=== PATIENT | female | born 2000 | race Caucasian/White ===

== ENCOUNTER 2022-04-26 12:52 | Outpatient (CLI) | payer OTHER, SELFPAY ==
[2022-04-26 13:44] LABS: Beta HCG Quantitative < 2.39 mIU/ML
[2022-04-30 14:16] LABS: Progesterone 0.6 ng/mL (***)
== END 2022-04-26 12:53 | disposition home or self-care (01) ==
PROVIDERS: Visit Provider Obstetrics & Gynecology
DX: O20.0 Threatened abortion (principal)
CPT/HCPCS: 36415; 84144; 84702; 85461

== ENCOUNTER 2022-12-22 11:37 | Outpatient (CLI) | payer OTHER, SELFPAY ==
[2022-12-22 13:08] LABS: Beta HCG Quantitative < 2.39 mIU/ML
== END 2022-12-22 11:38 | disposition home or self-care (01) ==
PROVIDERS: Visit Provider Obstetrics & Gynecology
DX: N91.2 Amenorrhea, unspecified (principal)
CPT/HCPCS: 36415; 84702

== ENCOUNTER 2022-12-22 13:58 | Outpatient (CLI) | payer OTHER, SELFPAY ==
--- NOTE | ~2022-12-22 | CT_ITS ---
EXAMINATION: CT abdomen pelvis w con DATE: 12/22/2022 14:22 INDICATION: Upper abdominal pain. TECHNIQUE: Computed tomography (CT) of the abdomen and pelvis was performed with 100 mL Omnipaque 350 intravenous contrast. Automated exposure control and iterative reconstruction technique were employe d. The dose-length product was 846.25 mGy-cm. COMPARISON: None. FINDINGS: The visualized portions of the lung bases are clear without pneumonia or pleural effusion. The heart size is normal. No pericardial effusion. The liver, gallbladder, spleen, pancreas, and left adrenal gland are normal. The right adrenal gland is small and calcified. The kidneys are normal. Th ere are no dilated loops of bowel. The appendix is normal. There is physiologic fluid in the pelvis. There are no pathologically enlarged lymph nodes. The bones are unremarkable. IMPRESSION: 1. No etiology for the patient's symptoms. Reviewed, dictated and finalized at location A. UTER OPERATIONS SPECIALIST
== END 2022-12-22 13:59 | disposition home or self-care (01) ==
DX: R10.12 Left upper quadrant pain (principal)
CPT/HCPCS: 36415; 74177; 84702; Q9967

== ENCOUNTER 2023-01-17 08:37 | Outpatient (CLI) | payer OTHER, SELFPAY ==
[2023-01-17 10:02] LABS: Alanine Aminotransferase 77 U/L (6-35); Albumin Level 5.3 g/dL (3.5-5.1); Alkaline Phosphatase 115 U/L (38-126); Anion Gap 10 mmol/L (8-16); Aspartate Amino Transferase 39 U/L (14-36); Bilirubin,Total 0.7 mg/dL (0.2-1.3); Blood Urea Nitrogen 10 mg/dL (7-17); Calcium 9.6 mg/dL (8.4-10.2); Carbon Dioxide 27 mmol/L (22-30); Chloride 105 mmol/L (98-107); Estimated Glomerular Filt Rate > 60; Glucose 99 mg/dL (65-110); Sodium 142 mmol/L (137-145)
[2023-01-17 10:05] LABS: INR 0.9; Prothrombin Time 12.1 Seconds (11.1-14.7)
[2023-01-17 10:33] LABS: Rapid Plasma Reagin Non-Reactive (NonReactive)
[2023-01-17 10:39] LABS: Cortisol Random 5.73 ug/dL
[2023-01-17 10:56] LABS: HIV 1/2 Ab P24 Ag Result Negative (Negative)
[2023-01-17 11:17] LABS: Hepatitis B Surface Antigen Negative (Negative)
[2023-01-17 11:23] LABS: HAV RESULT Negative (Negative); Hepatitis B Core IgM Result Negative (Negative)
[2023-01-17 11:35] LABS: Hepatitis C Virus Antibody Negative (Negative)
[2023-01-19 16:53] LABS: NIL 0.02 IU/mL; Quantiferon TB Plus, 1T NEGATIVE (NEGATIVE)
[2023-01-19 19:27] LABS: GGT 30 U/L (3-40)
[2023-01-21 09:54] LABS: H Band Histoplasma Negative (Negative); M Band Histoplasma Negative (Negative)
[2023-01-23 02:25] LABS: Anti Cardio Antibody IgM <2.0 MPL-U/mL (<20.0); Anti Cardiolipin Antibody IgA <2.0 APL-U/mL (<20.0); Anti Cardiolipin Antibody IgG <2.0 GPL-U/mL (<20.0)
[2023-01-25 15:07] LABS: PS/PT AB IgM <9 U (<=30)
[2023-01-30 15:17] LABS: PS/PT AB IgG <9
== END 2023-01-17 08:38 | disposition home or self-care (01) ==
LOC: ANHLAB 08:42
DX: R74.01 Elevation of levels of liver transaminase levels (principal); E27.9 Disorder of adrenal gland, unspecified
CPT/HCPCS: 36415; 80053; 80074; 82533; 82977; 83520; 85610; 86146; 86480; 86592; 86698; 86703; G0432

== ENCOUNTER 2023-02-07 12:11 | Outpatient (CLI) | payer OTHER, SELFPAY ==
[2023-02-07 12:51] LABS: Basophils Percent Auto 0.4 % (0.2-1.2); Eosinophils Absolute Auto 0.1 K/mm3 (0-0.3); Eosinophils Percent Auto 1.6 % (0-4.4); Hematocrit 42.9 % (37.0-47.0); Hemoglobin 14.3 g/dL (12.0-15.0); Immature Granulocyte Absolute 0.03 K/mm3 (0.00-0.031); Immature Granulocyte Percent A 0.3 % (0-0.5); Lymphocytes Absolute Auto 3.47 K/mm3 (0.9-3.2); Lymphocytes Percent Auto 38.6 % (18.3-44.2); Mean Corpuscular HGB Conc 33.3 g/dl (32-36); Mean Corpuscular Hemoglobin 31.4 pg (26-34); Mean Corpuscular Volume 94.1 fl (80-100); Mean Platelet Volume 9.2 fl (7.4-10.4); Monocytes Absolute Auto 0.4 K/mm3 (0.1-0.6); Monocytes Percent Auto 4.3 % (2.6-8.5); Neutrophils Absolute Auto 4.9 K/mm3 (1.3-6.7); Neutrophils Percent Auto 54.8 % (45.5-73.1); Platelet Count Result 277 k/mm3 (150-375); Red Blood Count 4.56 M/mm3 (4.2-5.4); Red Cell Distribution Width 12.7 % (11.5-14.5)
[2023-02-07 13:25] LABS: Beta HCG Quantitative 11.16 mIU/ML
== END 2023-02-07 12:12 | disposition home or self-care (01) ==
LOC: ANHLAB 12:16
PROVIDERS: Visit Provider Obstetrics & Gynecology
DX: N91.2 Amenorrhea, unspecified (principal)
CPT/HCPCS: 36415; 84702; 85025

== ENCOUNTER 2023-02-09 13:30 | Outpatient (CLI) | payer OTHER, SELFPAY ==
[2023-02-09 14:23] LABS: Beta HCG Quantitative 13.84 mIU/ML
== END 2023-02-09 13:31 | disposition home or self-care (01) ==
LOC: ANHLAB 13:33
PROVIDERS: Visit Provider Obstetrics & Gynecology
DX: Z32.01 Encounter for pregnancy test, result positive (principal)
CPT/HCPCS: 36415; 84702

== ENCOUNTER 2023-03-15 07:37 | Outpatient (CLI) | payer OTHER, SELFPAY ==
[2023-03-15 09:30] LABS: Beta HCG Quantitative < 2.39 mIU/ML
[2023-03-15 09:43] LABS: Cortisol Random 0.91 ug/dL
== END 2023-03-15 07:38 | disposition home or self-care (01) ==
PROVIDERS: Referring Provider Obstetrics & Gynecology
DX: O20.0 Threatened abortion (principal)
CPT/HCPCS: 36415; 82530; 82533; 84702

== ENCOUNTER 2023-03-16 09:26 | Outpatient (NON) | payer OTHER, SELFPAY | END 2023-03-16 09:27 | disposition home or self-care (01) | DX: R89.1 Abnormal level of hormones in specimens from other organs, systems and tissues (principal) | CPT/HCPCS: 36415; 82530 ==

== ENCOUNTER 2023-11-12 09:55 | Outpatient (CLI) | payer OTHER, SELFPAY ==
[2023-11-12 10:44] LABS: Basophils Percent Auto 0.5 % (0.2-1.2); Eosinophils Absolute Auto 0.1 K/mm3 (0-0.3); Hematocrit 42.7 % (37.0-47.0); Hemoglobin 13.8 g/dL (12.0-15.0); Immature Granulocyte Absolute 0.01 K/mm3 (0.00-0.031); Immature Granulocyte Percent A 0.2 % (0-0.5); Lymphocytes Absolute Auto 3.14 K/mm3 (0.9-3.2); Lymphocytes Percent Auto 47.8 % (18.3-44.2); Mean Corpuscular HGB Conc 32.3 g/dl (32-36); Mean Corpuscular Hemoglobin 30.3 pg (26-34); Mean Corpuscular Volume 93.8 fl (80-100); Mean Platelet Volume 9.4 fl (7.4-10.4); Monocytes Absolute Auto 0.4 K/mm3 (0.1-0.6); Monocytes Percent Auto 6.5 % (2.6-8.5); Neutrophils Absolute Auto 2.8 K/mm3 (1.3-6.7); Platelet Count Result 280 k/mm3 (150-375); Red Blood Count 4.55 M/mm3 (4.2-5.4); Red Cell Distribution Width 12.3 % (11.5-14.5); White Blood Count 6.6 K/mm3 (4.5-10.0)
[2023-11-12 10:55] LABS: Alanine Aminotransferase 145 U/L (6-35); Albumin Level 4.5 g/dL (3.5-5.1); Alkaline Phosphatase 99 U/L (38-126); Anion Gap 6 mmol/L (8-16); Aspartate Amino Transferase 65 U/L (14-36); Bilirubin,Total 0.6 mg/dL (0.2-1.3); Blood Urea Nitrogen 10 mg/dL (7-17); CRP 0.9 mg/dL (<1.0); Calcium 9.3 mg/dL (8.4-10.2); Carbon Dioxide 29 mmol/L (22-30); Chloride 105 mmol/L (98-107); Estimated Glomerular Filt Rate > 60; Glucose 93 mg/dL (65-110); Potassium 4.4 mmol/L (3.4-5.0); Sodium 140 mmol/L (137-145)
[2023-11-12 11:04] LABS: Immunoglobulin A 312 mg/dL (70-400)
[2023-11-12 11:10] LABS: Beta HCG Quantitative < 2.39 mIU/ML
[2023-11-12 11:24] LABS: Thyroid Stimulating Hormone 0.516 uIU/mL (0.465-4.680)
[2023-11-12 12:17] LABS: Folic Acid > 20.0 ng/mL (2.76->20)
[2023-11-16 18:32] LABS: Tissue Transglutaminase IgA Ab <1.0 U/mL (<15.0)
== END 2023-11-12 09:56 | disposition home or self-care (01) ==
PROVIDERS: Referring Provider Advanced Practice Midwife
DX: K52.9 Noninfective gastroenteritis and colitis, unspecified (principal); N91.2 Amenorrhea, unspecified
CPT/HCPCS: 36415; 80053; 82607; 82746; 82784; 84443; 84702; 85025; 86140; 86364

== ENCOUNTER 2024-05-21 07:33 | Outpatient (CLI) | payer OTHER, SELFPAY ==
--- NOTE | ~2024-05-21 | MR_ITS ---
MR brain/brain stem wo/w con Ordering provider: Vikram Priest MD History: 23 years Female with . ABN PROLACTIN . Comparison: None Technique: MRI brain was performed with and without contrast. 20 mL of MultiHance was given IV. FINDINGS: BONES: Normal. CRANIOCERVICAL JUNCTION: normal. PITUITARY: No enlargement seen. No abnormal enhancing lesion in the pituitary gland. MAJOR INTRACRANIAL VESSELS: Normal flow void. OPTIC NERVES AND CRANIAL NERVES VII AND VIII COMPLEXES: Grossly normal. BRAIN PARENCHYMA AND CSF SPACES: No visible white matter disease. The brainstem and cerebellum are n ormal. No acute or chronic intracranial hemorrhage. No extra axial fluid collections. Diffusion weigh mamadou and ADC mapping images reveal no recent ischemia. No midline shift or mass effect. No abnormal co ntrast enhancement. PARANASAL SINUSES: Normal. MASTOIDS: Normal SUPERFICIAL/SURROUNDING SOFT TISSUES: Normal. IMPRESSION: 1. No definite abnormality seen in the brain and the pituitary gland. 2. . No abnormal enhancement in the brain and pituitary gland.. Reviewed, dictated and finalized at location A.
== END 2024-05-21 07:34 | disposition home or self-care (01) ==
PROVIDERS: Visit Provider Obstetrics & Gynecology
DX: R94.7 Abnormal results of other endocrine function studies (principal)
CPT/HCPCS: 70553; A9577

== ENCOUNTER 2024-06-11 09:11 | Outpatient (RCR) | payer OTHER, SELFPAY ==
[2024-06-09 09:47] LABS: Beta HCG Quantitative 184.72 mIU/ML
[2024-06-11 10:07] LABS: Beta HCG Quantitative 403.98 mIU/ML
== END 2024-09-07 23:59 | disposition home or self-care (01) ==
LOC: ANHLAB 09:11
PROVIDERS: Visit Provider Obstetrics & Gynecology
DX: N96 Recurrent pregnancy loss (principal)
CPT/HCPCS: 36415; 84702

== ENCOUNTER 2024-06-16 10:50 | Outpatient (CLI) | payer OTHER, SELFPAY | END 2024-06-16 10:51 | disposition home or self-care (01) | LOC: ANHLAB 10:53 | PROVIDERS: Visit Provider Obstetrics & Gynecology | DX: Z32.01 Encounter for pregnancy test, result positive (principal) | CPT/HCPCS: 36415; 84702 ==

== ENCOUNTER 2024-09-15 12:46 | Emergency (ER) | payer OTHER, SELFPAY ==
--- NOTE | ~2024-09-15 | US_ITS ---
LIMITED OBSTETRIC ULTRASOUND Ordering provider: Yolis Romero PA-C History: . 18 weeks, pain in lower abd . Comparison: None. FINDINGS: MATERNAL CERVIX: Not visualized. PRESENTATION: Vertex Longitudinal lie. PLACENTAL LOCATION: Posterior fundal. No previa. Distance from cervix is 5.3 cm. HEART RATE: 147 bpm (normal is between 110 to 160 bpm). AMNIOTIC FLUID INDEX: Normal. The GREG is 11 cm. 5th percentile is 8.7 cm. 95th percentile is 20.2 cm. Largest vertical pocket is 3.7 cm. OTHER: Maternal ovaries not visualized. IMPRESSION: Single live fetus of cephalic presentation. Reviewed, dictated and finalized at location A. UCTION SANITIZER
[2024-09-15 13:25] VITALS: BP 109/70; PULSE 85; RESP 18; TEMP 36.5; O2SAT 98
--- NOTE | 2024-09-15 14:58 | ED.ABDPAIN ---
HPI - Abdominal Pain General Chief Complaint: Abdominal Pain <Yolis Romero PA-C - Last Filed: 09/15/24 15:05> Stated Complaint: 18 weeks , abd discomfort <Yolis Romero PA-C - Last Filed: 09/15/24 15:05> Time Seen by Provider: 09/15/24 14:58 <Yolis Romero PA-C - Last Filed: 09/15/24 15:05> Focused HPI: Patient is a 24 y/o female who presents to the ED with c/o lower abdominal cramping. Patient is currently 18 weeks gestation, (hx of 2 miscarriages). [address] Priest with OBGYN. Reported having some lower abdominal cramping this morning. Lasted for approx 5 minutes. States she feels pressure with urination and having BMs. Referred to the ED for further eval. Denies dysuria, hematuria, vaginal bleeding, N/V. Has had diarrhea but notes she resumed her metformin 1 week ago. GENERAL: Well-appearing, obese with BMI of 35.7, and in no acute distress. HEAD: Normocephalic, atraumatic. CHEST: Clear to auscultation. ?No respiratory distress. HEART: Regular rate and rhythm.? ABD: No significant focal tenderness throughout lower abdomen. NEURO: ?Alert and oriented x3. Patient screened in triage and initial orders placed.? ?Additional care and disposition to be based upon?diagnostic testing and treatment. <Yolis Romero PA-C - Last Filed: 09/15/24 15:05> Source: patient <Yolis Romero PA-C - Last Filed: 09/15/24 15:05> Mode of arrival: ambulatory <Yolis Romero PA-C - Last Filed: 09/15/24 15:05> Limitations: no limitations <Yolis Romero PA-C - Last Filed: 09/15/24 15:05> History of Present Illness HPI narrative: I agree with the above HPI <Matt Miller MD - Last Filed: 09/15/24 18:30> Related Data Allergies/Adverse Reactions: Allergies Allergy/AdvReac Type Severity Reaction Status Date / Time amoxicillin Allergy Anaphylaxis Verified 11/18/24 13:32 cefdinir Allergy Anaphylaxis Verified 09/15/24 13:32 <Yolis Romero PA-C - Last Filed: 09/15/24 15:05> Review of Systems Review of Systems: All systems reviewed & are unremarkable except as noted in HPI and below <Matt Miller MD - Last Filed: 09/15/24 18:30> Exam Narrative: APPEARANCE: Well appearing, no pain, no distress, well-nourished. HEAD: normocephalic, atraumatic. EYES: PERRLA/EOMI, conjunctivae clear. NOSE: Normal no drainage EARS:TMS clear with good light reflex. THROAT: Pharynx clear, no exudate. NECK: Supple. No adenopathy, no masses. RESPIRATORY: Airway patent, respirations nonlabored. Clear to auscultation bilaterally, no rales, rhonchi, wheezing. CARDIOVASCULAR: Regular rate and rhythm without murmurs rubs or gallops. ABDOMINAL: Soft, nontender, nondistended, normal bowel sounds MUSCULOSKELETAL: Moves all extremities. Strength/ROM intact, No edema, No calf tenderness. NEURO: Alert. Cranial nerves II through XII intact. Good gait. Good coordination SKIN: Warm, dry. Normal Color <Matt Miller MD - Last Filed: 09/15/24 18:30> Course Vital Signs Vital signs: Vital Signs Temperature 97.7 F 09/15/24 13:25 Pulse Rate 85 09/15/24 13:25 Respiratory Rate 18 09/15/24 13:25 Blood Pressure 109/70 09/15/24 13:25 Pulse Oximetry 98 09/15/24 13:25 Oxygen Delivery Room Air 09/15/24 13:25 Temperature 98.4 F 09/15/24 16:21 Pulse Rate 74 09/15/24 16:21 Respiratory Rate 16 09/15/24 16:21 Blood Pressure 95/51 L 09/15/24 16:21 Pulse Oximetry 100 09/15/24 16:21 Oxygen Delivery Room Air 09/15/24 13:25 <Yolis Romero PA-C - Last Filed: 09/15/24 15:05> Vital Signs Temperature 97.7 F 09/15/24 13:25 Pulse Rate 85 09/15/24 13:25 Respiratory Rate 18 09/15/24 13:25 Blood Pressure 109/70 09/15/24 13:25 Pulse Oximetry 98 09/15/24 13:25 Oxygen Delivery Room Air 09/15/24 13:25 Temperature 98.4 F 09/15/24 16:21 Pulse Rate 74 09/15/24 16:21 Respiratory Rate 16 09/15/24 16:21 Blood Pressure 95/51 L 09/15/24 16:21 Pulse Oximetry 100 09/15/24 16:21 Oxygen Delivery Room Air 09/15/24 13:25 <Matt Miller MD - Last Filed: 09/15/24 18:30> MDM - Abdominal Pain MDM Narrative Medical decision making narrative: MSE by KWAN in triage. <Yolis Romero PA-C - Last Filed: 09/15/24 15:05> MSE by KWAN in triage. Bedside M-mode ultrasound showed a heart rate of 140-145 with active movement. Patient is afebrile with no leukocytosis and hemoglobin of 12.9. Patient has no significant abnormalities on her CMP and patient's UA was negative for infection. Bedside M-mode ultrasound did show a heart rate of 141 45. On re-examination after rehydration patient reports that her cramping has resolved. All questions concerns were addressed patient was comfortable the plan for discharge and close follow-up with her OB Gyne. <Matt Miller MD - Last Filed: 09/15/24 18:30> Differential Diagnosis Differential diagnosis: Likely abdominal pain, constipation, diverticulitis, pancreatitis and small bowel obstruction <Matt Miller MD - Last Filed: 09/15/24 18:30> Lab Data Attestation: I reviewed the patient's lab results. <Matt Miller MD - Last Filed: 09/15/24 18:30> Result diagrams: 09/15/24 16:39 09/15/24 16:39 <Yolis Romero PA-C - Last Filed: 09/15/24 15:05> Labs: Lab Results 09/15/24 09/15/24 Range/Units 15:57 16:39 WBC 9.2 (4.5-10.0) K/mm3 RBC 4.11 L (4.2-5.4) M/mm3 Hgb 12.9 (12.0-15.0) g/dL Hct 37.6 (37.0-47.0) % MCV 91.5 (80-100) fl MCH 31.4 (26-34) pg MCHC 34.3 (32-36) g/dl RDW 13.4 (11.5-14.5) % Plt Count 270 (150-375) k/mm3 MPV 9.7 (7.4-10.4) fl Immature Gran % (Auto) 0.3 (0-0.5) % Neut % (Auto) 63.6 (45.5-73.1) % Lymph % (Auto) 30.9 (18.3-44.2) % [place] % (Auto) 4.2 (2.6-8.5) % Eos % (Auto) 0.8 (0-4.4) % Baso % (Auto) 0.2 (0.2-1.2) % Lymph # (Auto) 2.85 (0.9-3.2) K/mm3 [place] # (Auto) 0.4 (0.1-0.6) K/mm3 Eos # (Auto) 0.1 (0-0.3) K/mm3 Baso # (Auto) 0.0 (0.0-0.1) K/mm3 Abs Immat Gran (auto) 0.03 (0.00-0.031) K/mm3 Absolute Neuts (auto) 5.9 (1.3-6.7) K/mm3 Absolute Nucleated RBC 0.000 (0.0-0.012) K/mm3 Nucleated RBC % 0.0 (0.0-0.2) % Sodium 138 (137-145) mmol/L Potassium 3.8 (3.4-5.0) mmol/L Chloride 106 (98-107) mmol/L Carbon Dioxide 23 (22-30) mmol/L Anion Gap 9 (4-12) mmol/L BUN 4 L D (7-17) mg/dL Creatinine 0.40 L (0.7-1.0) mg/dL Estim Creat Clear Calc 207 ml/min Estimated GFR > 60 (59 - ) Glucose 79 (65-110) mg/dL Calcium 9.4 (8.4-10.2) mg/dL Total Bilirubin 0.8 (0.2-1.3) mg/dL AST 38 H (14-36) U/L ALT 48 H (6-35) U/L Alkaline Phosphatase 94 (38-126) U/L Total Protein 8.0 (6.3-8.2) g/dL Albumin 4.2 (3.5-5.1) g/dL Urine Color Dark yellow (Yellow) Urine Appearance Clear (Clear) Urine pH 6.0 (5.0-9.0) Ur Specific [place] 1.022 (1.001-1.035) Urine Protein Negative (Negative) mg/dL Urine Glucose (UA) Negative (Negative) mg/dL Urine Ketones 1+ H (Negative) mg/dL Ur Blood (Man) Negative (Negative) Urine Nitrate Negative (Negative) Urine Bilirubin 1+ H (Negative) Urine Urobilinogen 1.0 (<2.0) mg/dL Leukocyte Esterase Rfl Negative (Negative) JOO/UL <Yolis Romero PA-C - Last Filed: 09/15/24 15:05> Lab Results 09/15/24 09/15/24 Range/Units 15:57 16:39 WBC 9.2 (4.5-10.0) K/mm3 RBC 4.11 L (4.2-5.4) M/mm3 Hgb 12.9 (12.0-15.0) g/dL Hct 37.6 (37.0-47.0) % MCV 91.5 (80-100) fl MCH 31.4 (26-34) pg MCHC 34.3 (32-36) g/dl RDW 13.4 (11.5-14.5) % Plt Count 270 (150-375) k/mm3 MPV 9.7 (7.4-10.4) fl Immature Gran % (Auto) 0.3 (0-0.5) % Neut % (Auto) 63.6 (45.5-73.1) % Lymph % (Auto) 30.9 (18.3-44.2) % [place] % (Auto) 4.2 (2.6-8.5) % Eos % (Auto) 0.8 (0-4.4) % Baso % (Auto) 0.2 (0.2-1.2) % Lymph # (Auto) 2.85 (0.9-3.2) K/mm3 [place] # (Auto) 0.4 (0.1-0.6) K/mm3 Eos # (Auto) 0.1 (0-0.3) K/mm3 Baso # (Auto) 0.0 (0.0-0.1) K/mm3 Abs Immat Gran (auto) 0.03 (0.00-0.031) K/mm3 Absolute Neuts (auto) 5.9 (1.3-6.7) K/mm3 Absolute Nucleated RBC 0.000 (0.0-0.012) K/mm3 Nucleated RBC % 0.0 (0.0-0.2) % Sodium 138 (137-145) mmol/L Potassium 3.8 (3.4-5.0) mmol/L Chloride 106 (98-107) mmol/L Carbon Dioxide 23 (22-30) mmol/L Anion Gap 9 (4-12) mmol/L BUN 4 L D (7-17) mg/dL Creatinine 0.40 L (0.7-1.0) mg/dL Estim Creat Clear Calc 207 ml/min Estimated GFR > 60 (59 - ) Glucose 79 (65-110) mg/dL Calcium 9.4 (8.4-10.2) mg/dL Total Bilirubin 0.8 (0.2-1.3) mg/dL AST 38 H (14-36) U/L ALT 48 H (6-35) U/L Alkaline Phosphatase 94 (38-126) U/L Total Protein 8.0 (6.3-8.2) g/dL Albumin 4.2 (3.5-5.1) g/dL Urine Color Dark yellow (Yellow) Urine Appearance Clear (Clear) Urine pH 6.0 (5.0-9.0) Ur Specific [place] 1.022 (1.001-1.035) Urine Protein Negative (Negative) mg/dL Urine Glucose (UA) Negative (Negative) mg/dL Urine Ketones 1+ H (Negative) mg/dL Ur Blood (Man) Negative (Negative) Urine Nitrate Negative (Negative) Urine Bilirubin 1+ H (Negative) Urine Urobilinogen 1.0 (<2.0) mg/dL Leukocyte Esterase Rfl Negative (Negative) JOO/UL <Matt Miller MD - Last Filed: 09/15/24 18:30> Imaging Data Radiologist's impression: ITS Impressions Obstetrics Ultrasound 09/15/24 15:29 IMPRESSION: Single live fetus of cephalic presentation. <Yolis Romero PA-C - Last Filed: 09/15/24 15:05> ITS Impressions Obstetrics Ultrasound 09/15/24 15:29 IMPRESSION: Single live fetus of cephalic presentation. <Matt Miller MD - Last Filed: 09/15/24 18:30> Discharge Plan Discharge Clinical Impression: Abdominal cramping affecting <Yolis Romero PA-C - Last Filed: 09/15/24 15:05> Patient Disposition: Home, Self-Care <Yolis Romero PA-C - Last Filed: 09/15/24 15:05> Condition: Stable <Yolis Romero PA-C - Last Filed: 09/15/24 15:05> Instructions: Antibiotic Form, (ED), Abdominal Pain (ED) <Yolis Romero PA-C - Last Filed: 09/15/24 15:05> Additional Instructions: Drink plenty of water. Have close follow-up with your OB Gyne. If you have any worsening symptoms then please call or return to the emergency department. <Yolis Romero PA-C - Last Filed: 09/15/24 15:05> Follow-up/Referrals: PHYSICIAN,ASSISTANT BRAND MANAGER [Primary Care Provider] - <Yolis Romero PA-C - Last Filed: 09/15/24 15:05>
[2024-09-15 16:08] LABS: Add Urine Microscopic? YES; Appearance Urine Clear (Clear); Bilirubin Urine 1+ (Negative); Blood Urine Negative (Negative); Color Urine Dark Yellow (Yellow); Glucose Urine UA Negative (Negative); Ketones Urine 1+ mg/dL (Negative); Leukocyte Esterase Ur Negative LEU/UL (Negative); Nitrate Urine Negative (Negative); Protein Urine Negative (Negative); Specific Grav Ur 1.022 (1.001-1.035)
[2024-09-15 16:21] VITALS: BP 95/51; PULSE 74; RESP 16; TEMP 36.9; O2SAT 100
[2024-09-15 16:45] LABS: Basophils Percent Auto 0.2 % (0.2-1.2); Eosinophils Absolute Auto 0.1 K/mm3 (0-0.3); Eosinophils Percent Auto 0.8 % (0-4.4); Hematocrit 37.6 % (37.0-47.0); Hemoglobin 12.9 g/dL (12.0-15.0); Immature Granulocyte Absolute 0.03 K/mm3 (0.00-0.031); Immature Granulocyte Percent A 0.3 % (0-0.5); Lymphocytes Absolute Auto 2.85 K/mm3 (0.9-3.2); Lymphocytes Percent Auto 30.9 % (18.3-44.2); Mean Corpuscular HGB Conc 34.3 g/dl (32-36); Mean Corpuscular Hemoglobin 31.4 pg (26-34); Mean Corpuscular Volume 91.5 fl (80-100); Mean Platelet Volume 9.7 fl (7.4-10.4); Monocytes Absolute Auto 0.4 K/mm3 (0.1-0.6); Monocytes Percent Auto 4.2 % (2.6-8.5); Neutrophils Absolute Auto 5.9 K/mm3 (1.3-6.7); Neutrophils Percent Auto 63.6 % (45.5-73.1); Platelet Count Result 270 k/mm3 (150-375); Red Blood Count 4.11 M/mm3 (4.2-5.4); Red Cell Distribution Width 13.4 % (11.5-14.5); White Blood Count 9.2 K/mm3 (4.5-10.0)
[2024-09-15] MEDS: SODIUM CHLORIDE 0.9% IV 1,000 ML 999 ML IV CONT (16:45)
[2024-09-15 17:03] LABS: Alanine Aminotransferase 48 U/L (6-35); Albumin Level 4.2 g/dL (3.5-5.1); Alkaline Phosphatase 94 U/L (38-126); Anion Gap 9 mmol/L (4-12); Aspartate Amino Transferase 38 U/L (14-36); Bilirubin,Total 0.8 mg/dL (0.2-1.3); Blood Urea Nitrogen 4 mg/dL (7-17); Calcium 9.4 mg/dL (8.4-10.2); Carbon Dioxide 23 mmol/L (22-30); Chloride 106 mmol/L (98-107); Estimated CRCL calculation 207 ml/min; Estimated Glomerular Filt Rate > 60; Glucose 79 mg/dL (65-110); Potassium 3.8 mmol/L (3.4-5.0); Sodium 138 mmol/L (137-145)
[2024-09-15 18:32] VITALS: BP 102/64; PULSE 76; RESP 16; TEMP 36.7; O2SAT 98
== END 2024-09-15 18:33 | disposition home or self-care (01) ==
PROVIDERS: Physician Assistant; Emergency Provider Emergency Medicine
DX: O26.892 Other specified pregnancy related conditions, second trimester (principal); R10.30 Lower abdominal pain, unspecified; Z3A.18 18 weeks gestation of pregnancy; Z79.84 Long term (current) use of oral hypoglycemic drugs
CPT/HCPCS: 36415; 76815; 80053; 81001; 85025; 96360; 99284; J7030

== ENCOUNTER 2024-12-22 09:22 | Outpatient (CLI) | payer OTHER, SELFPAY ==
--- OUTSIDE RECORDS SUMMARY | 2024-12-22 10:04 | XMS_ITS | Clinical Summary ---
Author Organization [facility] Address [address] [place] [id number] Care Team Providers Care Operation Supervisor Name Role Phone Carlos Manuel RADFORD NP, Major Aquino Primary Care Provider Allergies Active Allergy Reactions Criticality Noted Date Comments Amoxicillin Itching High 03/01/2017 Throat itchy Cefdinir Angioedema,Hives,Rash High 11/18/2018 Medications buPROPion SR (WELLBUTRIN SR) 150 mg 12 hr tablet Take 150 mg by mouth 2 (two) times a day Active EPINEPHrine 0.3 mg/0.3 mL auto-injection syringe Inject 0.3 mg into the muscle as instructed as needed 9 Active hydrOXYzine (ATARAX) 25 mg tablet Take 25 mg by mouth 4 (four) times a day as needed 1 Active ibuprofen (ADVIL,MOTRIN) 800 mg tablet Take 800 mg by mouth every 6 (six) hours as needed Active methylPREDNISol one (MEDROL DOSEPACK) 4 mg Dosepack Take by mouth as directed 1 Active omeprazole (PriLOSEC) 20 mg capsule Take 20 mg by mouth daily before breakfast 0 Active Active Problems Problem Noted Date Diagnosed Date Bilateral wrist pain 08/03/2019 Irritable bladder 03/28/2019 Migraine with aura and witho ut status migrainosus, not intractable 03/28/2019 Sleep disorder 03/05/2019 Overview (06/24/2021): Last Assessment & Plan: I have reviewed history with one of our other sleep specialists as well. I think she would be best served by a visit to our sleep center for comprehensive review. At this time unlikely to represent MARIA E, narcolepsy or PLMS We went over sleep hygiene issues Last Assessment & Plan: I have reviewed history with one of our other sleep specialists as well. I think she would be best served by a visit to our sleep center for comprehensive review. At this time unlikely to represent MARIA E, narcolepsy or PLMS We went over sleep hygiene issues Injury of index finger 03/01/2017 Asthma 07/27/2015 Overview (06/24/2021): Asthma, unspecified Asthma, unspecified type, unspecified Encounters Date Type Department Care Team Description 11/05/2024 11:35 AM SUPERVISOR LATHING [address] [phone] Pre-employment health screening examination 11/05/2024 Orders Only [facility] [address] [place] [address] Room 3420 (Third Floor) [place] [address] Tony Levy MD Pre-employment health screening examination (Primary Dx) from Last 3 Months Social History Tobacco Use Types Packs/Day Years Used Date Smoking Tobacco: Never Assessed Comments Unknown Sex and Gender Information Value Date Recorded Sex Assigned at Not on file Legal Sex Female 8:44 PM SUPERVISOR LATHING Gender Identity Not on file Sexual Orientation Not on file Obstetrics History Last Filed Vital Signs Vital Sign Reading Time Taken Comments Blood Pressure 116/77 10/27/2015 2:49 PM SUPERVISOR LATHING Pulse 102 10/27/2015 2:49 PM SUPERVISOR LATHING Temperature 36.6 C (97.9 F) 10/27/2015 2:49 PM SUPERVISOR LATHING Respiratory Rate - - Oxygen Saturation 100% 10/27/2015 2:49 PM SUPERVISOR LATHING Inhaled Oxygen Concentration - - Weight 63.5 kg (140 lb) 10/27/2015 2:49 PM SUPERVISOR LATHING Height 165.1 cm (5' 5 ) 10/27/2015 2:49 PM SUPERVISOR LATHING Body Mass Index 23.3 10/27/2015 2:49 PM SUPERVISOR LATHING Plan of Treatment Not on file Procedures Procedure Name Priority Date/Time Associated Diagnosis Comments T-SPOT.TB Routine 11/05/2024 11:44 AM SUPERVISOR LATHING Pre-employment health screening examination from Last 3 Months Results * T-SPOT.TB Blood (11/05/2024 11:44 AM SUPERVISOR LATHING) T-SPOT.TB Negative SeeBelow Comment: Normal Value: Negative A negative test result does not exclude the possibility of exposure to or infection with Mycobacterium tuberculosis (M. tuberculosis). Patients with recent exposure to TB infected individuals exhibiting a negative T-SPOT.TB result should be considered for retesting within 6 weeks or if other relevant clinical symptoms indicate. Results from T-SPOT.TB testing must be used in conjunction with each individual's epidemiological history, current medical status, and results of other diagnostic evaluations. The T-SPOT.TB test is qualitative and results are reported as positive, borderline or negative, given that the test controls perform as expected. In line with the Centers for Disease Control and Prevention's 2010 recommendation to report quantitative measurements alongside the qualitative result, the laboratory provides spot counts for informational purposes only. The T-SPOT.TB test should not be interpreted as a quantitative test. T-SPOT.TB Panel A Spot Count 0 [facility] ([place]) T-SPOT.TB Panel B Spot Count 0 [facility] ([place]) T-SPOT.TB Negative Control [facility]ed [facility] T-SPOT.TB Positive Control Passed [facility] ([place]) Comment: Test Performed at: [facility] [employer] [address] [place] [id number] BORA ARTEAGA,PHD Blood 11/05/2024 11:4 4 AM SUPERVISOR LATHING 11/05/2024 12:01 PM SUPERVISOR LATHING Narrative [facility] ([place] - 11/08/2024 1:48 PM SUPERVISOR LATHING Bill to [facility] - 1520 Patient is employed by/enrolled at:->[facility] [employer] [facility] Tony Levy MD LAB MICROBIOLOGY - GENERAL OR DERABLES Final Result [facility] Department [place] [address] from Last 3 Months Insurance Care Teams Operation Supervisor Relationship Specialty Start Date End Date Major Horowitz III EMERGENCY MANAGEMENT COORDINATOR PCP - General Family Practice 04/28/21
--- OUTSIDE RECORDS SUMMARY | 2024-12-22 10:04 | XMS_ITS | Referral Summary ---
Author Organization [facility] Address [address] [place] [address] Care Team Providers Care Wire Stitcher Name Role Phone Ilya Vaughn MD Primary Care Provide r Source Comments [facility],non-[facility] Affiliates and Associated Physician Practices is amultiple site organization consisting of ambulatory clinics and hospital sitesin [place], [place], [place] and [place]. This disclosure is being madepursuant to the Care Everywhere program and may not contain all information available regarding this patient. Last updated 18.[facility] Encounters Date Type Department Care Team Description 10/20/2024 7:27 AM PASTRY COOK HELPER - 10/20/2024 11:59 PM PASTRY COOK HELPER Hospital Encounter [facility] [address] [place] [id number] Jesi Busch MD Discharge Disposition: Home or Self Care 09/22/2024 7:17 AM PASTRY COOK HELPER - 09/22/2024 11:59 PM PASTRY COOK HELPER Hospital Encounter [facility] [address] [place] [id number] Benitez Villanueva MD Discharge Disposition: Home or Self Care from Last 3 Months Allergies Active Allergy Reactions Criticality Noted Date Comments Amoxicillin Itching 03/01/2017 Throat itchy Cefdinir Rash Medium 03/05/2019 Medications * Be aware that medications may not be up to date on this document. Alwaysverify current medications with the patient. Medication Sig Dispensed Refills Start Date End Date Status Vit-DSS-Fe Fum-FA ( vitamin with iron) tablet Take 1 (one) tablet by mouth once daily Active aspirin (Aspirin) 81 MG chew tabletIndications :Antiphospholipid syndrome Take 1 (one) tablet by mouth once daily Reasons: Antiphospholipid syndrome Active metFORMIN (Glucophage) 1000 MG tablet Take 1 (one) tablet by mouth 2 times daily with morning and evening meal Active Active Problems Problem Noted Date Diagnosed Date Sleep disorder 03/05/2019 Assessment & Plan (03/05/2019 4:35 PM CDT): I have reviewed history with one of our other sleep specialists as well. I think she would be best served by a visit to our sleep center for comprehensive review. At this time unlikely to represent MARIA E, narcolepsy or PLMS We went over sleep hygiene issues Injury of index finger 03/01/2017 Estimated Date of Delivery Comme nts Yes 02/15/2025 Based on last me nstrual period of 05/11/2024 Resolved Problems Problem Noted Date Diagnosed Date Resolved Date Diarrhea 07/05/2018 08/02/2018 Constipation 07/05/2018 08/02/2018 Immunizations Name Administration Dates Next Due DTAP, HISTORIC VACCINE 03/26/2008,2003,03/05/2003,01/05,2002 DTAP/IPV 03/26/2008, 4,01/05/2003,11/17 HEP B VACCINE, PED/ADOL 09/30/2003,01/05/2003, HIB-HAEMOPHILUS INFLUENZAE B CONJUGATE VACCINE 09/30/2003,01/05/2003,2002 Human Papilloma Virus Jaycee valent Vaccine 12/18/2014,08/25/2014,06/17/2014 INFLUENZA VACCINE, QUADR. (F LUZONE; FLULAVAL; FLUARIX; AFLURIA QUADRIVALENT; 6MO+), 0.5 ML (IIV4) 09/09/2020 MENINGOCOCCAL CONJUGATE (MCV4P) 06/05/2020,06/17 MMR 03/26/2008,09/30/2003 TDAP (7yrs+) 06/17/2014 VARICELLA 03/26/2008,09/30/2003 Social History Tobacco Use Types Packs/Day Years Used Date Smoking Tobacco: Former Cigarettes Q uit: 08/29/2017 Smokeless Tobacco: Never Tobacco Cessation:Counseling Given: Not Answered Comments:smoked for 4 months, 1/4 a day Alcohol Use Standard Drinks/Week Comments Not Currently 0 (1 standard drink = 0.6 oz pur e alcohol) occasional Estimated Date of Delivery Comme nts Yes 02/15/2025 Based on last me nstrual period of 05/11/2024 Sex and Gender Information Value Date Recorded Sex Assigned at Not on file Gender Identity Not on file Sexual Orientation Not on file Last Filed Vital Signs Vital Sign Reading Time Taken Comments Blood Pressure 109/77 08/27/2024 9:23 AM CDT Pulse 79 08/27/2024 9:23 AM CDT Temperature 36.6 C (97.9 F) 12/30/2020 10:37 AM PASTRY COOK HELPER Respiratory Rate 18 12/30/2020 10:37 AM PASTRY COOK HELPER Oxygen Saturation 99% 12/30/2020 10:37 AM PASTRY COOK HELPER Inhaled Oxygen Concentration - - Weight 96.6 kg (213 lb) 08/27/2024 9:23 AM CDT Height 165.1 cm (5' 5 ) 08/27/2024 9:23 AM CDT Body Mass Index 35.45 08/27/2024 9:23 AM CDT Plan of Treatment Not on file Procedures Procedure Name Priority Date/Time Associated Diagnosis Comments SONOGRAM - COMPLETE Routine 10/20/2024 7 :34 AM PASTRY COOK HELPER Antiphospholipid antibody syndrome (HCC) Prediabetes PCOS (polycystic ovarian syndrome) History of spontaneous Obesity affecting in second trimester, unspecified obesity type (HCC) 19 weeks gestation of (HCC) SONOGRAM - COMPLETE Routine 09/22/2024 7 :35 AM PASTRY COOK HELPER Antiphospholipid antibody syndrome (HCC) Prediabetes PCOS (polycystic ovarian syndrome) History of spontaneous Obesity affecting in second trimester, unspecified obesity type (HCC) 19 weeks gestation of (HCC) from Last 3 Months Results * SONOGRAM - COMPLETE (10/20/2024 7:34 AM PASTRY COOK HELPER) Only the most recent of2 resultswithin the time period is included. Linked Results Indication ======== Antiphospholipid Syndrome Hx of prediabetes- A1C 5.4 on 07/22 Obesity, Class II Metformin use History ====== OB History 3. Para 0 [id number] Lab Tests Test Date Result NIPT Low risk Maternal Assessment Physical Exam Height 165 cm, 5 ft 5 in. Weight 99 kg, 219 lb. Initial weight 102 kg, 224 lb. BMI 36.44 kg/m . Initial BMI 37.28 kg/m . Weight gain -2 kg, -5 lb Method ====== Transabdominal ultrasound. View: Good view ========= Matta . Number of fetuses: 1 Dating ====== Date Details Gest. age SONYA LMP 05/11/2024 23 w + 1 d 02/15/2025 Stated SONYA 23 w + 1 d 02/15/2025 U/S 10/20/2024 based upon AC, BPD, Femur, HC 23 w + 5 d 02/11/2025 Assigned dating based on the LMP, selected on 09/22/2024 23 w + 1 d 02/15/2025 General Evaluation Cardiac activity present. FHR 144 bpm. Presentation: variable Placenta: Placental site: posterior. The placenta measures 5.0 cm from the internal os of the cervix and is no longer low-lying Umbilical cord: Cord vessels: 3 vessel cord. Insertion site: normal insertion Amniotic fluid: Amount of AF: normal. MVP 4.3 cm Biometry BPD 57.6 mm 23w 4d 64% Hadlock HC 213.0 mm 23w 3d 43% Hadlock AC 195.0 mm 24w 1d 75% Hadlock Femur 42.1 mm 23w 5d 58% Hadlock Humerus 38.9 mm 23w 6d 60% [place] HC / AC 1.09 Weight Calculation: EFW 641 g 77% Hadlock EFW (lb,oz) 1 lb 7 oz EFW by Hadlock ([id number]) appropriate Growth Overview Exam date GA BPD (mm) HC (mm) AC (mm) FL (mm) HL (mm) EFW (g) 08/27/2024 15w 3d 31.7 69% 118 56% 97.7 67% 18.8 52% 17 30% 133 59% 09/22/2024 19w 1d 44.7 67% 163.1 39% 141.8 59% 31.1 62% 29.5 69% 298 68% 10/20/2024 23w 1d 57.6 64% 213 43% 195 75% 42.1 58% 38.9 60% 641 77% Anatomy The following structures appear normal: Face Lips. Profile. Nose. Nasal bone. Orbits. Heart / Thorax RVOT view. LVOT view. 4-mzhzew-bmagbts view. Aortic arch view. Bicaval view. Ductal arch view. Great vessels. Abdomen Stomach. Kidneys. Bladder. Extremities / Skeleton Right arm. Right hand. Left foot. The following structures were documented previously: Head / Neck Cranium. Lateral ventricles. Choroid plexus. Midline falx. Cavum septi pellucidi. Cerebellum. Cisterna magna. Thalami. Nuchal fold. Heart / Thorax 4-chamber view. 3-vessel view. Situs. Right lung. Left lung. Diaphragm. Abdomen Cord insertion. Bowel. Genitals. Spine Cervical spine. Thoracic spine. Lumbar spine. Sacral spine. Extremities / Skeleton Left arm. Left hand. Legs. Right foot. sex: female. Maternal Structures Cervix reassuring Approach - Transvaginal: Cervical length 4.30 cm Funneling absent Right Ovary Appears normal Left Ovary Appears normal Impression ========= Single, live, intrauterine at 23w 1d Interval growth is appropriate Amniotic fluid volume: normal No major malformations were seen within the limitations of ultrasound Reassuring transvaginal cervical length The placenta is no longer low-lying Follow-up ======== Follow up ultrasound in 4 weeks for serial growth assessment is recommended Coding ====== Procedures 49433: [place] 1999[address]: [place] Preg Uterus [facility]inal [facility] Anatomical Region Laterality Modality Other 10/20/2024 7:34 AM PASTRY COOK HELPER R Nile Ha MD [facility] ORDERABLES from Last 3 Months Care Teams Wire Stitcher Relationship Specialty Start Date End Date Ilya Vaughn MD [address] [place] [id number] PCP - General Pediatrics 03/05/19
--- OUTSIDE RECORDS SUMMARY | 2024-12-22 10:04 | XMS_ITS | Clinical Summary ---
Author Organization [facility] Address [address] [address] Care Team Providers Care Him Tech Name Role Phone Ilya Vaughn MD Primary Care Provide r Source Comments [facility],non-owned Affiliates and Associated Physician Practices is amultiple site organization consisting of ambulatory clinics and hospital sitesin [place], [place], [place] and [place]. This disclosure is being madepursuant to the Care Everywhere program and may not contain all information available regarding this patient. Last updated 18.[facility] Allergies Active Allergy Reactions Criticality Noted Date [...] Date Diarrhea 07/05/2018 08/02/2018 Constipation 07/05/2018 08/02/2018 Encounters Date Type Department Care Team Description 10/20/2024 7:27 AM WASHROOM OPERATOR - 10/20/2024 11:59 PM WASHROOM OPERATOR Hospital Encounter [facility] [address] [place] [id number] Jesi Busch MD Discharge Disposition: Home or Self Care 09/22/2024 7:17 AM WASHROOM OPERATOR - 09/22/2024 11:59 PM WASHROOM OPERATOR Hospital Encounter [facility] [address] [place] [id number] Benitez Villanueva MD Discharge Disposition: Home or Self Care from Last 3 Months Immunizations Name Administration Dates Next Due DTAP, HISTORIC VACCINE 03/26/2008,2003,03/05/2003,01/05,2002 DTAP/IPV 03/26/2008, 4,01/05/2003,11/17 HEP B VACCINE, PED/ADOL 09/30/2003,01/05/2003, HIB-HAEMOPHILUS INFLUENZAE B CONJUGATE VACCINE 09/30/2003,01/05/2003,2002 Human Papilloma Virus Jaycee valent Vaccine 12/18/2014,08/25/2014,06/17/2014 INFLUENZA VACCINE, QUADR. (F LUZONE; FLULAVAL; FLUARIX; AFLURIA QUADRIVALENT; 6MO+), 0.5 ML (IIV4) 09/09/2020 MENINGOCOCCAL CONJUGATE (MCV4P) 06/05/2020,06/17 MMR 03/26/2008,09/30/2003 TDAP (7yrs+) 06/17/2014 VARICELLA 03/26/2008,09/30/2003 Family History Medical History Relation Name Comments Hypertension Father Crohn's Disease Mother Hypertension Mother Relation Name Status Comments Brother Alive Father Alive Half-Sibling 1 Alive Half-Sibling 2 Alive Half-Sibling 3 Alive Half-Sibling 4 Alive Half-Sibling 5 Alive Mother Alive Social History Tobacco Use Types Packs/Day Years [...] 36.6 C (97.9 F) 12/30/2020 10:37 AM WASHROOM OPERATOR Respiratory Rate 18 12/30/2020 10:37 AM WASHROOM OPERATOR Oxygen Saturation 99% 12/30/2020 10:37 AM WASHROOM OPERATOR Inhaled Oxygen Concentration - - Weight 96.6 kg (213 lb) 08/27/2024 9:23 AM CDT Height 165.1 cm (5' 5 ) 08/27/2024 9:23 AM CDT Body Mass Index 35.45 08/27/2024 9:23 AM CDT Plan of Treatment Health Maintenance Due Date Last Done Comments HIV SCREENING 2017 CHLAMYDIA/GONORRHEA SCREENING 2018 MENINGOCOCCAL (Group B) VACCINE (1 of 2 - Standard) 2018 HEPATITIS C SCREENING 08/25/2020 DTAP/TDAP/TD VACCINES (7 - Td or Tdap) 06/17/2024 06/17/2014, 03/26/2008, 03/26/2008, Additional history exists COVID-19 VACCINE (2 - season) 2024 06/29/2022 INFLUENZA VACCINE (#1) 2024 3, 09/09/2020, 09/08/2020 DEPRESSION SCREENING 10/29/2024 OB-ONE HOUR GLUCOSE 11/09/2024 OB-TDAP CURRENT 11/16/2024 06/17/2014 OB-RHOGAM INJECTION 11/23/2024 PAP SMEAR 07/11/2027 07/11/2024 ZOSTER VACCINE (1 of 2) 2052 HEPATITIS B VACCINE Completed 09/30/2003, 01/05/2003, 2002 HIB VACCINE Completed 09/30/2003, 12/27, 2002 HPV VACCINE Completed 12/18/2014, 07/30, 06/17/2014 MENINGOCOCCAL VACCINE Completed 06/05/2020, 014 PNEUMOCOCCAL VACCINE Aged Out No long er eligible based on patient's age to complete this topic Respiratory Syncytial Virus (RSV) Vaccine Pt: or over 60 yrs (No Doses Required) Completed Procedures Procedure Name Priority Date/Time Associated Diagnosis Comments SONOGRAM - COMPLETE Routine 10/20/2024 7 :34 AM WASHROOM OPERATOR Antiphospholipid antibody syndrome (HCC) Prediabetes PCOS (polycystic ovarian syndrome) History of spontaneous Obesity affecting in second trimester, unspecified obesity type (HCC) 19 weeks gestation of (HCC) SONOGRAM - COMPLETE Routine 09/22/2024 7 :35 AM WASHROOM OPERATOR Antiphospholipid antibody syndrome (HCC) Prediabetes PCOS (polycystic ovarian syndrome) History of spontaneous Obesity affecting in second trimester, unspecified obesity type (HCC) 19 weeks gestation of (HCC) from Last 3 Months Results * SONOGRAM - COMPLETE (10/20/2024 7:34 AM WASHROOM OPERATOR) Only the most recent of2 resultswithin the time period is included. Linked Results Indication ======== Antiphospholipid Syndrome Hx of prediabetes- A1C 5.4 on 07/22 Obesity, Class II Metformin use History ====== OB History 3. Para 0 [id number] Lab Tests Test Date Result NIPT Low [...] Hadlock Humerus 38.9 mm 23w 6d 60% Natalie HC / AC 1.09 Weight Calculation: EFW 641 g 77% Hadlock EFW (lb,oz) 1 lb 7 oz EFW by Hadlock ([id number]) appropriate Growth Overview Exam date GA BPD [...] Heart / Thorax RVOT view. LVOT view. 6-uvcttz-yhanmkw view. Aortic arch view. Bicaval view. Ductal [...] growth assessment is recommended Coding ====== Procedures 81117: [place] [address]: US Preg Uterus Transvaginal Lovli PACS Anatomical Region Laterality Modality Other 10/20/2024 7:34 AM WASHROOM OPERATOR R Nile Ha MD [facility] ORDERABLES from Last 3 Months Care Teams Him Tech Relationship Specialty Start Date End Date Ilya Vaughn MD [address] [place] [address] PCP - General Pediatrics 03/05/19
--- OUTSIDE RECORDS SUMMARY | 2024-12-22 10:04 | XMS_ITS | Encounter Summary ---
Author Organization [facility] Address [facility] [place] [address] Care Team Providers Care Oral Surgery Physician Name Role Phone Ilya Vaughn MD Primary Care Provide r Bob Vaughn MOTEL FOOD SERVICE SUPERVISOR Primary Care Provider [phone] Major Horowitz CELL ATTENDANT HELPER Primary Care Provider [phone] Encounter Details Date Type Department Care Team (Late st Contact Info) Description 01/17/2012 Abstract [facility] Conversion , Generic Conversion, Social History Tobacco Use Types Packs/Day Years Used Date Smoking Tobacco: Never Assessed Comments Unknown Sex and Gender Information Value Date Recorded Sex Assigned at Female 12/17/2024 5:02 PM OTHER SPATIAL SCIENTIST Legal Sex Female 11:15 PM CDT Gender Identity Not on file Sexual Orientation Not on file documented as of this encounter Plan of Treatment Not on file documented as of this encounter Visit Diagnoses Not on filedocumented in this encounter Additional Health Concerns Infection Onset Date Last Indicated Resolved Time COVID-19 Rule Out 07/19/2021 07/19/2021 07/20/2021 11:58 AM CDT COVID-19 Rule Out 07/26/2021 07/26/2021 07/26/2021 7:57 PM CDT COVID-19 Rule Out 08/04/2021 08/04/2021 08/05/2021 11:19 AM CDT COVID-19 Rule Out 08/10/2021 08/10/2021 08/11/2021 11:27 AM CDT COVID-19 Rule Out 08/14/2021 08/14/2021 08/15/2021 11:23 AM CDT COVID-19 Rule Out 08/24/2021 08/24/2021 08/24/2021 12:03 PM CDT COVID-19 Rule Out 09/02/2021 09/02/2021 09/02/2021 10:50 AM CDT COVID-19 Rule Out 09/06/2021 09/06/2021 09/06/2021 8:42 PM OTHER SPATIAL SCIENTIST COVID-19 Rule Out 09/13/2021 09/13/2021 09/14/2021 12:28 PM OTHER SPATIAL SCIENTIST COVID-19 Rule Out 09/20/2021 09/20/2021 09/21/2021 11:11 AM OTHER SPATIAL SCIENTIST COVID-19 Rule Out 09/26/2021 09/26/2021 09/26/2021 8:05 PM OTHER SPATIAL SCIENTIST COVID-19 Rule Out 10/20/2021 10/20/2021 10/21/2021 4:15 PM OTHER SPATIAL SCIENTIST COVID-19 Rule Out 10/24/2021 10/24/2021 10/25/2021 4:48 PM OTHER SPATIAL SCIENTIST COVID-19 Rule Out 10/31/2021 10/31/2021 11/01/2021 9:34 AM OTHER SPATIAL SCIENTIST COVID-19 Rule Out 11/07/2021 11/07/2021 11/07/2021 8:46 PM OTHER SPATIAL SCIENTIST COVID-19 Confirmed 11/16/2021 11/16/2021 12:32 AM OTHER SPATIAL SCIENTIST COVID-19 Rule Out 11/17/2021 11/17/2021 11/17/2021 3:45 PM OTHER SPATIAL SCIENTIST COVID-19 Rule Out 09/30/2023 09/30/2023 09/30/2023 4:03 PM OTHER SPATIAL SCIENTIST RSV 09/30/2023 09/30/2023 10/10/2023 12:3 2 AM OTHER SPATIAL SCIENTIST COVID-19 Rule Out 12/17/2024 12/17/2024 12/17/2024 5:53 PM OTHER SPATIAL SCIENTIST documented as of this encounter Care Teams Oral Surgery Physician Relationship Specialty [place] [id number] [address] PCP - General INTERNAL MEDICINE 10/31/18 07/14/19 Bob Vaughn FNP [phone] [facility] [address] [place] [address] PCP - General NURSE PRACTITIONER 07/15/19 08/22/21 Major Horowitz, ELIANA [address] [place] [address] PCP - General NURSE PRACTITIONER 08/23/21 documented as of this encounter
--- OUTSIDE RECORDS SUMMARY | 2024-12-22 10:04 | XMS_ITS | Patient Health Summary ---
Author Organization [facility] Address [address] [place] [address] Care Team Providers Care Intermediate Frame Tender Name Role Phone Ilya Vaughn MD Primary Care Provide r Note from [facility],non-owned Affiliates and Associated Physician Practices is amultiple site organization consisting of ambulatory clinics and hospital sitesin [place], [place], [place] and [place]. This disclosure is being madepursuant to the Care Everywhere program and may not contain all information available regarding this patient. Last updated 18.[facility] Allergies * Amoxicillin(Itching) * Cefdinir(Rash) -Medium Criticality Medications * Be aware that medications may not be up to date on this document. Alwaysverify current medications with the patient. * Vit-DSS-Fe Fum-FA ( vitamin with iron) tablet Take 1 (one) tablet by mouth once daily * aspirin (Aspirin) 81 MG chew tablet Take 1 (one) tablet by mouth once daily Reasons: Antiphospholipid syndrome * metFORMIN (Glucophage) 1000 MG tablet Take 1 (one) tablet by mouth 2 times daily with morning and evening meal Active Problems Problem Noted Date Diagnosed Date Sleep disorder 03/05/2019 Injury of index finger 03/01/2017 Resolved Problems Problem Noted Date Diagnosed Date Resolved Date Diarrhea 07/05/2018 08/02/2018 Constipation 07/05/2018 08/02/2018 Immunizations * DTAP, HISTORIC VACCINE(Given 03/26/2008, 03/11/2004, 03/05/2003, 01/05/2003, 2002) * DTAP/IPV(Given 03/26/2008, 03/11/2004, 01/05/2003, 2002) * HEP B VACCINE, PED/ADOL(Given 09/30/2003, 01/05/2003, 2002) * HIB-HAEMOPHILUS INFLUENZAE B CONJUGATE VACCINE(Given 09/30/2003, 01/05/2003, 2002) * Human Papilloma Virus Quadrivalent Vaccine(Given 12/18/2014, 08/25/2014, 06/17/2014) * INFLUENZA VACCINE, QUADR. (FLUZONE; FLULAVAL; FLUARIX; AFLURIA QUADRIVALENT; 6MO+), 0.5 ML (IIV4)(Given 09/09/2020) * MENINGOCOCCAL CONJUGATE (MCV4P)(Given 06/05/2020, 06/17/2014) * MMR(Given 03/26/2008, 09/30/2003) * TDAP (7yrs+)(Given 06/17/2014) * VARICELLA(Given 03/26/2008, 09/30/2003) Social History Tobacco Use Types Packs/Day Years [...] 36.6 C (97.9 F) 12/30/2020 10:37 AM PICKLE MAKER Respiratory Rate 18 12/30/2020 10:37 AM PICKLE MAKER Oxygen Saturation 99% 12/30/2020 10:37 AM PICKLE MAKER Inhaled Oxygen Concentration - - Weight 96.6 kg (213 lb) 08/27/2024 9:23 AM CDT Height 165.1 cm (5' 5 ) 08/27/2024 9:23 AM CDT Body Mass Index 35.45 08/27/2024 9:23 AM CDT Procedures * SONOGRAM - COMPLETE(Performed 10/20/2024) Performed for Antiphospholipid antibody syndrome (HCC), Prediabetes, PCOS (polycystic ovarian syndrome), History of spontaneous , Obesity affecting in second trimester, unspecified obesity type (HCC), 19 weeks gestation of (HCC) * SONOGRAM - COMPLETE(Performed 09/22/2024) Performed for Antiphospholipid antibody syndrome (HCC), Prediabetes, PCOS (polycystic ovarian syndrome), History of spontaneous , Obesity affecting in second trimester, unspecified obesity type (HCC), 19 weeks gestation of (HCC) * SONOGRAM - COMPLETE(Performed 08/27/2024) Performed for Antiphospholipid antibody syndrome (HCC), Prediabetes, PCOS (polycystic ovarian syndrome), History of spontaneous , 15 weeks gestation of (HCC) * SPLIT NIGHT STUDY(Performed 03/24/2021) Performed for MARIA E (obstructive sleep apnea), Sleep disorder, Daytime sleepiness * HOME SLEEP STUDY(Performed 01/24/2021) Performed for MARIA E (obstructive sleep apnea) Results * SONOGRAM - COMPLETE (10/20/2024 7:34 AM PICKLE MAKER) Only the most recent of3 resultswithin the time period is included. Linked Results Indication ======== Antiphospholipid Syndrome Hx of prediabetes- A1C 5.4 on 07/22 Obesity, Class II Metformin use History ====== OB History 3. Para 0 [id number] Lab Tests Test Date Result NIPT Low [...] 1 lb 7 oz EFW by Hadlock ([id number]-[id number]-FL) appropriate Growth Overview Exam date [place] BPD [...] Heart / Thorax RVOT view. LVOT view. 7-[id number]-[id number] view. Aortic arch view. Bicaval view. Ductal [...] growth assessment is recommended Coding ====== Procedures 55330: [place] [address]: [place] Preg Uterus Transvaginal T [facility] AddMyBest PACS Anatomical Region Laterality Modality Other 10/20/2024 7:34 AM PICKLE MAKER R Nile Ha MD [facility] ORDERABLES * SPLIT NIGHT STUDY (03/24/2021 12:00 PM CDT) 03/24/2021 12:0 0 PM CDT Narrative Procedure Note Elan Jara MD - 03/26/2021 11:59 PM CDT [facility] All Night Sleep Study/Polysomnography Patient: NITO MILLER Patient Type: CSN: [id number] Bday/Age: 11 2000 20 Stn/Rm/Bed: [facility] Sex/Race: F Unit #: [id number] Patient Adrs: [address] Prim Phys: Attend Phys: ELAN JARA [facility]//Zip: [place] [address] Admit Date: March 24, 2021 Disch To: Disch Date: DATE OF SERVICE: 03/24/2021 INDICATIONS: An 20-year-old female, who weighs 205 pounds, height is 5feet 5 inches, BMI is 34.18. Troy sleepiness score, 12. Sleep diary at bedtime of 11 p.m. and a wake-up time of 5:30 a.m. The patient complains about snoring. She says, she has been told that shequits breathing while sleeping, and she feels sleepy during the day eventhough she slept well the night before. She says, she has gained weightrecently. She has noticed that others have commented parts of her bodyjerk when she is sleeping. Sometimes, she falls asleep, no matter howhard she tries to stay awake. Polysomnographic study was performed utilizing multichannel recorder,recording EEG, EMG, airflow at the nose and mouth, thoracic and abdominalwall movements, EKG monitoring, and monitoring of oxygen saturation. Theresults are as follows. Total time in sleep 6.5 hours. Total time in non-REM stage 5.9 hours.Total time in REM stage 38 minutes. Sleep efficiency 94%. Sleep latency 13.5 minutes, REM latency 121minutes. Total arousals 48, arousal index 7. Sleep stages: Stage I, 11%; stage II, 58%; stage III, 22%; REM stage 10%. The patient spent 17.8 minutes in supine position. The rest in non- supineposition. Apnea Analysis: Total number of apnea-hypopnea 4, apnea-hypopnea index of1, the maximum duration of the events were 31.6 seconds and averageduration 24.6 seconds. Baseline oxygen saturation 96%. Lowest saturation 90%. IMPRESSION AND RECOMMENDATION: The patient has normal sleep stages.There was no significant apnea-hypopnea. The total events were 4 andapnea-hypopnea index of 1. The lowest saturation is 90%. The study does not support the diagnosis of sleep apnea syndrome. Therewas no significant hypoxemia; however, it should be noted that the patientis getting only average 6 hours of sleep which is not enough and that sheneeds to extend the sleep time which could be the cause for her sleepproblems. Therefore, I will recommend that she sleeps at least 7 hours orbetween 7 and 8 hours on a nightly basis, but there is no evidence forsleep apnea under current study. Elan Jara M.D., Tanika. [facility] Board Certified Sleep Medicine AR/MODL /[id number] cc: Elan Jara M.D., Manisha JARA M.D., Tanika. POLYSOMNOGRAPHY REPORT Elan Jara MD [facility] ORDERAB LES Performing Organization Address City/[facility] Co de Phone Number [facility] MMODAL * HOME SLEEP STUDY (01/24/2021 12:00 PM CDT) 01/24/2021 12:0 0 PM CDT Narrative Procedure Note Elan Jara MD - 01/26/2021 11:59 PM CDT [facility] All Night Sleep Study/Polysomnography Patient:NITO MILLER Patient Type: CSN:[id number]/Age:13 2000 20 Stn/Rm/Bed: Sex/Race:F Unit #:[id number] Adrs: Prim Phys: Attend Phys: City/St/Zip: , Admit Date:January 24isch To: Disch Date: DATE OF SERVICE: 01/24/2021 Home sleep study was performed. The patient is an 20-year-old female, who complains about snoring. Shesaid she has been told that she quits breathing while sleeping. She feelssleepy during the day even though she slept well the night before. Shesweats excessively during the night and frequently wakes up with aheadache. She has gained weight recently. She has trouble concentratingor remembering things and she wakes up earlier than she would like.Sometimes she falls asleep no matter how hard she tries to stay awake.She has noticed others have commented that parts of her body jerks whenshe is sleeping. Sleep diary show a bedtime between 10 and 12 a.m. and wake-up time between8 a.m. and 11 a.m. Troy Sleepiness Score, she scored 9. Home sleep study was performed. The results are as follows. Total recording time 6 hours and 6 minutes. Apnea-hypopnea index 2.9. Lowest oxygen saturation was 90% and oxygendesaturation index was 2.4. IMPRESSION AND RECOMMENDATION: The study shows apnea-hypopnea index of2.9, however, this is a home sleep study and the patient has daytimesleepiness and witnessed sleep apnea. Therefore in hospital polysomnography should be performed because sleep apnea cannot be excludedbased on the current study. Therefore, please schedule her for apolysomnography in the hospital. Elan Jara M.D., F.C.C.P. SARAH Board Certified Sleep Medicine AR/MODL /[id number] cc: Elan Jara M.D., F.C.C.P. ELAN JARA M.D., F.C.C.P.POLYSOMNOGRAPHY REPORT Elan Jara MD SLEEP CENTER ORDERAB LES Care Teams Intermediate Frame Tender Relationship Specialty Start Date End Date Ilya Vaughn MD [address] [place], [place] [phone] PCP - General Pediatrics 03/05/19
--- OUTSIDE RECORDS SUMMARY | 2024-12-22 10:04 | XMS_ITS | Clinical Summary ---
Author Organization [facility] Address Count includes the [facility] [place] [address] Care Team Providers Care Chemistry Intern Name Role Phone Major Horowitz NP Primary Care Provider Allergies Active Allergy Reactions Criticality Noted Date Comments Amoxicillin Eyes Water & Itch High 09/19/2017 Cefdinir Hives,Angioedema 11/18/2018 Medications EPINEPHrine (EPIPEN 2-VANESSA) 0.3 MG/0.3ML injectionIndication s:Anaphylaxis, initial encounter Inject 0.3 mLs (0.3 mg total) into the muscle as needed for Anaphylaxis . 1 each 1 9 Active ondansetron 4 MG disintegrating tablet Take 1 tablet (4 mg total) by mouth every 8 (eight) hours as needed for Nausea. 20 tablet 1 Active metFORMIN (GLUCOPHAGE) 1000 MG tablet Take 1 tablet (1,000 mg total) by mouth 2 (two) times daily with meals. Active acetaminophen-codei ne (TYLENOL #3) 300-30 MG tablet Take 1 tablet by mouth every 4 (four) hours as needed for Pain. Active Active Problems Problem Noted Date Diagnosed Date Bilateral wrist pain 08/03/2019 Migraine with aura and witho ut status migrainosus, not intractable 03/28/2019 Irritable bladder 03/28/2019 Sleep disorder 03/05/2019 Overview (03/27/2019): Last Assessment & Plan: I have reviewed history with one of our other sleep specialists as well. I think she would be best served by a visit to our sleep center for comprehensive review. At this time unlikely to represent MARIA E, narcolepsy or PLMS We went over sleep hygiene issues Asthma ([facility]) 07/27/2015 Overview (10/31/2018): Asthma, unspecified Asthma, unspecified type, unspecified Estimated Date of Delivery Comme nts Yes 02/15/2025 Encounters Date Type Department Care Team Description 12/17/2024 4:44 PM ASSESSMENT CLINICIAN - 12/17/2024 7:08 PM ASSESSMENT CLINICIAN Emergency [facility] Emergency Room [address] [place] [address] Priyank Cowart MD Headache; Anxiety; Chest Pain Discharge Disposition: Home or Self Care (Routine Discharge) 12/17/2024 Travel from Last 3 Months Immunizations Name Administration Dates Next Due Dtap (Generic) 03/26/2008, 4,03/05/2003,01/05,2002 Fluzone 6 Months+ Quad (0.5 mL Prefilled Syringe) 09/09/2020 HPV4 (Gardasil) 12/18/2014,08/25/2014,06/17/2014 Hepatitis B Pediatric 09/30/2003,01/05/2003,10/30 Hib 09/30/2003,01/05/2003,2002 MMR 03/26/2008,09/30/2003 Menactra 06/17/2014 Meningococcal (Menactra) 06/05/2020 Polio Ipv (Generic) 03/26/2008, 8,03/11/2004,03/11,01/05/2003,01/05/2003,2002 ,2002 Tdap (Boostrix) 06/17/2014 Varicella Vaccine 03/26/2008,09/30/2003 Family History Medical History Relation Comments Hypertension Father Hypertension Mother Relation Status Comments Father Alive Mother Alive Social History Tobacco Use Types Packs/Day Years Used Date Smoking Tobacco: Former Electronic Cigarettes Smokeless Tobacco: Never Tobacco Cessation:Counseling Given: Not Answered Alcohol Use Standard Drinks/Week Comments Yes 0 (1 standard drink = 0.6 oz pur e alcohol) SOCIALLY AUDIT-C Answer Date Recorded Frequency of Alcohol Consumption Never 10/31/2018 Average Number of Drinks Not on file 019 Frequency of Binge Drinking Not on file 12/2018 PHQ-2 Answer Date Recorded PHQ-2 Score - If the patient scores above 3, please move on to questions 3-9 1 09/09/2020 Estimated Date of Delivery Comme nts Yes 02/15/2025 Sex and Gender Information Value Date Recorded Sex Assigned at Female 12/17/2024 5:02 PM ASSESSMENT CLINICIAN Legal Sex Female 11:15 PM CDT Gender Identity Not on file Sexual Orientation Not on file Last Filed Vital Signs Vital Sign Reading Time Taken Comments Blood Pressure 122/71 12/17/2024 6:30 PM ASSESSMENT CLINICIAN Pulse 81 12/17/2024 6:30 PM ASSESSMENT CLINICIAN Temperature 36.6 C (97.8 F) 12/17/2024 4:56 PM ASSESSMENT CLINICIAN Respiratory Rate 17 12/17/2024 6:30 PM ASSESSMENT CLINICIAN Oxygen Saturation 100% 12/17/2024 6:30 PM ASSESSMENT CLINICIAN Inhaled Oxygen Concentration - - Weight 106.4 kg (234 lb 9.1 oz) 12/17/2024 4:56 PM ASSESSMENT CLINICIAN Height 165.1 cm (5' 5 ) 12/17/2024 4:56 PM ASSESSMENT CLINICIAN Body Mass Index 39.03 12/17/2024 4:56 PM ASSESSMENT CLINICIAN Plan of Treatment Health Maintenance Due Date Last Done Comments Cervical Cancer Screening Pap Smear (Age 21 to 29) Every 3 Years 2002 Cervical Cancer Screening 2002 Pneumococcal Vaccine: Pediatrics (0 to 5 Years) and At-Risk Patients (6 to 64 Years) (1 of 2 - PCV) 2008 09/30/2003, 03/05/2003, 01/05/2003, Additional history exists Chlamydia Screening Females ages 16-24 2018 Meningococcal B Vaccine (1 of 2 - Standard) 2018 Hepatitis C 2020 Annual Physical 06/02/2021 06/02/2020, 04/30/2019 DTaP, Tdap and Td Vaccines (7 - Td or Tdap) 06/17/2024 06/17/2014, 03/26/2008, 03/11/2004, Additional history exists COVID-19 Vaccine ( season) 2024 Influenza Adult (#1) 2024 09/09/2020 Hepatitis B Vaccines Completed 09/30/2003, 09/30/2003, 01/05/2003, Additional history exists HPV Vaccines Completed 12/18/2014, 07/30, 06/17/2014 Meningococcal Vaccine Completed 06/05/2020, 014 RSV Immunization or 60+ Years (No Doses Required) Completed RSV Immunizations Under 20 Months Aged Out No longer eligible based on patient's age to complete this topic Procedures Procedure Name Priority Date/Time Associated Diagnosis Comments CT HEAD WO CON STAT 12/17/2024 6:52 PM ASSESSMENT CLINICIAN CTA CHEST PE PROTOCOL STAT 12/17/2024 6:52 PM ASSESSMENT CLINICIAN INFLUENZA A & B STAT 12/17/2024 5:05 PM ASSESSMENT CLINICIAN RESP SYNCYTIAL VIRUS STAT 12/17/2024 5:05 PM ASSESSMENT CLINICIAN CORONAVIRUS (COVID 19) STAT 5:05 PM ASSESSMENT CLINICIAN TROPONIN, QUANT STAT 12/17/2024 5:05 PM ASSESSMENT CLINICIAN COMPREHENSIVE METABOLIC PANEL STAT 12/17/2024 5:05 PM ASSESSMENT CLINICIAN CBC W/DIFF AUTOMATED STAT 12/17/2024 5:05 PM ASSESSMENT CLINICIAN ECG 12-LEAD Routine 12/17/2024 4:58 PM ASSESSMENT CLINICIAN from Last 3 Months Results * CTA CHEST PE PROTOCOL (12/17/2024 6:52 PM ASSESSMENT CLINICIAN) Anatomical Region Laterality Modality Chest Computed Tomogra phy 12/17/2024 6:25 PM ASSESSMENT CLINICIAN Impressions 12/17/2024 6:31 PM ASSESSMENT CLINICIAN IMPRESSION: 1. Suboptimal contrast bolus timing for evaluation of pulmonary emboli. No evidence of massive or submassive pulmonary embolism. 2. No acute findings of the chest. 3. Suspect abdominal mass, recommend contrasted CT abdomen/pelvis for further evaluation. Referred By: Interpreted By: Flora Talbert DO, 12/17/2024 6:25 PM Narrative 12/17/2024 6:31 PM ASSESSMENT CLINICIAN [facility] [address] [place] [address] EXAMINATION: CTA CHEST PE PROTOCOL INDICATION: chest pain TECHNIQUE: Contiguous CT images of the chest with contrast were obtained utilizing an institutional pulmonary angiogram technique. Coronal and sagittal reformatted images along with an multiplanar MIPS were obtained from the source data. A dose lowering technique was utilized for this procedure which may include but is not limited to dose reduction techniques, automated exposure control, and/or the use of iterative reconstruction in accordance with ALARA principle. IV Contrast: 66 mL Isovue 370 Oral contrast: None. COMPARISON: Portable chest radiograph 05/18/2022, CT abdomen/pelvis 10/02/2019. FINDINGS: Pulmonary arteries: Diagnostic quality: Contrast bolus is suboptimal for assessment of pulmonary emboli. Filling defects: No filling defects are identified. Main Pulmonary Artery: The main pulmonary artery measures 29 mm, prominent in size. Right Heart Strain: There is no evidence of right heart strain. Lower Neck: Visualized thyroid is normal. No pathologically enlarged supraclavicular lymph nodes are identified. Mediastinum: No pathologically enlarged mediastinal lymph nodes are identified. The thoracic aorta is normal in caliber and appearance. The esophagus is normal in caliber and appearance. Heart: The heart size is normal. No pericardial thickening or effusion is identified. No coronary artery calcifications are present. Lungs: No pulmonary consolidation is identified. The airways are normal in caliber and appearance. Pleural Space: No pleural effusion or pneumothorax is identified. Upper abdomen: No acute intra-abdominal findings. Calcified right adrenal gland. Partially imaged, possible mass within the mesentery. MUSCULOSKELETAL: Soft tissues: No hernia or soft tissue mass. Bones: No acute osseous abnormality. Procedure Note Flora Talbert DO - 12/17/2024 [facility] [address] [place] [id number] EXAMINATION: CTA CHEST PE PROTOCOL INDICATION: chest pain TECHNIQUE: Contiguous CT images of the chest with contrast were obtainedutilizing an institutional pulmonary angiogram technique. Coronal andsagittal reformatted images along with an multiplanar MIPS were obtainedfrom the source data. A dose lowering technique was utilized for thisprocedure which may include but is not limited to dose reductiontechniques, automated exposure control, and/or the use of iterativereconstruction in accordance with ALARA principle. IV Contrast: 66 mL Isovue 370 Oral contrast: None. COMPARISON: Portable chest radiograph 05/18/2022, CT abdomen/ssafpw3910/02/2019. FINDINGS: Pulmonary arteries: Diagnostic quality: Contrast bolus is suboptimal for assessment ofpulmonary emboli. Filling defects: No filling defects are identified. Main Pulmonary Artery: The main pulmonary artery measures 29 mm, prominentin size. Right Heart Strain: There is no evidence of right heart strain. Lower Neck: Visualized thyroid is normal. No pathologically enlargedsupraclavicular lymph nodes are identified. Mediastinum: No pathologically enlarged mediastinal lymph nodes areidentified. The thoracic aorta is normal in caliber and appearance. Theesophagus is normal in caliber and appearance. Heart: The heart size is normal. No pericardial thickening or effusion isidentified. No coronary artery calcifications are present. Lungs: No pulmonary consolidation is identified. The airways are normal incaliber and appearance. Pleural Space: No pleural effusion or pneumothorax is identified. Upper abdomen: No acute intra-abdominal findings. Calcified right adrenalgland. Partially imaged, possible mass within the mesentery. MUSCULOSKELETAL: Soft tissues: No hernia or soft tissue mass. Bones: No acute osseous abnormality. IMPRESSION: 1. Suboptimal contrast bolus timing for evaluation of pulmonary emboli.No evidence of massive or submassive pulmonary embolism. 2. No acute findings of the chest. 3. Suspect abdominal mass, recommend contrasted CT abdomen/pelvis forfurther evaluation. Referred By: Interpreted By: Flora Talbert DO, 12/17/2024 6:25 PM Priyank Cowart MD CT Final Result * CT HEAD WO CON (12/17/2024 6:52 PM ASSESSMENT CLINICIAN) Anatomical Region Laterality Modality Head Computed Tomogra phy 12/17/2024 6:27 PM ASSESSMENT CLINICIAN Impressions 12/17/2024 6:30 PM ASSESSMENT CLINICIAN IMPRESSION: No acute intracranial findings. Referred By: Interpreted By: Walker Torrez MD, 12/17/2024 6:27 PM Narrative 12/17/2024 6:30 PM ASSESSMENT CLINICIAN [facility] [address] [place] [address] EXAMINATION: CT of the head EXAM DATE/TIME: 12/17/2024 5:49 PM REASON FOR EXAM: 24 years of age, Female, with headache COMPARISON: Head CT 05/29/2006 TECHNIQUE: Axial CT images of the brain are obtained from skull base through vertex without the use of IV contrast agent. A dose lowering technique was used for this procedure, which may include, but is not limited to, dose reduction technique, automated exposure control, iterative reconstruction, ALARA (As Low As Reasonably Achievable), or Image Gently techniques. FINDINGS: No acute intracranial hemorrhage or CT evidence of acute-subacute, large territory infarct. There is no evidence of hydrocephalus, extraaxial fluid collection, mass effect or midline shift. There is no acute displaced calvarial fracture. Visualized paranasal sinuses and mastoid air cells are clear. Procedure Note Walker Torrez MD - 12/17/2024 [facility] [address] [place] [address] EXAMINATION: CT of the head EXAM DATE/TIME: 12/17/2024 5:49 PM REASON FOR EXAM: 24 years of age, Female, with headache COMPARISON: Head CT 05/29/2006 TECHNIQUE: Axial CT images of the brain are obtained from skull basethrough vertex without the use of IV contrast agent. A dose loweringtechnique was used for this procedure, which may include, but is notlimited to, dose reduction technique, automated exposure control,iterative reconstruction, ALARA (As Low As Reasonably Achievable), orImage Gently techniques. FINDINGS: No acute intracranial hemorrhage or CT evidence of acute-subacute, largeterritory infarct. There is no evidence of hydrocephalus, extraaxial fluid collection, masseffect or midline shift. There is no acute displaced calvarial fracture. Visualized paranasal sinuses and mastoid air cells are clear. IMPRESSION: No acute intracranial findings. Referred By: Interpreted By: Walker Torrez MD, 12/17/2024 6:27 PM us Priyank Cowart MD CT Final Result * CORONAVIRUS (COVID-19) MOLECULAR (12/17/2024 5:05 PM ASSESSMENT CLINICIAN) CORONAVIRUS SARS COV 2 RNA NEGATIVE NEGATIVE 12/17/2024 5:53 PM ASSESSMENT CLINICIAN [facility] Comment: NEGATIVE RESULTS DO NOT RULE OUT COVID 19 AND SHOULD NOT BE USED THE SOLE BASIS FOR TREATMENT OR PATIENT MANAGEMENT DECISIONS, INCLUDING INFECTION CONTROL DECISIONS. NEGATIVE RESULTS SHOULD BE CONSIDERED IN THE CONTEXT OF A PATIENT'S RECENT EXPOSURES, HISTORY AND THE PRESENCE OF CLINICAL SIGNS AND SYMPTOMS CONSISTENT WITH COVID 19. THE ID NOW COVID-19 2.0 TEST HAS BEEN AUTHORIZED BY THE FDA UNDER EAU FOR USE BY AUTHORIZED LABORATORIES. PERFORMED BY NUCLEIC ACID AMPLIFICATION FOR MOLECULAR QUALITATIVE DETECTION OF SARS-COV-2. SPECIMEN TYPE NASAL 12/17/2024 5:14 PM ASSESSMENT CLINICIAN [facility] NASOPHARYNGEAL SWAB / Unknown 12/17/2024 5:05 PM ASSESSMENT CLINICIAN us Priyank Cowart MD MICROBIOLOGY - GENERAL ORDERABL ES Final Result [facility] [address] [place] [address], * INFLUENZA A & B (12/17/2024 5:05 PM ASSESSMENT CLINICIAN) SPECIMEN TYPE NASOPHARYNGEAL SWAB 12/17/2024 5:20 PM ASSESSMENT CLINICIAN [facility] INFLUENZA A NEGATIVE NEGATIVE 12/17/2024 5:41 PM ASSESSMENT CLINICIAN [facility] INFLUENZA B NEGATIVE NEGATIVE 12/17/2024 5:41 PM ASSESSMENT CLINICIAN [facility] NASOPHARYNGEAL SWAB / Unknown 12/17/2024 5:05 PM ASSESSMENT CLINICIAN us Priyank Cowart MD MICROBIOLOGY - GENERAL ORDERABL ES Final Result Performing Organization Address [facility]/ZIP Co de Phone Number [facility] [address] [place] [address], [place] [phone] * RESP SYNCYTIAL VIRUS (12/17/2024 5:05 PM ASSESSMENT CLINICIAN) SPECIMEN TYPE NASOPHARYNGEAL SWAB 12/17/2024 5:14 PM ASSESSMENT CLINICIAN [facility] RAPID RSV NEGATIVE NEGATIVE 12/17/2024 5:41 PM ASSESSMENT CLINICIAN [facility] NASOPHARYNGEAL SWAB / Unknown 12/17/2024 5:05 PM ASSESSMENT CLINICIAN us Priyank Cowart MD MICROBIOLOGY - GENERAL ORDERABL ES Final Result Performing Organization Address [facility] Co de Phone Number [facility] [address] [place] [address], [place] [phone] * (ABNORMAL) COMPREHENSIVE METABOLIC PANEL (12/17/2024 5:05 PM ASSESSMENT CLINICIAN) GLUCOSE 91 70 - 99 MG/DL 12/17/2024 5:41 PM [facility] BUN 4(L) 7 - 18 MG/DL 12/17/2024 5:41 PM [facility] CREATININE S/P/B 0.47(L) 0.55 - 1.02 MG/DL 12/17/2024 5:41 PM [facility] SODIUM S/P/B 137 136 - 145 MMOL/L 12/17/2024 5:41 PM [facility] POTASSIUM S/P/B 3.7 3.5 - 5.1 MMOL/L 12/17/2024 5:41 PM [facility] CHLORIDE S/P/B 103 100 - 108 MMOL/L 12/17/2024 5:41 PM [facility] CO2 22.7 21 - 32 MMOL/L 12/17/2024 5:41 PM [facility] CALCIUM S/P/B 9.2 8.5 - 10.1 MG/DL 12/17/2024 5:41 PM [facility] BILIRUBIN TOTAL S/P/B 0.4 0.2 - 1.2 MG/DL 12/17/2024 5:41 PM [facility] TOTAL PROTEIN S/P/B 6.9 6.4 - 8.2 G/DL 12/17/2024 5:41 PM [facility] ALBUMIN S/P/B 2.7(L) 3.4 - 5.0 G/DL 12/17/2024 5:41 PM [facility] AST 24 15 - 37 U/L 12/17/2024 5:41 PM [facility] ALT 35 14 - 55 U/L 12/17/2024 5:41 PM [facility] ALKALINE PHOSPHATASE S/P/B 144(H) 50 - 136 U/L 12/17/2024 5:41 PM [facility] ANION GAP 11.3 5 - 15 MMOL/L 12/17/2024 5:41 PM [facility] BUN CREATININE RATIO 8.5 6 - 26 12/17/2024 5:41 PM [facility] A/G RATIO 0.6(L) 1.0 - 2.0 RATIO 12/17/2024 5:41 PM [facility] GFR ESTIMATE >90 >90 ML/MIN/1.7 3 M2 12/17/2024 5:41 PM [facility] Comment: NOTE: eGFR is not calculated for patients <18 years of age. This is an estimated GFR calculation using the new CKD EPI creatinine equation without race and so does not require a correction factor for race. This estimated GFR should not be used for calculating drug doses. 12/17/2024 5:05 PM ASSESSMENT CLINICIAN Priyank Cowart MD LABORATORY Final Result [facility] [address] [place] [address], * (ABNORMAL) CBC W/DIFF AUTOMATED (12/17/2024 5:05 PM ASSESSMENT CLINICIAN) WBC 11.16(H) 4.4 - 11.0 x10'3/uL 12/17/2024 5:23 PM [facility] RBC 3.41(L) 4.50 - 5.10 x10'6/uL 12/17/2024 5:23 PM [facility] HGB 10.3(L) 12.3 - 15.3 G/DL 12/17/2024 5:23 PM [facility] HCT 30.5(L) 35.9 - 44.6 % 12/17/2024 5:23 PM [facility] MCV 89.4 80.0 - 96.0 FL 12/17/2024 5:23 PM [facility] MCH 30.2 25.3 - 30.9 PG 12/17/2024 5:23 PM [facility] MCHC 33.8 31.0 - 34.1 G/DL 12/17/2024 5:23 PM [facility] RDW 12.4 12.4 - 15.1 % 12/17/2024 5:23 PM [facility] PLT 302 151 - 353 x10'3/uL 12/17/2024 5:23 PM [facility] MPV 9.3(L) 9.6 - 12.0 FL 12/17/2024 5:23 PM [facility] RBC MORPHOLOGY NORMAL 12/17/2024 5:23 PM [facility] PLT MORPH. NORMAL 12/17/2024 5:23 PM [facility] WBC MORPHOLOGY NORMAL 12/17/2024 5:23 PM [facility] LYMPHOCYTES % 21.2 15.8 - 45.0 % 12/17/2024 5:23 PM [facility] NEUTROPHILS % 72.1(H) 42.1 - 71.9 % 12/17/2024 5:23 PM [facility] MONOCYTES % 5.7 5.7 - 12.5 % 12/17/2024 5:23 PM [facility] EOSINOPHILS 0.4 0.0 - 5.6 % 12/17/2024 5:23 PM [facility] BASOPHILS 0.2 0.0 - 1.3 % 12/17/2024 5:23 PM [facility] ABS. NEUTROPHILS 8.03(H) 1.40 - 6.00 x10'3/uL 12/17/2024 5:23 PM [facility] IMMATURE GRANS % 0.4 0.0 - 0.5 % 12/17/2024 5:23 PM [facility] ABS. LYMPHOCYTES 2.37 0.80 - 4.70 x10'3/uL 12/17/2024 5:23 PM [facility] 12/17/2024 5:05 PM ASSESSMENT CLINICIAN Priyank Cowart MD LABORATORY Final Result [facility] [address] [place] [address], [place] [phone] * TROPONIN, QUANT (12/17/2024 5:05 PM ASSESSMENT CLINICIAN) TROPONIN I HIGH SENSITIVITY <4 0 - 50 ng/L 12/17/2024 5:48 PM ASSESSMENT CLINICIAN [facility] Comment: HIGH DOSES OF BIOTIN, TROPONIN-SPECIFIC AUTOANTIBODIES, AND ANTIBODY THERAPY CONTAINING HAMA MAY INTERFERE WITH THIS TEST RESULT. CORRELATION TO CLINICAL HISTORY AND PRESENTATION RECOMMENDED. 12/17/2024 5:0 5 PM ASSESSMENT CLINICIAN Priyank Cowart MD LABORATORY Final Result [facility] [address] [place] [address], [place] [phone] * ECG 12 lead (12/17/2024 4:58 PM ASSESSMENT CLINICIAN) 12/17/2024 4:58 PM ASSESSMENT CLINICIAN Narrative [facility] RAD - 12/17/2024 5:18 PM ASSESSMENT CLINICIAN [facility] Test Date: 2024-12-17 Pat Name: JANEL MILLER Department: 85 Room: EXAM 101 Gender: Female Cafeteria Counter Attendant: : 2000 Requested By: PRIYANK COWART Order Number: [id number] Basil MD: Wilver Deshpande Measurements Intervals [place] Rate: 89 P: 54 CT: 139 QRS: 53 QRSD: 86 T: 43 QT: 340 QTc: 415 Interpretive Statements SINUS RHYTHM WITH SINUS ARRHYTHMIA Compared to ECG 05/18/2022 18:18:14 No significant changes SSMENT CLINICIAN Procedure Note Wilver Deshpande MD - 12/17/2024 [facility] Test Date: 2024-12-17 Pat Name: JANEL MILLER Department: 85 Room: EXAM 101 Gender: Female Cafeteria Counter Attendant: : 2000 Requested By: PRIYANK COWART Order Number: [id number] Reading MD: Wilver Deshpande Measurements Intervals [place] Rate: 89 P: 54 CT: 139 QRS: 53 QRSD: 86 T: 43 QT: 340 QTc: 415 Interpretive Statements SINUS RHYTHM WITH SINUS ARRHYTHMIA Compared to ECG 05/18/2022 18:18:14 No significant changes SSMENT CLINICIAN Priyank Cowart MD ECG ORDERABLES Final Result Performing Organization Address City/[facility] de Phone Number [facility] RAD from Last 3 Months Insurance Care Teams Chemistry Intern Relationship Specialty Start Date End Date Major Horowitz NP [address] [place] [address] PCP - General NURSE PRACTITIONER 08/23/21
--- OUTSIDE RECORDS SUMMARY | 2024-12-22 10:04 | XMS_ITS | Referral Summary ---
Author Organization [facility] Address [address] [place] [id number] Care Team Providers Care Freelance Writer Name Role Phone Carlos Manuel RADFORD NP, Major Aquino Primary Care Provider Encounters Date Type Department Care Team Description 11/05/2024 11:35 AM TEST DEVELOPER Lab [address] [address] Pre-employment health screening examination 11/05/2024 Orders Only [facility] Occupatiuonal Health [address] [place] [address] [address] (Third Floor) [place] [address] Tony Levy MD Pre-employment health screening examination (Primary Dx) from Last 3 Months Allergies Active Allergy [...] (06/24/2021): Asthma, unspecified Asthma, unspecified type, unspecified Social History Tobacco Use Types Packs/Day Years Used Date Smoking Tobacco: Never Assessed Comments Unknown Sex and Gender Information Value Date Recorded Sex Assigned at Not on file Legal Sex Female 8:44 PM TEST DEVELOPER Gender Identity Not on file Sexual Orientation Not on file Last Filed Vital Signs Vital Sign Reading Time Taken Comments Blood Pressure 116/77 10/27/2015 2:49 PM TEST DEVELOPER Pulse 102 10/27/2015 2:49 PM TEST DEVELOPER Temperature 36.6 C (97.9 F) 10/27/2015 2:49 PM TEST DEVELOPER Respiratory Rate - - Oxygen Saturation 100% 10/27/2015 2:49 PM TEST DEVELOPER Inhaled Oxygen Concentration - - Weight 63.5 kg (140 lb) 10/27/2015 2:49 PM TEST DEVELOPER Height 165.1 cm (5' 5 ) 10/27/2015 2:49 PM TEST DEVELOPER Body Mass Index 23.3 10/27/2015 2:49 PM TEST DEVELOPER Plan of Treatment Not on file Procedures Procedure Name Priority Date/Time Associated Diagnosis Comments T-SPOT.TB Routine 11/05/2024 11:44 AM TEST DEVELOPER Pre-employment health screening examination from Last 3 Months Results * T-SPOT.TB Blood (11/05/2024 11:44 AM TEST DEVELOPER) T-SPOT.TB Negative SeeBelow Comment: Normal Value: Negative [...] test. T-SPOT.TB Panel A Spot Count 0 [facility] ([facility]) T-SPOT.TB Panel B Spot Count 0 [facility] ([facility]) T-SPOT.TB Negative Control Passed [facility] ([facility] T-SPOT.TB Positive Control Passed [facility] ([facility]) Comment: Test Performed at: [facility], [place] [address] [place] [id number] BORA ARTEAGA,PHD Blood 11/05/2024 11:4 4 AM TEST DEVELOPER 11/05/2024 12:01 PM TEST DEVELOPER Narrative [facility] ([facility]) - 11/08/2024 1:48 PM TEST DEVELOPER Bill to [facility] - 1520 Patient is employed by/enrolled at:->[employer] Tony Levy MD LAB MICROBIOLOGY - GENERAL OR DERABLES Final Result [facility] ([facility]) [facility] Department [place] [address] from Last 3 Months Insurance Care Teams Freelance Writer Relationship Specialty Start Date End Date Major Horowitz III GUM DIPPER PCP - General Family Practice 04/28/21
--- OUTSIDE RECORDS SUMMARY | 2024-12-22 10:04 | XMS_ITS | Clinical Summary ---
Author Organization [facility] Address [address] [place] [address] Phone Care Team Providers Care Adjunct Professor Of English Name Role Phone Provider, Unknown Primary Care Provider Unavaila ble Allergies No known active allergies Immunizations Immunization Administration Dates Next Due DTAP VACCINE 03/11/2004, 3,01/05/2003,2002 HEP B/HIB Combined Vaccine 09/30/2003,01/05/2003 ,2002 Inactivated Polio Vaccine 03/11/2004,01/05/2003, 2002 MMR Vaccine 09/30/2003 Pneumococcal Vaccine Peds - 7 Valent 12/2002,03/05/2003,01/05/2003,2002 Varicella Vaccine Live 09/30/2003 Social History Tobacco Use Types Packs/Day Years Used Date Smoking Tobacco: Never Assessed Comments Unknown Sex and Gender Information Value Date Recorded Sex Assigned at Not on file Legal Sex 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 Gender Identity Not on file Sexual Orientation Not on file Plan of Treatment Health Maintenance Due Date Last Done Comments Hepatitis C Virus (HCV) Screening 2002 Meningococcal B Immunization (1 of 2 - Standard) 2018 Pap Smear 2023 DTaP/Tdap/Td Immunization (7 - Td or Tdap) 06/17/2024 06/17/2014, 04/26/2008, 03/26/2008, Additional history exists Influenza Immunization (#1) 2024 09/08/2020 SARS-COV-2 Immunization (2 - season) 2024 06/29/2022 Respiratory Syncytial Virus (RSV) Immunization (Adult) (1 - 1-dose 75+ series) 2077 Hepatitis B Immunization Completed 003, 01/05/2003, 2002 Pneumococcal Immunization Combined Aged Out 09/30/2003, 03/05/2003, 01/05/2003, Additional history exists No longer eligible based on patient's age to complete this topic Human Papillomavirus (HPV) Immunization Completed 12/18/2014, 08/25/2014, 06/17/2014 Meningococcal Immunization (ACWY) Completed 06/05/2020, 06/17/2014 Rotavirus Immunization Aged Out No lo nger eligible based on patient's age to complete this topic Care Teams Adjunct Professor Of English Relationship Specialty Start Date End Date Provider, Unknown UNKNOWN PCP - General 12/12/12
--- OUTSIDE RECORDS SUMMARY | 2024-12-22 10:04 | XMS_ITS | Data Portability ---
Author Organization [place] [facility] Address [address] [place] [address] Care Team Providers Care Carpenter And Joiner Name Role Phone FESTUS MACKAY Primary Care Provider Unavailabl e Assessment Encounter Date Assessment Date Assessment LastModified by Organization Details LastModified Time 10/05/2023 10/05/2023 Patient was informed of the possible complications of bleeding, perforation, infection, reaction to the meds used in sedation, heat injury, thrombosis as a result of going off blood thinners /anticoagulant, and even . They also informed of the possible alternatives and the advantages of endoscopy. [email or web address] Not available 10/05/2023 12:54:40 Plan of Treatment Reminders Order Date Submit Date Provider Last Modified By Organization Details Last Modified Time Details Appointments None recorded. Lab CBC w/ auto diff [address] Outpatient Registration Lab/Ekg, [address], [place], [address], 3 09:09:17 CMP, serum or plasma [address] Outpatient Registration Lab/Ekg, [address], [place], [address], 3 09:09:17 TSH, serum or plasma [address] Outpatient Registration Lab/Ekg, [address], [place], [address], 3 09:09:17 iga, quantitativ e, serum [address] Outpatient Registration Lab/Ekg, [address], [place], [address], 3 09:09:17 tissue transglutam inase iga Ab, serum [address] Outpatient Registration Lab/Ekg, [address], [place], [address], 3 09:09:18 calprotecti n, stool [address] Outpatient Registration Lab/Ekg, [address], [place], [address], 3 09:09:18 C reactive protein, QN, serum or plasma [address] Outpatient Registration Lab/Ekg, [address], [place], [address], 3 09:09:18 fecal fat, qualitative , stool [address] Outpatient Registration Lab/Ekg, [address], [place], [address], 3 09:09:18 vitamin B12 + folate, serum or blood [address] Outpatient Registration Lab/Ekg, [address], [place], [address], 3 09:09:18 pancreatic elastase, stool [address] Outpatient Registration Lab/Ekg, [address], [place], [address], 3 09:09:18 ph, stool [address] Outpatient Registration Lab/Ekg, [address], [place], [address], 3 09:09:19 giardia lamblia Ag, EIA, stool [address] Outpatient Registration Lab/Ekg, [address] [facility] [address] [place] [address], [address], 4 15:15:23 Referral None recorded. Procedures esophagogas troduodenos copy with biopsy (PROC) 2022 023 [facility] (Admitting), [address], [place], [address], 4 11:15:28 colonoscopy procedure (PROC) [address] (Admitting), [address], [place], [address], 4 14:25:34 Surgeries None recorded. Imaging None recorded. Medication Orders Golytely 236 gram-22.74 gram-6.74 gram-5.86 gram oral solution 2022 023 [facility], [address], [address], 3 12:55:17 ondansetron HCl 4 mg tablet 2022 023 [facility], [address], [address], 3 12:55:16 Patient TargetsNo targets recorded. Patient Instructions Encounter Date Encounter Id Patient Instructions Last Modified By Organization Details Last Modified Time 10/05/2023 [id number] observe if diarrhea is brought on by marlene russell. STOP- NOACs or warfarin ; GLP-1 agonists as directed Bowel prep An optimal bowel prep is one where the final effluent is light yellow and clear. --- Standard non constipated patient 5 days before your procedure, start eating a low residue diet. A low residue diet include white bread, white rice, white pasta, pretzels, yogurt, cottage cheese, chicken without skin, deli turkey, white fish such as the lap ear, eggs, bananas, applesauce, canned fruits such as peaches in pairs, cooked vegetables such as carrots and broccoli. BUT NO whole grains, nuts, seeds, peas, beans, vegetables stalks. If you do not have daily bowel movements take Dulcolax/bisacodyl 5 mg 2 tablets daily in the 3 days prior to your procedure. The day before your procedure you are to be on a liquid diet only. Clear liquids are anything that is clear enough that you can read through the glass container for example apple juice, tea, clear sports drinks, soda, water, minimal water, black coffee. There is to be NO orange juice or milk/cream in coffee or pineapple juice. Unless you are having an afternoon procedure, it is best that you do a split prep. This means taking half the prep 6:00 p.m. the night before and the other half 4 hours before the scheduled time. If 2 hours before the scheduled time, the effluent appears still cloudy, brown, or there is stool residue you are not adequately prepped. In this situation, you are to take 2-4 Dulcolax tablets, or a bottle of magnesium citrate no less than 2 hours before your scheduled time. If 2 hours before the scheduled procedure, the effluent is still brown or murky, take the Fleet enema - Constipated patient- Variation to the above standard prep Start taking the bisacodyl 5 days before your scheduled procedure Use either 1 bottle of magnesium citrate or half a bottle of MiraLax 238 g mixed in 1 L of Gatorade /Powerade two days before your scheduled procedure If 3 hours before your procedure your prep is still sub optimal ( ie brown/ murky)- take the other half of the MiraLax mixed in 1 L of Gatorade /Powerade. if 2 hours before your procedure things are still looking bad can use the Fleet enema when your effluent is light yellow and clear you have a good prep Afternoon colonoscopy: Variation to the above standard prep Take all of your prep approximately 6:00 a.m. [email or web address] Not available 10/05/2023 12:55:00 Reason for Referral None Reported. Results Created Date Observation Date Name Description Value Unit Range Abnormal Flag Note LastModifiedBy Organization Detail LastModifiedTime 11/14/19 24 11/16/2023 GIARD IA LAMBL IA AG, EIA giardia lamblia Ag, EIA Negati ve negati ve [facility] [address] [facility], [place] [id number] Lab Direc tor: Lebron vasquez PhD, Phone : [phone] Not Available [facility] (Lab) [address], [place], [address], 11/16/2023 16:12:33 11/14/19 24 11/19/2023 CALPR OTECT IN, FECAL calprotectin , fecal 10 ug/g 0-120 Natalie ntrat ion Inter preta tion Follo w-Up < 5 - 50 ug/g Itzel l None >50 -120 ug/g Borde rline Re-ev aluat e in 4-6 weeks >120 ug/g Abnor mal Repea t as clini steven indic ated Perfo rmed at: [facility] [place] [address] [place] [address] [place] [address] Lab Direc tor: Carly ly MD, Phone : [phone] Not Available [facility] (Lab) [address], [place], [address], 11/19/2023 23:07:23 11/14/19 24 11/20/2023 PANCR EATIC ELAST ASE, FECAL pancreatic elastase, fecal 448 ug_el ast./ g >200 Sever e Pancr eatic Insuf ficie ncy: <100 Moder ate Pancr eatic Insuf ficie ncy: 100 - 200 Itzel l: >200 Perfo rmed at: [facility] [place] [address] [facility] , [place] [address] Lab Direc tor: Carly ly MD, Phone : [phone] Not Available [facility] (Lab) [address] , [place], [address], 11/20/2023 13:10:21 11/14/19 24 11/20/2023 PH, STOOL pH, stool 6.0 7.0-7. 5 low Test( s) 11655 1-pH, Stool was devel oped and its perfo rmanc e sal cteri stics deter mined by [facility] . It has not been clear ed or appro khushbu by the Food and Drug Admin istra tion. Perfo rmed at: [facility] [address] [place] [address] Lab Direc tor: Lebron vasquez PhD, Phone : [phone] Not Available [facility] (Lab) [address] , [place], [address], 11/20/2023 20:13:30 11/14/19 24 11/20/2023 FECAL FAT, QUALI TATIV E fats, neutral Normal Itzel l (<60 Dropl ets/H PF) Not Available [facility] (Lab) [address] , [place], [address], 11/20/2023 20:13:31 11/14/19 24 11/20/2023 FECAL FAT, QUALI TATIV E fats, total Normal Itzel l (<100 Dropl ets/H PF) Perfo rmed at: [facility] [address] [place] [address] Lab Direc tor: Lebron vasquez PhD, Phone : [phone] Not Available [facility] (Lab) [address] , [place], [address], 11/20/2023 20:13:31 Result Notes None recorded. Problems Name Problem SNOMED Code Status Onset Date Resolution Date Notes Provider Name and Address Organization Details Recorded Time Polycystic ovary syndrome 732136839 [facility] 16[facility] Hyperlipidemia 05383662 Active 2022 Octavia redmond, [facility] 3 16:41:52 Chronic diarrhea of unknown origin 44983304 Active 2022 Nilsa Ly MD [address] [place], [address], [facility] 3 12:46:59 Problem Notes None recorded. Medical Equipment None Reported. Allergies Allergen ID Allergen Name Allergen Category Reaction Reaction Severity Criticality Documentation Date Start Date Code Code System Note Provider Name and Address Organization Details Recorded Time 364993 amoxicill in medicatio n Not available Not available Not available 10/05/2023 723 RxNorm Octavia redmond, [facility] 3 12:09:49 950552 cefdinir medicatio n Not available Not available Not available 10/05/2023 76406 [facility] 12:10[facility]09 Medications Name Sig Start Date Stop Date Status Note LastModified by Organization Details LastModified Time metformin 500 mg tablet Take 1 tablet twice a day by oral route. active Not Available Not Available No t Available ondansetron HCl 4 mg tablet Take 2 tablets twice a day by oral route for 30 days. 2022 active Not Available Not Available Not Avai lable progesterone take before cycle active Not Available Not Available No t Available Golytely 236 gram-22.74 gram-6.74 gram-5.86 gram oral solution to be taken as directed 2022 active Not Available Not Available Not Avai lable Vitals Date Recorded Body height Body mass index (BMI) Body weight Oxygen saturation Oxygen saturation in Arterial blood by Pulse oximetry Heart rate Systolic blood pressure Diastolic blood pressure Provider Name and Address Organization Details Last Updated DateTime 3 165.1 cm 36.4 kg/m2 21913.7 3 g 98 % 98 % 73 /min 124 mm[Hg] 78 mm[Hg] Otcavia guerrero [facility] 12:11:54 Social History Question Answer Notes LastModified by Organizat ion Details LastModified Time Tobacco Smoking Status Never Smoker Octavia redmond, [facility] 10/05/2023 12:13:34 What Is Your Level Of Alcohol Consumption? Occasional Information not available 10/05/2023 What Is Your Level Of Caffeine Consumption? Moderate Information not available 10/05/2023 Sex: Unknown Functional Status None recorded. Mental Status None recorded. Family History Relationship Description Onset Age of this Age Resolved Age Notes LastModified by Organization Details LastModified Time Mother Crohn's disease [email or web address] Not available 05/2023 12:12:46 Medical History No medical history recorded. Gynecological HistoryNo gynecological history recorded. Obstetrics History GPAL:G 0 P 0 0 0 0 Past Encounters Encounter ID Performer Location Encounter Start Date Encounter Closed Date Diagnosis/Indication Diagnosis SNOMED-CT Code Diagnosis ICD10 Code Diagnosis Note [id number] Nilsa Ly MD [facility] [address] [place] [address] 10/05/2023 11:47:23 10/05/2023 13:11:54 Chronic diarrhea of unknown origin 71838865 K52.9 Health Concerns Section Related Observation LastModified by Organization Detai ls LastModified Time None Recorded Concern Status LastModified by Organization Details LastModified Time None Recorded Advance Directives Directive None Recorded Payers Encounter Date Sequence Insurance Name Policy Number Policy Eubanks Covered Member ID Eubanks Member ID Guarantor Name 10/05/2023 1 [facility] ON OR AFTER 04/28/21 (MEDICAID REPLACEMENT - HMO) Nito Miller [id number] Nito Miller Notes Date Note Type Note Provider Name and Address Organization Details Recorded Time 10/05/2023 text/html 23-year-old brodie ent who presents with diarrhea since the age of [age] years old. Patient states that he used to be almost daily now it is less frequent about every other day. In the past she reacted to sweet stuffs and dairy. Does not recall ever having a tick bite. Last year when she started metformin it did worsen but now that she is off it it is better. diarrhea is associated with abdominal cramps but no blood. greasy foods seems to cause more diarrhea. Past medical history: Polycystic ovary disease, hyperlipidemia , she was prediabetic a year or 2 agoMeds: at metformin and progesteroneSocial history started vaping at age [age] years old and also drinking alcohol on weekends.Family history: Mother with Crohn's diseaseReview of systems: No anorexia or weight loss. Patienthas nocturnal awakenings by the diarrhea Nilsa Ly MD [address] [place], [address], [facility] 10/05/2023 12:56:35 OBGyn Episode No OBEpisode recorded.
[2024-12-22 10:06] LABS: Basophils Percent Auto 0.4 % (0.2-1.2); Eosinophils Absolute Auto 0.1 K/mm3 (0-0.3); Hematocrit 32.5 % (37.0-47.0); Hemoglobin 10.9 g/dL (12.0-15.0); Immature Granulocyte Absolute 0.09 K/mm3 (0.00-0.031); Immature Granulocyte Percent A 0.9 % (0-0.5); Lymphocytes Absolute Auto 2.32 K/mm3 (0.9-3.2); Lymphocytes Percent Auto 22.5 % (18.3-44.2); Mean Corpuscular HGB Conc 33.5 g/dl (32-36); Mean Corpuscular Hemoglobin 30.3 pg (26-34); Mean Corpuscular Volume 90.3 fl (80-100); Mean Platelet Volume 9.3 fl (7.4-10.4); Monocytes Absolute Auto 0.5 K/mm3 (0.1-0.6); Monocytes Percent Auto 5.1 % (2.6-8.5); Neutrophils Absolute Auto 7.2 K/mm3 (1.3-6.7); Neutrophils Percent Auto 70.1 % (45.5-73.1); Platelet Count Result 307 k/mm3 (150-375); Red Cell Distribution Width 12.4 % (11.5-14.5); White Blood Count 10.3 K/mm3 (4.5-10.0)
[2024-12-22 10:41] LABS: Iron 49 ug/dL (37-170)
[2024-12-22 10:45] LABS: Thyroid Stimulating Hormone 0.856 uIU/mL (0.465-4.680)
[2024-12-22 10:58] LABS: Percent Iron Saturation 8 % (20-50)
== END 2024-12-22 09:23 | disposition home or self-care (01) ==
PROVIDERS: PCP Family Medicine; Visit Provider Family Medicine
DX: R00.2 Palpitations (principal); D64.9 Anemia, unspecified
CPT/HCPCS: 36415; 83540; 83550; 84439; 84443; 85025

== ENCOUNTER 2024-12-22 10:21 | Outpatient (CLI) | payer OTHER, SELFPAY ==
--- OUTSIDE RECORDS SUMMARY | 2024-12-22 11:41 | XMS_ITS | Clinical Summary ---
Author Organization [facility] Address [facility] [place] [address] Care Team Providers Care Supervisor Gear Repair Name Role Phone Major Horowitz NP Primary Care Provider [phone] Allergies Active Allergy Reactions Criticality Noted Date [...] We went over sleep hygiene issues Asthma ([facility]) 07/27/2015 Overview (10/31/2018): Asthma, unspecified Asthma, unspecified type, unspecified Estimated Date of Delivery Comme nts Yes 02/15/2025 Encounters Date Type Department Care Team Description 12/17/2024 4:44 PM TRANSCRIPT CLERK - 12/17/2024 7:08 PM TRANSCRIPT CLERK Emergency [facility] Emergency Room [address] [place] [address] Priyank Cowart MD Headache; Anxiety; Chest Pain [...] Sex Assigned at Female 12/17/2024 5:02 PM TRANSCRIPT CLERK Legal Sex Female 11:15 PM CDT Gender Identity Not on file Sexual Orientation Not on file Last Filed Vital Signs Vital Sign Reading Time Taken Comments Blood Pressure 122/71 12/17/2024 6:30 PM TRANSCRIPT CLERK Pulse 81 12/17/2024 6:30 PM TRANSCRIPT CLERK Temperature 36.6 C (97.8 F) 12/17/2024 4:56 PM TRANSCRIPT CLERK Respiratory Rate 17 12/17/2024 6:30 PM TRANSCRIPT CLERK Oxygen Saturation 100% 12/17/2024 6:30 PM TRANSCRIPT CLERK Inhaled Oxygen Concentration - - Weight 106.4 kg (234 lb 9.1 oz) 12/17/2024 4:56 PM TRANSCRIPT CLERK Height 165.1 cm (5' 5 ) 12/17/2024 4:56 PM TRANSCRIPT CLERK Body Mass Index 39.03 12/17/2024 4:56 PM TRANSCRIPT CLERK Plan of Treatment Health Maintenance Due Date [...] HEAD WO CON STAT 12/17/2024 6:52 PM TRANSCRIPT CLERK CTA CHEST PE PROTOCOL STAT 12/17/2024 6:52 PM TRANSCRIPT CLERK INFLUENZA A & B STAT 12/17/2024 5:05 PM TRANSCRIPT CLERK RESP SYNCYTIAL VIRUS STAT 12/17/2024 5:05 PM TRANSCRIPT CLERK CORONAVIRUS (COVID 19) STAT 5:05 PM TRANSCRIPT CLERK TROPONIN, QUANT STAT 12/17/2024 5:05 PM TRANSCRIPT CLERK COMPREHENSIVE METABOLIC PANEL STAT 12/17/2024 5:05 PM TRANSCRIPT CLERK CBC W/DIFF AUTOMATED STAT 12/17/2024 5:05 PM TRANSCRIPT CLERK ECG 12-LEAD Routine 12/17/2024 4:58 PM TRANSCRIPT CLERK from Last 3 Months Results * CTA CHEST PE PROTOCOL (12/17/2024 6:52 PM TRANSCRIPT CLERK) Anatomical Region Laterality Modality Chest Computed Tomogra phy 12/17/2024 6:25 PM TRANSCRIPT CLERK Impressions 12/17/2024 6:31 PM TRANSCRIPT CLERK IMPRESSION: 1. Suboptimal contrast bolus timing for evaluation of pulmonary emboli. No evidence of massive or submassive pulmonary embolism. 2. No acute findings of the chest. 3. Suspect abdominal mass, recommend contrasted CT abdomen/pelvis for further evaluation. Referred By: Interpreted By: Flora Talbert DO, 12/17/2024 6:25 PM Narrative 12/17/2024 6:31 PM TRANSCRIPT CLERK [facility] [address] [place] [address] EXAMINATION: CTA CHEST PE PROTOCOL INDICATION: chest [...] Procedure Note Flora Talbert DO - 12/17/2024 [facility] [address] [place] [id number] EXAMINATION: CTA CHEST PE PROTOCOL INDICATION: chest [...] None. COMPARISON: Portable chest radiograph 05/18/2022, CT abdomen/[id number]/02/2019. FINDINGS: Pulmonary arteries: Diagnostic quality: Contrast bolus [...] CT HEAD WO CON (12/17/2024 6:52 PM TRANSCRIPT CLERK) Anatomical Region Laterality Modality Head Computed Tomogra phy 12/17/2024 6:27 PM TRANSCRIPT CLERK Impressions 12/17/2024 6:30 PM TRANSCRIPT CLERK IMPRESSION: No acute intracranial findings. Referred By: Interpreted By: Walker Torrez MD, 12/17/2024 6:27 PM Narrative 12/17/2024 6:30 PM TRANSCRIPT CLERK [facility] [address] [place] [address] EXAMINATION: CT of the head EXAM DATE/TIME: [...] Procedure Note Walker Torrez MD - 12/17/2024 [facility] [address] [place] [address] EXAMINATION: CT of the head EXAM DATE/TIME: [...] * CORONAVIRUS (COVID-19) MOLECULAR (12/17/2024 5:05 PM TRANSCRIPT CLERK) CORONAVIRUS SARS COV 2 RNA NEGATIVE NEGATIVE 12/17/2024 5:53 PM TRANSCRIPT CLERK [facility] Comment: NEGATIVE RESULTS DO NOT RULE [...] SARS-COV-2. SPECIMEN TYPE NASAL 12/17/2024 5:14 PM TRANSCRIPT CLERK [facility] NASOPHARYNGEAL SWAB / Unknown 12/17/2024 5:05 PM TRANSCRIPT CLERK us Priyank Cowart MD MICROBIOLOGY - GENERAL ORDERABL ES Final Result [facility] [address] [place] [address], * INFLUENZA A & B (12/17/2024 5:05 PM TRANSCRIPT CLERK) SPECIMEN TYPE NASOPHARYNGEAL SWAB 12/17/2024 5:20 PM TRANSCRIPT CLERK [facility] INFLUENZA A NEGATIVE NEGATIVE 12/17/2024 5:41 PM TRANSCRIPT CLERK [facility] INFLUENZA B NEGATIVE NEGATIVE 12/17/2024 5:41 PM TRANSCRIPT CLERK [facility] NASOPHARYNGEAL SWAB / Unknown 12/17/2024 5:05 PM TRANSCRIPT CLERK us Priyank Cowart MD MICROBIOLOGY - GENERAL ORDERABL ES Final Result Performing Organization Address [facility]/ZIP Co de Phone Number [facility] [address] [place] [address], [place] [phone] * RESP SYNCYTIAL VIRUS (12/17/2024 5:05 PM TRANSCRIPT CLERK) SPECIMEN TYPE NASOPHARYNGEAL SWAB 12/17/2024 5:14 PM TRANSCRIPT CLERK [facility] RAPID RSV NEGATIVE NEGATIVE 12/17/2024 5:41 PM TRANSCRIPT CLERK [facility] NASOPHARYNGEAL SWAB / Unknown 12/17/2024 5:05 PM TRANSCRIPT CLERK us Priyank Cowart MD MICROBIOLOGY - GENERAL ORDERABL ES Final Result Performing Organization Address [facility] Co de Phone Number [facility] [address] [place] [address], [place] [phone] * (ABNORMAL) COMPREHENSIVE METABOLIC PANEL (12/17/2024 5:05 PM TRANSCRIPT CLERK) GLUCOSE 91 70 - 99 MG/DL 12/17/2024 5:41 PM [facility] BUN 4(L) 7 - 18 MG/DL 12/17/2024 5:41 PM [facility] CREATININE S/P/B 0.47(L) 0.55 - 1.02 MG/DL 12/17/2024 5:41 PM [facility] SODIUM S/P/B 137 136 - 145 MMOL/L 12/17/2024 5:41 PM [facility] POTASSIUM S/P/B 3.7 3.5 - 5.1 MMOL/L 12/17/2024 5:41 PM [facility] CHLORIDE S/P/B 103 100 - 108 MMOL/L 12/17/2024 5:41 PM [facility] CO2 22.7 21 - 32 MMOL/L 12/17/2024 5:41 PM [facility] CALCIUM S/P/B 9.2 8.5 - 10.1 MG/DL 12/17/2024 5:41 PM [facility] BILIRUBIN TOTAL S/P/B 0.4 0.2 - 1.2 MG/DL 12/17/2024 5:41 PM [facility] TOTAL PROTEIN S/P/B 6.9 6.4 - 8.2 G/DL 12/17/2024 5:41 PM [facility] ALBUMIN S/P/B 2.7(L) 3.4 - 5.0 G/DL 12/17/2024 5:41 PM [facility] AST 24 15 - 37 U/L 12/17/2024 5:41 PM [facility] ALT 35 14 - 55 U/L 12/17/2024 5:41 PM [facility] ALKALINE PHOSPHATASE S/P/B 144(H) 50 - 136 U/L 12/17/2024 5:41 PM [facility] ANION GAP 11.3 5 - 15 MMOL/L 12/17/2024 5:41 PM [facility] BUN CREATININE RATIO 8.5 6 - 26 12/17/2024 5:41 PM [facility] A/G RATIO 0.6(L) 1.0 - 2.0 RATIO 12/17/2024 5:41 PM [facility] GFR ESTIMATE >90 >90 ML/MIN/1.7 3 M2 12/17/2024 5:41 PM [facility] Comment: NOTE: eGFR is not calculated for patients <18 years of age. This is an estimated GFR calculation using the new CKD EPI creatinine equation without race and so does not require a correction factor for race. This estimated GFR should not be used for calculating drug doses. 12/17/2024 5:05 PM TRANSCRIPT CLERK Priyank Cowart MD LABORATORY Final Result [facility] [address] [place] [address], * (ABNORMAL) CBC W/DIFF AUTOMATED (12/17/2024 5:05 PM TRANSCRIPT CLERK) WBC 11.16(H) 4.4 - 11.0 x10'3/uL 12/17/2024 5:23 PM [facility] RBC 3.41(L) 4.50 - 5.10 x10'6/uL 12/17/2024 5:23 PM [facility] HGB 10.3(L) 12.3 - 15.3 G/DL 12/17/2024 5:23 PM [facility] HCT 30.5(L) 35.9 - 44.6 % 12/17/2024 5:23 PM [facility] MCV 89.4 80.0 - 96.0 FL 12/17/2024 5:23 PM [facility] MCH 30.2 25.3 - 30.9 PG 12/17/2024 5:23 PM [facility] MCHC 33.8 31.0 - 34.1 G/DL 12/17/2024 5:23 PM [facility] RDW 12.4 12.4 - 15.1 % 12/17/2024 5:23 PM [facility] PLT 302 151 - 353 x10'3/uL 12/17/2024 5:23 PM [facility] MPV 9.3(L) 9.6 - 12.0 FL 12/17/2024 5:23 PM [facility] RBC MORPHOLOGY NORMAL 12/17/2024 5:23 PM [facility] PLT MORPH. NORMAL 12/17/2024 5:23 PM [facility] WBC MORPHOLOGY NORMAL 12/17/2024 5:23 PM [facility] LYMPHOCYTES % 21.2 15.8 - 45.0 % 12/17/2024 5:23 PM [facility] NEUTROPHILS % 72.1(H) 42.1 - 71.9 % 12/17/2024 5:23 PM [facility] MONOCYTES % 5.7 5.7 - 12.5 % 12/17/2024 5:23 PM [facility] EOSINOPHILS 0.4 0.0 - 5.6 % 12/17/2024 5:23 PM [facility] BASOPHILS 0.2 0.0 - 1.3 % 12/17/2024 5:23 PM [facility] ABS. NEUTROPHILS 8.03(H) 1.40 - 6.00 x10'3/uL 12/17/2024 5:23 PM [facility] IMMATURE GRANS % 0.4 0.0 - 0.5 % 12/17/2024 5:23 PM [facility] ABS. LYMPHOCYTES 2.37 0.80 - 4.70 x10'3/uL 12/17/2024 5:23 PM [facility] 12/17/2024 5:05 PM TRANSCRIPT CLERK Priyank Cowart MD LABORATORY Final Result [facility] [address] [place] [address], [place] [phone] * TROPONIN, QUANT (12/17/2024 5:05 PM TRANSCRIPT CLERK) TROPONIN I HIGH SENSITIVITY <4 0 - 50 ng/L 12/17/2024 5:48 PM TRANSCRIPT CLERK [facility] Comment: HIGH DOSES OF BIOTIN, TROPONIN-SPECIFIC AUTOANTIBODIES, AND ANTIBODY THERAPY CONTAINING HAMA MAY INTERFERE WITH THIS TEST RESULT. CORRELATION TO CLINICAL HISTORY AND PRESENTATION RECOMMENDED. 12/17/2024 5:0 5 PM TRANSCRIPT CLERK Priyank Cowart MD LABORATORY Final Result [facility] [address] [place] [address], [place] [phone] * ECG 12 lead (12/17/2024 4:58 PM TRANSCRIPT CLERK) 12/17/2024 4:58 PM [address] [facility] - 12/17/2024 5:18 PM TRANSCRIPT CLERK [facility] Test Date: 2024-12-17 Pat Name: JANEL MILLER Department: 85 Room: EXAM 101 Gender: Female Assistant Sales Director: : 2000 Requested By: PRIYANK COWART Order Number: [id number] Basil MD: Wilver Deshpande Measurements Intervals [place] Rate: 89 P: 54 IL: 139 QRS: 53 QRSD: 86 T: 43 QT: 340 QTc: 415 Interpretive Statements SINUS RHYTHM WITH SINUS ARRHYTHMIA Compared to ECG 05/18/2022 18:18:14 No significant changes SCRIPT CLERK Procedure Note Wilver Deshpande MD - 12/17/2024 [facility] Test Date: 2024-12-17 Pat Name: JANEL MILLER Department: 85 Room: EXAM 101 Gender: Female Assistant Sales Director: : 2000 Requested By: PRIYANK COWART Order Number: [id number] Reading MD: Wilver Deshpande Measurements Intervals [place] Rate: 89 P: 54 IL: 139 QRS: 53 QRSD: 86 T: 43 QT: 340 QTc: 415 Interpretive Statements SINUS RHYTHM WITH SINUS ARRHYTHMIA Compared to ECG 05/18/2022 18:18:14 No significant changes SCRIPT CLERK Priyank Cowart MD ECG ORDERABLES Final Result Performing Organization Address City/[facility] de Phone Number [facility] from Last 3 Months Insurance Care Teams Supervisor Gear Repair Relationship Specialty Start Date End Date Major Horowitz NP [address] [place] [address] PCP - General NURSE PRACTITIONER 08/23/21
--- OUTSIDE RECORDS SUMMARY | 2024-12-22 11:42 | XMS_ITS | Referral Summary ---
Author Organization [facility] Address [address] [place] [address] Care Team Providers Care Storage Receipt Poster Name Role Phone Ilya Vaughn MD Primary Care Provide r Source Comments [facility] and Associated Physician Practices is amultiple site organization consisting of ambulatory clinics and hospital sitesin [place], [place], [place] and [place]. This disclosure is being madepursuant to the Care Everywhere program and may not contain all information available regarding this patient. Last updated 18.[facility] Encounters Date Type Department Care Team Description 10/20/2024 7:27 AM BRIDGE/STRUCTURE INSPECTION TEAM LEADER - 10/20/2024 11:59 PM BRIDGE/STRUCTURE INSPECTION TEAM LEADER Hospital Encounter [facility] [address] [place] [id number] Jesi Busch MD Discharge Disposition: Home or Self Care 09/22/2024 7:17 AM BRIDGE/STRUCTURE INSPECTION TEAM LEADER - 09/22/2024 11:59 PM BRIDGE/STRUCTURE INSPECTION TEAM LEADER Hospital Encounter [facility] [address] [place] [address] Benitez Villanueva MD Discharge Disposition: Home or [...] 36.6 C (97.9 F) 12/30/2020 10:37 AM BRIDGE/STRUCTURE INSPECTION TEAM LEADER Respiratory Rate 18 12/30/2020 10:37 AM BRIDGE/STRUCTURE INSPECTION TEAM LEADER Oxygen Saturation 99% 12/30/2020 10:37 AM BRIDGE/STRUCTURE INSPECTION TEAM LEADER Inhaled Oxygen Concentration - - Weight 96.6 kg (213 lb) 08/27/2024 9:23 AM CDT Height 165.1 cm (5' 5 ) 08/27/2024 9:23 AM CDT Body Mass Index 35.45 08/27/2024 9:23 AM CDT Plan of Treatment Not on file Procedures Procedure Name Priority Date/Time Associated Diagnosis Comments SONOGRAM - COMPLETE Routine 10/20/2024 7 :34 AM BRIDGE/STRUCTURE INSPECTION TEAM LEADER Antiphospholipid antibody syndrome (HCC) Prediabetes PCOS (polycystic ovarian syndrome) History of spontaneous Obesity affecting in second trimester, unspecified obesity type (HCC) 19 weeks gestation of (HCC) SONOGRAM - COMPLETE Routine 09/22/2024 7 :35 AM BRIDGE/STRUCTURE INSPECTION TEAM LEADER Antiphospholipid antibody syndrome (HCC) Prediabetes PCOS (polycystic ovarian syndrome) History of spontaneous Obesity affecting in second trimester, unspecified obesity type (HCC) 19 weeks gestation of (HCC) from Last 3 Months Results * SONOGRAM - COMPLETE (10/20/2024 7:34 AM BRIDGE/STRUCTURE INSPECTION TEAM LEADER) Only the most recent of2 resultswithin the time period is included. Linked Results Indication ======== Antiphospholipid Syndrome Hx of prediabetes- A1C 5.4 on 07/22 Obesity, Class II Metformin use History ====== OB History 3. Para 0 [id number] Lab Tests Test Date Result NIPT Low [...] 1 lb 7 oz EFW by Hadlock ([id number]) appropriate Growth Overview Exam date [place] BPD [...] Heart / Thorax RVOT view. LVOT view. 0-upkvbv-dnmbsib view. Aortic arch view. Bicaval view. Ductal [...] growth assessment is recommended Coding ====== Procedures [address]: [place] [address]: [place] P[facility] Anatomical Region Laterality Modality Other 10/20/2024 7:34 AM BRIDGE/STRUCTURE INSPECTION TEAM LEADER R Nile Ha MD [facility] ORDERABLES from Last 3 Months Care Teams Storage Receipt Poster Relationship Specialty Start Date End Date Ilya Vaughn MD [address] [place] [id number] PCP - General Pediatrics 03/05/19
--- OUTSIDE RECORDS SUMMARY | 2024-12-22 11:42 | XMS_ITS | Patient Health Summary ---
Author Organization [facility] Address [address] [facility] [place] [address] Care Team Providers Care Anodiser Name Role Phone Ilya Vaughn MD Primary Care Provide r Note from [facility],non-owned Affiliates and Associated Physician Practices is amultiple site organization consisting of ambulatory clinics and hospital sitesin [place], [place], [place] and [place]. This disclosure is being madepursuant to the Care Everywhere program and may not contain all information available regarding this patient. Last updated 18.[facility] Allergies * Amoxicillin(Itching) * Cefdinir(Rash) -Medium [...] 36.6 C (97.9 F) 12/30/2020 10:37 AM STULL HEWER Respiratory Rate 18 12/30/2020 10:37 AM STULL HEWER Oxygen Saturation 99% 12/30/2020 10:37 AM STULL HEWER Inhaled Oxygen Concentration - - Weight 96.6 [...] * SONOGRAM - COMPLETE (10/20/2024 7:34 AM STULL HEWER) Only the most recent of3 resultswithin the time period is included. Linked Results Indication ======== Antiphospholipid Syndrome Hx of prediabetes- A1C 5.4 on 07/22 Obesity, Class II Metformin use History ====== OB History 3. Para 0 [id number] Lab Tests Test Date Result NIPT Low [...] 1 lb 7 oz EFW by Hadlock ([id number]) appropriate Growth Overview Exam date [place] BPD [...] Heart / Thorax RVOT view. LVOT view. 7-xuwvyp-ygwruxe view. Aortic arch view. Bicaval view. Ductal [...] growth assessment is recommended Coding ====== Procedures [address]1327: [place] [address]: [place] Preg Uterus Transvaginal [facility] PACS Anatomical Region Laterality Modality Other 10/20/2024 7:34 AM STULL HEWER R Nile Ha MD [facility] ORDERABLES * SPLIT NIGHT STUDY (03/24/2021 12:00 PM CDT) 03/24/2021 12:0 0 PM CDT Narrative Procedure Note Elan Jara MD - 03/26/2021 11:59 PM CDT [facility] Sleep Disorders Center All Night Sleep Study/Polysomnography Patient: NITO MILLER Patient Type: CSN: [id number] Bday/Age: 11 2000 20 Stn/Rm/Bed: [facility] Sex/Race: F Unit #: [id number] Patient Adrs: [address] Prim Phys: Attend Phys: ELAN JARA [facility]//Zip: [place] [address] Admit Date: March 24, 2021 Disch To: Disch Date: DATE OF SERVICE: 03/24/2021 INDICATIONS: An 20-year-old female, who weighs 205 pounds, height is 5feet 5 inches, BMI is 34.18. [place] sleepiness score, 12. Sleep diary at bedtime [...] under current study. Elan Jara M.D., Tanika. [facility] Board Certified Sleep Medicine AR/MODL /[id number] cc: Elan Jara M.D., Manisha JARA M.D., Tanika. POLYSOMNOGRAPHY REPORT Elan Jara MD [facility] ORDERAB LES Performing Organization Address City/[facility] Co de Phone Number [facility] * HOME SLEEP STUDY (01/24/2021 12:00 PM CDT) 01/24/2021 12:0 0 PM CDT Narrative Procedure Note Elan Jara MD - 01/26/2021 11:59 PM CDT [facility] Sleep Disorders Center All Night Sleep Study/Polysomnography Patient:NITO MILLER Patient Type: CSN:[id number]/Age:13 2000 20 Stn/Rm/Bed: Sex/Race:F Unit #:[id number] Adrs: Prim Phys: Attend Phys: City/St/Zip: , [...] wake-up time between8 a.m. and 11 a.m. [place] Sleepiness Score, she scored 9. Home sleep [...] F.C.C.P. SARAH Board Certified Sleep Medicine AR/MODL /[id number] cc: Elan Jara M.D., F.C.C.P. ELAN JARA M.D., F.C.C.P.POLYSOMNOGRAPHY REPORT Elan Jara MD SLEEP CENTER ORDERAB LES Care Teams Anodiser Relationship Specialty Start Date End Date Ilya Vaughn MD [address] [place], [place] [phone] PCP - General Pediatrics 03/05/19
--- OUTSIDE RECORDS SUMMARY | 2024-12-22 11:42 | XMS_ITS | Data Portability ---
Author Organization [facility] Address [address] [place] [address] Care Team Providers Care Watershed Program Manager Name Role Phone OSWALDO DANG Primary Care Provider FESTUS MACKAY Primary Care Provider [phone] Assessment Encounter Date Assessment Date Assessment LastModified by Organization Details LastModified Time 11/25/2024 11/25/2024 Patient is ___weeks . Discussed plan. [email or web address] Not available 11/25/2024 10:40:00 Plan of Treatment Reminders Order Date Submit Date Provider Last Modified By Organization Details Last Modified Time Details Appointments NST 2024 08:30A M NST SCHEDULE Not available Not available Not available U/S OB BPP 2024 08:30A M ULTRASOUND Not available Not available Not available NST 2024 09:00A M NST SCHEDULE Not available Not available Not available OB ROUTINE 2024 09:30A M AZEEM GROSS MD Not available Not available Not available NST 2024 08:30A M NST SCHEDULE Not available Not available Not available U/S OB BPP 2024 09:00A M ULTRASOUND Not available Not available Not available OB ROUTINE 2024 09:30A M AZEEM GORSS MD Not available Not available Not available NST 2024 10:30A M NST SCHEDULE Not available Not available Not available U/S OB BPP 2024 09:00A M ULTRASOUND Not available Not available Not available NST 2024 09:30A M NST SCHEDULE Not available Not available Not available OB ROUTINE 2024 10:00A M AZEEM GROSS MD Not available Not available Not available NST 2024 10:00A M NST SCHEDULE Not available Not available Not available U/S OB BPP 2024 08:30A M ULTRASOUND Not available Not available Not available NST 2024 09:00A M NST SCHEDULE Not available Not available Not available OB ROUTINE 2024 09:30A M AZEEM GROSS MD Not available Not available Not available NST 2024 09:30A M NST SCHEDULE Not available Not available Not available U/S OB BPP 2024 09:30A M ULTRASOUND Not available Not available Not available NST 2024 10:00A M NST SCHEDULE Not available Not available Not available OB ROUTINE 2024 10:30A M AZEEM GROSS MD Not available Not available Not available NST 2024 09:30A M NST SCHEDULE Not available Not available Not available U/S OB BPP 2024 09:00A M ULTRASOUND Not available Not available Not available NST 2024 09:30A M NST SCHEDULE Not available Not available Not available OB ROUTINE 2024 10:00A M AZEEM GROSS MD Not available Not available Not available NST 2024 09:30A M NST SCHEDULE Not available Not available Not available U/S OB BPP 2024 08:30A M ULTRASOUND Not available Not available Not available NST 2024 09:00A M NST SCHEDULE Not available Not available Not available OB ROUTINE 2024 09:30A M AZEEM GROSS MD Not available Not available Not available NST 2024 09:30A M NST SCHEDULE Not available Not available Not available U/S OB BPP 2024 09:00A M ULTRASOUND Not available Not available Not available NST 2024 09:30A M NST SCHEDULE Not available Not available Not available OB ROUTINE 2024 10:00A Gwen GROSS MD Not available Not available Not available NST 2024 09:00A M NST SCHEDULE Not available Not available Not available U/S OB BPP 2024 09:00A M ULTRASOUND Not available Not available Not available NST 2024 09:30A M NST SCHEDULE Not available Not available Not available OB ROUTINE 2024 10:00A M AZEEM GROSS MD Not available Not available Not available NST 2024 09:00A M NST SCHEDULE Not available Not available Not available Lab None recorde d. Referral None recorde d. Procedures None recorde d. Surgeries None recorde d. Imaging non-str ess test 2024 025 [place], [address], [place], [address], 12/22/2024 10:19:21 , [facility] ic, follow- up 2024 025 [email or web address], [address], [place], [address], 11/26/2024 08:27:19 Medication Orders None recorde d. Patient TargetsNo targets recorded. Patient InstructionsNo instructions recorded. Reason for Referral None Reported. Results Created Date Observation Date Name Description Value Unit Range Abnormal Flag Note LastModifiedBy Organization Detail LastModifiedTime 09/09/20 24 09/09/2024 GTT - RAMONAA ELLIOT Valentine, ACOG OB glucose, 1 hour screen 115 mg/dL 70-135 Not Available [facility] (Lab) [address], [place], [address], 09/10/2024 10:48:32 11/25/19 25 11/25/2024 HEMAT OCRIT (HCT) HCT 35.0 % (based on docume nted legal sex) 34.0-4 5.0 Not Available [facility] (Lab) [address], [place], [address], 11/26/2024 10:37:31 11/25/19 25 11/25/2024 HEMOG LOBIN (HGB) HGB 11.5 g/dL (based on docume nted legal sex) 11.6-1 5.4 low Not Available [facility] (Lab) [address] [facility], [place], [address], 11/26/2024 10:37:32 11/25/19 25 11/25/2024 GTT - GESTA ELLIOT L SCREE N, ACOG OB glucose, 1 hour screen 122 mg/dL 70-135 Not Available [facility] (Lab) [address] [facility], [place], [address], 11/26/2024 10:37:32 11/25/19 25 11/25/2024 HIV 1/2 ANTIG EN/AN TIBOD Y, REFLE X CONFI RMATI ON HIV antigen/anti body Nonrea ctive nonrea ctive HIV-1 antig en and HIV-1 /HIV- 2 antib odies were not detec mamadou. No labor atory evide nce of HIV infec tion. Not Available [facility] (Lab) [address] [facility], [place], [address], 11/26/2024 10:37:33 11/25/19 25 11/25/2024 RPR SCREE N, REFLE X TITER /CONF IRMAT ION RPR screen Nonrea ctive nonrea ctive Not Available [facility] (Lab) [address] [facility], [place], [address], 11/26/2024 10:37:34 09/22/20 24 09/22/2024 US, yady bella infus ed uteru s No observ ation record ed. [email or web address] [facility] [address], [place], [address], 09/24/2024 09:28:38 09/22/20 24 09/22/2024 US, yady bella infus ed uteru s No observ ation record ed. [email or web address] [facility] [address], [place], [address], 09/24/2024 09:29:15 10/20/20 24 10/20/2024 US, salin e infus ed uteru s No observ ation record ed. [facility] [address] [place], [address], 10/20/2024 14:25:55 10/20/20 24 10/20/2024 US, salin e infus ed uteru s No observ ation record ed. [facility] [place] [address] [place], [address], 10/20/2024 14:25:55 11/25/19 25 11/25/2024 US, obste tric, follo w-up No observ ation record ed. [email or web address] [place] [address], [place], [address], 11/25/2024 14:31:02 11/25/19 25 11/25/2024 US, obste tric, follo w-up No observ ation record ed. [email or web address] [address], [facility], [place], [address], 11/26/2024 23:26:54 12/22/19 25 12/22/2024 non-s tress test No observ ation record ed. [email or web address] [place] [address], [place], [address], 12/22/2024 10:16:43 Result Notes None recorded. Problems Name Problem SNOMED Code Status Onset Date Resolution Date Notes Provider Name and Address Organization Details Recorded Time Family history of malignant neoplasm of breast in first degree relative 732226110 Active 2021 mom age 32. MAMMOS TO START AT 22yo. Kym López MD [address], [place], [address], [place] [facility] 19:05:45 Body mass index 30+ - obesity 530811286 Active 2021 Kym López MD [address], [place], [address], [facility] 2 10:30:27 Prediabet es 953291328 Active Zbigniew Ha MD [address], [place], [address], [facility] 4 11:13:08 Polycysti c ovary syndrome 780632692 Active 2021 Kym López MD [address], [place], [address], [facility] 2 10:30:33 56729823 Active 2023 [facility], [facility] 4 10:10:22 COVID-19 895180856 Active Zbigniew Ha MD [address], [place], [address], [facility] 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 Next u/s only 09/22/24 [facility], [facility] 4 15:25:15 Prediabet es 505327053 Active Zbigniew Ha MD [address], [place], [address], [facility] 4 11:13:08 Obesity 380275962 Active Zbigniew Ha MD [address], [place], [address], [facility] 4 11:13:33 Problem Notes None recorded. Procedures Surgical History Date Name Laterality Status Provider Name and Address Organization Details Recorded Time 02/06/20 24 SIS completed AZEEM GROSS MD [address], [place], [address], [place] [facility] 02/08/2024 13:14:27 10/29/19 24 Date of Last [facility] 08/05/2024 10:47:00 10/29/19 24 Colonoscopy completed [facility] 08/05/2024 10:51:33 10/29/19 20 extraction of wisdom tooth completed [facility] 08/05/2024 10:52:02 03/31/20 19 Date of Last Mammogram completed [facility] 08/05/2024 16:54:43 10/29/19 19 repair of labial tear completed [facility] 08/05/2024 16:56:32 Imaging Results Imaging Date Name Status LastModified by Organiz ation Details LastModified Time 09/22/2024 US, saline infused uterus completed [address], [place], [address], 09/24/2024 09:28:38 09/22/2024 US, saline infused uterus completed [address], [place], [address], 09/24/2024 09:29:15 10/20/2024 US, saline infused uterus completed [facility] [address] [place] [address], [address], 10/20/2024 14:25:55 10/20/2024 US, saline infused uterus completed [facility] [address], [address], 10/20/2024 14:25:55 11/25/2024 US, obstetric, follow-up completed [email or web address] [place] [address], [place], [address], 11/25/2024 14:31:02 11/25/2024 US, obstetric, follow-up completed [email or web address], [place], [address], 11/26/2024 23:26:54 12/22/2024 non-stress test completed [place] [address], [place], [address], 12/22/2024 10:16:43 Procedure Notes None recorded. Medical Equipment None Reported. Allergies Allergen ID Allergen Name Allergen Category Reaction Reaction Severity Criticality Documentation Date Start Date Code Code System Note Provider Name and Address Organization Details Recorded Time 64472 amoxicill in medicatio n Not available Not available Not available 03/24/2022 723 RxNorm [facility], [facility] 4 15:12:26 42282 cefdinir medicatio n Not available Not available Not available 03/24/2022 35403 RxNorm Other react ions and sever ities : 'Anap hylax is - Moder ate'. [facility] 4 15:34:29 38251 amoxicill in trihydrat e medicatio n rash moderate Not available 01/02/2024 67530 8 RxNorm Lara redmond [facility] 4 15:34:29 72943 ethinyl estradiol / levonorge strel medicatio n Not available Not available Not available 01/02/2024 85949 8 RxNorm AZEEM GROSS MD [address], [place], [address], [facility] 4 11:01:47 Medications Name Sig Start Date Stop Date Status Note LastModified by Organization Details LastModified Time medroxyprog esterone 10 mg tablet TAKE 1 TABLET BY MOUTH ONCE DAILY FOR 10 DAYS 07/10 completed Not Available Not Available Not Available cetirizine 10 mg tablet TAKE 1 TABLET BY MOUTH ONCE DAILY 01/01 completed Not Available Not Available Not Available ondansetron HCl 4 mg tablet TAKE 2 TABLETS BY MOUTH TWICE DAILY 01/01 completed Not Available Not Available Not Available acetaminoph en 300 mg-codeine 30 mg tablet TAKE 1 TABLET BY MOUTH EVERY 12 HOURS NEEDED 07/11 completed Not Available Not Available Not Available peg-electro lyte solution 420 gram oral solution TAKE DIRECTED 01/01 completed Not Available Not Available Not Available dexamethaso ne 1 mg tablet TAKE 1 TABLET BY MOUTH AT 11PM 01/01 completed Not Available Not Available Not Available erythromyci n 5 mg/gram (0.5 %) eye ointment INSTILL OINTMENT INTO EACH EYE NIGHTLY AT BEDTIME FOR 10 DAYS 01/01 completed Not Available Not Available Not Available metformin 1,000 mg tablet TAKE 1 TABLET BY MOUTH TWICE DAILY active Not Available Not Available No t Available progesteron e micronized 200 mg capsule Take 1 capsule every day by oral route. 01/01 completed Not Available Not Available Not Available bromocripti ne 2.5 mg tablet TAKE 1/2 (ONE-HALF ) TABLET BY MOUTH TWICE DAILY 07/11 completed Not Available Not Available Not Available ondansetron 4 mg disintegrat ing tablet DISSOLVE 1 TABLET IN MOUTH EVERY 8 HOURS NEEDED FOR NAUSEA 03/24 completed Not Available Not Available Not Available metformin ER 500 mg tablet,exte nded release 24 hr TAKE 1 TABLET BY MOUTH ONCE DAILY FOR 10 DAYS THEN 1 TWICE DAILY 08/18 completed Not Available Not Available Not Available dicyclomine 10 mg capsule TAKE 1 CAPSULE BY MOUTH 4 TIMES DAILY NEEDED 03/24 completed Not Available Not Available Not Available metoclopram alejandro 10 mg tablet TAKE 1 TABLET BY MOUTH EVERY 6 HOURS NEEDED FOR NAUSEA AND VOMITING active Not Available Not Available No t Available bromocripti ne active Not Available Not Available Not Available active Not Available Not Avai lable Not Available metformin ER 500 mg 24 hr tablet,exte nded release (gastric retention) Take one tablet daily for 10 days, then increase to one tablet BID. 08/18 completed Not Available Not Available Not Available Daily 01/01 completed Not Available Not Available Not Available Vitals Date Recorded Body height Body mass index (BMI) Body weight Systolic blood pressure Diastolic blood pressure Provider Name and Address Organization Details Last Updated DateTime 09/30/2024 165.1 cm 36.8 kg/m2 797297.9 1 g 111 mm[Hg] 66 mm[Hg] [facility] 4 09:53:06 Date Recorded Body height Body mass index (BMI) Body weight Systolic blood pressure Diastolic blood pressure Provider Name and Address Organization Details Last Updated DateTime 10/30/2024 165.1 cm 36.9 kg/m2 724798.5 0614 g 105 mm[Hg] 70 mm[Hg] [facility] 5 09:32:07 Date Recorded Body height Body mass index (BMI) Body weight Systolic blood pressure Diastolic blood pressure Provider Name and Address Organization Details Last Updated DateTime 11/25/2024 165.1 cm 37.8 kg/m2 037074.4 7 g 117 mm[Hg] 74 mm[Hg] [facility] 5 10:45:00 Date Recorded Body height Body mass index (BMI) Body weight Systolic blood pressure Diastolic blood pressure Provider Name and Address Organization Details Last Updated DateTime 12/22/2024 165.1 cm 38.6 kg/m2 594018.4 3 g 106 mm[Hg] 69 mm[Hg] [facility] 5 10:15:37 Social History Question Answer Notes LastModified by Organizat ion Details LastModified Time Tobacco Smoking Status Never Smoker Justine Moreland [facility] 12/22/2022 11:27:20 Do You Have An Advance Directive? No Information n ot available 01/02/2024 What Is Your Level Of Alcohol Consumption? None [email or web address] Information not available 08/05/2024 If You Are , What Was Your Level Of Alcohol Consumption Prior To ? Occasional [email or web address] Information not available 08/05/2024 How Many Years Have You Consumed Alcohol? 5 Information not available 01/02/2024 Are You Blind Or Do You Have Difficulty Seeing? No Information n ot available 01/02/2024 What Is Your Level Of Caffeine Consumption? Heavy [email or web address] Information not available 07/11/2024 In The 14 Days Before Symptom Onset, Have You Had Close Contact With A Laboratory-confirm ed COVID-19 While That Case Was Ill? No Information n ot available 01/02/2024 In The 14 Days Before Symptom Onset, Have You Had Close Contact With A Person Who Is Under Investigation For COVID-19 While That Person Was Ill? No Information not available 01/02/2024 Have You Been To An Area Known To Be High Risk For COVID-19? Yes [email or web address] Information not available 07/11/2024 Are You Deaf Or Do You Have Serious Difficulty Hearing? No Information not available 01/02/2024 What Type Of Diet Are You Following? REGULAR Information n ot available 01/02/2024 What Is The Highest Grade Or Level Of School You Have Completed Or The Highest Degree You Have Received? [id number] [email or web address] Information not available 07/11/2024 What Is Your Occupation? [employer] [email or web address] Information not available 07/11/2024 Are There Any Guns Present In Your Home? No [email or web address] Information not available 07/11/2024 Have You Ever Been Counseled For Unhealthy Alcohol Use? No [email or web address] Information not available 12/22/2022 Do You Use Protection During Sex? No Information not available 01/02/2024 Do You Use Your Seat Belt Or Car Seat Routinely? Yes Information not available 01/02/2024 Do You Have Smoke And Carbon Monoxide Detectors In Your Home? Yes Information not available 01/02/2024 How Much Tobacco Do You Smoke? No [email or web address] Information not available 07/11/2024 Do You Feel Stressed (tense, Restless, Nervous, Or Anxious, Or Unable To Sleep At Night)? [id number] Information not available 01/02/2024 Do You Use Any Illicit Or Recreational Drugs? No [email or web address] Information not available 03/24/2022 Do You Use Sunscreen Routinely? Yes [email or web address] Information not available 07/11/2024 Has Tobacco Cessation Counseling Been Provided? No [email or web address] Information not available 12/22/2022 Have You Used IV Drugs? No Information not available 01/02/2024 Do You Or Have You Ever Used Any Other Forms Of Tobacco Or Nicotine? No [email or web address] Information not available 12/22/2022 Sex: Unknown Functional Status Question Answer Note LastModified by Organizat ion Details LastModified Time Do you have difficulty walking or climbing stairs? No [email or web address] Information not available 08/05/2024 Are you able to walk? [email or web address] Information not available 01/02/2024 Are you able to care for yourself? Yes Information not available 08/05/2024 Do you have difficulty dressing or bathing? No [email or web address] Information not available 08/05/2024 What is your exercise level? Occasional [email or web address] Information not available 07/11/2024 Mental Status None recorded. Family History Relationship Description Onset Age of this Age Resolved Age Notes LastModified by Organization Details LastModified Time Mother Anemia [email or web address] Not available 07/11/2024 14:23:29 Mother Carcinoma in situ of breast [email or web address] Not available 2024 09:48:43 Mother Substance abuse meth,a lcohol Not available 07/11/2024 14:23:29 Mother Mental disorder [email or web address] Not available 2023 14:23:29 Mother Hypertensive disorder [email or web address] Not available 2023 14:23:29 Mother Depressive disorder [email or web address] Not available 2023 14:23:29 Mother Anxiety disorder [email or web address] Not available 2023 14:23:29 Mother Malignant tumor of cervix [email or web address] Not available 08/05 16:55:25 Mother Bipolar disorder [email or web address] Not available 2024 09:48:43 Mother Seizure disorder Not available 2024 09:48:43 Father Mental disorder [email or web address] Not available 2023 14:23:29 Father Hypertensive disorder [email or web address] Not available 2023 14:23:29 Father Anxiety disorder [email or web address] Not available 2023 14:23:29 Medical History Condition Response Allergies (Food, seasonal, environmental ) Y Other Y Breast Cancer N Drug/Latex Allergies/Reactions Y Blood Transfusion N Dermatologic Disorders N Lung Disease N Defects or Inherited Disease N Breast Problem N Gestational Diabetes N Hematologic disorders N Anesthesia Complications N History of STI Y Deep Vein Thrombosis N Polycystic ovary syndrome Y Anxiety Disorder Y Autoimmune disease Y Arthritis N Infertility N Polyps N Acid Reflux (GERD) N History of abnormal pap N Cancer N Stroke N Varicosities N Neurologic/Epilepsy N Endometriosis N High Cholesterol N Headaches Y Fibromyalgia N Kidney Disease N Heart Problems N Kidney or Bladder Problems N Thyroid Problems N GI Problems N Eating Disorder N Anemia N Art (IVF or FET) N Psychiatric Illness N Ovarian Cancer N Diabetes N Pulmonary (TB, Asthma) N Hepatitis/Liver Disease N No Past Medical History N Eczema N Urinary Tract Infection N Abuse/Domestic Violence N Asthma N Trauma/Violence N Depression/ depression Y Heart Disease N Pre-Eclampsia N Hypertension N Osteoporosis N Thrombophilias N Gynecological History Statement/Question Response Abnormal Pap N Date of Last Mammogram 03/31/2019 Date of LMP 05/15/2024 N On BCP's at Conception? N STIs/STDs Y Was last menstrual period normal N HPV Vaccine Y Duration of Flow (days) 5 Current Control Method Are cycles usually normal N Date of Last Colonoscopy 10/29/2023 Sexually Active? Y None Menses Monthly N Date of DEXA bone scan Age of first menstrual cycle 14 Date of Last Pap Smear Sexual Problems? N LMP Definite Desired Control Method None N Obstetrics History GPAL:G 3 P 0 0 2 0 Type Value Spontaneous 2 Living 0 Total 3 Past Encounters Encounter ID Performer Location Encounter Start Date Encounter Closed Date Diagnosis/Indication Diagnosis SNOMED-CT Code Diagnosis ICD10 Code Diagnosis Note [id number] Kym López MD [place] [address] [address] 03/24/2022 09:46:53 03/24/2022 11:19:51 Polycystic ovary syndrome 257726679 E28.2 Irregular periods 843660 07 N92.6 Trying to conceive 34684 9001 Z31.9 Prediabetes 311534335 R7 3.03 Body mass index 30+ - obesity 057510638 Z68.36 Family his tory of malignant neoplasm of breast in first degree relative 713756541 Z80.3 mom in early 30s [id number] Kym López MD [place] [address],[place] [address] 05/09/2022 16:41:02 05/10/2022 14:59:10 Complete miscarriage 446913505 O03.9 Polycystic ovary syndrome 914945383 E28.2 Prediabetes 591077214 R7 3.03 [id number] Kym López MD [place] [address],[place] [address] 12/22/2022 11:27:13 12/25/2022 16:22:36 Polycystic ovary syndrome 812428684 E28.2 Family his tory of malignant neoplasm of breast in first degree relative 532873727 Z80.3 mom in early 30s Body mass index 30+ - obesity 277482264 Z68.36 Trying to conceive 67442 9001 Z31.9 [id number] MURPHY Ortega [place] [address],[place] [address] 01/02/2024 15:27:31 01/02/2024 16:16:49 Reproductive care management 952105924 Z31.9 Discussed TTC/timed IC, OPKs, etcencoura ged daily PNVrecomme nded updated labs and pelvic u/sdiscuss ed semen anaylsis for partnerRTC for pelvic u/s and fertility consult with Dr. Villela uraged to schedule WWE/due for primary pap Time spent in visit is a total of 25 mins with at least 50% of visit consisting of counseling and review of plan of care. [id number] Kathleen Arora [place] [address],[place] [address] 01/07/2024 12:17:44 01/07/2024 13:06:12 Abnormal uterine bleeding 4256022251 9100 N93.9 N97.9 [id number] AZEEM GROSS MD [place] [address],[place] [address] 01/23/2024 16:05:33 01/23/2024 17:21:25 Recurrent miscarriage 577230712 N96 - Differenti al diagnosis of cause of infertilit y includes: PCOS, skip miner blasting y disorder, male factor, structural - We discussed the potential causes of infertilit y and rationale behind testing. We also discussed her reproducti ve potential in the context of her age as well as the risk of aneuploidy .- The patient is asked to complete the following diagnostic work up to include:-- APLS labs and repeat prolactin- - Transvagin al ultrasound with SIS for endometria l cavity assessment - The patient was asked to have her partner collect a semen analysis.- Discussed the fertile time of the cycle and options for tracking ovulation, including ovulation predictor kits and basal body temperatur e.-- Discussed timed intercours e every other day starting on Day 6 of period through to the next period.-- Discussed using LH surge kits, usually accurate and would recommend intercours e that day and the next day, then can wait until next cycle.-- Discussed ovulation induction would be considered only after behavioral interventi ons were implemente d and after partner completes semen analysis.- Following the return of these test results she is asked to return to the office for further discussion of reproducti ve planning and treatment options Polycystic ovary syndrome [id number] E28.[id number] [facility] [address],[place] [address] 02/06/2024 16:19:33 02/07/2024 11:09:35 Female infertility 7955629 N97.9 [id number] AZEEM GROSS MD [place] [address],[place] [address] 02/06/2024 16:19:54 02/08/2024 09:11:01 Recurrent miscarriage 930627306 N96 - Differenti al diagnosis of cause of infertilit y includes: PCOS, skip miner blasting y disorder, male factor, structural - We discussed the potential causes of infertilit y and rationale behind testing. We also discussed her reproducti ve potential in the context of her age as well as the risk of aneuploidy .- The patient is asked to complete the following diagnostic work up to include:-- APLS labs and repeat prolactin in 12 weeks- SIS wnl today, no evidence of intrauteri ne pathology- Semen analysis wnl [id number] 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 Exam today within normal limits.2. Ultrasound today confirms GA and viability. EDC . GC/Clamydi a testing done: will f/u as indicated. 4. ACOG guidelines and plan of care for reviewed with patient. All questions answered.5 . Return to office at 12 weeks for new OB visit6. Will need new OB labs at next visit.7. 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 - continue bromocrypt ine [id number] [facility] [address],[place] [address] 08/05/2024 09:44:03 08/05/2024 10:49:10 screening 858194764 Z36.82 Z3A.12 [id number] Zbigniew Ha MD [place] [address],[place] [address] 08/05/2024 09:44:29 08/05/2024 11:51:12 Gestation period, 11 weeks 14632664 Z3A.11 Routine an tenatal care 704912247 Z34.90 [id number] AZEEM GROSS MD [place] [address],[place] [address] 09/02/2024 10:34:54 09/05/2024 12:13:07 Prediabetes 570639719 R73.03 - early GTT per MFM Maternal o besity complicating , childbirth and the puerperium, antepartum 8103112834 07 O99.210 Antiphosph olipid syndrome 82126973 D68.61 - 162mg ASA daily- per MFM, no lovenox needed Gestation period, 16 weeks 91932530 Z3A.16 - continue PNV [id number] AZEEM GROSS MD [place] [address],[place] [address] 09/30/2024 09:43:12 09/30/2024 10:43:21 Body mass index 30+ - obesity 055981585 Z68.36 - testing at 37 weeks Antiphosph olipid syndrome 61803025 D68.61 - 162mg ASA daily- per MFM, no lovenox needed Prediabetes 318826317 R7 3.03 - passed early GTT at 16 weeks- repeat at 28 weeks Gestation period, 19 weeks 00412857 Z3A.19 - continue PNV [id number] AZEEM GROSS MD [place] [address],[place] [address] 10/30/2024 09:15:17 10/30/2024 16:23:42 Prediabetes 252570185 R73.03 - passed early GTT at 16 weeks- repeat at 28 weeks Maternal o besity complicating , childbirth and the puerperium, antepartum 6974767301 07 O99.210 Antiphosph olipid syndrome 89605361 D68.61 - 162mg ASA daily- per MFM, no lovenox needed Gestation period, 24 weeks 962376691 Z3A.24 [id number] Kathleen Arora [place] [address],[place] [address] 11/25/2024 09:48:28 11/25/2024 10:41:01 condition affecting obstetrical care of mother 083653064 O35.3XX0 O99.212 Z3A.27 [id number] AZEEM GROSS MD [place] [address],[place] [address] 11/25/2024 09:48:40 11/25/2024 11:26:25 Antiphospholipid syndrome in 3304608750 9100 O99.119 - ASA 162mg- plan for twice weekly testing starting at 32 weeks- continue serial growth US Gestation period, 27 weeks 23574609 Z3A.27 - continue PNV- GCT and labs today Breech presentation 6096 002 O32.1XX9 [id number] Kelly Thompson [place] [address],[place] [address] 12/22/2024 09:24:48 12/22/2024 10:19:21 Antiphospholipid syndrome in 6813939591 9100 O99.119 - ASA 162mg- plan for twice weekly testing starting at 32 weeks- continue serial growth US Health Concerns Section Related Observation LastModified by Organization Detai ls LastModified Time None Recorded Concern Status LastModified by Organization Details LastModified Time None Recorded Advance Directives Directive N: Payers Encounter Date Sequence Insurance Name Policy Number Policy [employer] Covered Member ID Eubanks Member ID Guarantor Name 09/30/2024 1 [facility] ON OR AFTER 04/28/21 (MEDICAID REPLACEMENT - HMO) Nito Miller [id number] Nito Miller 10/30/2024 1 [facility] ON OR AFTER 04/28/21 (MEDICAID REPLACEMENT - HMO) Nito Miller [id number] Nito Miller 11/25/2024 1 [facility] ON OR AFTER 04/28/21 (MEDICAID REPLACEMENT - HMO) Nito Miller [id number] Nito Miller 11/25/2024 1 [facility] ON OR AFTER 04/28/21 (MEDICAID REPLACEMENT - HMO) Nito Miller [id number] Nito Miller 12/22/2024 1 [facility] ON OR AFTER 04/28/21 (MEDICAID REPLACEMENT - HMO) Nito Miller [id number] Nito Mliler OBGyn Episode Ob Episode Information Episode Created Date Number of Fetuses Patient Bloodtype Patient rh Status Prepregnancy Weight lbs Domestic Partner Domestic Partner Phone Father Name Glued Wood Tester Status 02/14/20 23 1 CLOSED Fetus Data First Name Last Name Admitted to NICU Weight (g) Sex Living Outcome Pediatric Complications Fetus ID Race Codes Race Delivery Type , Spontane ous [id number] Chad Calculation Initial Chad Date Initial Exam Date Initial Exam Provider Initial Ultrasound Date Last Menstrual Period Date Ultra Sound Weeks Gestation 0 Eighteen To Twenty Week Chad Update Ultra Sound Date Fundal Height At Umbil Quickening Date Ultra Sound Latest Weeks Gestation Final Chad Confirmed By Final Chad Confirmed Date Final Chad Date Ultra Sound Latest Days Gestation 0 0 Menstrual History Last Menstrual Date Menses Monthly On Bcp Conception Prior Menses Frequency Hcg Plus Date Menarche Onset Age Delivery Information Delivery Date Delivery Type Labor Anesthesia Weeks Gestation Incision Type Labor Labor Length Hrs Delivered By Post Complications Tubal Sterilization Discharge Date Comments 3 Discharge Information Feeding Method Contraceptive Method Maternal HG B and HCT Levels Ob Episode Information Episode Created Date Number of Fetuses Patient Bloodtype Patient rh Status Prepregnancy Weight lbs Domestic Partner Domestic Partner Phone Father Name Glued Wood Tester Status 01/02/20 24 1 CLOSED Fetus Data First Name Last Name Admitted to NICU Weight (g) Sex Living Outcome Pediatric Complications Fetus ID Race Codes Race Delivery Type [id number] Chad Calculation Initial Chad Date Initial Exam Date Initial Exam Provider Initial Ultrasound Date Last Menstrual Period Date Ultra Sound Weeks Gestation 0 Eighteen To Twenty Week Chad Update Ultra Sound Date Fundal Height At Umbil Quickening Date Ultra Sound Latest Weeks Gestation Final Chad Confirmed By Final Chad Confirmed Date Final Chad Date Ultra Sound Latest Days Gestation 0 0 Menstrual History Last Menstrual Date Menses Monthly On Bcp Conception Prior Menses Frequency Hcg Plus Date Menarche Onset Age Delivery Information Delivery Date Delivery Type Labor Anesthesia Weeks Gestation Incision Type Labor Labor Length Hrs Delivered By Post Complications Tubal Sterilization Discharge Date Comments 2 Discharge Information Feeding Method Contraceptive Method Maternal HG B and HCT Levels Ob Episode Information Episode Created Date Number of Fetuses Patient Bloodtype Patient rh Status Prepregnancy Weight lbs Domestic Partner Domestic Partner Phone Father Name Glued Wood Tester Status 08/05/20 24 1 O Positive 224 OPEN Fetus Data First Name Last Name Admitted to NICU Weight (g) Sex Living Outcome Pediatric Complications Fetus ID Race Codes Race Delivery Type [id number] Problems Problem Notes 10/20/24 7:30am u/s onlyLD A SA 2 tabs daily, lovenox recommendations, pt to think about it and reach back out with decision, hematology consult , early gtt and repeat 26-28wks if wnl, healthy meal plan, serial u/s exams growth, continue metformin per pt choice, testing 32wks twice weekly, delivery TBD. Problem Name Start Date End Date Resolution Snomed Code Not e Antiphospholipid syndrome [id number] Baby asa, 32wk testing twice weekly; MFM referral sent 08/05/24 SSMScheduled 08/27 9AM U/S & Consult. Next u/s only 09/22/24 Prediabetes 242429548 COVID-19 772816595 Obesity [id number] Chad Calculation Initial Chad Date Initial Exam Date Initial Exam Provider Initial Ultrasound Date Last Menstrual Period Date Ultra Sound Weeks Gestation 02/19/2025 07/11/2024 07/11/2024 05/15/2024 8 Eighteen To Twenty Week Chad Update Ultra Sound Date Fundal Height At Umbil Quickening Date Ultra Sound Latest Weeks Gestation Final Chad Confirmed By Final Chad Confirmed Date Final Chad Date Ultra Sound Latest Days Gestation 0 0 Pre-eyal Flowsheet Flowsheet Date 08/05/2024 Reinoso Score Blood Edema Fundus Height Fundus Units Glucose Ketones Leukocytes Nitrite Labor Signs Protein Cervic Dilation Cervic Effacement Cervic Station Type Weight in lbs Pre/Post Dialysis Refused BP Diastolic BP Location Tested BP Systolic BP Type Fetus Heart Rate Present Fetus Movement Comments Flowsheet Date 08/05/2024 Reinoso Score Blood Edema Fundus Height Fundus Units Glucose Ketones Leukocytes Nitrite Labor Signs Protein Cervic Dilation Cervic Effacement Cervic Station neg none none trace Type Weight in lbs Pre/Post Dialysis Refused 218.072174109985 BP Diastolic BP Location Tested BP Systolic BP Type 74 111 Fetus Heart Rate Present A 145 Fetus Movement A No Comments this patient is a 23year-old multiparous female at 12 weeks' gestation who presents for initial care. She has a history of term vaginal births. Her medical, surgical, obstetric history is unremarkable. She is vaccinated. She was given precautions recommendations for . We talked about vaccines in . Talked about care in detail. She is having genetic testing. She had a normal 12 week ultrasound. To begin routine care. Flowsheet Date 09/02/2024 Reinoso Score Blood Edema Fundus Height Fundus Units Glucose Ketones Leukocytes Nitrite Labor Signs Protein Cervic Dilation Cervic Effacement Cervic Station neg none none trace Type Weight in lbs Pre/Post Dialysis Refused Weight 213.193129906689 BP Diastolic BP Location Tested BP Systolic BP Type 69 L arm 110 sitting Fetus Heart Rate Present Fetus Movement A No Comments Doing well, no cramping or b leeding. No movement yet. NIPT LR female! Saw [facility], recommend 162mg ASA, does not recommend lovenox. Will do early 1h GTT next week, stop metformin today. Anatomy US at [facility]. RTC 4 weeks. Flowsheet Date 09/30/2024 Reinoso Score Blood Edema Fundus Height Fundus Units Glucose Ketones Leukocytes Nitrite Labor Signs Protein Cervic Dilation Cervic Effacement Cervic Station neg none Type Weight in lbs Pre/Post Dialysis Refused Weight 221.540412405955 BP Diastolic BP Location Tested BP Systolic BP Type 66 L arm 111 sitting Fetus Heart Rate Present A 140 Fetus Movement A Yes Comments Patient c/o of some cramping and pressure. Very irregular, improves with hydration. No bleeding. Good movement. Anatomy US 09/23 with MFM, incomplete, will repeat in 4 weeks with MFM. Low lying placenta, 1.6cm from os. Passed early 1h GCT. RTC 4 weeks. Flowsheet Date 10/30/2024 Reinoso Score Blood Edema Fundus Height Fundus Units Glucose Ketones Leukocytes Nitrite Labor Signs Protein Cervic Dilation Cervic Effacement Cervic Station neg none Type Weight in lbs Pre/Post Dialysis Refused 222.89874012533 BP Diastolic BP Location Tested BP Systolic BP Type 70 L arm 105 sitting Fetus Heart Rate Present A 140 Fetus Movement A Yes Comments Patient c/o of [place] . Good movement. No bleeding. Placenta no longer low lying. Patient would like to restart US/monitoring at [facility] due to distance, will transfer orders here. Will start twice weekly testing at 32 weeks. Discussed GCT for next visit, stop metformin 1 week prior. RTC 4 weeks. Flowsheet Date 11/25/2024 Reinoso Score Blood Edema Fundus Height Fundus Units Glucose Ketones Leukocytes Nitrite Labor Signs Protein Cervic Dilation Cervic Effacement Cervic Station Type Weight in lbs Pre/Post Dialysis Refused BP Diastolic BP Location Tested BP Systolic BP Type Fetus Heart Rate Present Fetus Movement Comments Flowsheet Date 11/25/2024 Reinoso Score Blood Edema Fundus Height Fundus Units Glucose Ketones Leukocytes Nitrite Labor Signs Protein Cervic Dilation Cervic Effacement Cervic Station neg none Type Weight in lbs Pre/Post Dialysis Refused Weight 227.0713186180 BP Diastolic BP Location Tested BP Systolic BP Type 74 L arm 117 sitting Fetus Heart Rate Present A Present Fetus Movement A Yes Comments Patient c/o [place]. N o bleeding. Good movement. EFW 59%, footling breech. Will start testing twice weekly at 32 weeks for APLS. GCT and labs today. RTC 2 weeks. Flowsheet Date 12/22/2024 Reinoso Score Blood Edema Fundus Height Fundus Units Glucose Ketones Leukocytes Nitrite Labor Signs Protein Cervic Dilation Cervic Effacement Cervic Station Type Weight in lbs Pre/Post Dialysis Refused Weight 232.8235086081 BP Diastolic BP Location Tested BP Systolic BP Type 69 L arm 106 sitting Fetus Heart Rate Present Fetus Movement Comments Menstrual History Last Menstrual Date Menses Monthly On Bcp Conception Prior Menses Frequency Hcg Plus Date Menarche Onset Age 0705/15/2024 Delivery Information Delivery Date Delivery Type Labor Anesthesia Weeks Gestation Incision Type Labor Labor Length Hrs Delivered By Post Complications Tubal Sterilization Discharge Date Comments Discharge Information Feeding Method Contraceptive Method Maternal HG B and HCT Levels
--- OUTSIDE RECORDS SUMMARY | 2024-12-22 11:42 | XMS_ITS | Clinical Summary ---
Author Organization [facility] Address [address] [place] [address] Phone Care Team Providers Care Mathematics Professor Name Role Phone Provider, Unknown Primary Care [...] on file Legal Sex Female 2:45 AM ASSOCIATE DIRECTOR FINANCIAL AID Gender Identity Not on file Sexual Orientation [...] age to complete this topic Care Teams Mathematics Professor Relationship Specialty Start Date End Date Provider, Unknown UNKNOWN PCP - General 12/12/12
--- OUTSIDE RECORDS SUMMARY | 2024-12-22 11:42 | XMS_ITS | Encounter Summary ---
Author Organization [facility] Address [facility] [place] [address] Care Team Providers Care Plug Assembler Name Role Phone Ilya Vaughn MD Primary Care Provide r Bob Vaughn AUTOMATIC BUFFER Primary Care Provider [phone] Major Horowitz CONTACT OFFICER Primary Care Provider [phone] Encounter Details Date Type Department Care Team (Late st Contact Info) Description 01/17/2012 Abstract [facility] Conversion , Generic Conversion, Social History Tobacco Use Types Packs/Day Years Used Date Smoking Tobacco: Never Assessed Comments Unknown Sex and Gender Information Value Date Recorded Sex Assigned at Female 12/17/2024 5:02 PM MANAGER TALENT MANAGEMENT Legal Sex Female 11:15 PM CDT Gender [...] Rule Out 09/06/2021 09/06/2021 09/06/2021 8:42 PM MANAGER TALENT MANAGEMENT COVID-19 Rule Out 09/13/2021 09/13/2021 09/14/2021 12:28 PM MANAGER TALENT MANAGEMENT COVID-19 Rule Out 09/20/2021 09/20/2021 09/21/2021 11:11 AM MANAGER TALENT MANAGEMENT COVID-19 Rule Out 09/26/2021 09/26/2021 09/26/2021 8:05 PM MANAGER TALENT MANAGEMENT COVID-19 Rule Out 10/20/2021 10/20/2021 10/21/2021 4:15 PM MANAGER TALENT MANAGEMENT COVID-19 Rule Out 10/24/2021 10/24/2021 10/25/2021 4:48 PM MANAGER TALENT MANAGEMENT COVID-19 Rule Out 10/31/2021 10/31/2021 11/01/2021 9:34 AM MANAGER TALENT MANAGEMENT COVID-19 Rule Out 11/07/2021 11/07/2021 11/07/2021 8:46 PM MANAGER TALENT MANAGEMENT COVID-19 Confirmed 11/16/2021 11/16/2021 12:32 AM MANAGER TALENT MANAGEMENT COVID-19 Rule Out 11/17/2021 11/17/2021 11/17/2021 3:45 PM MANAGER TALENT MANAGEMENT COVID-19 Rule Out 09/30/2023 09/30/2023 09/30/2023 4:03 PM MANAGER TALENT MANAGEMENT RSV 09/30/2023 09/30/2023 10/10/2023 12:3 2 AM MANAGER TALENT MANAGEMENT COVID-19 Rule Out 12/17/2024 12/17/2024 12/17/2024 5:53 PM MANAGER TALENT MANAGEMENT documented as of this encounter Care Teams Plug Assembler Relationship Specialty [place] [id number] [address] PCP - General INTERNAL MEDICINE 10/31/18 07/14/19 Bob Vaughn FNP [id number] [facility] [address] [place] [address] PCP - General NURSE PRACTITIONER 07/15/19 08/22/21 Major Horowitz, ELIANA [address] [place] [address] PCP - General NURSE PRACTITIONER 08/23/21 documented as of this encounter
--- OUTSIDE RECORDS SUMMARY | 2024-12-22 11:42 | XMS_ITS | Continuity of Care Document ---
Author Organization [facility] Address [address] [place] [address] Care Team Providers Care School Director Name Role Phone OSWALDO DANG Primary Care Provider FESTUS MACKAY Primary Care Provider Assessment No assessment recorded. Plan of Treatment Reminders Order Date Submit [...] d. Imaging non-str ess test 2024 025 [email or web address] [facility] [address], [place], [address], 12/22/2024 10:19:21 Medication Orders None recorde d. Patient TargetsNo targets recorded. Patient InstructionsNo instructions recorded. Reason for Referral None Reported. Results Created Date Observation Date Name Description Value Unit Range Abnormal Flag Note LastModifiedBy Organization Detail LastModifiedTime 08/05/2008/05/2024 US, obste tric, nucha l trans lucen cy No observ ation record ed. [email or web address] [facility] [address], [place], [address], 08/05/2024 13:25:38 08/05/2008/05/2024 US, obste tric, 1st trime ster No observ ation record ed. [email or web address] [facility] [address], [place], [address], 08/05/2024 13:25:52 08/05/20 24 08/05/2024 US, obste tric, follo w-up No observ ation record ed. [email or web address] [address] [address], [place], [address], 08/06/2024 12:12:19 08/27/2008/27/2024 US, obste tric, follo w-up No observ ation record ed. [email or web address] [facility] [address], [place], [address], 08/28/2024 15:23:52 08/27/20 24 08/27/2024 US, obste tric, follo w-up No observ ation record ed. [facility] [address] [place], [address], 08/28/2024 16:00:59 09/22/20 24 09/22/2024 US, salin e infus ed uteru s No observ ation record ed. [email or web address] [facility], [place], [address], 09/24/2024 09:28:38 09/22/20 24 09/22/2024 US, salin e infus ed uteru s No observ ation record ed. [address], [place], [address], 09/24/2024 09:29:15 10/20/20 24 10/20/2024 US, salin e infus ed uteru s No observ ation record ed. [facility] [address] [place], [address], 10/20/2024 14:25:55 10/20/20 24 10/20/2024 US, salin e infus ed uteru s No observ ation record ed. [facility] [address] [place], [address], 10/20/2024 14:25:55 11/25/19 25 11/25/2024 US, obste tric, follo w-up No observ ation record ed. [email or web address] [facility] [address], [place], [address], 11/25/2024 14:31:02 11/25/19 25 11/25/2024 US, obste tric, follo w-up No observ ation record ed. [email or web address] [place] [address], [place], [address], 11/26/2024 23:26:54 12/22/19 25 12/22/2024 non-s tress test No observ ation record ed. [facility] [address], [place], [address], 12/22/2024 10:16:43 Result Notes None recorded. Problems Name Problem SNOMED Code Status Onset Date Resolution Date Notes Provider Name and Address Organization Details Recorded Time Family history of malignant neoplasm of breast in first degree relative 789457055 Active 2021 mom age 32. MAMMOS TO START AT 22yo. Kym López MD [address], [place], [address], [facility] 3 19:05:45 Body mass index 30+ - obesity 909729548 Active 2021 Kym López MD [address], [place], [address], [facility] 2 10:30:27 Prediabet es 613355311 Active Zbigniew Ha MD [address], [place], [address], [facility] 4 11:13:08 Polycysti c ovary syndrome 513152731 Active 2021 Kym López MD [address], [place], [address], [facility] 2 10:30:33 44883920 Active 2023 Mayra redmond, [facility] 4 10:10:22 COVID-19 001950289 Active Zbigniew Ha MD [address], [place], [address], [facility] 4 11:11:29 Antiphosp holipid syndrome 91565891 Active Baby asa, 32wk testing twice weekly; MFM referral sent 08/05/24 [facility] Scheduled 08/27 9AM U/S & Consult. Next u/s only 09/22/24 Idanisreen Mckeon ruy, [facility] 4 15:25:15 Prediabet es 304012725 Active Zbigniew Ha MD [address], [place], [address], [facility] 4 11:13:08 Obesity 468690878 Active Zbigniew Ha MD [address], [place], [address], [facility] 4 11:13:33 Problem Notes None recorded. Procedures Surgical History Date Name Laterality Status Provider Name and Address Organization Details Recorded Time 02/06/20 24 SIS completed AZEEM GROSS MD [address], [place], [address], [facility] 02/08/2024 13:14:27 10/29/19 24 Date of Last Colonoscopy completed Mayraapril Douglas [facility] 08/05/2024 10:47:00 10/29/19 24 Colonoscopy completed Mayraapril Douglas [facility] 08/05/2024 10:51:33 10/29/19 20 extraction of wisdom tooth completed Mayraapril Douglas [facility] 08/05/2024 10:52:02 03/31/20 19 Date of Last Mammogram completed Mayraapril Douglas [facility] 08/05/2024 16:54:43 10/29/19 19 repair of labial tear completed Mayraapril Douglas [facility] 08/05/2024 16:56:32 Imaging Results Imaging Date Name Status LastModified by Organiz ation Details LastModified Time 12/22/2024 non-stress test completed [email or web address] [facility] [address], [place], [address], 12/22/2024 10:16:43 Procedure Notes None recorded. Medical Equipment None Reported. Allergies Allergen ID Allergen Name Allergen Category Reaction Reaction Severity Criticality Documentation Date Start Date Code Code System Note Provider Name and Address Organization Details Recorded Time 10513 amoxicill in medicatio n Not available Not available Not available 03/24/2022 723 RxNorm Kelly Thompson ruy, [facility] 4 15:12:26 25185 cefdinir medicatio n Not available Not available Not available 03/24/2022 15655 RxNorm Other react ions and sever ities : 'Anap hylax is - Moder ate'. Lara Mk redmond, [facility] 4 15:34:29 01604 amoxicill in trihydrat e medicatio n rash moderate Not available 01/02/2024 54843 8 RxNorm Lara Mk redmond, [facility] 4 15:34:29 16427 ethinyl estradiol / levonorge strel medicatio n Not available Not available Not available 01/02/2024 06260 8 RxNorm AZEEM GROSS MD [address], [place], [address] [place] [address], P.C[facility] 4 11:01:47 Medications Name Sig Start [...] Updated DateTime 12/22/2024 165.1 cm 38.6 kg/m2 565133.4 3 g 106 mm[Hg] 69 mm[Hg] Kelly Thompson [facility] 10:15:37 Social History Question Answer Notes LastModified by Organizat ion Details LastModified Time Tobacco Smoking Status Never Smoker [facility] 12/22/2022 11:27:20 Do You Have An Advance Directive? No Information n ot available 01/02/2024 What Is Your Level Of Alcohol Consumption? None [email or web address] Information not available 08/05/2024 If You Are , What Was Your Level Of Alcohol Consumption Prior To ? Occasional [email or web address] Information not available 08/05/2024 How Many Years Have You Consumed Alcohol? 5 Information not available 01/02/2024 Are You Blind Or Do You Have Difficulty Seeing? No Information n ot available 01/02/2024 What Is Your Level Of Caffeine Consumption? Heavy [email or web address] Information not available 07/11/2024 In The 14 [...] To Be High Risk For COVID-19? Yes [email or web address] Information not available 07/11/2024 Are You Deaf Or Do You Have Serious Difficulty Hearing? No Information not available 01/02/2024 What Type Of Diet Are You Following? REGULAR Information n ot available 01/02/2024 What Is The Highest Grade Or Level Of School You Have Completed Or The Highest Degree You Have Received? 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 No [email or web address] Information not available 07/11/2024 Have You Ever Been Counseled For Unhealthy Alcohol Use? No Information not available 12/22/2022 Do You Use Protection During Sex? No Information not available 01/02/2024 Do You Use Your Seat Belt Or Car Seat Routinely? Yes Information not available 01/02/2024 Do You Have Smoke And Carbon Monoxide Detectors In Your Home? Yes Information not available 01/02/2024 How Much Tobacco Do You Smoke? No Information not available 07/11/2024 Do You Feel Stressed (tense, Restless, Nervous, Or Anxious, Or Unable To Sleep At Night)? [id number] Information not available 01/02/2024 Do You Use Any Illicit Or Recreational Drugs? No [email or web address] Information not available 03/24/2022 Do You Use Sunscreen Routinely? Yes Information not available 07/11/2024 Has Tobacco Cessation Counseling Been Provided? No Information not available 12/22/2022 Have You Used IV Drugs? No Information not available 01/02/2024 Do You Or Have You Ever Used Any Other Forms Of Tobacco Or Nicotine? No [email or web address] Information not available 12/22/2022 Sex: Unknown Functional Status Question Answer Note LastModified by Organizat ion Details LastModified Time Do you have difficulty walking or climbing stairs? No [email or web address] Information not available 08/05/2024 Are you able to walk? YESWOREST Information not available 01/02/2024 Are you able to care for yourself? Yes [email or web address] Information not available 08/05/2024 Do you have difficulty dressing or bathing? No [email or web address] Information not available 08/05/2024 What is your exercise level? Occasional Information not available 07/11/2024 Mental Status None recorded. Family History Relationship Description Onset Age of this Age Resolved Age Notes LastModified by Organization Details LastModified Time Mother Anemia Not available 07/11/2024 14:23:29 Mother Carcinoma in situ of breast [email or web address] Not available 2024 09:48:43 Mother Substance abuse meth,a lcohol [email or web address] Not available 07/11/2024 14:23:29 Mother Mental disorder Not available 2023 14:23:29 Mother Hypertensive disorder [email or web address] Not available 2023 14:23:29 Mother Depressive disorder [email or web address] Not available 2023 14:23:29 Mother Anxiety disorder [email or web address] Not available 2023 14:23:29 Mother Malignant tumor of cervix [email or web address] Not available 08/05 16:55:25 Mother Bipolar disorder [email or web address] Not available 2024 09:48:43 Mother Seizure disorder [email or web address] Not available 2024 09:48:43 Father Mental disorder [email or web address] Not available 2023 14:23:29 Father Hypertensive disorder Not available 2023 14:23:29 Father Anxiety disorder Not available 2023 14:23:29 Medical History Condition [...] SNOMED-CT Code Diagnosis ICD10 Code Diagnosis Note [id number] [facility] [address] [address] 11/25/2024 09:48:28 11/25/2024 10:41:01 condition affecting obstetrical care of mother [id number] O35.3XX0 O99.212 Z3A.27 [id number] AZEEM GROSS MD [facility] [address] [address] 11/25/2024 09:48:40 11/25/2024 11:26:25 Antiphospholipid syndrome in 7593528324 9100 O99.119 - ASA 162mg- plan for twice weekly testing starting at 32 weeks- continue serial growth US Gestation period, 27 weeks 86843150 Z3A.27 - continue PNV- GCT and labs today Breech presentation 6096 002 O32.1XX9 [id number] Kelly Thompson [facility] [address] [address] 12/22/2024 09:24:48 12/22/2024 10:19:21 Antiphospholipid syndrome in 3816838671 9100 O99.119 - ASA 162mg- plan for twice weekly testing starting at 32 weeks- continue serial growth US Health Concerns Section Related Observation LastModified by Organization Detai ls LastModified Time None Recorded Concern Status LastModified by Organization Details LastModified Time None Recorded Payers Encounter Date Sequence Insurance Name Policy Number Policy Eubanks Covered Member ID Eubanks Member ID Guarantor Name 12/22/2024 1 [facility] - DOS ON OR AFTER 21 (MEDICAID REPLACEMENT - HMO) Nito Miller [id number] Nito Miller OBGyn Episode Ob Episode Information Episode Created Date Number of Fetuses Patient Bloodtype Patient rh Status Prepregnancy Weight lbs Domestic Partner Domestic Partner Phone Father Name Forest Fire Control Officer Status 08/05/20 24 1 O Positive 224 OPEN Fetus Data First Name Last Name Admitted to NICU Weight (g) Sex Living Outcome Pediatric Complications Fetus ID Race Codes Race Delivery Type [id number] Problems Problem Notes 10/20/24 7:30am u/s onlyLD [...] Resolution Snomed Code Not e Antiphospholipid syndrome 66451396 Baby asa, 32wk testing twice weekly; MFM referral sent 08/05/24 SSMScheduled 08/27 9AM U/S & Consult. Next u/s only 09/22/24 Prediabetes 210951830 COVID-19 [id number] Obesity 834587542 Chad Calculation Initial Chad Date Initial Exam [...] Ultra Sound Latest Days Gestation 0 0 Pre- Flowsheet Flowsheet Date 08/05/2024 Reinoso Score Blood [...] Type Weight in lbs Pre/Post Dialysis Refused 218.328517731751 BP Diastolic BP Location Tested BP Systolic [...] Weight in lbs Pre/Post Dialysis Refused Weight 213.546123827688 BP Diastolic BP Location Tested BP Systolic BP Type 69 L arm 110 sitting Fetus Heart Rate Present Fetus Movement A No Comments Doing well, no cramping or b leeding. No movement yet. NIPT LR female! Saw [facility], recommend 162mg ASA, does not recommend lovenox. Will do early 1h GTT next week, stop metformin today. Anatomy US at [facility]. RTC 4 weeks. Flowsheet Date 09/30/2024 Reinoso Score Blood Edema Fundus Height Fundus Units Glucose Ketones Leukocytes Nitrite Labor Signs Protein Cervic Dilation Cervic Effacement Cervic Station neg none Type Weight in lbs Pre/Post Dialysis Refused Weight 221.641527365187 BP Diastolic BP Location Tested BP Systolic BP Type 66 L arm 111 sitting Fetus Heart Rate Present A 140 Fetus Movement A Yes Comments Patient c/o of some cramping and pressure. Very irregular, improves with hydration. No bleeding. Good movement. Anatomy US 09/23 with [facility], incomplete, will repeat in 4 weeks with [facility]. Low lying placenta, 1.6cm from os. Passed early 1h GCT. RTC 4 weeks. Flowsheet Date 10/30/2024 Reinoso Score Blood Edema Fundus Height Fundus Units Glucose Ketones Leukocytes Nitrite Labor Signs Protein Cervic Dilation Cervic Effacement Cervic Station neg none Type Weight in lbs Pre/Post Dialysis Refused 222.93976276325 BP Diastolic BP Location Tested BP Systolic BP Type 70 L arm 105 sitting Fetus Heart Rate Present A 140 Fetus Movement A Yes Comments Patient c/o of Wolfgang Gill . Good movement. No bleeding. Placenta no longer low lying. Patient would like to restart US/monitoring at [facility] due to distance, will transfer orders here. [...] Weight in lbs Pre/Post Dialysis Refused Weight 227.3837997009 BP Diastolic BP Location Tested BP Systolic BP Type 74 L arm 117 sitting Fetus Heart Rate Present A Present Fetus Movement A Yes Comments Patient c/o Wolfgang Gill. N o bleeding. Good movement. EFW 59%, footling breech. Will start testing twice weekly at 32 weeks for APLS. GCT and labs today. RTC 2 weeks. Flowsheet Date 12/22/2024 Reinoso Score Blood Edema Fundus Height Fundus Units Glucose Ketones Leukocytes Nitrite Labor Signs Protein Cervic Dilation Cervic Effacement Cervic Station Type Weight in lbs Pre/Post Dialysis Refused Weight 232.2809588918 BP Diastolic BP Location Tested BP Systolic [...]
--- OUTSIDE RECORDS SUMMARY | 2024-12-22 11:42 | XMS_ITS | Clinical Summary ---
Author Organization [facility] Address [address] [place] [address] Care Team Providers Care Line Installer Name Role Phone Carlos Manuel RADFORD NP, [...] Department Care Team Description 11/05/2024 11:35 AM PEANUT CLEANER [address] [address] Pre-employment health screening examination 11/05/2024 Orders Only [facility] Occupatiuonal Health [address] [place] [address] [address] (Third Floor) [place] [address] Tony Levy MD Pre-employment health screening examination (Primary Dx) from Last 3 Months Social History Tobacco Use Types Packs/Day Years Used Date Smoking Tobacco: Never Assessed Comments Unknown Sex and Gender Information Value Date Recorded Sex Assigned at Not on file Legal Sex Female 8:44 PM PEANUT CLEANER Gender Identity Not on file Sexual Orientation Not on file Obstetrics History Last Filed Vital Signs Vital Sign Reading Time Taken Comments Blood Pressure 116/77 10/27/2015 2:49 PM PEANUT CLEANER Pulse 102 10/27/2015 2:49 PM PEANUT CLEANER Temperature 36.6 C (97.9 F) 10/27/2015 2:49 PM PEANUT CLEANER Respiratory Rate - - Oxygen Saturation 100% 10/27/2015 2:49 PM PEANUT CLEANER Inhaled Oxygen Concentration - - Weight 63.5 kg (140 lb) 10/27/2015 2:49 PM PEANUT CLEANER Height 165.1 cm (5' 5 ) 10/27/2015 2:49 PM PEANUT CLEANER Body Mass Index 23.3 10/27/2015 2:49 PM PEANUT CLEANER Plan of Treatment Not on file Procedures Procedure Name Priority Date/Time Associated Diagnosis Comments T-SPOT.TB Routine 11/05/2024 11:44 AM PEANUT CLEANER Pre-employment health screening examination from Last 3 Months Results * T-SPOT.TB Blood (11/05/2024 11:44 AM PEANUT CLEANER) T-SPOT.TB Negative SeeBelow Comment: Normal Value: Negative [...] test. T-SPOT.TB Panel A Spot Count 0 [facility] T-SPOT.TB Panel B Spot Count 0 [facility] T-SPOT.TB Negative Control [facility]ed [facility] T-SPOT.TB Positive Control Passed [facility] Comment: Test Performed at: [facility], [employer] [address] [place] [phone] BORA ARTEAGA,PHD Blood 11/05/2024 11:4 4 AM PEANUT CLEANER 11/05/2024 12:01 PM PEANUT CLEANER Narrative [facility] - 11/08/2024 1:48 PM PEANUT CLEANER Bill to [facility] - 1520 Patient is employed by/enrolled at:->[employer] Tony Levy MD LAB MICROBIOLOGY - GENERAL OR DERABLES Final Result [facility] 1 [facility] Department [place] [address] from Last 3 Months Insurance Care Teams Line Installer Relationship Specialty Start Date End Date Major Horowitz III TOP CUTTER PCP - General Family Practice 04/28/21
--- OUTSIDE RECORDS SUMMARY | 2024-12-22 11:42 | XMS_ITS | Referral Summary ---
Author Organization [facility] Address [address] [place] [address] Care Team Providers Care Manager Math Name Role Phone Carlos Manuel RADFORD NP, Major Aquino Primary Care Provider Encounters Date Type Department Care Team Description 11/05/2024 11:35 AM PROGRAM COORDINATOR Lab [address] [address] Pre-employment health screening examination 11/05/2024 Orders Only [facility] Healthcare Occupatiuonal Health [address] [place] [address] [address] (Third Floor) [place] [address] Tony Levy MD Pre-employment health screening examination [...] on file Legal Sex Female 8:44 PM PROGRAM COORDINATOR Gender Identity Not on file Sexual Orientation Not on file Last Filed Vital Signs Vital Sign Reading Time Taken Comments Blood Pressure 116/77 10/27/2015 2:49 PM PROGRAM COORDINATOR Pulse 102 10/27/2015 2:49 PM PROGRAM COORDINATOR Temperature 36.6 C (97.9 F) 10/27/2015 2:49 PM PROGRAM COORDINATOR Respiratory Rate - - Oxygen Saturation 100% 10/27/2015 2:49 PM PROGRAM COORDINATOR Inhaled Oxygen Concentration - - Weight 63.5 kg (140 lb) 10/27/2015 2:49 PM PROGRAM COORDINATOR Height 165.1 cm (5' 5 ) 10/27/2015 2:49 PM PROGRAM COORDINATOR Body Mass Index 23.3 10/27/2015 2:49 PM PROGRAM COORDINATOR Plan of Treatment Not on file Procedures Procedure Name Priority Date/Time Associated Diagnosis Comments T-SPOT.TB Routine 11/05/2024 11:44 AM PROGRAM COORDINATOR Pre-employment health screening examination from Last 3 Months Results * T-SPOT.TB Blood (11/05/2024 11:44 AM PROGRAM COORDINATOR) T-SPOT.TB Negative SeeBelow Comment: Normal Value: Negative [...] 0 [facility] T-SPOT.TB Panel B Spot Count 0 [facility] T[facility]SPOT.TB Negative [facility] T-SPOT.TB Positive Control Passed [facility] ([place]) Comment: Test Performed at: [facility], [facility] [address] [place] [phone] BORA ARTEAGA,PHD Blood 11/05/2024 11:4 4 AM PROGRAM COORDINATOR 11/05/2024 12:01 PM PROGRAM COORDINATOR Narrative [facility] ([place]) - 11/08/2024 1:48 PM PROGRAM COORDINATOR Bill to [facility] - 1520 Patient is employed by/enrolled at:->[facility] [employer] Tony Levy MD LAB MICROBIOLOGY - GENERAL OR DERABLES Final Result [facility] ([place]) 1 [facility] Department [place] [address] from Last 3 Months Insurance Care Teams Manager Math Relationship Specialty Start Date End Date Major Horowitz III APPLIANCE [employer]S COUNTER CLERK PCP - General Family Practice 04/28/21
--- OUTSIDE RECORDS SUMMARY | 2024-12-22 11:42 | XMS_ITS | Clinical Summary ---
Author Organization [facility] Address [address] [place] [address] Care Team Providers Care Weapons Engineer Name Role Phone Ilya Vaughn MD Primary Care Provide r Source Comments [facility],non-owned Affiliates and Associated Physician Practices is amultiple site organization consisting of ambulatory clinics and hospital sitesin [place], [place], [place] and [place]. This disclosure is being madepursuant to the Care Everywhere program and may not contain all information available regarding this patient. Last updated 18.[facility] [employer] Allergies Active Allergy Reactions Criticality Noted Date [...] Department Care Team Description 10/20/2024 7:27 AM CHRISTMAS TREE FARM MANAGER - 10/20/2024 11:59 PM CHRISTMAS TREE FARM MANAGER Hospital Encounter Formerly [facility], [facility] [address] [place] [phone] Jesi Busch MD Discharge Disposition: Home or Self Care 09/22/2024 7:17 AM CHRISTMAS TREE FARM MANAGER - 09/22/2024 11:59 PM CHRISTMAS TREE FARM MANAGER Hospital Encounter Formerly [facility], [facility] [address] [place] [address] Benitez Villanueva MD Discharge Disposition: Home or [...] 36.6 C (97.9 F) 12/30/2020 10:37 AM CHRISTMAS TREE FARM MANAGER Respiratory Rate 18 12/30/2020 10:37 AM CHRISTMAS TREE FARM MANAGER Oxygen Saturation 99% 12/30/2020 10:37 AM CHRISTMAS TREE FARM MANAGER Inhaled Oxygen Concentration - - Weight 96.6 [...] - COMPLETE Routine 10/20/2024 7 :34 AM CHRISTMAS TREE FARM MANAGER Antiphospholipid antibody syndrome (HCC) Prediabetes PCOS (polycystic ovarian syndrome) History of spontaneous Obesity affecting in second trimester, unspecified obesity type (HCC) 19 weeks gestation of (HCC) SONOGRAM - COMPLETE Routine 09/22/2024 7 :35 AM CHRISTMAS TREE FARM MANAGER Antiphospholipid antibody syndrome (HCC) Prediabetes PCOS (polycystic ovarian syndrome) History of spontaneous Obesity affecting in second trimester, unspecified obesity type (HCC) 19 weeks gestation of (HCC) from Last 3 Months Results * SONOGRAM - COMPLETE (10/20/2024 7:34 AM CHRISTMAS TREE FARM MANAGER) Only the most recent of2 resultswithin the time period is included. Linked Results Indication ======== Antiphospholipid Syndrome Hx of prediabetes- A1C 5.4 on 07/22 Obesity, Class II Metformin use History ====== OB History 3. Para 0 [id number] Lab Tests Test Date Result NIPT Low [...] 1 lb 7 oz EFW by Hadlock (ACM-AG-FT-FL) appropriate Growth Overview Exam date GA BPD [...] Heart / Thorax RVOT view. LVOT view. 7-nlgltu-tlbxaqw view. Aortic arch view. Bicaval view. Ductal [...] growth assessment is recommended Coding ====== Procedures 83344: [place] [address]: US Preg Uterus [employer] PACS Anatomical Region Laterality Modality Other 10/20/2024 7:34 AM CHRISTMAS TREE FARM MANAGER R Nile Ha MD [facility] ORDERABLES from Last 3 Months Care Teams Weapons Engineer Relationship Specialty Start Date End Date Ilya Vaughn MD [address] [place] [address] PCP - General Pediatrics 03/05/19
== END 2024-12-22 10:22 | disposition home or self-care (01) ==
LOC: ANHCARD 10:22
PROVIDERS: PCP Family Medicine; Visit Provider Obstetrics & Gynecology
DX: R00.0 Tachycardia, unspecified (principal)
CPT/HCPCS: 93242

== ENCOUNTER 2025-01-30 17:18 | Observation (INO) | payer OTHER, MEDICAID, SELFPAY ==
--- NOTE | ~2025-01-30 | US_ITS ---
EXAM EXAMINATION: US OB limited DATE: 01/30/2025 19:12 CDT INDICATION: Post fall, check placenta, well-being COMPARISON: 09/15/2024 TECHNIQUE: Real-time transabdominal obstetric ultrasound. FINDINGS: There is a single intrauterine gestation in vertex presentation. The placenta is posterior, within the fundus, and intact. Deepest vertical pocket of amniotic fluid measures 7 cm. cardiac activity and movement is noted with a heart rate of 153 beats per minute. IMPRESSION: Single intrauterine gestation in vertex presentation with cardiac activity and movement identif ied. The posterior placenta is intact. Reviewed, dictated and finalized at location A. IMPRESSION: Single intrauterine gestation in vertex presentation with cardiac activit y and movement identified. The posterior placenta is intact.
--- OUTSIDE RECORDS SUMMARY | 2025-01-30 17:24 | XMS_ITS | Referral Summary ---
Author Organization [facility] Address [address] [place] [phone] Care Team Providers Care Medicare Biller Name Role Phone Carlos Manuel RADFORD NP, Major Aquino Primary Care Provider Encounters Date Type Department Care Team Description 11/05/2024 11:35 AM SLIVER MACHINE OPERATOR Lab [address] [address] Pre-employment health screening examination 11/05/2024 Orders Only [facility] Healthcare Occupatiuonal Health [address] [place] [address] [address] (Third Floor) [place] [address] Tony Levy MD Pre-employment health screening examination [...] on file Legal Sex Female 8:44 PM SLIVER MACHINE OPERATOR Gender Identity Not on file Sexual Orientation Not on file Last Filed Vital Signs Vital Sign Reading Time Taken Comments Blood Pressure 116/77 10/27/2015 2:49 PM SLIVER MACHINE OPERATOR Pulse 102 10/27/2015 2:49 PM SLIVER MACHINE OPERATOR Temperature 36.6 C (97.9 F) 10/27/2015 2:49 PM SLIVER MACHINE OPERATOR Respiratory Rate - - Oxygen Saturation 100% 10/27/2015 2:49 PM SLIVER MACHINE OPERATOR Inhaled Oxygen Concentration - - Weight 63.5 kg (140 lb) 10/27/2015 2:49 PM SLIVER MACHINE OPERATOR Height 165.1 cm (5' 5 ) 10/27/2015 2:49 PM SLIVER MACHINE OPERATOR Body Mass Index 23.3 10/27/2015 2:49 PM SLIVER MACHINE OPERATOR Plan of Treatment Not on file Procedures Procedure Name Priority Date/Time Associated Diagnosis Comments T-SPOT.TB Routine 11/05/2024 11:44 AM SLIVER MACHINE OPERATOR Pre-employment health screening examination from Last 3 Months Results * T-SPOT.TB Blood (11/05/2024 11:44 AM SLIVER MACHINE OPERATOR) T-SPOT.TB Negative SeeBelow Comment: Normal Value: Negative [...] test. T-SPOT.TB Panel A Spot Count 0 [facility] ([place]) T-SPOT.TB Panel B Spot Count 0 [facility] ([place]) T-SPOT.TB Negative Control Passed [facility] ([place] T-SPOT.TB Positive Control Passed [facility] ([place]) Comment: Test Performed at: [facility], [facility] of Health and Human Services [address] [place] [id number] BORA ARTEAGA,PHD Blood 11/05/2024 11:4 4 AM SLIVER MACHINE OPERATOR 11/05/2024 12:01 PM SLIVER MACHINE OPERATOR Narrative [facility] ([place]) - 11/08/2024 1:48 PM SLIVER MACHINE OPERATOR Bill to [facility] - 1520 Patient is employed by/enrolled at:->[facility] Tony Levy MD LAB MICROBIOLOGY - GENERAL OR DERABLES Final Result [facility] ([place]) [address] [facility] [place] [address] from Last 3 Months Insurance Care Teams Medicare Biller Relationship Specialty Start Date End Date Major Horowitz III LAV CREWMAN PCP - General Family Practice 04/28/21
--- OUTSIDE RECORDS SUMMARY | 2025-01-30 17:24 | XMS_ITS | Clinical Summary ---
Author Organization [facility] Address [address] [place] [phone] Care Team Providers Care Organizational Effectiveness Director Name Role Phone Carlos Manuel RADFORD NP, [...] Department Care Team Description 11/05/2024 11:35 AM SURGERY ASSISTANT [address] [address] Pre-employment health screening examination 11/05/2024 Orders Only [facility] Occupatiuonal Health [address] [place] [address] Room [address] (Third Floor) [place] [address] Tony Levy MD Pre-employment health screening examination (Primary Dx) from Last 3 Months Social History Tobacco Use Types Packs/Day Years Used Date Smoking Tobacco: Never Assessed Comments Unknown Sex and Gender Information Value Date Recorded Sex Assigned at Not on file Legal Sex Female 8:44 PM SURGERY ASSISTANT Gender Identity Not on file Sexual Orientation Not on file Obstetrics History Last Filed Vital Signs Vital Sign Reading Time Taken Comments Blood Pressure 116/77 10/27/2015 2:49 PM SURGERY ASSISTANT Pulse 102 10/27/2015 2:49 PM SURGERY ASSISTANT Temperature 36.6 C (97.9 F) 10/27/2015 2:49 PM SURGERY ASSISTANT Respiratory Rate - - Oxygen Saturation 100% 10/27/2015 2:49 PM SURGERY ASSISTANT Inhaled Oxygen Concentration - - Weight 63.5 kg (140 lb) 10/27/2015 2:49 PM SURGERY ASSISTANT Height 165.1 cm (5' 5 ) 10/27/2015 2:49 PM SURGERY ASSISTANT Body Mass Index 23.3 10/27/2015 2:49 PM SURGERY ASSISTANT Plan of Treatment Not on file Procedures Procedure Name Priority Date/Time Associated Diagnosis Comments T-SPOT.TB Routine 11/05/2024 11:44 AM SURGERY ASSISTANT Pre-employment health screening examination from Last 3 Months Results * T-SPOT.TB Blood (11/05/2024 11:44 AM SURGERY ASSISTANT) T-SPOT.TB Negative SeeBelow Comment: Normal Value: Negative [...] test. T-SPOT.TB Panel A Spot Count [address] [facility] ([place]) T-SPOT.TB Panel B Spot Count [address] [facility] ([place]) T-SPOT.TB Negative Control Passed [facility] ([place] T-SPOT.TB Positive Control Passed [facility] ([place]) Comment: Test Performed at: [facility], [facility] [address] [place] [phone] BORA ARTEAGA,PHD Blood 11/05/2024 11:4 4 AM SURGERY ASSISTANT 11/05/2024 12:01 PM SURGERY ASSISTANT Narrative [facility] ([place] - 11/08/2024 1:48 PM SURGERY ASSISTANT Bill to [facility] - 1520 Patient is employed by/enrolled at:->[facility] Tony Levy MD LAB MICROBIOLOGY - GENERAL OR DERABLES Final Result [facility] ([place]) 1 [facility] [place] [address] from Last 3 Months Insurance Care Teams Organizational Effectiveness Director Relationship Specialty Start Date End Date Major Horowitz III IT COMMUNICATIONS SPECIALIST PCP - General Family Practice 04/28/21
--- OUTSIDE RECORDS SUMMARY | 2025-01-30 17:25 | XMS_ITS | Clinical Summary ---
Author Organization [facility] Address [address] [place] [address] Care Team Providers Care Margin Trimmer Name Role Phone Ilya Vaughn MD Primary Care Provide r Source Comments [facility],non-owned Affiliates and Associated Physician Practices is amultiple site organization consisting of ambulatory clinics and hospital sitesin [place], [place], [place] and [place]. This disclosure is being madepursuant to the Care Everywhere program and may not contain all information available regarding this patient. Last updated 18.[facility] [employer] Allergies Active Allergy Reactions Criticality Noted Date [...] QUADRIVALENT; 6MO+), 0.5 ML (IIV4) 09/09/2020 MENINGOCOCCAL ACWY (MCV4P) VAC IM 06/05/2020, MMR 03/26/2008,09/30/2003 TDAP (7yrs+) 06/17/2014 VARICELLA 03/26/2008,09/30/2003 [...] 36.6 C (97.9 F) 12/30/2020 10:37 AM CLIENT SERVICE AND CONSULTING MANAGER Respiratory Rate 18 12/30/2020 10:37 AM CLIENT SERVICE AND CONSULTING MANAGER Oxygen Saturation 99% 12/30/2020 10:37 AM CLIENT SERVICE AND CONSULTING MANAGER Inhaled Oxygen Concentration - - Weight 96.6 kg (213 lb) 08/27/2024 9:23 AM CDT Height 165.1 cm (5' 5 ) 08/27/2024 9:23 AM CDT Body Mass Index 35.45 08/27/2024 9:23 AM CDT Plan of Treatment Health Maintenance Due Date Last Done Comments PAP SMEAR 2002 MENINGOCOCCAL (Group B) VACCINE SHARED DECISION-MAKING (1 of 2 - Standard) 2018 HEPATITIS C SCREENING 08/25/2020 DTAP/TDAP/TD VACCINES (7 - Td or Tdap) 06/17/2024 06/17/2014, 03/26/2008, 03/26/2008, Additional history exists COVID-19 VACCINE (2 - season) 2024 06/29/2022 INFLUENZA VACCINE (#1) 2024 3, 09/09/2020, 09/08/2020 DEPRESSION SCREENING 10/29/2024 OB-ONE HOUR GLUCOSE 11/09/2024 OB-TDAP CURRENT 11/16/2024 06/17/2014 OB-RHOGAM INJECTION 11/23/2024 OB-GROUP B STREP SCREEN 01/11/2025 CHLAMYDIA/GONORRHEA SCREENING 07/11/2025 07/11/2024 ZOSTER VACCINE (1 of 2) 2052 HEPATITIS B VACCINE Completed 09/30/2003, 01/05/2003, 2002 HIB VACCINE Completed 09/30/2003, 12/27, 2002 HPV VACCINE Completed 12/18/2014, 07/30, 06/17/2014 MENINGOCOCCAL GROUPS A/C/Y/W VACCINE Completed 06/05/2020, 06/17/2014 HIV SCREENING Completed 07/21/2024 PNEUMOCOCCAL VACCINE Aged Out No long er eligible based on patient's age to complete this topic Respiratory Syncytial Virus (RSV) Vaccine Pt: or over 60 yrs (No Doses Required) Completed Care Teams Margin Trimmer Relationship Specialty Start Date End Date Ilya Vaughn MD [address] [place] [address] PCP - General Pediatrics 03/05/19
--- OUTSIDE RECORDS SUMMARY | 2025-01-30 17:25 | XMS_ITS | Data Portability ---
Author Organization [place] [facility] Address [address] [place] [address] Care Team Providers Care Automotive Alignment Specialist Name Role Phone FESTUS MACKAY Primary Care [...] Lab CBC w/ auto diff [address] Outpatient Registration Lab/Ekg, [address], [place], [address], 3 09:09:17 CMP, serum or plasma [address] Outpatient Registration Lab/Ekg, [address], [place], [address], 3 09:09:17 TSH, serum or plasma [address] Outpatient Registration Lab/Ekg, [address], [place], [address], 3 09:09:17 iga, quantitativ e, serum [address] Outpatient Registration Lab/Ekg, [address], [place], [address], 3 09:09:17 tissue transglutam inase iga Ab, serum [address] Outpatient Registration Lab/Ekg, [address], [place], [address], 3 09:09:18 calprotecti n, stool [address] Outpatient Registration Lab/Ekg, [address], [place], [address], 3 09:09:18 C reactive protein, QN, serum or plasma [address] Outpatient Registration Lab/Ekg, [address], [place], [address], 3 09:09:18 fecal fat, qualitative , stool [address] Outpatient Registration Lab/Ekg, [address], [place], [address], 3 09:09:18 vitamin B12 + folate, serum or blood [address] Outpatient Registration Lab/Ekg, [address], [place], [address], 3 09:09:18 pancreatic elastase, stool [address] Outpatient Registration Lab/Ekg, [address], [place], [address], 3 09:09:18 ph, stool [address] Outpatient Registration Lab/Ekg, [address], [place], [address], 3 09:09:19 giardia lamblia Ag, EIA, stool [address] Outpatient Registration Lab/Ekg, [address] [facility] [address] [place] [address], [address], 4 15:15:23 Referral None recorded. Procedures esophagogas troduodenos copy with biopsy (PROC) 2022 023 [facility] (Admitting), [address], [place], [address], 4 11:15:28 colonoscopy procedure (PROC) [address] (Admitting), [address], [place], [address], 4 14:25:34 Surgeries None recorded. Imaging None recorded. Medication Orders Golytely 236 gram-22.74 gram-6.74 gram-5.86 gram oral solution 2022 023 [facility] [address], [address], [address], 3 12:55:17 ondansetron HCl 4 mg tablet 2022 023 [facility] [address], [address], [address], 3 12:55:16 Patient TargetsNo targets recorded. Patient Instructions Encounter Date Encounter Id Patient Instructions Last Modified By Organization Details Last Modified Time 10/05/2023 [id number] observe if diarrhea is brought on by [...] ve negati ve [facility] [address] [facility], [place] [address] Lab Direc tor: Lebron vasquez PhD, Phone : [phone] Not Available [facility] (Lab) [address], [place], [address], 11/16/2023 16:12:33 11/14/19 24 11/19/2023 CALPR OTECT IN, FECAL calprotectin , fecal 10 ug/g 0-120 Natalie ntrat ion Inter preta tion Follo w-Up < 5 - 50 ug/g Itzel l None >50 -120 ug/g Borde rline Re-ev aluat e in 4-6 weeks >120 ug/g Abnor mal Repea t as clini steven indic ated Perfo rmed at: [facility] [place] [address] [place] [address] [place] [address] Lab Direc tor: Carly ly MD, Phone : [phone] Not Available [facility] (Lab) [address], [place], [address], 11/19/2023 23:07:23 11/14/19 24 11/20/2023 PANCR EATIC ELAST ASE, FECAL pancreatic elastase, fecal 448 ug_el ast./ g >200 Sever e Pancr eatic Insuf ficie ncy: <100 Moder ate Pancr eatic Insuf ficie ncy: 100 - 200 Itzel l: >200 [facility]fo rmed at: [facility] [place] [address] [facility] , [place] [address] Lab Direc tor: Carly ly MD, Phone : [phone] Not Available [facility] (Lab) [address] , [place], [address], 11/20/2023 13:10:21 11/14/19 24 11/20/2023 PH, STOOL pH, stool 6.0 7.0-7. 5 low Test( s) 76822 1-pH, Stool was devel oped and its perfo rmanc e sal cteri stics deter mined by [facility] . It has not been clear ed or appro khushbu by the Food and Drug Admin istra tion. Perfo rmed at: [facility] n [address] [place] [address] Lab Direc tor: Lebron vasquez PhD, Phone : [phone] Not Available [facility] (Lab) [address] , [place], [address], 11/20/2023 20:13:30 11/14/19 24 11/20/2023 FECAL FAT, QUALI TATIV E fats, neutral Normal Itzel l (<60 Dropl ets/H PF) Not Available [facility] (Lab) [address] , [place], [address], 11/20/2023 20:13:31 11/14/19 24 11/20/2023 FECAL FAT, QUALI TATIV E fats, total Normal Itzel l (<100 Dropl ets/H PF) Perfo rmed at: [facility] [address] [place] [address] Lab Direc tor: Lebron vasquez PhD, Phone : [phone] Not Available [facility] (Lab) [address] , [place], [address], 11/20/2023 20:13:31 Result Notes None recorded. Problems Name Problem SNOMED Code Status Onset Date Resolution Date Notes Provider Name and Address Organization Details Recorded Time Polycystic ovary syndrome 387778768 [facility] 16:[facility] Hyperlipidemia 57966586 Active 2022 Octavia redmond, [facility] 3 16:41:52 Chronic diarrhea of unknown origin 26845727 Active 2022 Nilsa Ly MD [address] [place], [address], [facility] 3 12:46:59 Problem Notes None recorded. Medical Equipment None Reported. Allergies Allergen ID Allergen Name Allergen Category Reaction Reaction Severity Criticality Documentation Date Start Date Code Code System Note Provider Name and Address Organization Details Recorded Time 699297 amoxicill in medicatio n Not available Not available Not available 10/05/2023 723 RxNorm Octavia redmond, [facility] 3 12:09:49 467653 cefdinir medicatio n Not available Not available Not available 10/05/2023 46895 [facility] 12:10:09 Medications Name Sig Start [...] Updated DateTime 3 165.1 cm 36.4 kg/m2 21238.7 3 g 98 % 98 % 73 /min 124 mm[Hg] 78 mm[Hg] Octavia guerrero [facility] 12:11:54 Social History Question Answer Notes LastModified by Organizat ion Details LastModified Time Tobacco Smoking Status Never Smoker Octavia redmond, [facility] 10/05/2023 12:13:34 What Is Your Level [...] SNOMED-CT Code Diagnosis ICD10 Code Diagnosis Note [id number] Nilsa Ly MD [facility] [employer] [address] [place] [address] 10/05/2023 11:47:23 10/05/2023 13:11:54 Chronic diarrhea of unknown origin 56129092 K52.9 Health Concerns Section Related Observation LastModified by Organization Detai ls LastModified Time None Recorded Concern Status LastModified by Organization Details LastModified Time None Recorded Advance Directives Directive None Recorded Payers Encounter Date Sequence Insurance Name Policy Number Policy Eubanks Covered Member ID Eubanks Member ID Guarantor Name 10/05/2023 1 [facility] ON OR AFTER 04/28/21 (MEDICAID REPLACEMENT - HMO) Nito Miller [id number] Nito Miller Notes Date Note Type Note [...] the diarrhea Nilsa Ly MD [address] [place], [address], [facility] 10/05/2023 12:56:35 OBGyn Episode No OBEpisode recorded.
[2025-01-30 17:46] VITALS: BP 121/63; PULSE 92
[2025-01-30 18:01] VITALS: BP 131/77; PULSE 85
[2025-01-30 18:16] VITALS: BP 113/51; PULSE 86
[2025-01-30 19:38] VITALS: BMI 39.6
--- NOTE | 2025-01-30 21:15 | PC.NURSE ---
DISCHARGE INSTRUCTIONS GIVEN TO PT WRITTEN AND VERBALLY. PT DENIES QUESTIONS OR CONCERNS AND VERBALIZES UNDERSTANDING. PT LEAVES L&D AMBULATORY, ACCOMPANIED BY SIGNIFICANT OTHER.
--- NOTE | 2025-02-25 09:18 | PM.OBTRLD ---
OB - Triage/Final Diagnosis Visit Information Comments/Additional reasons for admission: I have assessed the risk for this patient, Nito Oralndo, and determined that she would benefit from observation care. Final Diagnosis (1) Fall: Code(s): W19.XXXA - Unspecified fall, initial encounter Status: Acute
== END 2025-01-30 21:15 | disposition home or self-care (01) ==
PROVIDERS: Admitting Provider Obstetrics & Gynecology; PCP Family Medicine; Visit Provider Obstetrics & Gynecology
DX: O26.893 Other specified pregnancy related conditions, third trimester (principal); Z3A.37 37 weeks gestation of pregnancy; W19.XXXA Unspecified fall, initial encounter
CPT/HCPCS: 76815; 96368; G0378; G0379

== ENCOUNTER 2025-02-04 02:43 | Observation (INO) | payer OTHER, MEDICAID, SELFPAY ==
--- OUTSIDE RECORDS SUMMARY | 2025-02-04 02:42 | XMS_ITS | Clinical Summary ---
Author Organization [facility] Address [address] [place] [address] Care Team Providers Care Insights Manager Name Role Phone Ilya Vaughn MD Primary Care Provide r Source Comments [facility],non-owned Affiliates and Associated Physician Practices is amultiple site organization consisting of ambulatory clinics and hospital sitesin [place], [place], [place] and [place]. This disclosure is being madepursuant to the Care Everywhere program and may not contain all information available regarding this patient. Last updated 18.[facility] [employer] Allergies Active Allergy Reactions Criticality Noted Date [...] 36.6 C (97.9 F) 12/30/2020 10:37 AM METAL MIXER Respiratory Rate 18 12/30/2020 10:37 AM METAL MIXER Oxygen Saturation 99% 12/30/2020 10:37 AM METAL MIXER Inhaled Oxygen Concentration - - Weight 96.6 [...] 03/26/2008, 03/26/2008, Additional history exists COVID-19 VACCINE ( - season) 2024 06/29/2022 DEPRESSION SCREENING 10/29/2024 OB-ONE HOUR GLUCOSE 11/09/2024 OB-TDAP CURRENT 11/16/2024 06/17/2014 OB-RHOGAM INJECTION 11/23/2024 OB-GROUP B STREP SCREEN 01/11/2025 INFLUENZA VACCINE (Season Ended) 2025 08/21/2023, 09/09/2020, 09/08/2020 CHLAMYDIA/GONORRHEA SCREENING 07/11/2025 07/11/2024 ZOSTER VACCINE (1 [...] yrs (No Doses Required) Completed Care Teams Insights Manager Relationship Specialty Start Date End Date Ilya Vaughn MD [address] [place] [address] PCP - General Pediatrics 03/05/19
--- OUTSIDE RECORDS SUMMARY | 2025-02-04 02:42 | XMS_ITS | Continuity of Care Document ---
Author Organization [facility] [place] Address [address] [place] [address] Care Team Providers Care Elevator Adjuster Name Role Phone OSWALDO DANG Primary Care Provider FESTUS MACKAY Primary Care Provider SILVIO BRIZUELA Primary Care Provider Assessment Encounter Date Assessment Date Assessment LastModified by Organization Details LastModified Time 02/03/2025 02/03/2025 Patient is _38__weeks . Discussed plan. Not available 02/03/2025 10:48:22 Plan of Treatment Reminders Order Date Submit Date Provider Last Modified By Organization Details Last Modified Time Details Appointments NST 2024 09:30A M NST SCHEDULE Not available Not available Not available INDUCTI ON 2024 05:00P M Pacheco HA MD Not available Not available Not available U/S [...] Not available OB ROUTINE 2024 10:00A M Soumya Soriano CNM Not available Not available Not available NST 2024 09:00A M NST SCHEDULE Not available Not available Not available Lab None recorde d. Referral None recorde d. Procedures None recorde d. Surgeries None recorde d. Imaging None recorde d. Medication Orders None recorde d. Patient TargetsNo targets recorded. Patient InstructionsNo instructions recorded. Reason for Referral None Reported. Results Created Date Observation Date Name Description Value Unit Range Abnormal Flag Note LastModifiedBy Organization Detail LastModifiedTime 08/05/2008/05/2024 US, obste tric, nucha l trans lucen cy No observ ation record ed. [email or web address] [facility] [address], [place], [address], 08/05/2024 13:25:38 08/05/2008/05/2024 US, obste tric, 1st trime ster No observ ation record ed. [email or web address] [facility] [address], [place], [address], 08/05/2024 13:25:52 08/05/2008/05/2024 US, obste tric, follo w-up No observ ation record ed. [email or web address] [address] [facility], [place], [address], 08/06/2024 12:12:19 08/27/20 24 08/27/2024 US, obste tric, follo w-up No observ ation record ed. [email or web address] [facility] [address], [place], [address], 08/28/2024 15:23:52 08/27/20 24 08/27/2024 US, obste tric, follo w-up No observ ation record ed. [facility] [address], [place], [address], 08/28/2024 16:00:59 09/22/20 24 09/22/2024 US, obste tric, follo w-up No observ ation record ed. [facility] [address], [place], [address], 12/25/2024 09:32:23 09/22/20 24 09/22/2024 US, obste tric, trans abdom inal + trans vagin al No observ ation record ed. [facility] [address], [place], [address], 12/25/2024 09:30:14 10/20/20 24 10/20/2024 US, obste tric, follo w-up No observ ation record ed. [facility] [address] [place], [address], 12/25/2024 09:30:53 10/20/20 24 10/20/2024 US, obste tric, follo w-up No observ ation record ed. [facility] [address] [place], [address], 12/25/2024 09:31:42 11/25/19 25 11/25/2024 US, obste tric, follo w-up No observ ation record ed. [email or web address] [facility] [address], [place], [address], 11/25/2024 14:31:02 11/25/19 25 11/25/2024 US, obste tric, follo w-up No observ ation record ed. [email or web address] [place] [address], [place], [address], 11/26/2024 23:26:54 12/22/19 25 12/22/2024 non-s tress test No observ ation record ed. [facility] [address], [place], [address], 12/22/2024 10:16:43 02/27/12/25/2024 US, obste tric, bioph ysica l profi le + non-s tress test No observ ation record ed. [email or web address] [facility] [address], [place], [address], 12/25/2024 10:56:04 12/25/19 25 12/25/2024 US, obste tric, follo w-up No observ ation record ed. [email or web address] [facility] [address], [place], [address], 12/25/2024 10:56:13 12/25/19 25 12/25/2024 US, obste tric, follo w-up No observ ation record ed. [email or web address] [address], [place], [address], 12/29/2024 18:13:27 12/25/19 25 12/25/2024 non-s tress test No observ ation record ed. [email or web address] [facility] [address], [place], [address], 12/25/2024 10:50:23 12/30/19 25 12/29/2024 non-s tress test No observ ation record ed. [email or web address] [facility] [address], [place], [address], 12/29/2024 09:56:07 12/30/19 25 12/29/2024 US, obste tric, bioph ysica l profi le + non-s tress test No observ ation record ed. [email or web address] [facility] [address], [place], [address], 12/29/2024 17:19:33 12/30/19 25 12/29/2024 US, obste tric, follo w-up No observ ation record ed. [email or web address] [address], [place], [address], 12/29/2024 22:26:22 12/31/19 25 12/22/2024 lalit r monit or No observ ation record ed. [facility] [address] [facility] [address], [place], [address], 01/01/2025 01:03:10 12/31/19 25 12/22/2024 lalit r monit or No observ ation record ed. [facility] (Neurology) [address] [facility] [address], [place], [address], 01/01/2025 01:03:00 01/02/2001/01/2025 non-s tress test No observ ation record ed. [email or web address] [facility] [address], [place], [address], 01/01/2025 12:22:50 01/07/20 25 01/06/2025 US, obste tric, bioph ysica l profi le + non-s tress test No observ ation record ed. [email or web address] [facility] [address], [place], [address], 01/06/2025 12:39:40 01/07/20 25 01/06/2025 US, obste tric, bioph ysica l profi le + non-s tress test No observ ation record ed. [email or web address] [address], [place], [address], 01/06/2025 11:45:38 01/07/20 25 01/06/2025 non-s tress test No observ ation record ed. [email or web address] [facility] [address], [place], [address], 01/06/2025 11:11:56 01/07/20 non-s tress test No observ ation record ed. [email or web address] [facility] [address], [place], [address], 01/06/2025 11:14:50 01/10/20 25 01/09/2025 non-s tress test No observ ation record ed. [email or web address] [facility] [address], [place], [address], 01/09/2025 11:50:28 01/14/20 25 01/13/2025 US, obste tric, follo w-up No observ ation record ed. [email or web address] [facility] [address], [place], [address], 01/13/2025 13:08:44 01/14/20 25 01/13/2025 US, obste tric, bioph ysica l profi le + non-s tress test No observ ation record ed. [email or web address] [facility] [address], [place], [address], 01/13/2025 13:08:55 01/14/20 25 01/13/2025 US, obste tric, follo w-up No observ ation record ed. [email or web address] [address] [facility], [place], [address], 01/13/2025 22:27:05 01/14/20 25 01/13/2025 non-s tress test No observ ation record ed. [email or web address] [facility] [address], [place], [address], 01/13/2025 10:46:06 01/14/20 non-s tress test No observ ation record ed. [email or web address] [facility] [address], [place], [address], 01/13/2025 10:47:59 01/17/20 25 01/16/2025 non-s tress test No observ ation record ed. [email or web address] [facility] [address], [place], [address], 01/16/2025 14:41:50 01/21/20 25 01/20/2025 US, obste tric, follo w-up No observ ation record ed. [facility] [address], [place], [address], 01/21/2025 22:32:18 01/21/20 25 01/20/2025 US, obste tric, bioph ysica l profi le + non-s tress test No observ ation record ed. [email or web address] [address], [place], [address], 01/20/2025 12:00:13 01/21/20 25 01/20/2025 non-s tress test No observ ation record ed. [address], [place], [address], 01/20/2025 11:52:14 01/24/2001/23/2025 non-s tress test No observ ation record ed. [email or web address] [facility] [address], [place], [address], 01/23/2025 17:09:36 01/28/20 25 01/27/2025 US, obste tric, bioph ysica l profi le + non-s tress test No observ ation record ed. [email or web address] [address], [place], [address], 01/27/2025 14:13:45 01/28/2001/27/2025 US, obste tric, follo w-up No observ ation record ed. [address], [place], [address], 01/29/2025 19:50:40 0401/27/2025 non-s tress test No observ ation record ed. [facility] [address], [place], [address], 01/27/2025 11:31:22 01/30/20 25 01/23/2025 non-s tress test No observ ation record ed. [email or web address] [facility] [address], [place], [address], 01/29/2025 10:20:11 01/31/20 25 01/30/2025 non-s tress test No observ ation record ed. [email or web address] [facility] [address], [place], [address], 01/30/2025 11:28:02 02/04/20 25 02/03/2025 imagi ng/di agnos tic resul t No observ ation record ed. [email or web address] [address], [place], [address], 02/03/2025 23:03:44 02/04/20 25 02/03/2025 US, obste tric, bioph ysica l profi le + non-s tress test No observ ation record ed. [email or web address] [facility] [address], [place], [address], 02/03/2025 14:11:25 02/04/20 25 02/03/2025 non-s tress test No observ ation record ed. [email or web address] [facility] [address], [place], [address], 02/03/2025 10:46:36 Result Notes None recorded. Problems Name Problem SNOMED Code Status Onset Date Resolution Date Notes Provider Name and Address Organization Details Recorded Time Family history of malignant neoplasm of breast in first degree relative 478921715 Active 2021 mom age 34. MAMMOS TO START AT 22yo. Kym López MD [address], [place], [address], [facility] 3 19:05:45 Body mass index 30+ - obesity 559628012 Active 2021 Kym López MD [address], [place], [address], [facility] 2 10:30:27 Prediabet es 764111388 Active Zbigniew Ha MD [address], [place], [address], [facility] 4 11:13:08 Polycysti c ovary syndrome 448455669 Active 2021 Kym López MD [address], [place], [address], [facility] 2 10:30:33 83481309 Active 2023 Mayra Douglas null, [facility] 4 10:10:22 COVID-19 738988201 Active Zbigniew Ha MD [address], [place], [address], [facility] 4 11:11:29 Antiphosp holipid syndrome 16785607 Active Baby asa, 32wk testing twice weekly; MFM referral sent 08/05/24 [facility] Scheduled 08/27 9AM U/S & Consult. Next u/s only 09/22/24 Ida Mc[facility], [facility] 4 15:25:15 Prediabet es 451498435 Active Zbigniew Ha MD [address], [place], [address], [facility] 4 11:13:08 Obesity 368441857 Active Zbigniew Ha MD [address], [place], [address], [facility] 4 11:13:33 Tachycard ia 2712379 Active 72 hr Holter monitor order faxed 12/22 Zelda redmond, [facility] 5 13:35:44 Tachycard ia 2979149 Active 72 hr Holter monitor order faxed 12/22 Zelda redmond, [facility] 5 13:35:44 Problem Notes None recorded. Procedures Surgical History Date Name Laterality Status Provider Name and Address Organization Details Recorded Time 02/06/20 24 SIS completed AZEEM GROSS MD [address], [place], [address], [facility] 02/08/2024 13:14:27 10/29/19 24 Date of Last Colonoscopy completed [facility] 08/05/2024 10:47:00 10/29/19 24 Colonoscopy completed [facility] 08/05/2024 10:51:33 10/29/19 20 extraction of wisdom tooth completed [facility] 08/05/2024 10:52:02 03/31/20 19 Date of Last Mammogram completed [facility] 08/05/2024 16:54:43 10/29/19 19 repair of labial tear completed [facility] 08/05/2024 16:56:32 Imaging Results None recorded. Procedure Notes None recorded. Medical Equipment None Reported. Allergies Allergen ID Allergen Name Allergen Category Reaction Reaction Severity Criticality Documentation Date Start Date Code Code System Note Provider Name and Address Organization Details Recorded Time 51372 amoxicill in medicatio n Not available Not available Not available 03/24/2022 723 RxNorm Kelly redmond, [facility] 4 15:12:26 23741 cefdinir medicatio n Not available Not available Not available 03/24/2022 28497 RxNorm Other react ions and sever ities : 'Anap hylax is - Moder ate'. Lara Terrazas ruy, [facility] 4 15:34:29 02917 amoxicill in trihydrat e medicatio n rash moderate Not available 01/02/2024 50552 8 RxNorm Lara Terrazas ruy, [facility] 4 15:34:29 72747 ethinyl estradiol / levonorge strel medicatio n Not available Not available Not available 01/02/2024 16414 8 RxNorm AZEEM GROSS MD [address], [place], [address] [place] [address], [facility] 4 11:01:47 Medications Name Sig Start Date Stop Date Status Note LastModified by Organization Details LastModified Time medroxyprog esterone 10 mg tablet TAKE 1 TABLET BY MOUTH ONCE DAILY FOR 10 DAYS 07/10 completed Not Available Not Available Not Available cetirizine 10 mg tablet TAKE 1 TABLET BY MOUTH ONCE DAILY 01/01 completed Not Available Not Available Not Available sumatriptan 25 mg tablet TAKE 1 TABLET BY MOUTH NEEDED 02/03 completed Not Available Not Available Not Available [...] TAKE 1 TABLET BY MOUTH TWICE DAILY 02/03 completed Not Available Not Available Not Available progesteron e micronized 200 mg capsule [...] Not Available No t Available bromocripti ne 02/03 completed Not Available Not Available Not Available active Not Available Not Avai lable Not Available metformin ER 500 mg 24 hr tablet,exte nded release (gastric retention) Take one tablet daily for 10 days, then increase to one tablet BID. 08/18 completed Not Available Not Available Not Available Daily 01/01 completed Not Available Not Available Not Available Vitals Date Recorded Body weight Body mass index (BMI) Body height Systolic blood pressure Diastolic blood pressure Provider Name and Address Organization Details Last Updated DateTime 02/03/2025 482511.3 5354 g 40.3 kg/m2 165.1 cm 111 mm[Hg] 74 mm[Hg] Mayra Douglas [facility] 5 10:36:14 Date Recorded Body height Body mass index (BMI) Body weight Systolic blood pressure Diastolic blood pressure Provider Name and Address Organization Details Last Updated DateTime 02/03/2025 165.1 cm 40.1 kg/m2 439556.7 6 g 111 mm[Hg] 74 mm[Hg] IVETH Dacosta [facility] 5 10:45:52 Social History Question Answer Notes LastModified by Organizat ion Details LastModified Time Tobacco Smoking Status Never Smoker Justine Moreland [facility] 12/22/2022 11:27:20 Do You Have An Advance Directive? No Information n ot available 01/02/2024 What Is Your Level Of Alcohol Consumption? None [email or web address] Information not available 08/05/2024 If You Are , What Was Your Level Of Alcohol Consumption Prior To ? Occasional [email or web address] Information not available 08/05/2024 How Many Years Have You Consumed Alcohol? 5 Information not available 01/02/2024 Are You Blind Or Do You Have Difficulty Seeing? No Information n ot available 01/02/2024 What Is Your Level Of Caffeine Consumption? Heavy [email or web address] Information not available 07/11/2024 In The 14 [...] To Be High Risk For COVID-19? Yes [email or web address] Information not available 07/11/2024 Are You Currently Employed? Yes [email or web address] Information not available 01/13/2025 Are You Deaf Or Do You Have Serious Difficulty Hearing? No Information not available 01/02/2024 What Type Of Diet Are You Following? REGULAR Information n ot available 01/02/2024 What Is The Highest Grade Or Level Of School You Have Completed Or The Highest Degree You Have Received? 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 No [email or web address] Information not available 07/11/2024 Have You Ever Been Counseled For Unhealthy Alcohol Use? No Information not available 12/22/2022 Do You Use Protection During Sex? No Information not available 01/02/2024 Do You Use Your Seat Belt Or Car Seat Routinely? Yes Information not available 01/02/2024 Are You Sexually Active? Yes [email or web address] Information not available 12/25/2024 Do You Have Smoke And Carbon Monoxide Detectors In Your Home? Yes Information not available 01/02/2024 How Much Tobacco Do You Smoke? No [email or web address] Information not available 07/11/2024 Do You Feel Stressed (tense, Restless, Nervous, Or Anxious, Or Unable To Sleep At Night)? [id number] Information not available 01/02/2024 Do You Use Any Illicit Or Recreational Drugs? No [email or web address] Information not available 03/24/2022 Do You Use Sunscreen Routinely? Yes [email or web address] Information not available 07/11/2024 Has Tobacco Cessation Counseling Been Provided? No [email or web address] Information not available 12/22/2022 Have You Used IV Drugs? No Information not available 01/02/2024 Do You Or Have You Ever Used Any Other Forms Of Tobacco Or Nicotine? No [email or web address] Information not available 12/22/2022 Sex: Unknown Functional Status Question Answer Note LastModified by Organizat ion Details LastModified Time Do you have difficulty walking or climbing stairs? No [email or web address] Information not available 08/05/2024 Are you able to walk? [email or web address] Information not available 01/02/2024 Are you able to care for yourself? Yes [email or web address] Information not available 08/05/2024 Do you have difficulty dressing or bathing? No [email or web address] Information not available 08/05/2024 What is your exercise level? Occasional [email or web address] Information not available 07/11/2024 Mental Status None recorded. Family History Relationship Description Onset Age of this Age Resolved Age Notes LastModified by Organization Details LastModified Time Mother Anemia [email or web address] Not available 07/11/2024 14:23:29 Mother Carcinoma in situ of breast [email or web address] Not available 2024 09:19:38 Mother Substance abuse meth,a lcohol Not available 07/11/2024 14:23:29 Mother Mental disorder [email or web address] Not available 2023 14:23:29 Mother Hypertensive disorder [email or web address] Not available 2023 14:23:29 Mother Depressive disorder [email or web address] Not available 2023 14:23:29 Mother Anxiety disorder Not available 2023 14:23:29 Mother Malignant tumor of cervix [email or web address] Not available 08/05 16:55:25 Mother Bipolar disorder Not available 2024 09:19:38 Mother Seizure disorder [email or web address] Not available 2024 09:19:38 Father Mental disorder [email or web address] Not available 2023 14:23:29 Father Hypertensive disorder Not available 2023 14:23:29 Father Anxiety disorder [email or web address] Not available 2023 14:23:29 Medical History Condition Response Other Y Blood Transfusion N Dermatologic Disorders N Gestational Diabetes N Anxiety Disorder Y Autoimmune disease Y Arthritis N Polyps N Infertility N Acid Reflux (GERD) N Cancer N Varicosities N Stroke N Neurologic/Epilepsy N Fibromyalgia N Headaches Y Kidney Disease N Heart Problems N Kidney or Bladder Problems N Eating Disorder N Art (IVF or FET) N Hepatitis/Liver Disease N No Past Medical History N Urinary Tract Infection N Asthma N Trauma/Violence N Thrombophilias N Allergies (Food, seasonal, environmental ) Y Breast Cancer N Drug/Latex Allergies/Reactions Y Lung Disease N Defects or Inherited Disease N Breast Problem N Hematologic disorders N Anesthesia Complications N History of STI Y Deep Vein Thrombosis N Polycystic ovary syndrome Y History of abnormal pap N Endometriosis N High Cholesterol N Thyroid Problems N GI Problems N Anemia N Psychiatric Illness N Ovarian Cancer N Diabetes N Pulmonary (TB, Asthma) N Eczema N Abuse/Domestic Violence N Depression/ depression Y Heart Disease N Pre-Eclampsia N Hypertension N Osteoporosis N Gynecological History Statement/Question Response Date of Last Mammogram 03/31/2019 Flow Moderate Date of LMP 05/15/2024 N Was last menstrual period normal N STIs/STDs Y Date of Last Colonoscopy 10/29/2023 None Desired Control Method None Abnormal Pap N On BCP's at Conception? N HPV Vaccine Y Duration of Flow (days) 5 Current Control Method Are cycles usually normal N Sexually Active? Y Menses Monthly N Date of DEXA bone scan Age of first menstrual cycle 14 Date of Last Pap Smear Sexual Problems? N LMP Definite N Obstetrics History GPAL:G 3 P 0 0 2 0 Type Value Spontaneous 2 Living 0 Total 3 Past Encounters Encounter ID Performer Location Encounter Start Date Encounter Closed Date Diagnosis/Indication Diagnosis SNOMED-CT Code Diagnosis ICD10 Code Diagnosis Note [id number] Kathleen Arora [facility] [address],[place] [address] 01/06/2025 09:55:01 01/06/2025 10:39:39 Maternal obesity complicating , childbirth and the puerperium, antepartum 0374385182 07 O99.213 O99.891 Z3A.34 [id number] Kathi Helio [facility] [address],[place] [address] 01/06/2025 09:55:10 01/06/2025 11:19:26 Antiphospholipid syndrome in 7666438076 9100 O99.119 [id number] AZEEM GROSS MD [facility] [address],[place] [address] 01/06/2025 09:55:26 01/06/2025 11:39:12 Antiphospholipid syndrome 31896443 D68.61 - 162mg ASA daily- per MFM, no lovenox needed- twice weekly testing Tachycardia 6721418 R00. 0 - HR up to 150s while standing at work- reviewed CBC, TSH, T4 from PCP, all overall normal for - Holter monitor results overall normal- will d/c working due to symptoms Gestation period, 34 weeks 37765386 Z3A.34 - continue PNV [id number] Kelly Thompson [facility] [address],[place] [address] 01/09/2025 10:52:18 01/09/2025 12:00:03 Antiphospholipid syndrome in 1481133721 9100 O99.119 [id number] Susanna Goldman [facility] [address],[place] [address] 01/13/2025 09:18:58 01/13/2025 10:06:16 Maternal obesity complicating , childbirth and the puerperium, antepartum 0822280491 07 O99.213 O99.891 Z86.16 Z3A.35 [id number] Kathi Cadet [facility] [address],[place] [address] 01/13/2025 09:19:28 01/13/2025 10:57:36 Antiphospholipid syndrome in 5003587762 9100 O99.119 [id number] AZEEM GROSS MD [facility] [address],[place] [address] 01/13/2025 09:19:42 01/13/2025 11:10:04 Antiphospholipid syndrome 56733821 D68.61 - 162mg ASA daily- per MFM, no lovenox needed- twice weekly testing Tachycardia 4751635 R00. 0 - HR up to 150s while standing at work- reviewed CBC, TSH, T4 from PCP, all overall normal for - Holter monitor results overall normal- d/c working due to symptoms- tachycardi a stable Gestation period, 35 weeks 40342887 Z3A.35 [id number] [facility] [address],[place] [address] 01/16/2025 10:20:53 01/16/2025 14:44:10 Antiphospholipid syndrome in 8314017260 9100 O99.119 [id number] Kathleen Arora [facility] [address],[place] [address] 01/20/2025 10:17:37 01/20/2025 10:49:49 Pre-existing maternal disease complicating 3995819150 6106 O99.891 O99.210 Z3A.36 [id number] [facility] [address],[place] [address] 01/20/2025 10:18:02 01/20/2025 11:43:03 Antiphospholipid syndrome in 4754989940 9100 O99.119 [id number] Soumya Soriano CNM [facility] [address],[place] [address] 01/20/2025 10:18:15 01/20/2025 11:44:02 Gestation period, 36 weeks 92655365 Z3A.36 [id number] Mayra Douglas [facility] [address],[place] [address] 01/23/2025 10:15:38 01/26/2025 06:51:20 Antiphospholipid syndrome in 1033050057 9100 O99.119 [id number] AZEEM GROSS MD [facility] [address],[place] [address] 01/27/2025 09:50:12 01/27/2025 11:58:53 Tachycardia 3974076 R00.0 - HR up to 150s while standing at work- reviewed CBC, TSH, T4 from PCP, all overall normal for - Holter monitor results overall normal- d/c working due to symptoms- tachycardi a stable Body mass index 30+ - obesity 541756153 Z68.36 - testing at 37 weeks Antiphosph olipid syndrome 09504559 D68.61 - 162mg ASA daily- per MFM, no lovenox needed- twice weekly testing Gestation period, 37 weeks 50694849 Z3A.37 [id number] [facility] [address],[place] [address] 01/27/2025 09:51:29 01/27/2025 10:26:43 Maternal obesity complicating , childbirth and the puerperium, antepartum 9643262996 07 O99.213 O99.891 Z86.16 Z3A.37 [id number] IVETH [facility] [address] [place] [address] 01/27/2025 09:52:02 01/27/2025 11:35:13 Antiphospholipid syndrome in [id number] O99.119 [id number] IVETH [facility] [address] [place] [address] 01/30/2025 10:19:40 01/30/2025 11:58:44 Antiphospholipid syndrome [id number] D68.61 [id number] [facility] [address] [place] [address] 02/03/2025 09:19:18 02/03/2025 10:18:23 Pre-existing maternal disease complicating [id number] O99.891 O99.210 Z3A.38 [id number] IVETH [facility] [place] [address] [address] 02/03/2025 09:37:00 02/03/2025 10:47:50 Antiphospholipid syndrome in [id number] O99.119 [id number] Soumya Soriano [facility] [address] [address] 02/03/2025 09:37:23 02/03/2025 10:49:53 Gestation period, 38 weeks [id number] Z3A.38 Health Concerns Section Related Observation LastModified by Organization Detai ls LastModified Time None Recorded Concern Status LastModified by Organization Details LastModified Time None Recorded Payers Encounter Date Sequence Insurance Name Policy Number Policy [place] Covered Member ID Eub[place] Member ID Guarantor Name 02/03/2025 1 [facility] [id number] Nito Miller [id number] Nito Miller 02/03/2025 2 [place] [facility] Nito Miller [id number] Nito Miller OBGyn Episode Ob Episode Information Episode Created Date Number of Fetuses Patient Bloodtype Patient rh Status Prepregnancy Weight lbs Domestic Partner Domestic Partner Phone Father Name Relationship Manager Status 08/05/20 24 1 O Positive 224 OPEN Fetus Data First Name Last Name Admitted to NICU Weight (g) Sex Living Outcome Pediatric Complications Fetus ID Race Codes Race Delivery Type [id number] Problems Problem Notes 10/20/24 7:30am u/s onlyLD [...] Resolution Snomed Code Not e Antiphospholipid syndrome [id number] Baby asa, 32wk testing twice weekly; MFM referral sent 08/05/24 SSMScheduled 08/27 9AM U/S & Consult. Next u/s only 09/22/24 Prediabetes [id number] COVID-19 [id number] Obesity [id number] Tachycardia [id number] 72 hr Ho lter monitor order faxed 12/22 Chad Calculation Initial Chad Date Initial Exam Date Initial Exam Provider Initial Ultrasound Date Last Menstrual Period Date Ultra Sound Weeks Gestation 02/15/2025 07/11/2024 07/11/2024 05/15/2024 8 Eighteen To Twenty Week Chad Update Ultra Sound Date Fundal Height At Umbil Quickening Date Ultra Sound Latest Weeks Gestation Final Chad Confirmed By Final Chad Confirmed Date Final Chad Date Ultra Sound Latest Days Gestation 0 [email or web address] 12/29/2024 02/16/20 25 0 Pre- Flowsheet Flowsheet Date 08/05/2024 Reinoso [...] Type Weight in lbs Pre/Post Dialysis Refused 218.801113805981 BP Diastolic BP Location Tested BP Systolic [...] Weight in lbs Pre/Post Dialysis Refused Weight 213.737741242014 BP Diastolic BP Location Tested BP Systolic BP Type 69 L arm 110 sitting Fetus Heart Rate Present Fetus Movement A No Comments Doing well, no cramping or b leeding. No movement yet. NIPT LR female! Saw MFM, recommend 162mg ASA, does not recommend lovenox. Will do early 1h GTT next week, stop metformin today. Anatomy US at [facility]. RTC 4 weeks. Flowsheet Date 09/30/2024 Reinoso Score Blood Edema Fundus Height Fundus Units Glucose Ketones Leukocytes Nitrite Labor Signs Protein Cervic Dilation Cervic Effacement Cervic Station neg none Type Weight in lbs Pre/Post Dialysis Refused Weight 221.018619937414 BP Diastolic BP Location Tested BP Systolic BP Type 66 L arm 111 sitting Fetus Heart Rate Present A 140 Fetus Movement A Yes Comments Patient c/o of some cramping and pressure. Very irregular, improves with hydration. No bleeding. Good movement. Anatomy US 09/23 with [facility], incomplete, will repeat in 4 weeks with [facility]. Low lying placenta, 1.6cm from os. Passed early 1h GCT. RTC 4 weeks. Flowsheet Date 10/30/2024 Reinoso Score Blood Edema Fundus Height Fundus Units Glucose Ketones Leukocytes Nitrite Labor Signs Protein Cervic Dilation Cervic Effacement Cervic Station neg none Type Weight in lbs Pre/Post Dialysis Refused 222.77267860160 BP Diastolic BP Location Tested BP Systolic BP Type 70 L arm 105 sitting Fetus Heart Rate Present A 140 Fetus Movement A Yes Comments Patient c/o of Waterproof Gill . Good movement. No bleeding. Placenta no longer low lying. Patient would like to restart US/monitoring at [facility] due to distance, will transfer orders here. [...] Weight in lbs Pre/Post Dialysis Refused Weight 227.7889113712 BP Diastolic BP Location Tested BP Systolic BP Type 74 L arm 117 sitting Fetus Heart Rate Present A Present Fetus Movement A Yes Comments Patient c/o Waterproof Gill. N o bleeding. Good movement. EFW 59%, footling breech. Will start testing twice weekly at 32 weeks for APLS. GCT and labs today. RTC 2 weeks. Flowsheet Date 12/22/2024 Reinoso Score Blood Edema Fundus Height Fundus Units Glucose Ketones Leukocytes Nitrite Labor Signs Protein Cervic Dilation Cervic Effacement Cervic Station Type Weight in lbs Pre/Post Dialysis Refused Weight 232.1885171158 BP Diastolic BP Location Tested BP Systolic BP Type 69 L arm 106 sitting Fetus Heart Rate Present Fetus Movement Comments Flowsheet Date 12/25/2024 Reinoso Score Blood Edema Fundus Height Fundus Units Glucose Ketones Leukocytes Nitrite Labor Signs Protein Cervic Dilation Cervic Effacement Cervic Station Type Weight in lbs Pre/Post Dialysis Refused BP Diastolic BP Location Tested BP Systolic BP Type Fetus Heart Rate Present Fetus Movement Comments Flowsheet Date 12/25/2024 Reinoso Score Blood Edema Fundus Height Fundus Units Glucose Ketones Leukocytes Nitrite Labor Signs Protein Cervic Dilation Cervic Effacement Cervic Station Type Weight in lbs Pre/Post Dialysis Refused BP Diastolic BP Location Tested BP Systolic BP Type Fetus Heart Rate Present Fetus Movement Comments Flowsheet Date 12/25/2024 Reinoso Score Blood Edema Fundus Height Fundus Units Glucose Ketones Leukocytes Nitrite Labor Signs Protein Cervic Dilation Cervic Effacement Cervic Station neg none Type Weight in lbs Pre/Post Dialysis Refused 230.109248093488 BP Diastolic BP Location Tested BP Systolic BP Type 73 L arm 110 sitting Fetus Heart Rate Present A 140 Fetus Movement A Yes Comments Patient states has been havi ng some lower cramps, along with frequent headaches. Will send imitrex. She called last week for chest pressure and palpitations. Completing 72h Holter monitor currently. CT chest ruled out PE, however did see a possible mesenteric mass that was partially imaged. Will pursue CTAP with contrast to image completely, unless patient becomes symptomatic. EFW 50%, vertex! BPP 08/07. Will start twice weekly testing for APLS. Flowsheet Date 12/29/2024 Reinoso Score Blood Edema Fundus Height Fundus Units Glucose Ketones Leukocytes Nitrite Labor Signs Protein Cervic Dilation Cervic Effacement Cervic Station Type Weight in lbs Pre/Post Dialysis Refused BP Diastolic BP Location Tested BP Systolic BP Type Fetus Heart Rate Present Fetus Movement Comments Flowsheet Date 12/29/2024 Reinoso Score Blood Edema Fundus Height Fundus Units Glucose Ketones Leukocytes Nitrite Labor Signs Protein Cervic Dilation Cervic Effacement Cervic Station Type Weight in lbs Pre/Post Dialysis Refused BP Diastolic BP Location Tested BP Systolic BP Type Fetus Heart Rate Present Fetus Movement Comments Flowsheet Date 12/29/2024 Reinoso Score Blood Edema Fundus Height Fundus Units Glucose Ketones Leukocytes Nitrite Labor Signs Protein Cervic Dilation Cervic Effacement Cervic Station neg none Type Weight in lbs Pre/Post Dialysis Refused Weight 233.895989500478 BP Diastolic BP Location Tested BP Systolic BP Type 67 L arm 101 sitting Fetus Heart Rate Present A 130 Fetus Movement A Yes Comments Patient c/o Waterproof Gill an d slight swelling in hands. Good movements. No bleeding. Headaches somewhat improved, no improvement with sumatriptan. Discussed reglan PRN. Awaiting Holter results. Will start maternity leave due to symptomatic tachycardia. BPP 08/07. Preadmission scheduled. RTC for testing as scheduled. Flowsheet Date 01/01/2025 Reinoso Score Blood Edema Fundus Height Fundus Units Glucose Ketones Leukocytes Nitrite Labor Signs Protein Cervic Dilation Cervic Effacement Cervic Station Type Weight in lbs Pre/Post Dialysis Refused Weight 234.310952959379 BP Diastolic BP Location Tested BP Systolic BP Type 66 L arm 106 sitting Fetus Heart Rate Present Fetus Movement Comments Flowsheet Date 01/06/2025 Reinoso Score Blood Edema Fundus Height Fundus Units Glucose Ketones Leukocytes Nitrite Labor Signs Protein Cervic Dilation Cervic Effacement Cervic Station Type Weight in lbs Pre/Post Dialysis Refused BP Diastolic BP Location Tested BP Systolic BP Type Fetus Heart Rate Present Fetus Movement Comments Flowsheet Date 01/06/2025 Reinoso Score Blood Edema Fundus Height Fundus Units Glucose Ketones Leukocytes Nitrite Labor Signs Protein Cervic Dilation Cervic Effacement Cervic Station Type Weight in lbs Pre/Post Dialysis Refused 234.281528096307 BP Diastolic BP Location Tested BP Systolic BP Type 74 L arm 110 sitting Fetus Heart Rate Present Fetus Movement Comments Flowsheet Date 01/06/2025 Reinoso Score Blood Edema Fundus Height Fundus Units Glucose Ketones Leukocytes Nitrite Labor Signs Protein Cervic Dilation Cervic Effacement Cervic Station neg none Type Weight in lbs Pre/Post Dialysis Refused Weight 234.110831004618 BP Diastolic BP Location Tested BP Systolic BP Type 74 L arm 110 sitting Fetus Heart Rate Present A 140 Fetus Movement A Yes Comments Patient c/o Waterproof Gill. G ood movement. Still having palpitations while being more active. Resolves with rest. BPP 10/10. Would like induction on 02/08. Induction methods reviewed. Continue testing. Flowsheet Date 01/09/2025 Reinoso Score Blood Edema Fundus Height Fundus Units Glucose Ketones Leukocytes Nitrite Labor Signs Protein Cervic Dilation Cervic Effacement Cervic Station Type Weight in lbs Pre/Post Dialysis Refused Weight 236.425823013732 BP Diastolic BP Location Tested BP Systolic BP Type 71 L arm 110 sitting Fetus Heart Rate Present Fetus Movement Comments Flowsheet Date 01/13/2025 Reinoso Score Blood Edema Fundus Height Fundus Units Glucose Ketones Leukocytes Nitrite Labor Signs Protein Cervic Dilation Cervic Effacement Cervic Station Type Weight in lbs Pre/Post Dialysis Refused BP Diastolic BP Location Tested BP Systolic BP Type Fetus Heart Rate Present Fetus Movement Comments Flowsheet Date 01/13/2025 Reinoso Score Blood Edema Fundus Height Fundus Units Glucose Ketones Leukocytes Nitrite Labor Signs Protein Cervic Dilation Cervic Effacement Cervic Station Type Weight in lbs Pre/Post Dialysis Refused Weight 235.436589762909 BP Diastolic BP Location Tested BP Systolic BP Type 72 L arm 115 sitting Fetus Heart Rate Present Fetus Movement Comments Flowsheet Date 01/13/2025 Reinoso Score Blood Edema Fundus Height Fundus Units Glucose Ketones Leukocytes Nitrite Labor Signs Protein Cervic Dilation Cervic Effacement Cervic Station neg trace Type Weight in lbs Pre/Post Dialysis Refused BP Diastolic BP Location Tested BP Systolic BP Type Fetus Heart Rate Present A 140 Fetus Movement A Yes Comments Patient c/o slight nausea, B raxton Gill, and swelling in hands. EFW 72%, normal GREG. BPP 10/10. Palpitations stable. Discussed GBS for next week. RTC 1 week. Flowsheet Date 01/16/2025 Reinoso Score Blood Edema Fundus Height Fundus Units Glucose Ketones Leukocytes Nitrite Labor Signs Protein Cervic Dilation Cervic Effacement Cervic Station Type Weight in lbs Pre/Post Dialysis Refused Weight 237.3550109826 BP Diastolic BP Location Tested BP Systolic BP Type 69 L arm 103 sitting Fetus Heart Rate Present Fetus Movement Comments Flowsheet Date 01/20/2025 Reinoso Score Blood Edema Fundus Height Fundus Units Glucose Ketones Leukocytes Nitrite Labor Signs Protein Cervic Dilation Cervic Effacement Cervic Station Type Weight in lbs Pre/Post Dialysis Refused BP Diastolic BP Location Tested BP Systolic BP Type Fetus Heart Rate Present Fetus Movement Comments Flowsheet Date 01/20/2025 Reinoso Score Blood Edema Fundus Height Fundus Units Glucose Ketones Leukocytes Nitrite Labor Signs Protein Cervic Dilation Cervic Effacement Cervic Station Type Weight in lbs Pre/Post Dialysis Refused Weight 238.144078579250 BP Diastolic BP Location Tested BP Systolic BP Type 74 L arm 117 sitting Fetus Heart Rate Present Fetus Movement Comments Flowsheet Date 01/20/2025 Reinoso Score Blood Edema Fundus Height Fundus Units Glucose Ketones Leukocytes Nitrite Labor Signs Protein Cervic Dilation Cervic Effacement Cervic Station Type Weight in lbs Pre/Post Dialysis Refused 238.297203678272 BP Diastolic BP Location Tested BP Systolic BP Type 74 L arm 117 sitting Fetus Heart Rate Present Fetus Movement A Yes Comments +FM, doing well bpp 8/8 gbs collected, preadmit done, cervix FT/softprecautions and education Flowsheet Date 01/23/2025 Reinoso Score Blood Edema Fundus Height Fundus Units Glucose Ketones Leukocytes Nitrite Labor Signs Protein Cervic Dilation Cervic Effacement Cervic Station Type Weight in lbs Pre/Post Dialysis Refused Weight 240.441942825651 BP Diastolic BP Location Tested BP Systolic BP Type 73 106 Fetus Heart Rate Present Fetus Movement Comments Flowsheet Date 01/27/2025 Reinoso Score Blood Edema Fundus Height Fundus Units Glucose Ketones Leukocytes Nitrite Labor Signs Protein Cervic Dilation Cervic Effacement Cervic Station Type Weight in lbs Pre/Post Dialysis Refused BP Diastolic BP Location Tested BP Systolic BP Type Fetus Heart Rate Present Fetus Movement Comments Flowsheet Date 01/27/2025 Reinoso Score Blood Edema Fundus Height Fundus Units Glucose Ketones Leukocytes Nitrite Labor Signs Protein Cervic Dilation Cervic Effacement Cervic Station Type Weight in lbs Pre/Post Dialysis Refused BP Diastolic BP Location Tested BP Systolic BP Type Fetus Heart Rate Present Fetus Movement Comments Flowsheet Date 01/27/2025 Reinoso Score Blood Edema Fundus Height Fundus Units Glucose Ketones Leukocytes Nitrite Labor Signs Protein Cervic Dilation Cervic Effacement Cervic Station neg trace 1cm 50% -3 Type Weight in lbs Pre/Post Dialysis Refused Weight 240.782557025502 BP Diastolic BP Location Tested BP Systolic BP Type 67 L arm 103 sitting Fetus Heart Rate Present A 130 Fetus Movement A Yes Comments Good movement. No cram ping or bleeding. BPP 10/10. Requesting SVE. Palpitations stable. MIL scheduled 02/08. Would like membrane sweep next week. RTC for testing. Flowsheet Date 01/30/2025 Reinoso Score Blood Edema Fundus Height Fundus Units Glucose Ketones Leukocytes Nitrite Labor Signs Protein Cervic Dilation Cervic Effacement Cervic Station Type Weight in lbs Pre/Post Dialysis Refused Weight 244.833815704448 BP Diastolic BP Location Tested BP Systolic BP Type 73 L arm 117 sitting Fetus Heart Rate Present Fetus Movement Comments Flowsheet Date 02/03/2025 Reinoso Score Blood Edema Fundus Height Fundus Units Glucose Ketones Leukocytes Nitrite Labor Signs Protein Cervic Dilation Cervic Effacement Cervic Station Type Weight in lbs Pre/Post Dialysis Refused BP Diastolic BP Location Tested BP Systolic BP Type Fetus Heart Rate Present Fetus Movement Comments Flowsheet Date 02/03/2025 Reinoso Score Blood Edema Fundus Height Fundus Units Glucose Ketones Leukocytes Nitrite Labor Signs Protein Cervic Dilation Cervic Effacement Cervic Station Type Weight in lbs Pre/Post Dialysis Refused Weight 241.978998763768 BP Diastolic BP Location Tested BP Systolic BP Type 74 L arm 111 sitting Fetus Heart Rate Present Fetus Movement Comments Flowsheet Date 02/03/2025 Reinoso Score Blood Edema Fundus Height Fundus Units Glucose Ketones Leukocytes Nitrite Labor Signs Protein Cervic Dilation Cervic Effacement Cervic Station neg trace 2cm 80% -2 Type Weight in lbs Pre/Post Dialysis Refused 242.082999012834 BP Diastolic BP Location Tested BP Systolic BP Type 74 111 Fetus Heart Rate Present Fetus Movement A Yes Comments Patient is having contractio ns, discharge and swelling. cervix very anterior, membrane sweep done, precautions reviewed +FM, bpp 8/8 f/u one week Menstrual History Last Menstrual Date Menses Monthly [...]
--- OUTSIDE RECORDS SUMMARY | 2025-02-04 02:42 | XMS_ITS | Continuity of Care Document ---
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 [...] d. Imaging non-str ess test 2024 025 [email or web address] [email or web address] [place], [address], [address], [place], [address], 02/03/2025 23:34:56 Medication Orders None recorde d. Patient TargetsNo targets recorded. Patient InstructionsNo instructions recorded. Reason for Referral None Reported. Results Created Date Observation Date Name Description Value Unit Range Abnormal Flag Note LastModifiedBy Organization Detail LastModifiedTime 08/05/2008/05/2024 US, obste tric, nucha l trans lucen cy No observ ation record ed. [email or web address] [place] [address], [place], [address], 08/05/2024 13:25:38 08/05/2008/05/2024 US, obste tric, 1st trime ster No observ ation record ed. [email or web address] [place] [address], [place], [address], 08/05/2024 13:25:52 08/05/20 24 08/05/2024 US, obste tric, follo w-up No observ ation record ed. [address], [place], [address], 08/06/2024 12:12:19 08/27/20 24 08/27/2024 US, obste tric, follo w-up No observ ation record ed. [email or web address] [facility] [address], [place], [address], 08/28/2024 15:23:52 08/27/20 24 08/27/2024 US, obste tric, follo w-up No observ ation record ed. [facility] [address], [place], [address], 08/28/2024 16:00:59 09/22/20 24 09/22/2024 US, obste tric, follo w-up No observ ation record ed. [facility] [address], [place], [address], 12/25/2024 09:32:23 09/22/20 24 09/22/2024 US, obste tric, trans abdom inal + trans vagin al No observ ation record ed. [facility] [address], [place], [address], 12/25/2024 09:30:14 10/20/20 24 10/20/2024 US, obste tric, follo w-up No observ ation record ed. [facility] [address] [place], [address], 12/25/2024 09:30:53 10/20/20 24 10/20/2024 US, obste tric, follo w-up No observ ation record ed. [facility] [address] [place], [address], 12/25/2024 09:31:42 11/25/19 25 11/25/2024 US, obste tric, follo w-up No observ ation record ed. [email or web address] [place] [address], [place], [address], 11/25/2024 14:31:02 11/25/19 25 11/25/2024 US, obste tric, follo w-up No observ ation record ed. [email or web address] [place] [address], [place], [address], 11/26/2024 23:26:54 12/22/19 25 12/22/2024 non-s tress test No observ ation record ed. [place] [address], [place], [address], 12/22/2024 10:16:43 12/25/19 25 12/25/2024 US, obste tric, bioph ysica l profi le + non-s tress test No observ ation record ed. [email or web address] [place] [address], [place], [address], 12/25/2024 10:56:04 12/25/19 25 12/25/2024 US, obste tric, follo w-up No observ ation record ed. [email or web address] [place] [address], [place], [address], 12/25/2024 10:56:13 12/25/19 25 12/25/2024 US, obste tric, follo w-up No observ ation record ed. [email or web address] [address], [place], [address], 12/29/2024 18:13:27 12/25/19 25 12/25/2024 non-s tress test No observ ation record ed. [email or web address] [place] [address], [place], [address], 12/25/2024 10:50:23 12/30/19 25 12/29/2024 non-s tress test No observ ation record ed. [place] [address], [place], [address], 12/29/2024 09:56:07 12/30/19 25 12/29/2024 US, obste tric, bioph ysica l profi le + non-s tress test No observ ation record ed. [email or web address] [place] [address], [place], [address], 12/29/2024 17:19:33 12/30/19 25 12/29/2024 US, obste tric, follo w-up No observ ation record ed. [email or web address] [address], [place], [address], 12/29/2024 22:26:22 12/31/19 25 12/22/2024 lalit r monit or No observ ation record ed. [facility] [address], [place], [address], 01/01/2025 01:03:10 12/31/19 25 12/22/2024 lalit r monit or No observ ation record ed. [facility] (Neu[facility] [address], [place], [address], 01/01/2025 01:03:00 01/02/2001/01/2025 non-s tress test No observ ation record ed. [email or web address] [place] [address], [place], [address], 01/01/2025 12:22:50 01/07/20 25 01/06/2025 US, obste tric, bioph ysica l profi le + non-s tress test No observ ation record ed. [email or web address] [place] [address], [place], [address], 01/06/2025 12:39:40 01/07/20 25 01/06/2025 US, obste tric, bioph ysica l profi le + non-s tress test No observ ation record ed. [email or web address] [address] [place], [address], 01/06/2025 11:45:38 01/07/20 25 01/06/2025 non-s tress test No observ ation record ed. [email or web address] [place] [address], [place], [address], 01/06/2025 11:11:56 01/07/20 non-s tress test No observ ation record ed. [email or web address] [place] [address], [place], [address], 01/06/2025 11:14:50 01/10/20 25 01/09/2025 non-s tress test No observ ation record ed. [email or web address] [place] [address], [place], [address], 01/09/2025 11:50:28 01/14/20 25 01/13/2025 US, obste tric, follo w-up No observ ation record ed. [email or web address] [place] [address], [place], [address], 01/13/2025 13:08:44 01/14/20 25 01/13/2025 US, obste tric, bioph ysica l profi le + non-s tress test No observ ation record ed. [email or web address] [place] [address], [place], [address], 01/13/2025 13:08:55 01/14/20 25 01/13/2025 US, obste tric, follo w-up No observ ation record ed. [email or web address] [address] [facility], [place], [address], 01/13/2025 22:27:05 01/14/20 25 01/13/2025 non-s tress test No observ ation record ed. [email or web address] [place] [address], [place], [address], 01/13/2025 10:46:06 01/14/20 non-s tress test No observ ation record ed. [email or web address] [place] [address], [place], [address], 01/13/2025 10:47:59 01/17/20 25 01/16/2025 non-s tress test No observ ation record ed. [email or web address] [place] [address], [place], [address], 01/16/2025 14:41:50 01/21/2001/20/2025 US, obste tric, follo w-up No observ ation record ed. [email or web address] [place] [address], [place], [address], 01/21/2025 22:32:18 01/21/2001/20/2025 US, obste tric, bioph ysica l profi le + non-s tress test No observ ation record ed. [email or web address] [address], [place], [address], 01/20/2025 12:00:13 01/21/2001/20/2025 non-s tress test No observ ation record ed. [email or web address] [place] [address], [place], [address], 01/20/2025 11:52:14 01/24/2001/23/2025 non-s tress test No observ ation record ed. [email or web address] [place] [address], [place], [address], 01/23/2025 17:09:36 01/28/2001/27/2025 US, obste tric, bioph ysica l profi le + non-s tress test No observ ation record ed. [email or web address] [place] [address], [place], [address], 01/27/2025 14:13:45 01/28/20 25 01/27/2025 US, obste tric, follo w-up No observ ation record ed. [email or web address] [address], [place], [address], 01/29/2025 19:50:40 01/28/2001/27/2025 non-s tress test No observ ation record ed. [place] [address], [place], [address], 01/27/2025 11:31:22 01/30/20 25 01/23/2025 non-s tress test No observ ation record ed. [email or web address] [place] [address], [place], [address], 01/29/2025 10:20:11 01/31/2001/30/2025 non-s tress test No observ ation record ed. [email or web address] [place] [address], [place], [address], 01/30/2025 11:28:02 02/04/20 25 02/03/2025 imagi ng/di agnos tic resul t No observ ation record ed. [address], [place], [address], 02/03/2025 23:03:44 02/04/2002/03/2025 US, obste tric, bioph ysica l profi le + non-s tress test No observ ation record ed. [email or web address] [place] [address], [place], [address], 02/03/2025 14:11:25 02/04/2002/03/2025 non-s tress test No observ ation record ed. [email or web address] [place] [address], [place], [address], 02/03/2025 10:46:36 Result Notes None recorded. Problems Name Problem SNOMED Code Status Onset Date Resolution Date Notes Provider Name and Address Organization Details Recorded Time Family history of malignant neoplasm of breast in first degree relative 361918383 Active 2021 mom age 32. MAMMOS TO START AT 22yo. Kym López MD [address], [place], [address], [facility] 3 19:05:45 Body mass index 30+ - obesity 760292010 Active 2021 Kym López MD [address], [place], [address], [facility] 2 10:30:27 Prediabet es 384166131 Active Zbigniew Ha MD [address], [place], [address], [facility] 4 11:13:08 Polycysti c ovary syndrome 263243240 Active 2021 Kym López MD [address], [place], [address], [facility] 2 10:30:33 18516212 Active 2023 Mayra Douglas null, [facility] 4 10:10:22 COVID-19 351059045 Active Zbigniew Ha MD [address], [place], [address], [facility] 4 11:11:29 Antiphosp holipid syndrome 11868256 Active Baby asa, 32wk testing twice weekly; MFM referral sent 08/05/24 [facility] Scheduled 08/27 9AM U/S & Consult. Next u/s only 09/22/24 Ida redmond, [facility] 4 15:25:15 Prediabet es 643231137 Active Zbigniew Ha MD [address], [place], [address], [facility] 4 11:13:08 Obesity 790191189 Active Zbigniew Ha MD [address], [place], [address], [facility] 4 11:13:33 Tachycard ia 3141169 Active 72 hr Holter monitor order faxed 12/22 Zelda redmond, [facility] 5 13:35:44 Tachycard ia 8687915 Active 72 hr Holter monitor order faxed 12/22 Zelda redmond, [facility] 5 13:35:44 Problem Notes None recorded. Procedures Surgical History Date Name Laterality Status Provider Name and Address Organization Details Recorded Time 02/06/20 24 SIS completed AZEEM GROSS MD [address], [place], [address], [facility] 02/08/2024 13:14:27 10/29/19 24 Date of Last Colonoscopy completed [facility] 08/05/2024 10:47:00 10/29/19 24 Colonoscopy completed [facility] 08/05/2024 10:51:33 10/29/19 20 extraction of wisdom tooth completed [facility] 08/05/2024 10:52:02 03/31/20 19 Date of Last Mammogram completed [facility] 08/05/2024 16:54:43 10/29/19 19 repair of labial tear completed [facility] 08/05/2024 16:56:32 Imaging Results Imaging Date Name Status LastModified by Organiz ation Details LastModified Time 02/03/2025 non-stress test completed [email or web address] [place] [address], [place], [address], 02/03/2025 10:46:36 Procedure Notes None recorded. Medical Equipment None Reported. Allergies Allergen ID Allergen Name Allergen Category Reaction Reaction Severity Criticality Documentation Date Start Date Code Code System Note Provider Name and Address Organization Details Recorded Time 59189 amoxicill in medicatio n Not available Not available Not available 03/24/2022 723 RxNorm Kelly Thompson ruy, [facility] 4 15:12:26 57432 cefdinir medicatio n Not available Not available Not available 03/24/2022 57879 RxNorm Other react ions and sever ities : 'Anap hylax is - Moder ate'. Lara Mk redmond, [facility] 4 15:34:29 68581 amoxicill in trihydrat e medicatio n rash moderate Not available 01/02/2024 40030 8 RxNorm Lara Terrazas ruy, [facility] 4 15:34:29 08394 ethinyl estradiol / levonorge strel medicatio n Not available Not available Not available 01/02/2024 20878 8 RxNorm AZEEM GROSS MD [address], [place], [address] [place] [address], [facility] 4 11:01:47 Medications Name Sig Start [...] Address Organization Details Last Updated DateTime 02/03/2025 449926.3 5354 g 40.3 kg/m2 165.1 cm 111 mm[Hg] 74 mm[Hg] Mayra Douglas [facility] 10:36:14 Date Recorded Body height Body mass index (BMI) Body weight Systolic blood pressure Diastolic blood pressure Provider Name and Address Organization Details Last Updated DateTime 02/03/2025 165.1 cm 40.1 kg/m2 683084.7 6 g 111 mm[Hg] 74 mm[Hg] IVETH Dacosta [facility] 10:45:52 Social History Question Answer Notes LastModified by Organizat ion Details LastModified Time Tobacco Smoking Status Never Smoker Justine redmond, [facility] 12/22/2022 11:27:20 Do You Have An Advance Directive? No Information n ot available 01/02/2024 What Is Your Level Of Alcohol Consumption? None [email or web address] Information not available 08/05/2024 If You Are , What Was Your Level Of Alcohol Consumption Prior To ? Occasional [email or web address] Information not available 08/05/2024 How Many Years Have You Consumed Alcohol? 5 Information not available 01/02/2024 Are You Blind Or Do You Have Difficulty Seeing? No Information n ot available 01/02/2024 What Is Your Level Of Caffeine Consumption? Heavy [email or web address] Information not available 07/11/2024 In The 14 [...] To Be High Risk For COVID-19? Yes Information not available 07/11/2024 Are You Currently Employed? Yes [email or web address] Information not available 01/13/2025 Are You Deaf Or Do You Have Serious Difficulty Hearing? No Information not available 01/02/2024 What Type Of Diet Are You Following? REGULAR Information n ot available 01/02/2024 What Is The Highest Grade Or Level Of School You Have Completed Or The Highest Degree You Have Received? 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 No [email or web address] Information not available 07/11/2024 Have You Ever Been Counseled For Unhealthy Alcohol Use? No [email or web address] Information not available 12/22/2022 Do You Use Protection During Sex? No Information not available 01/02/2024 Do You Use Your Seat Belt Or Car Seat Routinely? Yes Information not available 01/02/2024 Are You Sexually Active? Yes [email or web address] Information not available 12/25/2024 Do You Have Smoke And Carbon Monoxide Detectors In Your Home? Yes Information not available 01/02/2024 How Much Tobacco Do You Smoke? No [email or web address] Information not available 07/11/2024 Do You Feel Stressed (tense, Restless, Nervous, Or Anxious, Or Unable To Sleep At Night)? [id number] Information not available 01/02/2024 Do You Use Any Illicit Or Recreational Drugs? No [email or web address] Information not available 03/24/2022 Do You Use Sunscreen Routinely? Yes [email or web address] Information not available 07/11/2024 Has Tobacco Cessation Counseling Been Provided? No [email or web address] Information not available 12/22/2022 Have You Used IV Drugs? No Information not available 01/02/2024 Do You Or Have You Ever Used Any Other Forms Of Tobacco Or Nicotine? No Information not available 12/22/2022 Sex: Unknown Functional Status Question Answer Note LastModified by Organizat ion Details LastModified Time Do you have difficulty walking or climbing stairs? No [email or web address] Information not available 08/05/2024 Are you able to walk? YESWOREST Information not available 01/02/2024 Are you able to care for yourself? Yes [email or web address] Information not available 08/05/2024 Do you have difficulty dressing or bathing? No [email or web address] Information not available 08/05/2024 What is your exercise level? Occasional [email or web address] Information not available 07/11/2024 Mental Status None recorded. Family History Relationship Description Onset Age of this Age Resolved Age Notes LastModified by Organization Details LastModified Time Mother Anemia [email or web address] Not available 07/11/2024 14:23:29 Mother Carcinoma in situ of breast [email or web address] Not available 2024 09:19:38 Mother Substance abuse meth,a lcohol Not available 07/11/2024 14:23:29 Mother Mental disorder [email or web address] Not available 2023 14:23:29 Mother Hypertensive disorder [email or web address] Not available 2023 14:23:29 Mother Depressive disorder [email or web address] Not available 2023 14:23:29 Mother Anxiety disorder [email or web address] Not available 2023 14:23:29 Mother Malignant tumor of cervix [email or web address] Not available 08/05 16:55:25 Mother Bipolar disorder [email or web address] Not available 2024 09:19:38 Mother Seizure disorder [email or web address] Not available 2024 09:19:38 Father Mental disorder [email or web address] Not available 2023 14:23:29 Father Hypertensive disorder [email or web address] Not available 2023 14:23:29 Father Anxiety disorder [email or web address] Not available 2023 14:23:29 Medical History Condition [...] SNOMED-CT Code Diagnosis ICD10 Code Diagnosis Note [id number] Kathleen Arora [place] [address] [address] 01/06/2025 09:55:01 01/06/2025 10:39:39 Maternal obesity complicating , childbirth and the puerperium, antepartum 5910700681 07 O99.213 O99.891 Z3A.34 [id number] Kathi Cadet [place] [address],[place] [address] 01/06/2025 09:55:10 01/06/2025 11:19:26 Antiphospholipid syndrome in 4829458019 9100 O99.119 [id number] AZEEM GROSS MD [place] [address],[place] [address] 01/06/2025 09:55:26 01/06/2025 11:39:12 Antiphospholipid syndrome 87253226 D68.61 - 162mg ASA daily- per MFM, no lovenox needed- twice weekly testing Tachycardia 7583634 R00. 0 - HR up to 150s while standing at work- reviewed CBC, TSH, T4 from PCP, all overall normal for - Holter monitor results overall normal- will d/c working due to symptoms Gestation period, 34 weeks 62952850 Z3A.34 - continue PNV [id number] Kelly Thompson [place] [address] [address] 01/09/2025 10:52:18 01/09/2025 12:00:03 Antiphospholipid syndrome in 2505224243 9100 O99.119 [id number] Susanna Goldman [place] [address] [address] 01/13/2025 09:18:58 01/13/2025 10:06:16 Maternal obesity complicating , childbirth and the puerperium, antepartum 5408168010 07 O99.213 O99.891 Z86.16 Z3A.35 [id number] Kathi Cadet [place] [address] [address] 01/13/2025 09:19:28 01/13/2025 10:57:36 Antiphospholipid syndrome in 9190390984 9100 O99.119 [id number] AZEEM GROSS MD [place] [address] [address] 01/13/2025 09:19:42 01/13/2025 11:10:04 Antiphospholipid syndrome 09720036 D68.61 - 162mg ASA daily- per MFM, no lovenox needed- twice weekly testing Tachycardia 6760012 R00. 0 - HR up to 150s while standing at work- reviewed CBC, TSH, T4 from PCP, all overall normal for - Holter monitor results overall normal- d/c working due to symptoms- tachycardi a stable Gestation period, 35 weeks 52773357 Z3A.35 [id number] [facility] [address] [address] 01/16/2025 10:20:53 01/16/2025 14:44:10 Antiphospholipid syndrome in 0757771955 9100 O99.119 [id number] Kathleen Arora [place] [address] [address] 01/20/2025 10:17:37 01/20/2025 10:49:49 Pre-existing maternal disease complicating 5470678004 6106 O99.891 O99.210 Z3A.36 [id number] [facility] [address] [address] 01/20/2025 10:18:02 01/20/2025 11:43:03 Antiphospholipid syndrome in 8553590875 9100 O99.119 [id number] Soumya Soriano CNM [place] [address] [address] 01/20/2025 10:18:15 01/20/2025 11:44:02 Gestation period, 36 weeks 48720205 Z3A.36 [id number] Mayra Douglas [place] [address] [address] 01/23/2025 10:15:38 01/26/2025 06:51:20 Antiphospholipid syndrome in 5348499388 9100 O99.119 [id number] AZEEM GROSS MD [place] [address] [address] 01/27/2025 09:50:12 01/27/2025 11:58:53 Tachycardia 3525580 R00.0 - HR up to 150s while standing at work- reviewed CBC, TSH, T4 from PCP, all overall normal for - Holter monitor results overall normal- d/c working due to symptoms- tachycardi a stable Body mass index 30+ - obesity 314113851 Z68.36 - testing at 37 weeks Antiphosph olipid syndrome 08078547 D68.61 - 162mg ASA daily- per MFM, no lovenox needed- twice weekly testing Gestation period, 37 weeks 00767629 Z3A.37 [id number] Susanna Goldman [place] [address] [address] 01/27/2025 09:51:29 01/27/2025 10:26:43 Maternal obesity complicating , childbirth and the puerperium, antepartum 0823387662 07 O99.213 O99.891 Z86.16 Z3A.37 [id number] IVETH [facility] [address] [address] 01/27/2025 09:52:02 01/27/2025 11:35:13 Antiphospholipid syndrome in 9550079158 9100 O99.119 [id number] IVETH [facility] [address],[place] [address] 01/30/2025 10:19:40 01/30/2025 11:58:44 Antiphospholipid syndrome 52965933 D68.61 [id number] Susanna Goldman [place] [address] [address] 02/03/2025 09:19:18 02/03/2025 10:18:23 Pre-existing maternal disease complicating 8906350559 6106 O99.891 O99.210 Z3A.38 [id number] IVETH Dacosta [place] [address] [address] 02/03/2025 09:37:00 02/03/2025 10:47:50 Antiphospholipid syndrome in 9126476729 9100 O99.119 [id number] [facility] [address] [address] 02/03/2025 09:37:23 02/03/2025 10:49:53 Gestation period, 38 weeks 65335392 Z3A.38 Health Concerns Section Related Observation LastModified by Organization Detai ls LastModified Time None Recorded Concern Status LastModified by Organization Details LastModified Time None Recorded Payers Encounter Date Sequence Insurance Name Policy Number Policy [employer] Covered Member ID Eubanks Member ID Guarantor Name 02/03/2025 1 [facility] [id number] Nito Miller [id number] Nito Miller 02/03/2025 2 [place] [facility] Nito Miller [id number] Nito Miller OBGyn Episode Ob Episode Information Episode Created Date Number of Fetuses Patient Bloodtype Patient rh Status Prepregnancy Weight lbs Domestic Partner Domestic Partner Phone Father Name Dental Claims Processor Status 08/05/20 24 1 O Positive 224 OPEN Fetus Data First Name Last Name Admitted to NICU Weight (g) Sex Living Outcome Pediatric Complications Fetus ID Race Codes Race Delivery Type [id number] Problems Problem Notes 10/20/24 7:30am u/s onlyLD [...] Resolution Snomed Code Not e Antiphospholipid syndrome 16483246 Baby asa, 32wk testing twice weekly; MFM referral sent 08/05/24 SSMScheduled 08/27 9AM U/S & Consult. Next u/s only 09/22/24 Prediabetes 195280195 COVID-19 687053648 Obesity 519043620 Tachycardia 6741328 72 hr Ho lter monitor order faxed [...] Date Ultra Sound Latest Days Gestation 0 [email or web address] 12/29/2024 02/16/20 25 0 Pre-eyal Flowsheet Flowsheet Date 08/05/2024 Reinoso [...] Type Weight in lbs Pre/Post Dialysis Refused 218.674991736829 BP Diastolic BP Location Tested BP Systolic [...] Weight in lbs Pre/Post Dialysis Refused Weight 213.161749588807 BP Diastolic BP Location Tested BP Systolic BP Type 69 L arm 110 sitting Fetus Heart Rate Present Fetus Movement A No Comments Doing well, no cramping or b leeding. No movement yet. NIPT LR female! Saw [facility], recommend 162mg ASA, does not recommend lovenox. Will do early 1h GTT next week, stop metformin today. Anatomy US at [facility]. RTC 4 weeks. Flowsheet Date 09/30/2024 Reinoso Score Blood Edema Fundus Height Fundus Units Glucose Ketones Leukocytes Nitrite Labor Signs Protein Cervic Dilation Cervic Effacement Cervic Station neg none Type Weight in lbs Pre/Post Dialysis Refused Weight 221.227270175994 BP Diastolic BP Location Tested BP Systolic BP Type 66 L arm 111 sitting Fetus Heart Rate Present A 140 Fetus Movement A Yes Comments Patient c/o of some cramping and pressure. Very irregular, improves with hydration. No bleeding. Good movement. Anatomy US 09/23 with [facility], incomplete, will repeat in 4 weeks with [facility]. Low lying placenta, 1.6cm from os. Passed early 1h GCT. RTC 4 weeks. Flowsheet Date 10/30/2024 Reinoso Score Blood Edema Fundus Height Fundus Units Glucose Ketones Leukocytes Nitrite Labor Signs Protein Cervic Dilation Cervic Effacement Cervic Station neg none Type Weight in lbs Pre/Post Dialysis Refused 222.44196968365 BP Diastolic BP Location Tested BP Systolic BP Type 70 L arm 105 sitting Fetus Heart Rate Present A 140 Fetus Movement A Yes Comments Patient c/o of [place] . Good movement. No bleeding. Placenta no longer low lying. Patient would like to restart US/monitoring at [facility] due to distance, will transfer orders here. [...] Weight in lbs Pre/Post Dialysis Refused Weight 227.2226227280 BP Diastolic BP Location Tested BP Systolic BP Type 74 L arm 117 sitting Fetus Heart Rate Present A Present Fetus Movement A Yes Comments Patient c/o [place]. N o bleeding. Good movement. EFW 59%, footling breech. Will start testing twice weekly at 32 weeks for APLS. GCT and labs today. RTC 2 weeks. Flowsheet Date 12/22/2024 Reinoso Score Blood Edema Fundus Height Fundus Units Glucose Ketones Leukocytes Nitrite Labor Signs Protein Cervic Dilation Cervic Effacement Cervic Station Type Weight in lbs Pre/Post Dialysis Refused Weight 232.4158221964 BP Diastolic BP Location Tested BP Systolic [...] Type Weight in lbs Pre/Post Dialysis Refused 230.563924938523 BP Diastolic BP Location Tested BP Systolic [...] patient becomes symptomatic. EFW 50%, vertex! BPP 10/10. Will start twice weekly testing for APLS. [...] Weight in lbs Pre/Post Dialysis Refused Weight 233.596053131226 BP Diastolic BP Location Tested BP Systolic BP Type 67 L arm 101 sitting Fetus Heart Rate Present A 130 Fetus Movement A Yes Comments Patient c/o [place] an d slight swelling in hands. Good movements. No bleeding. Headaches somewhat improved, no improvement with sumatriptan. Discussed reglan PRN. Awaiting Holter results. Will start maternity leave due to symptomatic tachycardia. BPP 10. Preadmission scheduled. RTC for testing as scheduled. Flowsheet Date 01/01/2025 Reinoso Score Blood Edema Fundus Height Fundus Units Glucose Ketones Leukocytes Nitrite Labor Signs Protein Cervic Dilation Cervic Effacement Cervic Station Type Weight in lbs Pre/Post Dialysis Refused Weight 234.972313946552 BP Diastolic BP Location Tested BP Systolic [...] Type Weight in lbs Pre/Post Dialysis Refused 234.802442323318 BP Diastolic BP Location Tested BP Systolic BP Type 74 L arm 110 sitting Fetus Heart Rate Present Fetus Movement Comments Flowsheet Date 01/06/2025 Reinoso Score Blood Edema Fundus Height Fundus Units Glucose Ketones Leukocytes Nitrite Labor Signs Protein Cervic Dilation Cervic Effacement Cervic Station neg none Type Weight in lbs Pre/Post Dialysis Refused Weight 234.906503293302 BP Diastolic BP Location Tested BP Systolic BP Type 74 L arm 110 sitting Fetus Heart Rate Present A 140 Fetus Movement A Yes Comments Patient c/o [place]. G ood movement. Still having palpitations while being more active. Resolves with rest. BPP 10/10. Would like induction on 02/08. Induction methods reviewed. Continue testing. Flowsheet Date 01/09/2025 Reinoso Score Blood Edema Fundus Height Fundus Units Glucose Ketones Leukocytes Nitrite Labor Signs Protein Cervic Dilation Cervic Effacement Cervic Station Type Weight in lbs Pre/Post Dialysis Refused Weight 236.318980445826 BP Diastolic BP Location Tested BP Systolic [...] Weight in lbs Pre/Post Dialysis Refused Weight 235.988193973587 BP Diastolic BP Location Tested BP Systolic [...] Weight in lbs Pre/Post Dialysis Refused Weight 237.5451779923 BP Diastolic BP Location Tested BP Systolic [...] Weight in lbs Pre/Post Dialysis Refused Weight 238.165481423244 BP Diastolic BP Location Tested BP Systolic BP Type 74 L arm 117 sitting Fetus Heart Rate Present Fetus Movement Comments Flowsheet Date 01/20/2025 Reinoso Score Blood Edema Fundus Height Fundus Units Glucose Ketones Leukocytes Nitrite Labor Signs Protein Cervic Dilation Cervic Effacement Cervic Station Type Weight in lbs Pre/Post Dialysis Refused 238.076516049307 BP Diastolic BP Location Tested BP Systolic [...] Weight in lbs Pre/Post Dialysis Refused Weight 240.541491453222 BP Diastolic BP Location Tested BP Systolic [...] Weight in lbs Pre/Post Dialysis Refused Weight 240.812050880826 BP Diastolic BP Location Tested BP Systolic BP Type 67 L arm 103 sitting Fetus Heart Rate Present A 130 Fetus Movement A Yes Comments Good movement. No cram ping or bleeding. BPP 08/07. Requesting SVE. Palpitations stable. MIL scheduled 02/08. Would like membrane sweep next week. RTC for testing. Flowsheet Date 01/30/2025 Reinoso Score Blood Edema Fundus Height Fundus Units Glucose Ketones Leukocytes Nitrite Labor Signs Protein Cervic Dilation Cervic Effacement Cervic Station Type Weight in lbs Pre/Post Dialysis Refused Weight 244.156760892617 BP Diastolic BP Location Tested BP Systolic [...] Weight in lbs Pre/Post Dialysis Refused Weight 241.416107234375 BP Diastolic BP Location Tested BP Systolic BP Type 74 L arm 111 sitting Fetus Heart Rate Present Fetus Movement Comments Flowsheet Date 02/03/2025 Reinoso Score Blood Edema Fundus Height Fundus Units Glucose Ketones Leukocytes Nitrite Labor Signs Protein Cervic Dilation Cervic Effacement Cervic Station neg trace 2cm 80% -2 Type Weight in lbs Pre/Post Dialysis Refused 242.968194949189 BP Diastolic BP Location Tested BP Systolic BP Type 74 111 Fetus Heart Rate Present Fetus Movement A Yes Comments Patient is having contractio ns, discharge and swelling. cervix very anterior, membrane sweep done, precautions reviewed +FM, bpp 8/ f/u one week Menstrual History Last Menstrual [...]
--- OUTSIDE RECORDS SUMMARY | 2025-02-04 02:42 | XMS_ITS | Referral Summary ---
Author Organization [facility] Address [address] [place] [id number] Care Team Providers Care Box Spinner Name Role Phone Carlos Manuel RADFORD NP, [...] on file Legal Sex Female 8:44 PM [employer] Gender Identity Not on file Sexual Orientation Not on file Last Filed Vital Signs Vital Sign Reading Time Taken Comments Blood Pressure 116/77 10/27/2015 2:49 PM CANCER RESEARCHER Pulse 102 10/27/2015 2:49 PM CANCER RESEARCHER Temperature 36.6 C (97.9 F) 10/27/2015 2:49 PM CANCER RESEARCHER Respiratory Rate - - Oxygen Saturation 100% 10/27/2015 2:49 PM CANCER RESEARCHER Inhaled Oxygen Concentration - - Weight 63.5 kg (140 lb) 10/27/2015 2:49 PM CANCER RESEARCHER Height 165.1 cm (5' 5 ) 10/27/2015 2:49 PM CANCER RESEARCHER Body Mass Index 23.3 10/27/2015 2:49 PM CANCER RESEARCHER Plan of Treatment Not on file Insurance Care Teams Box Spinner Relationship Specialty Start Date End Date Major Horowitz III, NP PCP - General Family Practice 04/28/21
--- OUTSIDE RECORDS SUMMARY | 2025-02-04 02:42 | XMS_ITS | Continuity of Care Document ---
Author Organization [facility] Address [address] [place] [address] Care Team Providers Care Dealer Sales Manager Name Role Phone OSWALDO DANG Primary Care Provider [phone] FESTUS MACKAY Primary Care Provider [phone] SILVIO BRIZUELA Primary Care Provider Assessment No [...] recorde d. Surgeries None recorde d. Imaging US, obstetr ic, biophys ical profile + non-str ess test 2024 025 [facility], [address], [address], [place], [address], 02/03/2025 14:11:25 Medication Orders None recorde d. Patient TargetsNo targets recorded. Patient InstructionsNo instructions recorded. Reason for Referral None Reported. Results Created Date Observation Date Name Description Value Unit Range Abnormal Flag Note LastModifiedBy Organization Detail LastModifiedTime 08/05/2008/05/2024 US, obste tric, nucha l trans lucen cy No observ ation record ed. [email or web address] [facility] [address], [place], [address], 08/05/2024 13:25:38 08/05/2008/05/2024 US, obste tric, 1st trime ster No observ ation record ed. [email or web address] [facility] [address], [place], [address], 08/05/2024 13:25:52 08/05/20 24 08/05/2024 US, obste tric, follo w-up No observ ation record ed. [email or web address] [address], [place], [address], 08/06/2024 12:12:19 08/27/20 24 08/27/2024 US, obste tric, follo w-up No observ ation record ed. [facility] [address], [place], [address], 08/28/2024 15:23:52 08/27/20 24 08/27/2024 US, obste tric, follo w-up No observ ation record ed. [facility] [address], [place], [address], 08/28/2024 16:00:59 09/22/20 24 09/22/2024 US, obste tric, follo w-up No observ ation record ed. [facility] [address], [place], [address], 12/25/2024 09:32:23 09/22/20 24 09/22/2024 US, obste tric, trans abdom inal + trans vagin al No observ ation record ed. [facility] [address], [place], [address], 12/25/2024 09:30:14 10/20/20 24 10/20/2024 US, obste tric, follo w-up No observ ation record ed. [facility] [place] [address] [place], [address], 12/25/2024 09:30:53 10/20/20 24 10/20/2024 US, obste tric, follo w-up No observ ation record ed. [facility] [place] [address] [place], [address], 12/25/2024 09:31:42 11/25/19 25 11/25/2024 US, obste tric, follo w-up No observ ation record ed. [email or web address] [facility] [address], [place], [address], 11/25/2024 14:31:02 11/25/19 25 11/25/2024 US, obste tric, follo w-up No observ ation record ed. [email or web address] [address], [place], [address], 11/26/2024 23:26:54 12/22/19 25 12/22/2024 non-s tress test No observ ation record ed. [email or web address] [facility] [address], [place], [address], 12/22/2024 10:16:43 12/25/19 25 12/25/2024 US, obste tric, bioph ysica l profi le + non-s tress test No observ ation record ed. [email or web address] [facility] [address], [place], [address], 12/25/2024 10:56:04 12/25/19 25 12/25/2024 US, obste tric, follo w-up No observ ation record ed. [email or web address] [facility] [address], [place], [address], 12/25/2024 10:56:13 12/25/19 25 12/25/2024 US, obste tric, follo w-up No observ ation record ed. [email or web address] [address], [facility], [place], [address], 12/29/2024 18:13:27 12/25/19 25 12/25/2024 non-s tress test No observ ation record ed. [email or web address] [facility] [address], [place], [address], 12/25/2024 10:50:23 12/30/19 25 12/29/2024 non-s tress test No observ ation record ed. [email or web address] [facility] [address], [place], [address], 12/29/2024 09:56:07 12/30/19 25 12/29/2024 US, obste tric, bioph ysica l profi le + non-s tress test No observ ation record ed. [email or web address] [facility] [address], [place], [address], 12/29/2024 17:19:33 12/30/19 25 12/29/2024 US, obste tric, follo w-up No observ ation record ed. [email or web address] [address], [place], [address], 12/29/2024 22:26:22 12/31/19 25 12/22/2024 lalit r monit or No observ ation record ed. [facility] [address], [place], [address], 01/01/2025 01:03:10 12/31/19 25 12/22/2024 lalit r monit or No observ ation record ed. [facility] (Neurology) [address], [place], [address], 01/01/2025 01:03:00 01/02/2001/01/2025 non-s tress test No observ ation record ed. [email or web address] [facility] [address], [place], [address], 01/01/2025 12:22:50 01/07/20 25 01/06/2025 US, obste tric, bioph ysica l profi le + non-s tress test No observ ation record ed. [email or web address] [facility] [address], [place], [address], 01/06/2025 12:39:40 01/07/20 25 01/06/2025 US, obste tric, bioph ysica l profi le + non-s tress test No observ ation record ed. [email or web address] [address], [place], [address], 01/06/2025 11:45:38 01/07/20 25 01/06/2025 non-s tress test No observ ation record ed. [email or web address] [facility] [address], [place], [address], 01/06/2025 11:11:56 01/07/20 non-s tress test No observ ation record ed. [email or web address] [facility] [address], [place], [address], 01/06/2025 11:14:50 01/10/20 25 01/09/2025 non-s tress test No observ ation record ed. [email or web address] [facility] [address], [place], [address], 01/09/2025 11:50:28 01/14/20 25 01/13/2025 US, obste tric, follo w-up No observ ation record ed. [email or web address] [facility] [address], [place], [address], 01/13/2025 13:08:44 01/14/20 25 01/13/2025 US, obste tric, bioph ysica l profi le + non-s tress test No observ ation record ed. [email or web address] [facility] [address], [place], [address], 01/13/2025 13:08:55 01/14/20 25 01/13/2025 US, obste tric, follo w-up No observ ation record ed. [email or web address] [address], [facility], [place], [address], 01/13/2025 22:27:05 01/14/20 25 01/13/2025 non-s tress test No observ ation record ed. [email or web address] [facility] [address], [place], [address], 01/13/2025 10:46:06 01/14/20 non-s tress test No observ ation record ed. [email or web address] [facility] [address], [place], [address], 01/13/2025 10:47:59 01/17/20 25 01/16/2025 non-s tress test No observ ation record ed. [email or web address] [facility] [address], [place], [address], 01/16/2025 14:41:50 01/21/20 25 01/20/2025 US, obste tric, follo w-up No observ ation record ed. [email or web address] [facility] [address], [place], [address], 01/21/2025 22:32:18 01/21/20 25 01/20/2025 US, obste tric, bioph ysica l profi le + non-s tress test No observ ation record ed. [email or web address] [address], [place], [address], 01/20/2025 12:00:13 01/21/2001/20/2025 non-s tress test No observ ation record ed. [email or web address] [facility] [address], [place], [address], 01/20/2025 11:52:14 01/24/2001/23/2025 non-s tress test No observ ation record ed. [email or web address] [facility] [address], [place], [address], 01/23/2025 17:09:36 01/28/2001/27/2025 US, obste tric, bioph ysica l profi le + non-s tress test No observ ation record ed. [email or web address] [facility] [address], [place], [address], 01/27/2025 14:13:45 01/28/20 25 01/27/2025 US, obste tric, follo w-up No observ ation record ed. [email or web address] [address], [place], [address], 01/29/2025 19:50:40 01/28/20 25 01/27/2025 non-s tress test No observ ation record ed. [email or web address] [facility] [address], [place], [address], 01/27/2025 11:31:22 01/30/20 25 01/23/2025 non-s tress test No observ ation record ed. [email or web address] [facility] [address], [place], [address], 01/29/2025 10:20:11 01/31/20 25 01/30/2025 non-s tress test No observ ation record ed. [email or web address] [facility] [address], [place], [address], 01/30/2025 11:28:02 02/04/20 25 02/03/2025 imagi ng/di agnos tic resul t No observ ation record ed. [email or web address] [address], [place], [address], 02/03/2025 23:03:44 02/04/20 25 02/03/2025 US, obste tric, bioph ysica l profi le + non-s tress test No observ ation record ed. [email or web address] [facility] [address], [place], [address], 02/03/2025 14:11:25 02/04/20 25 02/03/2025 non-s tress test No observ ation record ed. [facility] [address], [place], [address], 02/03/2025 10:46:36 Result Notes None recorded. Problems Name Problem SNOMED Code Status Onset Date Resolution Date Notes Provider Name and Address Organization Details Recorded Time Family history of malignant neoplasm of breast in first degree relative 883612740 Active 2021 mom age 32. MAMMOS TO START AT 22yo. Kym López MD [address], [place], [address], [facility] 3 19:05:45 Body mass index 30+ - obesity 026260159 Active 2021 Kym López MD [address], [place], [address], [facility] 2 10:30:27 Prediabet es 303662015 Active Zbigniew Ha MD [address], [place], [address], [facility] 4 11:13:08 Polycysti c ovary syndrome 554402918 Active 2021 Kym López MD [address], [place], [address], [facility] 2 10:30:33 30615163 Active 2023 Mayra redmond, [facility] 4 10:10:22 COVID-19 796331828 Active Zbigniew Ha MD [address], [place], [address], [facility] 4 11:11:29 Antiphosp holipid syndrome 74660439 Active Baby asa, 32wk testing twice weekly; MFM referral sent 08/05/24 [facility] Scheduled 08/27 9AM U/S & Consult. Next u/s only 09/22/24 Ida redmond, [facility] 4 15:25:15 Prediabet es 719249264 Active Zbigniew Ha MD [address], [place], [address], [facility] 4 11:13:08 Obesity 606693732 Active Zbigniew Ha MD [address], [place], [address], [facility] 4 11:13:33 Tachycard ia 0183861 Active 72 hr Holter monitor order faxed 12/22 Zelda redmond, [facility] 5 13:35:44 Tachycard ia 9999499 Active 72 hr Holter monitor order faxed 12/22 Zelda redmond, [facility] 5 13:35:44 Problem Notes None recorded. Procedures Surgical History Date Name Laterality Status Provider Name and Address Organization Details Recorded Time 02/06/20 24 SIS completed AZEEM GROSS MD [address], [place], [address], [facility] 02/08/2024 13:14:27 10/29/19 24 Date of Last Colonoscopy completed [facility] 08/05/2024 10:47:00 10/29/19 24 Colonoscopy completed [facility] 08/05/2024 10:51:33 10/29/19 20 extraction of wisdom tooth completed [facility] 08/05/2024 10:52:02 03/31/20 19 Date of Last Mammogram completed Mayra [facility] 08/05/2024 16:54:43 10/29/19 19 [facility]ial tear [facility]24 16:56:32 Imaging Results Imaging Date Name Status LastModified by Organiz ation Details LastModified Time 02/03/2025 US, obstetric, biophysical profile + non-stress test completed [email or web address] [facility] [address], [place], [address], 02/03/2025 14:11:25 Procedure Notes None recorded. Medical Equipment None Reported. Allergies Allergen ID Allergen Name Allergen Category Reaction Reaction Severity Criticality Documentation Date Start Date Code Code System Note Provider Name and Address Organization Details Recorded Time 59339 amoxicill in medicatio n Not available Not available Not available 03/24/2022 723 RxNorm Kelly Thompson ruy, [facility] 4 15:12:26 91873 cefdinir medicatio n Not available Not available Not available 03/24/2022 86778 RxNorm Other react ions and sever ities : 'Anap hylax is - Moder ate'. Lara Mk redmond, [facility] 4 15:34:29 56848 amoxicill in trihydrat e medicatio n rash moderate Not available 01/02/2024 35988 8 RxNorm Lara Etiennepasha redmond, [facility] 4 15:34:29 23822 ethinyl estradiol / levonorge strel medicatio n Not available Not available Not available 01/02/2024 22930 8 RxNorm AZEEM GROSS MD [address], [place], [address] [place] [address], [facility] 4 11:01:47 Medications Name Sig Start [...] Address Organization Details Last Updated DateTime 02/03/2025 463972.3 5354 g 40.3 kg/m2 165.1 cm 111 mm[Hg] 74 mm[Hg] Mayra Douglas [facility] 04/08/202 5 10:36:14 Date Recorded Body height Body mass index (BMI) Body weight Systolic blood pressure Diastolic blood pressure Provider Name and Address Organization Details Last Updated DateTime 02/03/2025 165.1 cm 40.1 kg/m2 874903.7 6 g 111 mm[Hg] 74 mm[Hg] IVETH Dacosta [facility] 5 10:45:52 Social History Question Answer Notes LastModified by Organizat ion Details LastModified Time Tobacco Smoking Status Never Smoker Justine Moreland null, [facility] 12/22/2022 11:27:20 Do You Have An Advance Directive? No Information n ot available 01/02/2024 What Is Your Level Of Alcohol Consumption? None [email or web address] Information not available 08/05/2024 If You Are , What Was Your Level Of Alcohol Consumption Prior To ? Occasional Information not available 08/05/2024 How Many Years Have You Consumed Alcohol? 5 Information not available 01/02/2024 Are You Blind Or Do You Have Difficulty Seeing? No Information n ot available 01/02/2024 What Is Your Level Of Caffeine Consumption? Heavy [email or web address] Information not available 07/11/2024 In The 14 [...] To Be High Risk For COVID-19? Yes [email or web address] Information not available 07/11/2024 Are You Currently Employed? Yes [email or web address] Information not available 01/13/2025 Are You Deaf Or Do You Have Serious Difficulty Hearing? No Information not available 01/02/2024 What Type Of Diet Are You Following? REGULAR Information n ot available 01/02/2024 What Is The Highest Grade Or Level Of School You Have Completed Or The Highest Degree You Have Received? CH35315-3 [email or web address] Information not available 07/11/2024 What Is Your Occupation? [employer] Information not available 07/11/2024 Are There Any Guns Present In Your Home? No [email or web address] Information not available 07/11/2024 Have You Ever Been Counseled For Unhealthy Alcohol Use? No [email or web address] Information not available 12/22/2022 Do You Use Protection During Sex? No Information not available 01/02/2024 Do You Use Your Seat Belt Or Car Seat Routinely? Yes Information not available 01/02/2024 Are You Sexually Active? Yes Information not available 12/25/2024 Do You Have Smoke And Carbon Monoxide Detectors In Your Home? Yes Information not available 01/02/2024 How Much Tobacco Do You Smoke? No [email or web address] Information not available 07/11/2024 Do You Feel Stressed (tense, Restless, Nervous, Or Anxious, Or Unable To Sleep At Night)? [id number] Information not available 01/02/2024 Do You Use Any Illicit Or Recreational Drugs? No [email or web address] Information not available 03/24/2022 Do You Use Sunscreen Routinely? Yes Information not available 07/11/2024 Has Tobacco Cessation Counseling Been Provided? No [email or web address] Information not available 12/22/2022 Have You Used IV Drugs? No Information not available 01/02/2024 Do You Or Have You Ever Used Any Other Forms Of Tobacco Or Nicotine? No [email or web address] Information not available 12/22/2022 Sex: Unknown Functional Status Question Answer Note LastModified by Organizat ion Details LastModified Time Do you have difficulty walking or climbing stairs? No [email or web address] Information not available 08/05/2024 Are you able to walk? [email or web address] Information not available 01/02/2024 Are you able to care for yourself? Yes Information not available 08/05/2024 Do you have difficulty dressing or bathing? No [email or web address] Information not available 08/05/2024 What is your exercise level? Occasional [email or web address] Information not available 07/11/2024 Mental Status None recorded. Family History Relationship Description Onset Age of this Age Resolved Age Notes LastModified by Organization Details LastModified Time Mother Anemia [email or web address] Not available 07/11/2024 14:23:29 Mother Carcinoma in situ of breast [email or web address] Not available 2024 09:19:38 Mother Substance abuse meth,a lcohol [email or web address] Not available 07/11/2024 14:23:29 Mother Mental disorder [email or web address] Not available 2023 14:23:29 Mother Hypertensive disorder [email or web address] Not available 2023 14:23:29 Mother Depressive disorder [email or web address] Not available 2023 14:23:29 Mother Anxiety disorder [email or web address] Not available 2023 14:23:29 Mother Malignant tumor of cervix [email or web address] Not available 08/05 16:55:25 Mother Bipolar disorder [email or web address] Not available 2024 09:19:38 Mother Seizure disorder [email or web address] Not available 2024 09:19:38 Father Mental disorder [email or web address] Not available 2023 14:23:29 Father Hypertensive disorder Not available 2023 14:23:29 Father Anxiety disorder [email or web address] Not available 2023 14:23:29 Medical History Condition [...] SNOMED-CT Code Diagnosis ICD10 Code Diagnosis Note [id number] Kathleen Arora [facility] [address] [address] 01/06/2025 09:55:01 01/06/2025 10:39:39 Maternal obesity complicating , childbirth and the puerperium, antepartum 3773458225 07 O99.213 O99.891 Z3A.34 [id number] [facility] [address],[place] [address] 01/06/2025 09:55:10 01/06/2025 11:19:26 Antiphospholipid syndrome in 5879727861 9100 O99.119 [id number] AZEEM GROSS MD [facility] [address],[place] [address] 01/06/2025 09:55:26 01/06/2025 11:39:12 Antiphospholipid syndrome 43883433 D68.61 - 162mg ASA daily- per MFM, no lovenox needed- twice weekly testing Tachycardia 8275813 R00. 0 - HR up to 150s while standing at work- reviewed CBC, TSH, T4 from PCP, all overall normal for - Holter monitor results overall normal- will d/c working due to symptoms Gestation period, 34 weeks 41215316 Z3A.34 - continue PNV [id number] Kelly Thompson [facility] [address],[place] [address] 01/09/2025 10:52:18 01/09/2025 12:00:03 Antiphospholipid syndrome in 5907683448 9100 O99.119 [id number] Susanna Goldman [facility] [address] [address] 01/13/2025 09:18:58 01/13/2025 10:06:16 Maternal obesity complicating , childbirth and the puerperium, antepartum 3557129115 07 O99.213 O99.891 Z86.16 Z3A.35 [id number] Kathi Cadet [facility] [address],[place] [address] 01/13/2025 09:19:28 01/13/2025 10:57:36 Antiphospholipid syndrome in 8640020717 9100 O99.119 [id number] AZEEM GROSS MD [facility] [address] [place] [address] 01/13/2025 09:19:42 01/13/2025 11:10:04 Antiphospholipid syndrome 79848455 D68.61 - 162mg ASA daily- per MFM, no lovenox needed- twice weekly testing Tachycardia 2343994 R00. 0 - HR up to 150s while standing at work- reviewed CBC, TSH, T4 from PCP, all overall normal for - Holter monitor results overall normal- d/c working due to symptoms- tachycardi a stable Gestation period, 35 weeks 59713853 Z3A.35 [id number] [facility] [address] [place] [address] 01/16/2025 10:20:53 01/16/2025 14:44:10 Antiphospholipid syndrome in 2226729835 9100 O99.119 [id number] Kathleen Arora [facility] [address] [place] [address] 01/20/2025 10:17:37 01/20/2025 10:49:49 Pre-existing maternal disease complicating 0472931090 6106 O99.891 O99.210 Z3A.36 [id number] IVETH [facility] [address] [place] [address] 01/20/2025 10:18:02 01/20/2025 11:43:03 Antiphospholipid syndrome in 6071775760 9100 O99.119 [id number] Soumya Soriano CNM [facility] [address] [address] 01/20/2025 10:18:15 01/20/2025 11:44:02 Gestation period, 36 weeks 42772048 Z3A.36 [id number] Mayra Misael [facility] [address] [address] 01/23/2025 10:15:38 01/26/2025 06:51:20 Antiphospholipid syndrome in 3459667733 9100 O99.119 [id number] AZEEM GRSOS MD [facility] [address] [address] 01/27/2025 09:50:12 01/27/2025 11:58:53 Tachycardia 0493122 R00.0 - HR up to 150s while standing at work- reviewed CBC, TSH, T4 from PCP, all overall normal for - Holter monitor results overall normal- d/c working due to symptoms- tachycardi a stable Body mass index 30+ - obesity 892761818 Z68.36 - testing at 37 weeks Antiphosph olipid syndrome 83281400 D68.61 - 162mg ASA daily- per MFM, no lovenox needed- twice weekly testing Gestation period, 37 weeks 35763328 Z3A.37 [id number] Susanna Goldman [facility] [address] [address] 01/27/2025 09:51:29 01/27/2025 10:26:43 Maternal obesity complicating , childbirth and the puerperium, antepartum 1641186200 07 O99.213 O99.891 Z86.16 Z3A.37 [id number] IVETH Dacosta [facility] [address],[place] [address] 01/27/2025 09:52:02 01/27/2025 11:35:13 Antiphospholipid syndrome in 6940495536 9100 O99.119 [id number] IVETH [facility] [address],[place] [address] 01/30/2025 10:19:40 01/30/2025 11:58:44 Antiphospholipid syndrome 13217712 D68.61 [id number] Susanna Goldman [facility] [address],[place] [address] 02/03/2025 09:19:18 02/03/2025 10:18:23 Pre-existing maternal disease complicating 5880555330 6106 O99.891 O99.210 Z3A.38 498352 IVETH [facility] [address],[place] [address] 02/03/2025 09:37:00 02/03/2025 10:47:50 Antiphospholipid syndrome in 3248834581 9100 O99.119 [id number] [facility] [address] [address] 02/03/2025 09:37:23 02/03/2025 10:49:53 Gestation period, 38 weeks 39212905 Z3A.38 Health Concerns Section Related Observation LastModified by Organization Detai ls LastModified Time None Recorded Concern Status LastModified by Organization Details LastModified Time None Recorded Payers Encounter Date Sequence Insurance Name Policy Number Policy [employer]anks Covered Member ID Eubanks Member ID Guarantor Name 02/03/2025 1 [facility] [id number] Nito Miller [id number] Nito Miller 02/03/2025 2 [place] [facility] EM[facility] DEPARTMENT OF PUBLIC AID Nito Miller [id number] Nito Miller OBGyn Episode Ob Episode Information Episode Created Date Number of Fetuses Patient Bloodtype Patient rh Status Prepregnancy Weight lbs Domestic Partner Domestic Partner Phone Father Name Corporate Legal Assistant Status 08/05/20 24 1 O Positive 224 OPEN Fetus Data First Name Last Name Admitted to NICU Weight (g) Sex Living Outcome Pediatric Complications Fetus ID Race Codes Race Delivery Type [id number] Problems Problem Notes 10/20/24 7:30am u/s onlyLD [...] Resolution Snomed Code Not e Antiphospholipid syndrome 38737189 Baby asa, 32wk testing twice weekly; MFM referral sent 08/05/24 SSMScheduled 08/27 9AM U/S & Consult. Next u/s only 09/22/24 Prediabetes 236027660 COVID-19 877142452 Obesity 065785173 Tachycardia 3070719 72 hr Ho lter monitor order faxed [...] Date Ultra Sound Latest Days Gestation 0 [email or web address] 12/29/2024 02/16/20 25 0 Pre-eyal Flowsheet Flowsheet [...] Type Weight in lbs Pre/Post Dialysis Refused 218.869783679133 BP Diastolic BP Location Tested BP Systolic [...] Weight in lbs Pre/Post Dialysis Refused Weight 213.096820286118 BP Diastolic BP Location Tested BP Systolic BP Type 69 L arm 110 sitting Fetus Heart Rate Present Fetus Movement A No Comments Doing well, no cramping or b leeding. No movement yet. NIPT LR female! Saw [facility], recommend 162mg ASA, does not recommend lovenox. Will do early 1h GTT next week, stop metformin today. Anatomy US at [facility]. RTC 4 weeks. Flowsheet Date 09/30/2024 Reinoso Score Blood Edema Fundus Height Fundus Units Glucose Ketones Leukocytes Nitrite Labor Signs Protein Cervic Dilation Cervic Effacement Cervic Station neg none Type Weight in lbs Pre/Post Dialysis Refused Weight 221.016484867699 BP Diastolic BP Location Tested BP Systolic BP Type 66 L arm 111 sitting Fetus Heart Rate Present A 140 Fetus Movement A Yes Comments Patient c/o of some cramping and pressure. Very irregular, improves with hydration. No bleeding. Good movement. Anatomy US 09/23 with MF, incomplete, will repeat in 4 weeks with MFM. Low lying placenta, 1.6cm from os. Passed early 1h GCT. RTC 4 weeks. Flowsheet Date 10/30/2024 Reinoso Score Blood Edema Fundus Height Fundus Units Glucose Ketones Leukocytes Nitrite Labor Signs Protein Cervic Dilation Cervic Effacement Cervic Station neg none Type Weight in lbs Pre/Post Dialysis Refused 222.08789493105 BP Diastolic BP Location Tested BP Systolic BP Type 70 L arm 105 sitting Fetus Heart Rate Present A 140 Fetus Movement A Yes Comments Patient c/o of [place] . Good movement. No bleeding. Placenta no longer low lying. Patient would like to restart US/monitoring at [facility] due to distance, will transfer orders here. [...] Weight in lbs Pre/Post Dialysis Refused Weight 227.8395418038 BP Diastolic BP Location Tested BP Systolic BP Type 74 L arm 117 sitting Fetus Heart Rate Present A Present Fetus Movement A Yes Comments Patient c/o [place]. N o bleeding. Good movement. EFW 59%, footling breech. Will start testing twice weekly at 32 weeks for APLS. GCT and labs today. RTC 2 weeks. Flowsheet Date 12/22/2024 Reinoso Score Blood Edema Fundus Height Fundus Units Glucose Ketones Leukocytes Nitrite Labor Signs Protein Cervic Dilation Cervic Effacement Cervic Station Type Weight in lbs Pre/Post Dialysis Refused Weight 232.1354811636 BP Diastolic BP Location Tested BP Systolic [...] Type Weight in lbs Pre/Post Dialysis Refused 230.500312220339 BP Diastolic BP Location Tested BP Systolic [...] Weight in lbs Pre/Post Dialysis Refused Weight 233.843798196954 BP Diastolic BP Location Tested BP Systolic BP Type 67 L arm 101 sitting Fetus Heart Rate Present A 130 Fetus Movement A Yes Comments Patient c/o [place] an d slight swelling in hands. [...] Weight in lbs Pre/Post Dialysis Refused Weight 234.077322379860 BP Diastolic BP Location Tested BP Systolic [...] Type Weight in lbs Pre/Post Dialysis Refused 234.923603909220 BP Diastolic BP Location Tested BP Systolic BP Type 74 L arm 110 sitting Fetus Heart Rate Present Fetus Movement Comments Flowsheet Date 01/06/2025 Reinoso Score Blood Edema Fundus Height Fundus Units Glucose Ketones Leukocytes Nitrite Labor Signs Protein Cervic Dilation Cervic Effacement Cervic Station neg none Type Weight in lbs Pre/Post Dialysis Refused Weight 234.325897825780 BP Diastolic BP Location Tested BP Systolic BP Type 74 L arm 110 sitting Fetus Heart Rate Present A 140 Fetus Movement A Yes Comments Patient c/o [place]. G ood movement. Still having palpitations while being more active. Resolves with rest. BPP 08/07. Would like induction on 02/08. Induction methods reviewed. Continue testing. Flowsheet Date 01/09/2025 Reinoso Score Blood Edema Fundus Height Fundus Units Glucose Ketones Leukocytes Nitrite Labor Signs Protein Cervic Dilation Cervic Effacement Cervic Station Type Weight in lbs Pre/Post Dialysis Refused Weight 236.705375472685 BP Diastolic BP Location Tested BP Systolic [...] Weight in lbs Pre/Post Dialysis Refused Weight 235.555098520186 BP Diastolic BP Location Tested BP Systolic [...] Weight in lbs Pre/Post Dialysis Refused Weight 237.4230526153 BP Diastolic BP Location Tested BP Systolic [...] Weight in lbs Pre/Post Dialysis Refused Weight 238.973765251181 BP Diastolic BP Location Tested BP Systolic BP Type 74 L arm 117 sitting Fetus Heart Rate Present Fetus Movement Comments Flowsheet Date 01/20/2025 Reinoso Score Blood Edema Fundus Height Fundus Units Glucose Ketones Leukocytes Nitrite Labor Signs Protein Cervic Dilation Cervic Effacement Cervic Station Type Weight in lbs Pre/Post Dialysis Refused 238.337326649409 BP Diastolic BP Location Tested BP Systolic [...] Weight in lbs Pre/Post Dialysis Refused Weight 240.923824624054 BP Diastolic BP Location Tested BP Systolic [...] Weight in lbs Pre/Post Dialysis Refused Weight 240.331154792111 BP Diastolic BP Location Tested BP Systolic [...] Weight in lbs Pre/Post Dialysis Refused Weight 244.127221894637 BP Diastolic BP Location Tested BP Systolic [...] Weight in lbs Pre/Post Dialysis Refused Weight 241.324980851164 BP Diastolic BP Location Tested BP Systolic BP Type 74 L arm 111 sitting Fetus Heart Rate Present Fetus Movement Comments Flowsheet Date 02/03/2025 Reinoso Score Blood Edema Fundus Height Fundus Units Glucose Ketones Leukocytes Nitrite Labor Signs Protein Cervic Dilation Cervic Effacement Cervic Station neg trace 2cm 80% -2 Type Weight in lbs Pre/Post Dialysis Refused 242.871798663144 BP Diastolic BP Location Tested BP Systolic [...]
--- OUTSIDE RECORDS SUMMARY | 2025-02-04 02:42 | XMS_ITS | Data Portability ---
Author Organization [place] - [facility], [facility] Vascular Address [address] [place] [address] Care Team Providers Care Hemodialysis Charge Nurse Name Role Phone FESTUS MACKAY Primary Care [...] Lab CBC w/ auto diff [address] Outpatient Registration Lab/Ekg, [address], [place], [address], 3 09:09:17 CMP, serum or plasma [address] Outpatient Registration Lab/Ekg, [address], [place], [address], 3 09:09:17 TSH, serum or plasma [address] Outpatient Registration Lab/Ekg, [address], [place], [address], 3 09:09:17 iga, quantitativ e, serum [address] Outpatient Registration Lab/Ekg, [address], [place], [address], 3 09:09:17 tissue transglutam inase iga Ab, serum [address] Outpatient Registration Lab/Ekg, [address], [place], [address], 3 09:09:18 calprotecti n, stool [address] Outpatient Registration Lab/Ekg, [address], [place], [address], 3 09:09:18 C reactive protein, QN, serum or plasma [address] Outpatient Registration Lab/Ekg, [address], [place], [address], 3 09:09:18 fecal fat, qualitative , stool [address] Outpatient Registration Lab/Ekg, [address], [place], [address], 3 09:09:18 vitamin B12 + folate, serum or blood [address] Outpatient Registration Lab/Ekg, [address], [place], [address], 3 09:09:18 pancreatic elastase, stool [address] Outpatient Registration Lab/Ekg, [address], [place], [address], 3 09:09:18 ph, stool [address] Outpatient Registration Lab/Ekg, [address], [place], [address], 3 09:09:19 giardia lamblia Ag, EIA, stool [address] Outpatient Registration Lab/Ekg, [address] [facility] [address] [place] [address], [address], 4 15:15:23 Referral None recorded. Procedures esophagogas troduodenos copy with biopsy (PROC) 2022 023 [facility] (Admitting), [address], [place], [address], 4 11:15:28 colonoscopy procedure (PROC) [address] (Admitting), [address], [place], [address], 4 14:25:34 Surgeries None recorded. Imaging None recorded. Medication Orders Golytely 236 gram-22.74 gram-6.74 gram-5.86 gram oral solution 2022 023 [facility] [address], [address], [address], 3 12:55:17 ondansetron HCl 4 mg tablet 2022 023 [facility] [address], [address], [address], 3 12:55:16 Patient TargetsNo targets recorded. Patient Instructions Encounter Date Encounter Id Patient Instructions Last Modified By Organization Details Last Modified Time 10/05/2023 [id number] observe if diarrhea is brought on by [...] ve negati ve [facility] [address] [facility], [place] [address] Lab Direc tor: Lebron vasquez PhD, Phone : [phone] Not Available [facility] (Lab) [address], [place], [address], 11/16/2023 16:12:33 11/14/19 24 11/19/2023 CALPR OTECT IN, FECAL calprotectin , fecal 10 ug/g 0-120 Natalie ntrat ion Inter preta tion Follo w-Up < 5 - 50 ug/g Itzel l None >50 -120 ug/g Borde rline Re-ev aluat e in 4-6 weeks >120 ug/g Abnor mal Repea t as clini steven indic ated Perfo rmed at: [facility] [place] [address] [place] [address] [place] [address] Lab Direc tor: Carly ly MD, Phone : [phone] Not Available [facility] (Lab) [address], [place], [address], 11/19/2023 23:07:23 11/14/19 24 11/20/2023 PANCR EATIC ELAST ASE, FECAL pancreatic elastase, fecal 448 ug_el ast./ g >200 Sever e Pancr eatic Insuf ficie ncy: <100 Moder ate Pancr eatic Insuf ficie ncy: 100 - 200 Itzel l: >200 Perfo rmed at: [facility] [place] [address] [facility] , [place] [address] Lab Direc tor: Carly ly MD, Phone : [phone] Not Available [facility] (Lab) [address] , [place], [address], 11/20/2023 13:10:21 11/14/19 24 11/20/2023 PH, STOOL pH, stool 6.0 7.0-7. 5 low Test( s) 30003 1-pH, Stool was devel oped and its perfo rmanc e sal cteri stics deter mined by [facility] . It has not been clear ed or appro khushbu by the Food and Drug Admin istra tion. Perfo rmed at: [facility] n [address] [place] [address] Lab Direc tor: Lebron vasquez PhD, Phone : [phone] Not Available [facility] (Lab) [address] , [place], [address], 11/20/2023 20:13:30 11/14/19 24 11/20/2023 FECAL FAT, QUALI TATIV E fats, neutral Normal Itzel l (<60 Dropl ets/H PF) Not Available [facility] (Lab) [address] , [place], [address], 11/20/2023 20:13:31 11/14/19 24 11/20/2023 FECAL FAT, QUALI TATIV E fats, total Normal Itzel l (<100 Dropl ets/H PF) Perfo rmed at: [facility] [address] [place] [address] Lab Direc tor: Lebron vasquez PhD, Phone : [phone] Not Available [facility] (Lab) [address] , [place], [address], 11/20/2023 20:13:31 Result Notes None recorded. Problems Name Problem SNOMED Code Status Onset Date Resolution Date Notes Provider Name and Address Organization Details Recorded Time Polycystic ovary syndrome 272163972 [facility] 16:[facility] Hyperlipidemia 32846743 Active 2022 Octavia redmond, [facility] 3 16:41:52 Chronic diarrhea of unknown origin 14007700 Active 2022 Nilsa Ly MD [address] [place], [address], [facility] 3 12:46:59 Problem Notes None recorded. Medical Equipment None Reported. Allergies Allergen ID Allergen Name Allergen Category Reaction Reaction Severity Criticality Documentation Date Start Date Code Code System Note Provider Name and Address Organization Details Recorded Time 148673 amoxicill in medicatio n Not available Not available Not available 10/05/2023 723 RxNorm Octavia redmond, [facility] 3 12:09:49 438455 cefdinir medicatio n Not available Not available Not available 10/05/2023 17697 [facility] 12:10:09 Medications Name Sig Start [...] Updated DateTime 3 165.1 cm 36.4 kg/m2 87047.7 3 g 98 % 98 % 73 /min 124 mm[Hg] 78 mm[Hg] Octavia guerrero [facility] 12:11:54 Social History Question Answer Notes LastModified by Organizat ion Details LastModified Time Tobacco Smoking Status Never Smoker Octavia redmond, [facility] 10/05/2023 12:13:34 What Is Your Level Of [...] SNOMED-CT Code Diagnosis ICD10 Code Diagnosis Note [id number] Nilsa Ly MD [facility] [address] [place] [address] 10/05/2023 11:47:23 10/05/2023 13:11:54 Chronic diarrhea of unknown origin 50322329 K52.9 Health Concerns Section Related Observation LastModified by Organization Detai ls LastModified Time None Recorded Concern Status LastModified by Organization Details LastModified Time None Recorded Advance Directives Directive None Recorded Payers Encounter Date Sequence Insurance Name Policy Number Policy E[employer]anks Covered Member ID Eubanks Member ID Guarantor Name 10/05/2023 1 [facility] ON OR AFTER 04/28/21 (MEDICAID REPLACEMENT - HMO) Nito Miller [id number] Nito Miller Notes Date Note Type Note [...] the diarrhea Nilsa Ly MD [address] [place], [address], [facility] 10/05/2023 12:56:35 OBGyn Episode No OBEpisode recorded.
--- OUTSIDE RECORDS SUMMARY | 2025-02-04 02:42 | XMS_ITS | Clinical Summary ---
Author Organization [facility] Address [address] [place] [address] Care Team Providers Care Vertical Boring Mill Operator Name Role Phone Carlos Manuel RADFORD NP, [...] on file Legal Sex Female 8:44 PM CENTRIFUGAL CHILLER TECHNICIAN Gender Identity Not on file Sexual Orientation Not on file Obstetrics History Last Filed Vital Signs Vital Sign Reading Time Taken Comments Blood Pressure 116/77 10/27/2015 2:49 PM CENTRIFUGAL CHILLER TECHNICIAN Pulse 102 10/27/2015 2:49 PM CENTRIFUGAL CHILLER TECHNICIAN Temperature 36.6 C (97.9 F) 10/27/2015 2:49 PM CENTRIFUGAL CHILLER TECHNICIAN Respiratory Rate - - Oxygen Saturation 100% 10/27/2015 2:49 PM CENTRIFUGAL CHILLER TECHNICIAN Inhaled Oxygen Concentration - - Weight 63.5 kg (140 lb) 10/27/2015 2:49 PM CENTRIFUGAL CHILLER TECHNICIAN Height 165.1 cm (5' 5 ) 10/27/2015 2:49 PM CENTRIFUGAL CHILLER TECHNICIAN Body Mass Index 23.3 10/27/2015 2:49 PM CENTRIFUGAL CHILLER TECHNICIAN Plan of Treatment Not on file [place] [address] [place] [address] Care Teams Vertical Boring Mill Operator Relationship Specialty Start Date End Date Major Horowitz III, NP PCP - General Family Practice 04/28/21
[2025-02-04 02:45] VITALS: BMI 42.2
--- NOTE | 2025-02-04 02:45 | LDADM ---
This patient, Nito Orlando, was admitted to Labor/Delivery/Recovery 106 on 02/03/25 at 22:42. Plans for labor, pain management and were discussed with patient. Patient/family oriented to hospital policies and general routines including ID bracelet, bed and alarms, visiting hours, pain management, procedures, bathroom and other care routines, personal items, smoking policy, room service/diet and guest tray routines, security routines, and visiting hours. Patient/Family are encouraged to report perceived risks to care and to ask questions if they do not understand what they are told or what they should do. See OBIX for further documentation.
--- OUTSIDE RECORDS SUMMARY | 2025-02-05 07:33 | XMS_ITS | Referral Summary ---
Author Organization [facility] Address [address] [place] [address] Care Team Providers Care Systems Analyst Developer Name Role Phone Carlos Manuel RADFORD NP, [...] on file Legal Sex Female 8:44 PM BORING AND FILLING MACHINE OPERATOR Gender Identity Not on file Sexual Orientation Not on file Last Filed Vital Signs Vital Sign Reading Time Taken Comments Blood Pressure 116/77 10/27/2015 2:49 PM BORING AND FILLING MACHINE OPERATOR Pulse 102 10/27/2015 2:49 PM BORING AND FILLING MACHINE OPERATOR Temperature 36.6 C (97.9 F) 10/27/2015 2:49 PM BORING AND FILLING MACHINE OPERATOR Respiratory Rate - - Oxygen Saturation 100% 10/27/2015 2:49 PM BORING AND FILLING MACHINE OPERATOR Inhaled Oxygen Concentration - - Weight 63.5 kg (140 lb) 10/27/2015 2:49 PM BORING AND FILLING MACHINE OPERATOR Height 165.1 cm (5' 5 ) 10/27/2015 2:49 PM BORING AND FILLING MACHINE OPERATOR Body Mass Index 23.3 10/27/2015 2:49 PM BORING AND FILLING MACHINE OPERATOR Plan of Treatment Not on file Insurance Care Teams Systems Analyst Developer Relationship Specialty Start Date End Date Major Horowitz III, NP PCP - General Family Practice 04/28/21
--- OUTSIDE RECORDS SUMMARY | 2025-02-05 07:33 | XMS_ITS | Clinical Summary ---
Author Organization [facility] Address [address] [place] [address] Care Team Providers Care Parole Agent Name Role Phone Carlos Manuel RADFORD NP, [...] on file Legal Sex Female 8:44 PM LAUNDRY WASHER Gender Identity Not on file Sexual Orientation Not on file Obstetrics History Last Filed Vital Signs Vital Sign Reading Time Taken Comments Blood Pressure 116/77 10/27/2015 2:49 PM LAUNDRY WASHER Pulse 102 10/27/2015 2:49 PM LAUNDRY WASHER Temperature 36.6 C (97.9 F) 10/27/2015 2:49 PM LAUNDRY WASHER Respiratory Rate - - Oxygen Saturation 100% 10/27/2015 2:49 PM LAUNDRY WASHER Inhaled Oxygen Concentration - - Weight 63.5 kg (140 lb) 10/27/2015 2:49 PM LAUNDRY WASHER Height 165.1 cm (5' 5 ) 10/27/2015 2:49 PM LAUNDRY WASHER Body Mass Index 23.3 10/27/2015 2:49 PM LAUNDRY WASHER Plan of Treatment Not on file [place] [address] [address] Care Teams Parole Agent Relationship Specialty Start Date End Date Major Horowitz III, NP PCP - General Family Practice 04/28/21
--- OUTSIDE RECORDS SUMMARY | 2025-02-05 07:33 | XMS_ITS | Clinical Summary ---
Author Organization [facility] Address [address] [place] [address] Care Team Providers Care Facility Administrator Name Role Phone Ilya Vaughn MD Primary Care Provide r Source Comments [facility],non-owned Affiliates and Associated Physician Practices is amultiple site organization consisting of ambulatory clinics and hospital sitesin [place], [place], [place] and [place]. This disclosure is being madepursuant to the Care Everywhere program and may not contain all information available regarding this patient. Last updated 18.[facility] [employer] Allergies Active Allergy Reactions Criticality Noted Date [...] 36.6 C (97.9 F) 12/30/2020 10:37 AM OUTPATIENT SERVICES DIRECTOR Respiratory Rate 18 12/30/2020 10:37 AM OUTPATIENT SERVICES DIRECTOR Oxygen Saturation 99% 12/30/2020 10:37 AM OUTPATIENT SERVICES DIRECTOR Inhaled Oxygen Concentration - - Weight 96.6 [...] yrs (No Doses Required) Completed Care Teams Facility Administrator Relationship Specialty Start Date End Date Ilya Vaughn MD [address] [place] [address] PCP - General Pediatrics 03/05/19
--- OUTSIDE RECORDS SUMMARY | 2025-02-05 07:34 | XMS_ITS | Data Portability ---
Author Organization [facility] Address [address] [place] [address] Care Team Providers Care Cardiac Cath Technician Name Role Phone OSWALDO DANG Primary Care [...] available Not available INDUCTI ON 2024 05:00P Gwen HA MD Not available Not available Not [...] non-str ess test 2024 025 [email or web address] [email or web address] [address], [address], [place], [address], 02/03/2025 23:34:56 [place], [facility] ic, biophys ical profile + non-str ess test 2024 025 BROWN [place], [address], [place], [address], 02/03/2025 14:11:25 non-str ess test 2024 025 [email or web address] [address], [address], [place], [address], 01/30/2025 11:58:44 , [facility] ic, biophys ical profile + non-str ess test 2024 025 [email or web address] [place], [address], [place], [address], 01/27/2025 22:08:38 Medication Orders None recorde d. Patient TargetsNo targets recorded. Patient InstructionsNo instructions recorded. Reason for Referral None Reported. Results Created Date Observation Date Name Description Value Unit Range Abnormal Flag Note LastModifiedBy Organization Detail LastModifiedTime 01/21/20 25 01/20/2025 CULTU RE: GROUP B STREP SCREE N, REFLE X SUSCE PTIBI LITY result report SEE RESULT S BELOW Test: Cultu re: Group B Strep , Refle x Susce ptibi lity ([facility]/ [facility] ) Speci men Sourc e: Vagin a/Rec demetra Speci men Type: Vagin al/Re ctal Speci men Date: 2024 1122 Resul t Date: 2024 1410 Resul t Statu s: Final resul t Abnor mal: No Resul ting Lab: [facility] [address] [facility] [facility] [address] Tel: CULTU RE ----- ----- ----- --- No Group B strep isola mamadou at 2 days (corrie ctive broth enhan cemen t) Not Available [facility] (Lab) [address] [facility], [place], [address], 01/23/2025 15:14:26 12/30/19 25 12/29/2024 non-s tress test No observ ation record ed. [place] [address], [place], [address], 12/29/2024 09:56:07 12/30/19 25 12/29/2024 US, obste tric, bioph ysica l profi le + non-s tress test No observ ation record ed. [email or web address] [place] [address], [place], [address], 12/29/2024 17:19:33 12/30/19 25 12/29/2024 US, obste tric, follo w-up No observ ation record ed. [address], [place], [address], 12/29/2024 22:26:22 12/31/19 25 12/22/2024 lalit r monit or No observ ation record ed. [address] [place] [address], [address], 01/01/2025 01:03:10 12/31/19 25 12/22/2024 lalit r monit or No observ ation record ed. [facility] (Neurology) [address] [place] [address] [address] [facility], [place], [address], 01/01/2025 01:03:00 01/02/20 25 01/01/2025 non-s tress test No observ ation record ed. [email or web address] [place] [address], [place], [address], 01/01/2025 12:22:50 01/07/20 25 01/06/2025 US, obste tric, bioph ysica l profi le + non-s tress test No observ ation record ed. [email or web address] [place] [address], [place], [address], 01/06/2025 12:39:40 01/07/20 25 01/06/2025 US, obste tric, bioph ysica l profi le + non-s tress test No observ ation record ed. [email or web address] [address] [facility], [place], [address], 01/06/2025 11:45:38 01/07/20 25 01/06/2025 non-s tress test No observ ation record ed. [email or web address] [place] [address], [place], [address], 01/06/2025 11:11:56 01/07/20 non-s tress test No observ ation record ed. [email or web address] [place] [address], [place], [address], 01/06/2025 11:14:50 01/10/2001/09/2025 non-s tress test No observ ation record ed. [email or web address] [place] [address], [place], [address], 01/09/2025 11:50:28 01/14/20 25 01/13/2025 US, obste tric, follo w-up No observ ation record ed. [email or web address] [place] [address], [place], [address], 01/13/2025 13:08:44 01/14/20 25 01/13/2025 US, obste tric, bioph ysica l profi le + non-s tress test No observ ation record ed. [email or web address] [place] [address], [place], [address], 01/13/2025 13:08:55 01/14/20 25 01/13/2025 US, obste tric, follo w-up No observ ation record ed. [email or web address] [address], [place], [address], 01/13/2025 22:27:05 01/14/20 25 01/13/2025 non-s tress test No observ ation record ed. [email or web address] [place] [address], [place], [address], 01/13/2025 10:46:06 01/14/20 non-s tress test No observ ation record ed. [email or web address] [place] [address], [place], [address], 01/13/2025 10:47:59 01/17/20 25 01/16/2025 non-s tress test No observ ation record ed. [email or web address] [place] [address], [place], [address], 01/16/2025 14:41:50 01/21/20 25 01/20/2025 US, obste tric, follo w-up No observ ation record ed. [email or web address] [place] [address], [place], [address], 01/21/2025 22:32:18 01/21/20 25 01/20/2025 US, obstshayne tric, bioph ysica l profi le + non-s tress test No observ ation record ed. [email or web address] [address], [place], [address], 01/20/2025 12:00:13 01/21/20 25 01/20/2025 non-s tress test No observ ation record ed. [email or web address] [place] [address], [place], [address], 01/20/2025 11:52:14 01/24/20 25 01/23/2025 non-s tress test No observ ation record ed. [email or web address] [place] [address], [place], [address], 01/23/2025 17:09:36 01/28/2001/27/2025 US, obste tric, bioph ysica l profi le + non-s tress test No observ ation record ed. [email or web address] [place] [address], [place], [address], 01/27/2025 14:13:45 01/28/20 25 01/27/2025 US, obste tric, follo w-up No observ ation record ed. [email or web address] [address], [facility], [place], [address], 01/29/2025 19:50:40 01/28/20 25 01/27/2025 non-s tress test No observ ation record ed. [email or web address] [place] [address], [place], [address], 01/27/2025 11:31:22 01/30/20 25 01/23/2025 non-s tress test No observ ation record ed. [email or web address] [place] [address], [place], [address], 01/29/2025 10:20:11 01/31/20 25 01/30/2025 non-s tress test No observ ation record ed. [email or web address] [place] [address], [place], [address], 01/30/2025 11:28:02 02/04/20 25 02/03/2025 imagi ng/di agnos tic resul t No observ ation record ed. [email or web address] [address], [place], [address], 02/04/2025 21:20:59 02/04/20 25 02/03/2025 US, obste tric, bioph ysica l profi le + non-s tress test No observ ation record ed. [email or web address] [place] [address], [place], [address], 02/03/2025 14:11:25 02/04/20 25 02/03/2025 non-s tress test No observ ation record ed. [place] [address], [place], [address], 02/03/2025 10:46:36 Result Notes None recorded. Problems Name Problem SNOMED Code Status Onset Date Resolution Date Notes Provider Name and Address Organization Details Recorded Time Family history of malignant neoplasm of breast in first degree relative 378745024 Active 2021 mom age 32. MAMMOS TO START AT 22yo. Kym López MD [address], [place], [address], [facility] 3 19:05:45 Body mass index 30+ - obesity 503021891 Active 2021 Kym López MD [address], [place], [address], [facility] 2 10:30:27 Prediabet es 262612566 Active Zbigniew Ha MD [address], [place], [address], [facility] 4 11:13:08 Polycysti c ovary syndrome 858090429 Active 2021 Kym López MD [address], [place], [address], [facility] 2 10:30:33 17505210 Active 2023 Mayra Douglas null, [facility] 4 10:10:22 COVID-19 052022934 Active Zbigniew Ha MD [address], [place], [address], [facility] 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 Next u/s only 09/22/24 Ida Mckeon [facility], [facility] 4 15:25:15 Prediabet es 224472379 Active Zbigniew Ha MD [address], [place], [address], [facility] 4 11:13:08 Obesity 844383033 Active Zbigniew Ha MD [address], [place], [address], [facility] 4 11:13:33 Tachycard ia 7603659 Active 72 hr Holter monitor order faxed 12/22 Zelda Figueroa [facility] 5 13:35:44 Tachycard ia 7738204 Active 72 hr Holter monitor order faxed 12/22 Zelda Figueroa [facility] 5 13:35:44 Problem Notes None recorded. Procedures Surgical History Date Name Laterality Status Provider Name and Address Organization Details Recorded Time 02/06/20 24 SIS completed AZEEM GROSS MD [address], [place], [address], [place] [facility] 02/08/2024 13:14:27 10/29/19 24 Date of Last Colonoscopy completed Mayraapril Douglas [facility] 08/05/2024 10:47:00 10/29/19 24 [facility] 10:51:33 10/29/19 20 extraction of wisdom tooth completed Mayraapril Douglas [facility] 08/05/2024 10:52:02 03/31/20 19 Date of Last [facility]ammogram [facility] 08/05/2024 16:54:43 10/29/19 19 repair of labial tear completed [facility] 08/05/2024 16:56:32 Imaging Results Imaging Date Name Status LastModified by Organiz ation Details LastModified Time 12/29/2024 non-stress test completed [email or web address] [place] [address], [place], [address], 12/29/2024 09:56:07 12/29/2024 US, obstetric, biophysical profile + non-stress test completed [email or web address] [place] [address], [place], [address], 12/29/2024 17:19:33 12/29/2024 US, obstetric, follow-up completed [email or web address] [address], [place], [address], 12/29/2024 22:26:22 12/22/2024 holter monitor completed [address], [address], 01/01/2025 01:03:10 12/22/2024 holter monitor completed [facility] (Neurology) [address] [place] [address], [place], [address], 01/01/2025 01:03:00 01/01/2025 non-stress test completed [place] [address], [place], [address], 01/01/2025 12:22:50 01/06/2025 US, obstetric, biophysical profile + non-stress test completed [email or web address] [place] [address], [place], [address], 01/06/2025 12:39:40 01/06/2025 US, obstetric, biophysical profile + non-stress test completed [email or web address] [address], [place], [address], 01/06/2025 11:45:38 01/06/2025 [facility]-stress test [facility] [place] [address] [address], [place], [address], 01/06/2025 11:11:56 01/06/2025 [facility]-stress test [facility], [place], [address], 01/06/2025 11:14:50 01/09/2025 non-stress test completed [place] [address], [place], [address], 01/09/2025 11:50:28 01/13/2025 US, obstetric, follow-up completed [email or web address] [place] [address], [place], [address], 01/13/2025 13:08:44 01/13/2025 US, obstetric, biophysical profile + non-stress test completed [email or web address] [place] [address], [place], [address], 01/13/2025 13:08:55 01/13/2025 US, obstetric, follow-up completed [email or web address] [address], [place], [address], 01/13/2025 22:27:05 01/13/2025 non-stress test active [email or web address], [place], [address], 01/13/2025 10:46:06 01/13/2025 non-stress test completed [email or web address], [place], [address], 01/13/2025 10:47:59 01/16/2025 non-stress test completed [address], [place], [address], 01/16/2025 14:41:50 01/20/2025 US, obstetric, follow-up completed [email or web address], [place], [address], 01/21/2025 22:32:18 01/20/2025 US, obstetric, biophysical profile + non-stress test completed [email or web address] [address], [place], [address], 01/20/2025 12:00:13 01/20/2025 non-stress test completed [email or web address] [place] [address], [place], [address], 01/20/2025 11:52:14 01/23/2025 non-stress test completed [email or web address] [place] [address], [place], [address], 01/23/2025 17:09:36 01/27/2025 US, obstetric, biophysical profile + [facility]stress test [email or web address] [address], [place], [address], 01/27/2025 14:13:45 01/27/2025 US, obstetric, follow-up completed [email or web address] [address], [place], [address], 01/29/2025 19:50:40 01/27/2025 non-stress test completed [email or web address] [place], [place], [address], 01/27/2025 11:31:22 01/23/2025 non-stress test completed [email or web address] [address] [place], [place], [address], 01/29/2025 10:20:11 01/30/2025 non-stress test completed [email or web address] [address], [place], [address], 01/30/2025 11:28:02 02/03/2025 imaging/diagnos tic result active [email or web address] [address], [place], [address], 02/04/2025 21:20:59 02/03/2025 US, obstetric, biophysical profile + non-stress test completed [email or web address] [address], [place], [address], 02/03/2025 14:11:25 02/03/2025 non-stress test completed [address], [place], [address], 02/03/2025 10:46:36 Procedure Notes None recorded. Medical Equipment None Reported. Allergies Allergen ID Allergen Name Allergen Category Reaction Reaction Severity Criticality Documentation Date Start Date Code Code System Note Provider Name and Address Organization Details Recorded Time 55379 amoxicill in medicatio n Not available Not available Not available 03/24/2022 723 RxNorm Kelly Thompson [facility], [facility] 4 15:12:26 09336 cefdinir medicatio n Not available Not available Not available 03/24/2022 17240 RxNorm Other react ions and sever ities : 'Anap hylax is - Moder ate'. Lara Terrazas ruy, [facility] 4 15:34:29 21496 amoxicill in trihydrat e medicatio n rash moderate Not available 01/02/2024 43558 8 RxNorm Lara Terrazas [facility], [facility] 4 15:34:29 34514 ethinyl estradiol / levonorge strel medicatio n Not available Not available Not available 01/02/2024 39687 8 RxNorm AZEEM GROSS MD [address], [place], [address] [place] [address], [facility] 4 11:01:47 Medications Name Sig Start [...] and Address Organization Details Last Updated DateTime 01/27/2025 165.1 cm 39.9 kg/m2 287689.1 7 g 103 mm[Hg] 67 mm[Hg] [facility] 11:19:34 Date Recorded Body height Body mass index (BMI) Body weight Systolic blood pressure Diastolic blood pressure Provider Name and Address Organization Details Last Updated DateTime 01/30/2025 165.1 cm 40.6 kg/m2 344281.5 4 g 117 mm[Hg] 73 mm[Hg] [facility] 5 10:30:33 Date Recorded Body weight Body mass index (BMI) Body height Systolic blood pressure Diastolic blood pressure Provider Name and Address Organization Details Last Updated DateTime 02/03/2025 053721.3 5354 g 40.3 kg/m2 165.1 cm 111 mm[Hg] 74 mm[Hg] Mayra Douglas [facility] 5 10:36:14 Date Recorded Body height Body mass index (BMI) Body weight Systolic blood pressure Diastolic blood pressure Provider Name and Address Organization Details Last Updated DateTime 02/03/2025 165.1 cm 40.1 kg/m2 780764.7 6 g 111 mm[Hg] 74 mm[Hg] IVETH Dacosta [facility] 10:45:52 Social History Question Answer Notes LastModified by Organizat ion Details LastModified Time Tobacco Smoking Status Never Smoker [facility] 12/22/2022 11:27:20 Do You Have An Advance Directive? No Information n ot available 01/02/2024 What Is Your Level Of Alcohol Consumption? None [email or web address] Information not available 08/05/2024 If You Are , What Was Your Level Of Alcohol Consumption Prior To ? Occasional [email or web address] Information not available 08/05/2024 How Many Years Have You Consumed Alcohol? 5 Information not available 01/02/2024 Are You Blind Or Do You Have Difficulty Seeing? No Information n ot available 01/02/2024 What Is Your Level Of Caffeine Consumption? Heavy [email or web address] Information not available 07/11/2024 In The 14 [...] available 07/11/2024 Are You Currently Employed? Yes Information not available 01/13/2025 Are You Deaf Or Do You Have Serious Difficulty Hearing? No Information not available 01/02/2024 What Type Of Diet Are You Following? REGULAR Information n ot available 01/02/2024 What Is The Highest Grade Or Level Of School You Have Completed Or The Highest Degree You Have Received? [id number] Information not available 07/11/2024 What Is Your Occupation? [employer] [email or web address] Information not available 07/11/2024 Are There Any Guns Present In Your Home? No [email or web address] Information not available 07/11/2024 Have You Ever Been Counseled For Unhealthy Alcohol Use? No [email or web address] Information not available 12/22/2022 Do You Use Protection During Sex? No Information not available 01/02/2024 Do You Use Your Seat Belt Or Car Seat Routinely? Yes Information not available 01/02/2024 Are You Sexually Active? Yes [email or web address] Information not available 12/25/2024 Do You Have Smoke And Carbon Monoxide Detectors In Your Home? Yes Information not available 01/02/2024 How Much Tobacco Do You Smoke? No [email or web address] Information not available 07/11/2024 Do You Feel Stressed (tense, Restless, Nervous, Or Anxious, Or Unable To Sleep At Night)? [id number] Information not available 01/02/2024 Do You Use Any Illicit Or Recreational Drugs? No [email or web address] Information not available 03/24/2022 Do You Use Sunscreen Routinely? Yes [email or web address] Information not available 07/11/2024 Has Tobacco Cessation Counseling Been Provided? No Information not available 12/22/2022 Have You Used IV Drugs? No Information not available 01/02/2024 Do You Or Have You Ever Used Any Other Forms Of Tobacco Or Nicotine? No [email or web address] Information not available 12/22/2022 Sex: Unknown Functional Status Question Answer Note LastModified by Organizat ion Details LastModified Time Do you have difficulty walking or climbing stairs? No [email or web address] Information not available 08/05/2024 Are you able to walk? YESWOREST Information not available 01/02/2024 Are you able to care for yourself? Yes [email or web address] Information not available 08/05/2024 Do you have difficulty dressing or bathing? No [email or web address] Information not available 08/05/2024 What is your exercise level? Occasional [email or web address] Information not available 07/11/2024 Mental Status None recorded. Family History Relationship Description Onset Age of this Age Resolved Age Notes LastModified by Organization Details LastModified Time Mother Anemia [email or web address] Not available 07/11/2024 14:23:29 Mother Carcinoma in situ of breast [email or web address] Not available 2024 09:19:38 Mother Substance abuse meth,a lcohol [email or web address] Not available 07/11/2024 14:23:29 Mother Mental disorder [email or web address] Not available 2023 14:23:29 Mother Hypertensive disorder [email or web address] Not available 2023 14:23:29 Mother Depressive disorder [email or web address] Not available 2023 14:23:29 Mother Anxiety disorder [email or web address] Not available 2023 14:23:29 Mother Malignant tumor of cervix [email or web address] Not available 08/05 16:55:25 Mother Bipolar disorder [email or web address] Not available 2024 09:19:38 Mother Seizure disorder [email or web address] Not available 2024 09:19:38 Father Mental disorder [email or web address] Not available 2023 14:23:29 Father Hypertensive disorder [email or web address] Not available 2023 14:23:29 Father Anxiety disorder [email or web address] Not available 2023 14:23:29 Medical History Condition [...] N Thrombophilias N Gynecological History Statement/Question Response Date of [...] SNOMED-CT Code Diagnosis ICD10 Code Diagnosis Note [id number] Kym López MD [place] [address],[place] [address] 03/24/2022 09:46:53 03/24/2022 11:19:51 Polycystic ovary syndrome 888927990 E28.2 Irregular periods 828431 07 N92.6 Trying to conceive 38378 9001 Z31.9 Prediabetes 528689934 R7 3.03 Body mass index 30+ - obesity 704850345 Z68.36 Family his tory of malignant neoplasm of breast in first degree relative 433722955 Z80.3 mom in early 30s [id number] Kym López MD [place] [address],[place] [address] 05/09/2022 16:41:02 05/10/2022 14:59:10 Complete miscarriage 936780869 O03.9 Polycystic ovary syndrome 877163771 E28.2 Prediabetes 272229758 R7 3.03 [id number] Kmy López MD [place] [address],[place] [address] 12/22/2022 11:27:13 12/25/2022 16:22:36 Polycystic ovary syndrome 113044498 E28.2 Family his tory of malignant neoplasm of breast in first degree relative 597767543 Z80.3 mom in early 30s Body mass index 30+ - obesity 193066071 Z68.36 Trying to conceive 53331 9001 Z31.9 [id number] MURPHY Ortega [place] [address],[place] [address] 01/02/2024 15:27:31 01/02/2024 16:16:49 Reproductive care management 980059770 Z31.9 Discussed TTC/timed IC, OPKs, etcencoura ged daily PNVrecomme nded updated labs and pelvic u/sdiscuss ed semen anaylsis for partnerRTC for pelvic u/s and fertility consult with Dr. Villela uraged to schedule WWE/due for primary pap Time spent in visit is a total of 25 mins with at least 50% of visit consisting of counseling and review of plan of care. [id number] Kathleen Arora [place] [address],[place] [address] 01/07/2024 12:17:44 01/07/2024 13:06:12 Abnormal uterine bleeding 5437466338 9100 N93.9 N97.9 [id number] AZEEM GROSS MD [place] [address],[place] [address] 01/23/2024 16:05:33 01/23/2024 17:21:25 Recurrent miscarriage 235571876 N96 - Differenti al diagnosis of cause of infertilit y includes: PCOS, senior linux administrator y disorder, male factor, structural - We [...] planning and treatment options Polycystic ovary syndrome 944209515 E28.2 [id number] [facility] [address],[place] [address] 02/06/2024 16:19:33 02/07/2024 11:09:35 Female infertility 0415333 N97.9 [id number] AZEEM GROSS MD [place] [address],[place] [address] 02/06/2024 16:19:54 02/08/2024 09:11:01 Recurrent miscarriage 778169654 N96 - Differenti al diagnosis of cause of infertilit y includes: PCOS, senior linux administrator y disorder, male factor, structural - We [...] of intrauteri ne pathology- Semen analysis wnl [id number] [facility] [address],[place] [address] 07/11/2024 14:08:47 07/11/2024 14:45:03 [id number] AZEEM GROSS MD [place] [address],[place] [address] 07/11/2024 14:55:15 07/11/2024 15:44:22 screening 560235454 Z36.89 Genetic in vestigation procedure 47135383 Z31.430 test positive 352782261 Z32.01 1. Exam today within normal limits.2. Ultrasound today confirms GA and viability. EDC 4/20/243. GC/Clamydi a testing done: will f/u as indicated. 4. ACOG guidelines and plan of care for reviewed with patient. All questions answered.5 . Return to office at 12 weeks for new OB visit6. Will need new OB labs at next visit.7. 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 - continue bromocrypt ine [id number] Kathleen Arora [place] [address],[place] [address] 08/05/2024 09:44:03 08/05/2024 10:49:10 screening 665407190 Z36.82 Z3A.12 [id number] Zbigniew Ha MD [place] [address],[place] [address] 08/05/2024 09:44:29 08/05/2024 11:51:12 Gestation period, 11 weeks 57346284 Z3A.11 Routine an tenatal care 603433051 Z34.90 [id number] AZEEM GROSS MD [place] [address],[place] [address] 09/02/2024 10:34:54 09/05/2024 12:13:07 Prediabetes 553803067 R73.03 - early GTT per MFM Maternal o besity complicating , childbirth and the puerperium, antepartum 6372864737 07 O99.210 Antiphosph olipid syndrome 84876754 D68.61 - 162mg ASA daily- per MFM, no lovenox needed Gestation period, 16 weeks 84240009 Z3A.16 - continue PNV [id number] AZEEM GROSS MD [facility] [address],[place] [address] 09/30/2024 09:43:12 09/30/2024 10:43:21 Body mass index 30+ - obesity 383148845 Z68.36 - testing at 37 weeks Antiphosph olipid syndrome 20277071 D68.61 - 162mg ASA daily- per MFM, no lovenox needed Prediabetes 761209006 R7 3.03 - passed early GTT at 16 weeks- repeat at 28 weeks Gestation period, 19 weeks 13554436 Z3A.19 - continue PNV [id number] AZEEM GROSS MD [facility] [address],[place] [address] 10/30/2024 09:15:17 10/30/2024 16:23:42 Prediabetes 800994137 R73.03 - passed early GTT at 16 weeks- repeat at 28 weeks Maternal o besity complicating , childbirth and the puerperium, antepartum 0065218509 07 O99.210 Antiphosph olipid syndrome 44581240 D68.61 - 162mg ASA daily- per MFM, no lovenox needed Gestation period, 24 weeks 967637099 Z3A.24 [id number] Kathleen Arora [facility] [address],[place] [address] 11/25/2024 09:48:28 11/25/2024 10:41:01 condition affecting obstetrical care of mother 726831880 O35.3XX0 O99.212 Z3A.27 [id number] AZEEM GROSS MD [facility] [address],[place] [address] 11/25/2024 09:48:40 11/25/2024 11:26:25 Antiphospholipid syndrome in 6836789142 9100 O99.119 - ASA 162mg- plan for twice weekly testing starting at 32 weeks- continue serial growth US Gestation period, 27 weeks 36231811 Z3A.27 - continue PNV- GCT and labs today Breech presentation 6096 002 O32.1XX9 [id number] Kelly Thompson [facility] [address],[place] [address] 12/22/2024 09:24:48 12/22/2024 10:19:21 Antiphospholipid syndrome in 9673053997 9100 O99.119 - ASA 162mg- plan for twice weekly testing starting at 32 weeks- continue serial growth [place] [id number] Susanna Goldman [facility] [address],[place] [address] 1 12/25/2024 09:19:34 12/25/2024 10:02:33 Pre-existing maternal disease complicating 8014470877 6106 O99.891 Z86.16 O99.210 Z3A.32 [id number] Kelly Thompson [facility] [address],[place] [address] 12/25/2024 09:21:40 12/25/2024 10:56:47 Antiphospholipid syndrome in 8662063935 9100 O99.119 - ASA 162mg- plan for twice weekly testing starting at 32 weeks- continue serial growth US [id number] AZEEM GROSS MD [facility] [address],[place] [address] 1 12/25/2024 09:22:24 12/25/2024 11:14:34 Tachycardia 0055878 R00.0 - HR up to 150s while standing at work- reviewed CBC, TSH, T4 from PCP, all overall normal for - Holter monitor in progress- february d/c work if Holter abnormalit y found or if patient continues to be symptomati c Antiphosph olipid syndrome 71615111 D68.61 - 162mg ASA daily- per MFM, no lovenox needed- twice weekly testing Body mass index 30+ - obesity 060900380 Z68.36 - testing at 37 weeks Gestation period, 32 weeks 0656901 Z3A.32 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 - mesenteric mass partially imaged on CT PE- recommend PP imaging for full evaluation with CT AP with contrast [id number] Kelly Thompson [facility] [address],[place] [address] 12/29/2024 09:20:12 12/29/2024 10:04:25 Antiphospholipid syndrome in 1641373495 9100 O99.119 - ASA 162mg- plan for twice weekly testing starting at 32 weeks- continue serial growth US [id number] Kathleen Arora [facility] [address],[place] [address] 1 12/29/2024 09:26:47 12/29/2024 10:22:57 Pre-existing maternal disease complicating 1666030098 6106 O99.891 Z86.16 O99.210 Z3A.32 [id number] AZEEM GROSS MD [facility] [address],[place] [address] 12/29/2024 09:31:48 12/29/2024 11:07:48 Tachycardia 7186172 R00.0 - HR up to 150s while standing at work- reviewed CBC, TSH, T4 from PCP, all overall normal for - Holter monitor results pending- will d/c working due to symptoms Antiphosph olipid syndrome 65196081 D68.61 - 162mg ASA daily- per MFM, no lovenox needed- twice weekly testing Gestation period, 33 weeks 02852242 Z3A.33 - continue PNV [id number] Kelly Thompson [facility] [address],[place] [address] 01/01/2025 11:25:45 01/01/2025 12:26:46 Antiphospholipid syndrome in 8422932528 9100 O99.119 - ASA 162mg- plan for twice weekly testing starting at 32 weeks- continue serial growth US [id number] Kathleen [facility] [address],[place] [address] 1 01/06/2025 09:55:01 01/06/2025 10:39:39 Maternal obesity complicating , childbirth and the puerperium, antepartum 1848477567 07 O99.213 O99.891 Z3A.34 [id number] [facility] [address],[place] [address] 01/06/2025 09:55:10 01/06/2025 11:19:26 Antiphospholipid syndrome in 3163228516 9100 O99.119 [id number] AZEEM GROSS MD [facility] [address],[place] [address] 01/06/2025 09:55:26 01/06/2025 11:39:12 Antiphospholipid syndrome 51997904 D68.61 - 162mg ASA daily- per MFM, no lovenox needed- twice weekly testing Tachycardia 4484763 R00. 0 - HR up to 150s while standing at work- reviewed CBC, TSH, T4 from PCP, all overall normal for - Holter monitor results overall normal- will d/c working due to symptoms Gestation period, 34 weeks 18927891 Z3A.34 - continue PNV [id number] Kelly Thompson [facility] [address],[place] [address] 01/09/2025 10:52:18 01/09/2025 12:00:03 Antiphospholipid syndrome in 2026389330 9100 O99.119 [id number] Susanna Susi [facility] [address],[place] [address] 01/13/2025 09:18:58 01/13/2025 10:06:16 Maternal obesity complicating , childbirth and the puerperium, antepartum 7794046926 07 O99.213 O99.891 Z86.16 Z3A.35 [id number] Kathi Helio [facility] [address],[place] [address] 01/13/2025 09:19:28 01/13/2025 10:57:36 Antiphospholipid syndrome in 7405789407 9100 O99.119 [id number] AZEEM GROSS MD [facility] [address],[place] [address] 1 01/13/2025 09:19:42 01/13/2025 11:10:04 Antiphospholipid syndrome 28113951 D68.61 - 162mg ASA daily- per MFM, no lovenox needed- twice weekly testing Tachycardia 1711325 R00. 0 - HR up to 150s while standing at work- reviewed CBC, TSH, T4 from PCP, all overall normal for - Holter monitor results overall normal- d/c working due to symptoms- tachycardi a stable Gestation period, 35 weeks 69783121 Z3A.35 [id number] IVETH Dacosta [facility] [address],[place] [address] 01/16/2025 10:20:53 01/16/2025 14:44:10 Antiphospholipid syndrome in 6703815239 9100 O99.119 [id number] Kathleen Arora [facility] [address],[place] [address] 01/20/2025 10:17:37 01/20/2025 10:49:49 Pre-existing maternal disease complicating 3978181572 6106 O99.891 O99.210 Z3A.36 [id number] IVETH [facility] [address],[place] [address] 01/20/2025 10:18:02 01/20/2025 11:43:03 Antiphospholipid syndrome in 0717068972 9100 O99.119 [id number] [facility] [address],[place] [address] 01/20/2025 10:18:15 01/20/2025 11:44:02 Gestation period, 36 weeks 11539470 Z3A.36 [id number] Mayra Douglas [facility] [address],[place] [address] 01/23/2025 10:15:38 01/26/2025 06:51:20 Antiphospholipid syndrome in 7094635220 9100 O99.119 [id number] AZEEM GROSS MD [facility] [address],[place] [address] 01/27/2025 09:50:12 01/27/2025 11:58:53 Tachycardia 5586856 R00.0 - HR up to 150s while standing at work- reviewed CBC, TSH, T4 from PCP, all overall normal for - Holter monitor results overall normal- d/c working due to symptoms- tachycardi a stable Body mass index 30+ - obesity 564477111 Z68.36 - testing at 37 weeks Antiphosph olipid syndrome 44331551 D68.61 - 162mg ASA daily- per MFM, no lovenox needed- twice weekly testing Gestation period, 37 weeks 42228623 Z3A.37 [id number] Susanna Goldman [facility] [address],[place] [address] 01/27/2025 09:51:29 01/27/2025 10:26:43 Maternal obesity complicating , childbirth and the puerperium, antepartum 7538653631 07 O99.213 O99.891 Z86.16 Z3A.37 [id number] IVETH [facility] [address],[place] [address] 01/27/2025 09:52:02 01/27/2025 11:35:13 Antiphospholipid syndrome in 4552620506 9100 O99.119 [id number] [facility] [address],[place] [address] 01/30/2025 10:19:40 01/30/2025 11:58:44 Antiphospholipid syndrome 99520842 D68.61 [id number] [facility] [address],[place] [address] 02/03/2025 09:19:18 02/03/2025 10:18:23 Pre-existing maternal disease complicating 6756294894 6106 O99.891 O99.210 Z3A.38 [id number] [facility] [address],[place] [address] 02/03/2025 09:37:00 02/03/2025 10:47:50 Antiphospholipid syndrome in 5650212830 9100 O99.119 [id number] Soumya Soriano [facility] [address],[place] [address] 02/03/2025 09:37:23 02/03/2025 10:49:53 Gestation period, 38 weeks 81544803 Z3A.38 Health Concerns Section Related Observation LastModified by Organization Detai ls LastModified Time None Recorded Concern Status LastModified by Organization Details LastModified Time None Recorded Advance Directives Directive N: Payers Encounter Date Sequence Insurance Name Policy Number Policy E[employer]anks Covered Member ID Eubanks Member ID Guarantor Name 01/27/2025 1 [facility] [id number] Nito Miller [id number] Nito Miller 01/27/2025 2 [place] Nito Miller [id number] Nito Miller 01/30/2025 1 [facility] [id number] Nito Miller [id number] Nito Miller 01/30/2025 2 [place] [facility]ID Nito Miller [id number] Nito Miller 02/03/2025 1 [facility] [id number] Nito Miller [id number] Nito Miller 02/03/2025 2 [place] [facility] Pymartinez Miller [id number] Nito Miller 02/03/2025 1 [facility] [id number] Nito Miller [id number] Pymartinez Miller 02/03/2025 2 [place] [facility] Nito Miller [id number] Nito Miller 02/03/2025 1 [facility] [id number] Nito Miller [id number] Pyper Paul 02/03/2025 2 [place] [facility] Pyper Paul [id number] Pyper Paul OBGyn Episode Ob Episode Information Episode Created Date Number of Fetuses Patient Bloodtype Patient rh Status Prepregnancy Weight lbs Domestic Partner Domestic Partner Phone Father Name Bolt Man Status 02/14/20 23 1 CLOSED Fetus Data First Name Last Name Admitted to NICU Weight (g) Sex Living Outcome Pediatric Complications Fetus ID Race Codes Race Delivery Type , Spontane ous [id number] Chad Calculation Initial Chad Date Initial Exam [...] Domestic Partner Domestic Partner Phone Father Name Bolt Man Status 01/02/20 24 1 CLOSED Fetus Data First Name Last Name Admitted to NICU Weight (g) Sex Living Outcome Pediatric Complications Fetus ID Race Codes Race Delivery Type [id number] Chad Calculation Initial Chad Date Initial Exam [...] Domestic Partner Domestic Partner Phone Father Name Bolt Man Status 08/05/20 24 1 O Positive 224 OPEN Fetus Data First Name Last Name Admitted to NICU Weight (g) Sex Living Outcome Pediatric Complications Fetus ID Race Codes Race Delivery Type [id number] Problems Problem Notes 10/20/24 7:30am u/s onlyLD [...] Resolution Snomed Code Not e Antiphospholipid syndrome 38571645 Baby asa, 32wk testing twice weekly; MFM referral sent 08/05/24 SSMScheduled 08/27 9AM U/S & Consult. Next u/s only 09/22/24 Prediabetes 674300426 COVID-19 623948262 Obesity 090848260 Tachycardia 8540810 72 hr Ho lter monitor order faxed [...] Date Ultra Sound Latest Days Gestation 0 [email or web address] 12/29/2024 02/16/20 25 0 Pre- Flowsheet Flowsheet [...] Type Weight in lbs Pre/Post Dialysis Refused 218.518374334069 BP Diastolic BP Location Tested BP Systolic [...] Weight in lbs Pre/Post Dialysis Refused Weight 213.608934257860 BP Diastolic BP Location Tested BP Systolic BP Type 69 L arm 110 sitting Fetus Heart Rate Present Fetus Movement A No Comments Doing well, no cramping or b leeding. No movement yet. NIPT LR female! Saw [facility], recommend 162mg ASA, does not recommend lovenox. Will do early 1h GTT next week, stop metformin today. Anatomy US at [facility]. RTC 4 weeks. Flowsheet Date 09/30/2024 Reinoso Score Blood Edema Fundus Height Fundus Units Glucose Ketones Leukocytes Nitrite Labor Signs Protein Cervic Dilation Cervic Effacement Cervic Station neg none Type Weight in lbs Pre/Post Dialysis Refused Weight 221.698342096143 BP Diastolic BP Location Tested BP Systolic BP Type 66 L arm 111 sitting Fetus Heart Rate Present A 140 Fetus Movement A Yes Comments Patient c/o of some cramping and pressure. Very irregular, improves with hydration. No bleeding. Good movement. Anatomy US 09/23 with [facility], incomplete, will repeat in 4 weeks with MFM. Low lying placenta, 1.6cm from os. Passed early 1h GCT. RTC 4 weeks. Flowsheet Date 10/30/2024 Reinoso Score Blood Edema Fundus Height Fundus Units Glucose Ketones Leukocytes Nitrite Labor Signs Protein Cervic Dilation Cervic Effacement Cervic Station neg none Type Weight in lbs Pre/Post Dialysis Refused 222.25198859855 BP Diastolic BP Location Tested BP Systolic BP Type 70 L arm 105 sitting Fetus Heart Rate Present A 140 Fetus Movement A Yes Comments Patient c/o of Landis Gill . Good movement. No bleeding. Placenta no longer low lying. Patient would like to restart US/monitoring at [facility] due to distance, will transfer orders here. [...] Weight in lbs Pre/Post Dialysis Refused Weight 227.2129036158 BP Diastolic BP Location Tested BP Systolic BP Type 74 L arm 117 sitting Fetus Heart Rate Present A Present Fetus Movement A Yes Comments Patient c/o Landis Gill. N o bleeding. Good movement. EFW 59%, footling breech. Will start testing twice weekly at 32 weeks for APLS. GCT and labs today. RTC 2 weeks. Flowsheet Date 12/22/2024 Reinoso Score Blood Edema Fundus Height Fundus Units Glucose Ketones Leukocytes Nitrite Labor Signs Protein Cervic Dilation Cervic Effacement Cervic Station Type Weight in lbs Pre/Post Dialysis Refused Weight 232.4039013061 BP Diastolic BP Location Tested BP Systolic [...] Type Weight in lbs Pre/Post Dialysis Refused 230.341402191542 BP Diastolic BP Location Tested BP Systolic [...] Weight in lbs Pre/Post Dialysis Refused Weight 233.101198262040 BP Diastolic BP Location Tested BP Systolic BP Type 67 L arm 101 sitting Fetus Heart Rate Present A 130 Fetus Movement A Yes Comments Patient c/o Wolfgang Gill an d slight swelling in hands. [...] Weight in lbs Pre/Post Dialysis Refused Weight 234.919533805895 BP Diastolic BP Location Tested BP Systolic [...] Type Weight in lbs Pre/Post Dialysis Refused 234.580135155627 BP Diastolic BP Location Tested BP Systolic BP Type 74 L arm 110 sitting Fetus Heart Rate Present Fetus Movement Comments Flowsheet Date 01/06/2025 Reinoso Score Blood Edema Fundus Height Fundus Units Glucose Ketones Leukocytes Nitrite Labor Signs Protein Cervic Dilation Cervic Effacement Cervic Station neg none Type Weight in lbs Pre/Post Dialysis Refused Weight 234.534468744097 BP Diastolic BP Location Tested BP Systolic BP Type 74 L arm 110 sitting Fetus Heart Rate Present A 140 Fetus Movement A Yes Comments Patient c/o Landis Gill. G ood movement. Still having palpitations while being more active. Resolves with rest. BPP 10/10. Would like induction on 02/08. Induction methods reviewed. Continue testing. Flowsheet Date 01/09/2025 Reinoso Score Blood Edema Fundus Height Fundus Units Glucose Ketones Leukocytes Nitrite Labor Signs Protein Cervic Dilation Cervic Effacement Cervic Station Type Weight in lbs Pre/Post Dialysis Refused Weight 236.918780485740 BP Diastolic BP Location Tested BP Systolic [...] Weight in lbs Pre/Post Dialysis Refused Weight 235.631238327729 BP Diastolic BP Location Tested BP Systolic [...] Weight in lbs Pre/Post Dialysis Refused Weight 237.1583359104 BP Diastolic BP Location Tested BP Systolic [...] Weight in lbs Pre/Post Dialysis Refused Weight 238.273172236843 BP Diastolic BP Location Tested BP Systolic BP Type 74 L arm 117 sitting Fetus Heart Rate Present Fetus Movement Comments Flowsheet Date 01/20/2025 Reinoso Score Blood Edema Fundus Height Fundus Units Glucose Ketones Leukocytes Nitrite Labor Signs Protein Cervic Dilation Cervic Effacement Cervic Station Type Weight in lbs Pre/Post Dialysis Refused 238.900852757475 BP Diastolic BP Location Tested BP Systolic [...] Weight in lbs Pre/Post Dialysis Refused Weight 240.826906170088 BP Diastolic BP Location Tested BP Systolic [...] Weight in lbs Pre/Post Dialysis Refused Weight 240.760527289255 BP Diastolic BP Location Tested BP Systolic [...] Weight in lbs Pre/Post Dialysis Refused Weight 244.430621168497 BP Diastolic BP Location Tested BP Systolic [...] Weight in lbs Pre/Post Dialysis Refused Weight 241.231710246759 BP Diastolic BP Location Tested BP Systolic BP Type 74 L arm 111 sitting Fetus Heart Rate Present Fetus Movement Comments Flowsheet Date 02/03/2025 Reinoso Score Blood Edema Fundus Height Fundus Units Glucose Ketones Leukocytes Nitrite Labor Signs Protein Cervic Dilation Cervic Effacement Cervic Station neg trace 2cm 80% -2 Type Weight in lbs Pre/Post Dialysis Refused 242.151500580719 BP Diastolic BP Location Tested BP Systolic [...]
--- NOTE | 2025-02-05 07:58 | PM.OBTRLD ---
OB - Triage/Final Diagnosis Visit Information Date of evaluation: 02/04/25 Reason for evaluation: threatened labor Comments/Additional reasons for admission: I have assessed the risk for this patient, Nito Orlando, and determined that she would benefit from observation care.
== END 2025-02-04 03:00 | disposition home or self-care (01) ==
PROVIDERS: Admitting Provider Obstetrics & Gynecology; PCP Family Medicine; Visit Provider Obstetrics & Gynecology
DX: O47.1 False labor at or after 37 completed weeks of gestation (principal); Z3A.38 38 weeks gestation of pregnancy
CPT/HCPCS: 99199

== ENCOUNTER 2025-02-08 16:57 | Inpatient (IN) | payer OTHER, MEDICAID, SELFPAY ==
[2025-02-08] VITALS (17 sets, daily range): BP systolic 108–136; BP diastolic 60–101; PULSE 73–108; TEMP 36.8
--- OUTSIDE RECORDS SUMMARY | 2025-02-08 17:03 | XMS_ITS | Clinical Summary ---
Author Organization [facility] Address [address] [place] [address] Care Team Providers Care Core Microarchitect Name Role Phone Carlos Manuel RADFORD NP, [...] on file Legal Sex Female 8:44 PM CHECK AIRMAN Gender Identity Not on file Sexual Orientation Not on file Obstetrics History Last Filed Vital Signs Vital Sign Reading Time Taken Comments Blood Pressure 116/77 10/27/2015 2:49 PM CHECK AIRMAN Pulse 102 10/27/2015 2:49 PM CHECK AIRMAN Temperature 36.6 C (97.9 F) 10/27/2015 2:49 PM CHECK AIRMAN Respiratory Rate - - Oxygen Saturation 100% 10/27/2015 2:49 PM CHECK AIRMAN Inhaled Oxygen Concentration - - Weight 63.5 kg (140 lb) 10/27/2015 2:49 PM CHECK AIRMAN Height 165.1 cm (5' 5 ) 10/27/2015 2:49 PM CHECK AIRMAN Body Mass Index 23.3 10/27/2015 2:49 PM CHECK AIRMAN Plan of Treatment Not on file [place] [address] [place] [address] Care Teams Core Microarchitect Relationship Specialty Start Date End Date Major Horowitz III, NP PCP - General Family Practice 04/28/21
--- OUTSIDE RECORDS SUMMARY | 2025-02-08 17:03 | XMS_ITS | Referral Summary ---
Author Organization [facility] Address [address] [place] [id number] Care Team Providers Care Operations Manager/Coordinator Name Role Phone Carlos Manuel RADFORD NP, [...] on file Legal Sex Female 8:44 PM FEEDER [employer] Gender Identity Not on file Sexual Orientation Not on file Last Filed Vital Signs Vital Sign Reading Time Taken Comments Blood Pressure 116/77 10/27/2015 2:49 PM [employer] C[employer] Pulse 102 10/27/2015 2:49 PM FE[employer] C[employer] Temperature 36.6 C (97.9 F) 10/27/2015 2:49 PM FEEDER C[employer]ER [employer] Respiratory Rate - - Oxygen Saturation 100% 10/27/2015 2:49 PM FE[employer] C[employer]ER [employer] Inhaled Oxygen Concentration - - Weight 63.5 kg (140 lb) 10/27/2015 2:49 PM [employer] C[employer]ER [employer] Height 165.1 cm (5' 5 ) 10/27/2015 2:49 PM FE[employer] C[employer] Body Mass Index 23.3 10/27/2015 2:49 PM FE[employer] C[employer] Plan of Treatment Not on file Insurance Care Teams Operations Manager/Coordinator Relationship Specialty Start Date End Date Major Horowitz III, NP PCP - General Family Practice 04/28/21
--- OUTSIDE RECORDS SUMMARY | 2025-02-08 17:04 | XMS_ITS | Data Portability ---
Author Organization [facility] [place] Address [address] [place] [address] [place] [address] Care Team Providers Care Smutter Name Role Phone OSWALDO DANG Primary Care Provider FESTUS MACKAY Primary Care Provider SILVIO BRIZUELA Primary Care Provider [phone] Assessment Encounter Date Assessment Date Assessment LastModified by Organization Details LastModified Time 02/03/2025 02/03/2025 Patient is _38__weeks . Discussed plan. Not available 02/03/2025 10:48:22 Plan of Treatment Reminders Order Date Submit Date Provider Last Modified By Organization Details Last Modified Time Details Appointments INDUCTION 2024 05:00P Gwen HA MD Not available Not available Not available Lab None recorded. Referral None recorded. Procedures None recorded. Surgeries None recorded. Imaging non-stres s test 2024 025 [place], [address], [address], [place], [address], 02/06/2025 11:35:12 non-stres s test 2024 025 [email or web address] [place], [address], [address], [place], [address], 02/03/2025 23:34:56 US, obstetric , biophysic al profile + non-stres s test 2024 025 BROWN [place], [address], [address], [place], [address], 02/03/2025 14:11:25 non-stres s test 2024 025 [email or web address] [place], [facility] [address], [place], [address], 01/30/2025 11:58:44 Medication Orders None recorded. Patient TargetsNo targets recorded. Patient InstructionsNo instructions recorded. Reason for Referral None Reported. Results Created Date Observation Date Name Description Value Unit Range Abnormal Flag Note LastModifiedBy Organization Detail LastModifiedTime 01/21/2001/20/2025 CULTU RE: GROUP B STREP SCREE N, [...] t Abnor mal: No Resul ting Lab: [facility] [address] [facility] [address] Tel: CULTU RE ----- ----- ----- --- No Group B strep isola mamadou at 2 days (corrie ctive broth enhan cemen t) Not Available [facility] (Lab) [address] [facility], [place], [address], 01/23/2025 15:14:26 12/31/1912/22/2024 lalit r monit or No observ ation record ed. [address], [address], 01/01/2025 01:03:10 12/31/19 25 12/22/2024 lalit r monit or No observ ation record ed. [facility] (Neurology) [address] [place] [address], [address], 01/01/2025 01:03:00 01/02/20 25 01/01/2025 non-s tress test No observ ation record ed. [email or web address] [place] [address], [place], [address], 01/01/2025 12:22:50 01/07/20 25 01/06/2025 US, obste tric, bioph ysica l profi le + non-s tress test No observ ation record ed. [email or web address] [place] [address], [place], [address], 01/06/2025 12:39:40 01/07/20 25 01/06/2025 US, obste tric, bioph ysica l profi le + non-s tress test No observ ation record ed. [email or web address] [address], [place], [address], 01/06/2025 11:45:38 01/07/20 25 01/06/2025 non-s tress test No observ ation record ed. [email or web address] [place] [address], [place], [address], 01/06/2025 11:11:56 01/07/20 non-s tress test No observ ation record ed. [email or web address] [place] [address], [place], [address], 01/06/2025 11:14:50 01/10/20 25 01/09/2025 non-s tress test No observ ation record ed. [email or web address] [place] [address], [place], [address], 01/09/2025 11:50:28 01/14/20 25 01/13/2025 US, obste tric, follo w-up No observ ation record ed. [email or web address] [place] [address], [place], [address], 01/13/2025 13:08:44 01/14/20 25 01/13/2025 US, obste tric, bioph ysica l profi le + non-s tress test No observ ation record ed. [email or web address] [place] [address], [place], [address], 01/13/2025 13:08:55 01/14/20 25 01/13/2025 US, obste tric, follo w-up No observ ation record ed. [email or web address] [address] [facility], [place], [address], 01/13/2025 22:27:05 01/14/20 25 01/13/2025 non-s tress test No observ ation record ed. [email or web address] [place] [address], [place], [address], 01/13/2025 10:46:06 01/14/20 non-s tress test No observ ation record ed. [email or web address] [place] [address], [place], [address], 01/13/2025 10:47:59 01/17/20 25 01/16/2025 non-s tress test No observ ation record ed. [place] [address], [place], [address], 01/16/2025 14:41:50 01/21/20 25 01/20/2025 US, obste tric, follo w-up No observ ation record ed. [email or web address] [place] [address], [place], [address], 01/21/2025 22:32:18 01/21/20 25 01/20/2025 US, obste tric, bioph ysica l profi le + non-s tress test No observ ation record ed. [email or web address] [address], [place], [address], 01/20/2025 12:00:13 01/21/20 25 01/20/2025 non-s tress test No observ ation record ed. [email or web address] [place] [address], [place], [address], 01/20/2025 11:52:14 01/24/20 25 01/23/2025 non-s tress test No observ ation record ed. [email or web address] [place] [address], [place], [address], 01/23/2025 17:09:36 01/28/20 25 01/27/2025 US, obste tric, bioph ysica l profi le + non-s tress test No observ ation record ed. [email or web address] [place] [address], [place], [address], 01/27/2025 14:13:45 01/28/2001/27/2025 US, amanda tric, follo w-up No observ ation record ed. [email or web address] [address], [place], [address], 01/29/2025 19:50:40 01/28/20 25 01/27/2025 non-s tress test No observ ation record ed. [email or web address] [place] [address], [place], [address], 01/27/2025 11:31:22 01/30/20 25 01/23/2025 non-s tress test No observ ation record ed. [email or web address] [place] [address], [place], [address], 01/29/2025 10:20:11 01/31/20 25 01/30/2025 non-s tress test No observ ation record ed. [email or web address] [place] [address], [place], [address], 01/30/2025 11:28:02 01/31/20 25 01/30/2025 US, obste tric, follo w-up No observ ation record ed. [email or web address], [place], [address], 02/06/2025 09:09:27 02/04/20 25 02/03/2025 US, obste tric, follo w-up No observ ation record ed. [email or web address] [address], [place], [address], 02/05/2025 12:44:28 02/04/20 25 02/03/2025 US, obste tric, bioph ysica l profi le + non-s tress test No observ ation record ed. [email or web address] [place] [address], [place], [address], 02/03/2025 14:11:25 02/04/20 25 02/03/2025 non-s tress test No observ ation record ed. [email or web address] [place] [address], [place], [address], 02/03/2025 10:46:36 02/07/20 25 02/06/2025 non-s tress test No observ ation record ed. [email or web address] [place] [address], [place], [address], 02/06/2025 11:04:53 Result Notes None recorded. Problems Name Problem SNOMED Code Status Onset Date Resolution Date Notes Provider Name and Address Organization Details Recorded Time Family history of malignant neoplasm of breast in first degree relative 053507306 Active 2021 mom age 32. MAMMOS TO START AT 22yo. Kym López MD [address], [place], [address], [facility] 3 19:05:45 Body mass index 30+ - obesity 370954982 Active 2021 Kym López MD [address], [place], [address], [facility] 2 10:30:27 Prediabet es 392336929 Active Zbigniew Ha MD [address], [place], [address], [facility] 4 11:13:08 Polycysti c ovary syndrome 299832948 Active 2021 Kym López MD [address], [place], [address], [facility] 2 10:30:33 38830961 Active 2023 Mayra redmond, [facility] 4 10:10:22 COVID-19 895509146 Active Zbigniew Ha MD [address], [place], [address], [facility] 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 Next u/s only 09/22/24 Ida redmond, [facility] 4 15:25:15 Prediabet es 523665697 Active Zbigniew Ha MD [address], [place], [address], [facility] 4 11:13:08 Obesity 336330795 Active Zbigniew Ha MD [address], [place], [address], [facility] 4 11:13:33 Tachycard ia 1511741 Active 72 hr Holter monitor order faxed 12/22 Zelda redmond, [facility] 5 13:35:44 Tachycard ia 6726274 Active 72 hr Holter monitor order faxed 12/22 Zelda redmond, [facility] 5 13:35:44 Problem Notes None recorded. Procedures Surgical History Date Name Laterality Status Provider Name and Address Organization Details Recorded Time 02/06/20 24 SIS completed AZEEM GROSS MD [address], [place], [address], [facility] 02/08/2024 13:14:27 10/29/19 24 Date of Last Colonoscopy completed [facility] 08/05/2024 10:47:00 10/29/19 24 Colonoscopy completed [facility] 08/05/2024 10:51:33 10/29/19 20 extraction of wisdom tooth completed [facility] 08/05/2024 10:52:02 03/31/20 19 Date of Last Mammogram completed Mayra [facility] 08/05/2024 16:54:43 10/29/19 19 repair of labial tear completed Mayra [facility] 08/05/2024 16:56:32 Imaging Results Imaging Date Name Status LastModified by Organiz ation Details LastModified Time 12/22/2024 holter monitor completed [facility] [address], [place], [address], 01/01/2025 01:03:10 12/22/2024 holter monitor completed [facility] (Neurology) [address], [place], [address], 01/01/2025 01:03:00 01/01/2025 non-stress test completed [email or web address] [place] [address], [place], [address], 01/01/2025 12:22:50 01/06/2025 US, obstetric, biophysical profile + non-stress test completed [email or web address] [place] [address], [place], [address], 01/06/2025 12:39:40 01/06/2025 US, obstetric, biophysical profile + non-stress test completed [email or web address] [address], [place], [address], 01/06/2025 11:45:38 01/06/2025 [facility] [place] [address] [address], [place], [address], 01/06/2025 11:11:56 01/06/2025 non-stress test [facility] [address], [place], [address], 01/06/2025 11:14:50 01/09/2025 non-stress test completed [email or web address] [place] [address] [address], [place], [address], 01/09/2025 11:50:28 01/13/2025 US, obstetric, follow-up completed [email or web address] [place], [place], [address], 01/13/2025 13:08:44 01/13/2025 US, obstetric, biophysical profile + non-stress test completed [email or web address] [place] [address] [address], [place], [address], 01/13/2025 13:08:55 01/13/2025 US, obstetric, follow-up completed [email or web address] [address], [place], [address], 01/13/2025 22:27:05 01/13/2025 non-stress test active tab[address], [place], [address], 01/13/2025 10:46:06 01/13/2025 non-stress test completed tab[address], [place], [address], 01/13/2025 10:47:59 01/16/2025 non-stress test completed [email or web address] [place] [address] [address], [place], [address], 01/16/2025 14:41:50 01/20/2025 US, obstetric, follow-up completed [email or web address] [place] [address] [address], [place], [address], 01/21/2025 22:32:18 01/20/2025 US, obstetric, biophysical profile + non-stress test completed [email or web address] [address], [place], [address], 01/20/2025 12:00:13 01/20/2025 non-stress test completed [email or web address] [place] [address], [place], [address], 01/20/2025 11:52:14 01/23/2025 non-stress test completed [email or web address] [place] [address], [place], [address], 01/23/2025 17:09:36 01/27/2025 US, obstetric, biophysical profile + non-stress test [facility] [address], [place], [address], 01/27/2025 14:13:45 01/27/2025 US, obstetric, follow-up completed [email or web address] [address], [place], [address], 01/29/2025 19:50:40 01/27/2025 non-stress test completed [email or web address] [place] [address] [address], [place], [address], 01/27/2025 11:31:22 01/23/2025 non-stress test completed [place] [address], [place], [address], 01/29/2025 10:20:11 01/30/2025 non-stress test completed [email or web address] [place] [address], [place], [address], 01/30/2025 11:28:02 01/30/2025 US, obstetric, follow-up completed [email or web address] [place] [facility] [address], [place], [address], 02/06/2025 09:09:27 02/03/2025 US, obstetric, follow-up completed [email or web address] [address], [place], [address], 02/05/2025 12:44:28 02/03/2025 US, obstetric, biophysical profile + non-stress test completed [email or web address] [place] [address], [place], [address], 02/03/2025 14:11:25 02/03/2025 non-stress test completed [email or web address] [place] [address], [place], [address], 02/03/2025 10:46:36 02/06/2025 non-stress test completed [email or web address] [place] [address], [place], [address], 02/06/2025 11:04:53 Procedure Notes None recorded. Medical Equipment None Reported. Allergies Allergen ID Allergen Name Allergen Category Reaction Reaction Severity Criticality Documentation Date Start Date Code Code System Note Provider Name and Address Organization Details Recorded Time 22799 amoxicill in medicatio n Not available Not available Not available 03/24/2022 723 RxNorm Kellyshayne Thompson ruy, [facility] 4 15:12:26 93979 cefdinir medicatio n Not available Not available Not available 03/24/2022 16237 RxNorm Other react ions and sever ities : 'Anap hylax is - Moder ate'. Lara redmond, [facility] 4 15:34:29 94431 amoxicill in trihydrat e medicatio n rash moderate Not available 01/02/2024 71263 8 RxNorm Lara redmond, [facility] 4 15:34:29 44440 ethinyl estradiol / levonorge strel medicatio n Not available Not available Not available 01/02/2024 72622 8 RxNorm AZEEM GROSS MD [address], [place], [address], [facility] 4 11:01:47 Medications Name Sig Start [...] Updated DateTime 01/30/2025 165.1 cm 40.6 kg/m2 136275.5 4 g 117 mm[Hg] 73 mm[Hg] IVETH Dacosta [facility] 5 10:30:33 Date Recorded Body weight Body mass index (BMI) Body height Systolic blood pressure Diastolic blood pressure Provider Name and Address Organization Details Last Updated DateTime 02/03/2025 600206.3 5354 g 40.3 kg/m2 165.1 cm 111 mm[Hg] 74 mm[Hg] Mayra Misael [facility] 5 10:36:14 Date Recorded Body height Body mass index (BMI) Body weight Systolic blood pressure Diastolic blood pressure Provider Name and Address Organization Details Last Updated DateTime 02/03/2025 165.1 cm 40.1 kg/m2 817184.7 6 g 111 mm[Hg] 74 mm[Hg] IVETH Dacosta [facility] 5 10:45:52 Date Recorded Body height Body mass index (BMI) Body weight Systolic blood pressure Diastolic blood pressure Provider Name and Address Organization Details Last Updated DateTime 02/06/2025 165.1 cm 40.4 kg/m2 754377.9 5 g 117 mm[Hg] 80 mm[Hg] IVETH Dacosta [facility] 5 11:04:14 Social History Question Answer Notes LastModified by Organizat ion Details LastModified Time Tobacco Smoking Status Never Smoker [facility] 12/22/2022 11:27:20 Do You Have An Advance Directive? No Information n ot available 01/02/2024 What Is Your Level Of Alcohol Consumption? None [email or web address] Information not available 08/05/2024 If You Are , What Was Your Level Of Alcohol Consumption Prior To ? Occasional [email or web address] Information not available 08/05/2024 How Many Years Have You Consumed Alcohol? 5 Information not available 01/02/2024 Are You Blind Or Do You Have Difficulty Seeing? No Information n ot available 01/02/2024 What Is Your Level Of Caffeine Consumption? Heavy [email or web address] Information not available 07/11/2024 In The 14 [...] To Be High Risk For COVID-19? Yes [email or web address] Information not available 07/11/2024 Are You Currently Employed? Yes [email or web address] Information not available 01/13/2025 Are You Deaf Or Do You Have Serious Difficulty Hearing? No Information not available 01/02/2024 What Type Of Diet Are You Following? REGULAR Information n ot available 01/02/2024 What Is The Highest Grade Or Level Of School You Have Completed Or The Highest Degree You Have Received? ER27835-3 [email or web address] Information not available 07/11/2024 What Is Your Occupation? [employer] [email or web address] Information not available 07/11/2024 Are There Any Guns Present In Your Home? No [email or web address] Information not available 07/11/2024 Have You Ever Been Counseled For Unhealthy Alcohol Use? No [email or web address] Information not available 12/22/2022 Do You Use Protection During Sex? No Information not available 01/02/2024 Do You Use Your Seat Belt Or Car Seat Routinely? Yes Information not available 01/02/2024 Are You Sexually Active? Yes [email or web address] Information not available 12/25/2024 Do You Have Smoke And Carbon Monoxide Detectors In Your Home? Yes Information not available 01/02/2024 How Much Tobacco Do You Smoke? No [email or web address] Information not available 07/11/2024 Do You Feel Stressed (tense, Restless, Nervous, Or Anxious, Or Unable To Sleep At Night)? [id number] Information not available 01/02/2024 Do You Use Any Illicit Or Recreational Drugs? No [email or web address] Information not available 03/24/2022 Do You Use Sunscreen Routinely? Yes [email or web address] Information not available 07/11/2024 Has Tobacco Cessation Counseling Been Provided? No [email or web address] Information not available 12/22/2022 Have You Used IV Drugs? No Information not available 01/02/2024 Do You Or Have You Ever Used Any Other Forms Of Tobacco Or Nicotine? No Information not available 12/22/2022 Sex: Unknown Functional Status Question Answer Note LastModified by Organizat ion Details LastModified Time Do you have difficulty walking or climbing stairs? No [email or web address] Information not available 08/05/2024 Are you able to walk? [email or web address] Information not available 01/02/2024 Are you able to care for yourself? Yes [email or web address] Information not available 08/05/2024 Do you have difficulty dressing or bathing? No Information not available 08/05/2024 What is your exercise level? Occasional [email or web address] Information not available 07/11/2024 Mental Status None recorded. Family History Relationship Description Onset Age of this Age Resolved Age Notes LastModified by Organization Details LastModified Time Mother Anemia [email or web address] Not available 07/11/2024 14:23:29 Mother Carcinoma in situ of breast [email or web address] Not available 2024 09:19:38 Mother Substance abuse meth,a lcohol [email or web address] Not available 07/11/2024 14:23:29 Mother Mental disorder [email or web address] Not available 2023 14:23:29 Mother Hypertensive disorder [email or web address] Not available 2023 14:23:29 Mother Depressive disorder [email or web address] Not available 2023 14:23:29 Mother Anxiety disorder [email or web address] Not available 2023 14:23:29 Mother Malignant tumor of cervix [email or web address] Not available 08/05 16:55:25 Mother Bipolar disorder [email or web address] Not available 2024 09:19:38 Mother Seizure disorder [email or web address] Not available 2024 09:19:38 Father Mental disorder [email or web address] Not available 2023 14:23:29 Father Hypertensive disorder [email or web address] Not available 2023 14:23:29 Father Anxiety disorder [email or web address] Not available 2023 14:23:29 Medical History Condition Response Allergies (Food, seasonal, environmental ) Y Other Y Drug/Latex Allergies/Reactions Y Blood Transfusion N Breast Cancer N Dermatologic Disorders N Lung Disease N Defects or Inherited Disease N Breast Problem N Gestational Diabetes N Hematologic disorders N Anesthesia Complications N History of STI Y Deep Vein Thrombosis N Polycystic ovary syndrome Y Anxiety Disorder Y Autoimmune disease Y Arthritis N Polyps N Infertility N Acid Reflux (GERD) N History of abnormal pap N Cancer N Varicosities N Stroke N Neurologic/Epilepsy N Endometriosis N High Cholesterol N Fibromyalgia N Headaches Y Kidney Disease N Heart Problems N Thyroid Problems N Kidney or Bladder Problems N GI Problems N Eating Disorder [...] SNOMED-CT Code Diagnosis ICD10 Code Diagnosis Note [id number] Kym López MD [place] [address] [address] 03/24/2022 09:46:53 03/24/2022 11:19:51 Polycystic ovary syndrome 692135311 E28.2 Irregular periods 087963 07 N92.6 Trying to conceive 37856 9001 Z31.9 Prediabetes 467718574 R7 3.03 Body mass index 30+ - obesity 586687227 Z68.36 Family his tory of malignant neoplasm of breast in first degree relative 341533214 Z80.3 mom in early 30s [id number] Kym López MD [place] [address],[place] [address] 05/09/2022 16:41:02 05/10/2022 14:59:10 Complete miscarriage 221383984 O03.9 Polycystic ovary syndrome 688657311 E28.2 Prediabetes 738142137 R7 3.03 [id number] Kym López MD [place] [address],[place] [address] 12/22/2022 11:27:13 12/25/2022 16:22:36 Polycystic ovary syndrome 906981930 E28.2 Family his tory of malignant neoplasm of breast in first degree relative 747727930 Z80.3 mom in early 30s Body mass index 30+ - obesity 356292593 Z68.36 Trying to conceive 65176 9001 Z31.9 [id number] MURPHY Ortega [place] [address],[place] [address] 01/02/2024 15:27:31 01/02/2024 16:16:49 Reproductive care management 234163125 Z31.9 Discussed TTC/timed IC, OPKs, etcencoura ged daily PNVrecomme nded updated labs and pelvic u/sdiscuss ed semen anaylsis for partnerRTC for pelvic u/s and fertility consult with Dr. Villela uraged to schedule WWE/due for primary pap Time spent in visit is a total of 25 mins with at least 50% of visit consisting of counseling and review of plan of care. [id number] Kathleen Arora [place] [address],[place] [address] 01/07/2024 12:17:44 01/07/2024 13:06:12 Abnormal uterine bleeding 0222342195 9100 N93.9 N97.9 [id number] AZEEM GROSS MD [place] [address],[place] [address] 01/23/2024 16:05:33 01/23/2024 17:21:25 Recurrent miscarriage 899799309 N96 - Differenti al diagnosis of cause of infertilit y includes: PCOS, water sander y disorder, male factor, structural - We [...] planning and treatment options Polycystic ovary syndrome 672252382 E28.2 [id number] [facility] [address] [address] 02/06/2024 16:19:33 02/07/2024 11:09:35 Female infertility 8219240 N97.9 [id number] AZEEM GROSS MD [place] [address] [address] 02/06/2024 16:19:54 02/08/2024 09:11:01 Recurrent miscarriage 628774830 N96 - Differenti al diagnosis of cause of infertilit y includes: PCOS, water sander y disorder, male factor, structural - We [...] of intrauteri ne pathology- Semen analysis wnl [id number] [facility] [address] [address] 07/11/2024 14:08:47 07/11/2024 14:45:03 [id number] AZEEM GROSS MD [place] [address],[place] [address] 07/11/2024 14:55:15 07/11/2024 15:44:22 screening 391254897 Z36.89 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 Exam today within normal limits.2. 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 - continue bromocrypt ine [id number] [facility] [address],[place] [address] 08/05/2024 09:44:03 08/05/2024 10:49:10 screening 189995069 Z36.82 Z3A.12 [id number] Zbigniew Ha MD [place] [address],[place] [address] 08/05/2024 09:44:29 08/05/2024 11:51:12 Gestation period, 11 weeks 64632716 Z3A.11 Routine an tenatal care 480304678 Z34.90 [id number] AZEEM GROSS MD [place] [address],[place] [address] 09/02/2024 10:34:54 09/05/2024 12:13:07 Prediabetes 731164058 R73.03 - early GTT per MFM Maternal o besity complicating , childbirth and the puerperium, antepartum 1573414276 07 O99.210 Antiphosph olipid syndrome 16702852 D68.61 - 162mg ASA daily- per MFM, no lovenox needed Gestation period, 16 weeks 72547924 Z3A.16 - continue PNV [id number] AZEEM GROSS MD [place] [address],[place] [address] 09/30/2024 09:43:12 09/30/2024 10:43:21 Body mass index 30+ - obesity 411802002 Z68.36 - testing at 37 weeks Antiphosph olipid syndrome 16415283 D68.61 - 162mg ASA daily- per MFM, no lovenox needed Prediabetes 075160286 R7 3.03 - passed early GTT at 16 weeks- repeat at 28 weeks Gestation period, 19 weeks 55094082 Z3A.19 - continue PNV [id number] AZEEM GROSS MD [place] [address],[place] [address] 10/30/2024 09:15:17 10/30/2024 16:23:42 Prediabetes 031874746 R73.03 - passed early GTT at 16 weeks- repeat at 28 weeks Maternal o besity complicating , childbirth and the puerperium, antepartum 5647478431 07 O99.210 Antiphosph olipid syndrome 32855243 D68.61 - 162mg ASA daily- per MFM, no lovenox needed Gestation period, 24 weeks 404588275 Z3A.24 [id number] Kathleen Arora [place] [address],[place] [address] 11/25/2024 09:48:28 11/25/2024 10:41:01 condition affecting obstetrical care of mother 222576200 O35.3XX0 O99.212 Z3A.27 [id number] AZEEM GROSS MD [place] [address],[place] [address] 11/25/2024 09:48:40 11/25/2024 11:26:25 Antiphospholipid syndrome in 5017967877 9100 O99.119 - ASA 162mg- plan for twice weekly testing starting at 32 weeks- continue serial growth US Gestation period, 27 weeks 46494290 Z3A.27 - continue PNV- GCT and labs today Breech presentation 6096 002 O32.1XX9 [id number] Kelly Thompson [place] [address],[place] [address] 12/22/2024 09:24:48 12/22/2024 10:19:21 Antiphospholipid syndrome in 1452216551 9100 O99.119 - ASA 162mg- plan for twice weekly testing starting at 32 weeks- continue serial growth [place] [id number] Susanna Goldman [place] [address],[place] [address] 12/25/2024 09:19:34 12/25/2024 10:02:33 Pre-existing maternal disease complicating 8756892470 6106 O99.891 Z86.16 O99.210 Z3A.32 [id number] Kelly Thompson [place] [address],[place] [address] 12/25/2024 09:21:40 12/25/2024 10:56:47 Antiphospholipid syndrome in 0445262168 9100 O99.119 - ASA 162mg- plan for twice weekly testing starting at 32 weeks- continue serial growth US [id number] AZEEM GROSS MD [place] [address],[place] [address] 12/25/2024 09:22:24 12/25/2024 11:14:34 Tachycardia 3948174 R00.0 - HR up to 150s while standing at work- reviewed CBC, TSH, T4 from PCP, all overall normal for - Holter monitor in progress- february d/c work if Holter abnormalit y found or if patient continues to be symptomati c Antiphosph olipid syndrome 65520291 D68.61 - 162mg ASA daily- per MFM, no lovenox needed- twice weekly testing Body mass index 30+ - obesity 285029459 Z68.36 - testing at 37 weeks Gestation period, 32 weeks 3428049 Z3A.32 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 - mesenteric mass partially imaged on CT PE- recommend PP imaging for full evaluation with CT AP with contrast [id number] Kelly Thompson [place] [address],[place] [address] 12/29/2024 09:20:12 12/29/2024 10:04:25 Antiphospholipid syndrome in 6256113755 9100 O99.119 - ASA 162mg- plan for twice weekly testing starting at 32 weeks- continue serial growth US [id number] [facility] [address],[place] [address] 12/29/2024 09:26:47 12/29/2024 10:22:57 Pre-existing maternal disease complicating 8631438184 6106 O99.891 Z86.16 O99.210 Z3A.32 [id number] AZEEM GROSS MD [place] [address],[place] [address] 12/29/2024 09:31:48 12/29/2024 11:07:48 Tachycardia 1923298 R00.0 - HR up to 150s while standing at work- reviewed CBC, TSH, T4 from PCP, all overall normal for - Holter monitor results pending- will d/c working due to symptoms Antiphosph olipid syndrome 44459277 D68.61 - 162mg ASA daily- per MFM, no lovenox needed- twice weekly testing Gestation period, 33 weeks 37793894 Z3A.33 - continue PNV [id number] eKlly Thompson [place] [address],[place] [address] 01/01/2025 11:25:45 01/01/2025 12:26:46 Antiphospholipid syndrome in 2505199932 9100 O99.119 - ASA 162mg- plan for twice weekly testing starting at 32 weeks- continue serial growth US [id number] [facility] [address],[place] [address] 01/06/2025 09:55:01 01/06/2025 10:39:39 Maternal obesity complicating , childbirth and the puerperium, antepartum 8453787104 07 O99.213 O99.891 Z3A.34 [id number] Kathi Helio [place] [address],[place] [address] 01/06/2025 09:55:10 01/06/2025 11:19:26 Antiphospholipid syndrome in 0505310847 9100 O99.119 [id number] AZEEM GROSS MD [place] [address],[place] [address] 01/06/2025 09:55:26 01/06/2025 11:39:12 Antiphospholipid syndrome 53578019 D68.61 - 162mg ASA daily- per MFM, no lovenox needed- twice weekly testing Tachycardia 0940774 R00. 0 - HR up to 150s while standing at work- reviewed CBC, TSH, T4 from PCP, all overall normal for - Holter monitor results overall normal- will d/c working due to symptoms Gestation period, 34 weeks 67633798 Z3A.34 - continue PNV [id number] Kelly Thompson [place] [address],[place] [address] 01/09/2025 10:52:18 01/09/2025 12:00:03 Antiphospholipid syndrome in 3715712330 9100 O99.119 [id number] Susanna Goldman [place] [address],[place] [address] 01/13/2025 09:18:58 01/13/2025 10:06:16 Maternal obesity complicating , childbirth and the puerperium, antepartum 4672667694 07 O99.213 O99.891 Z86.16 Z3A.35 875332 Kathi Cadet [place] [address],[place] [address] 01/13/2025 09:19:28 01/13/2025 10:57:36 Antiphospholipid syndrome in 1139430501 9100 O99.119 850505 AZEEM GROSS MD [place] [address],[place] [address] 01/13/2025 09:19:42 01/13/2025 11:10:04 Antiphospholipid syndrome 19819382 D68.61 - 162mg ASA daily- per MFM, no lovenox needed- twice weekly testing Tachycardia 1840294 R00. 0 - HR up to 150s while standing at work- reviewed CBC, TSH, T4 from PCP, all overall normal for - Holter monitor results overall normal- d/c working due to symptoms- tachycardi a stable Gestation period, 35 weeks 75846699 Z3A.35 [id number] IVETH [facility] [address],[place] [address] 01/16/2025 10:20:53 01/16/2025 14:44:10 Antiphospholipid syndrome in 2182741574 9100 O99.119 [id number] Kathleen Arora [place] [address],[place] [address] 01/20/2025 10:17:37 01/20/2025 10:49:49 Pre-existing maternal disease complicating 3638155713 6106 O99.891 O99.210 Z3A.36 [id number] [facility] [address],[place] [address] 01/20/2025 10:18:02 01/20/2025 11:43:03 Antiphospholipid syndrome in 2125181380 9100 O99.[id number] [facility] [address],[place] [address] 1 01/20/2025 10:18:15 01/20/2025 11:44:02 Gestation period, 36 weeks 23274935 Z3A.36 525892 Mayra Douglas [place] [address],[place] [address] 1 01/23/2025 10:15:38 01/26/2025 06:51:20 Antiphospholipid syndrome in 5632539773 9100 O99.119 [id number] AZEEM GROSS MD [place] [address],[place] [address] 1 01/27/2025 09:50:12 01/27/2025 11:58:53 Tachycardia 2599849 R00.0 - HR up to 150s while standing at work- reviewed CBC, TSH, T4 from PCP, all overall normal for - Holter monitor results overall normal- d/c working due to symptoms- tachycardi a stable Body mass index 30+ - obesity 861670024 Z68.36 - testing at 37 weeks Antiphosph olipid syndrome 95250579 D68.61 - 162mg ASA daily- per MFM, no lovenox needed- twice weekly testing Gestation period, 37 weeks 12039801 Z3A.37 312383 [facility] [address],[place] [address] 01/27/2025 09:51:29 01/27/2025 10:26:43 Maternal obesity complicating , childbirth and the puerperium, antepartum 3880730556 07 O99.213 O99.891 Z86.16 Z3A.37 [id number] [facility] [address],[place] [address] 01/27/2025 09:52:02 01/27/2025 11:35:13 Antiphospholipid syndrome in 9649339955 9100 O99.119 [id number] [facility] [address],[place] [address] 01/30/2025 10:19:40 01/30/2025 11:58:44 Antiphospholipid syndrome 14288361 D68.61 [id number] [facility] [address],[place] [address] 02/03/2025 09:19:18 02/03/2025 10:18:23 Pre-existing maternal disease complicating 0405286136 6106 O99.891 O99.210 Z3A.38 [id number] [facility] [address],[place] [address] 02/03/2025 09:37:00 02/03/2025 10:47:50 Antiphospholipid syndrome in 8290859720 9100 O99.[id number] [facility] [address] [place] [address] 02/03/2025 09:37:23 02/03/2025 10:49:53 Gestation period, 38 weeks 94844710 Z3A.38 [id number] [facility] [address] [place] [address] 02/06/2025 10:20:57 02/06/2025 11:35:11 Antiphospholipid syndrome in 4542919433 9100 O99.119 Health Concerns Section Related Observation LastModified by Organization Detai ls LastModified Time None Recorded Concern Status LastModified by Organization Details LastModified Time None Recorded Advance Directives Directive N: Payers Encounter Date Sequence Insurance Name Policy Number Policy [place] Covered Member ID Eubanks Member ID Guarantor Name 01/30/2025 1 [employer] [id number] Pyper Paul [id number] Pyper Paul 01/30/2025 2 [place] [employer] Pyper Paul [id number] Pyper Paul 02/03/2025 1 [employer] [id number] Pyper Paul [id number] Pyper Paul 02/03/2025 2 [place] [employer] Pyper Paul [id number] Pyper Paul 02/03/2025 1 [employer] [id number] Pyper Paul [id number] Pyper Paul 02/03/2025 2 [place] [employer] Pyper Paul [id number] Pyper Paul 02/03/2025 1 [employer] [id number] Pyper Paul [id number] Pyper Paul 02/03/2025 2 [place] [employer] Pyper Paul [id number] Pyper Paul 02/06/2025 1 [employer] [id number] Pyper Paul [id number] Pyper Paul 02/06/2025 2 [place] [employer] Pyper Paul [id number] Pyper Paul OBGyn Episode Ob Episode Information Episode Created Date Number of Fetuses Patient Bloodtype Patient rh Status Prepregnancy Weight lbs Domestic Partner Domestic Partner Phone Father Name Agitator Operator Status 02/14/20 23 1 CLOSED Fetus Data First Name Last Name Admitted to NICU Weight (g) Sex Living Outcome Pediatric Complications Fetus ID Race Codes Race Delivery Type , Spontane ous [id number] Chad Calculation Initial Chad Date Initial Exam [...] Domestic Partner Domestic Partner Phone Father Name Agitator Operator Status 01/02/20 24 1 CLOSED Fetus Data First Name Last Name Admitted to NICU Weight (g) Sex Living Outcome Pediatric Complications Fetus ID Race Codes Race Delivery Type [id number] Chad Calculation Initial Chad Date Initial Exam [...] Domestic Partner Domestic Partner Phone Father Name Agitator Operator Status 08/05/20 24 1 O Positive 224 OPEN Fetus Data First Name Last Name Admitted to NICU Weight (g) Sex Living Outcome Pediatric Complications Fetus ID Race Codes Race Delivery Type [id number] Problems Problem Notes 10/20/24 7:30am u/s onlyLD [...] Resolution Snomed Code Not e Antiphospholipid syndrome 98008134 Baby asa, 32wk testing twice weekly; MFM referral sent 08/05/24 SSMScheduled 08/27 9AM U/S & Consult. Next u/s only 09/22/24 Prediabetes 211394148 COVID-19 824847149 Obesity 992179054 Tachycardia 3600138 72 hr Ho lter monitor order faxed [...] Date Ultra Sound Latest Days Gestation 0 [email or web address] 12/29/2024 02/16/20 25 0 Pre- Flowsheet Flowsheet [...] Type Weight in lbs Pre/Post Dialysis Refused 218.550409904143 BP Diastolic BP Location Tested BP Systolic [...] Weight in lbs Pre/Post Dialysis Refused Weight 213.511838389522 BP Diastolic BP Location Tested BP Systolic BP Type 69 L arm 110 sitting Fetus Heart Rate Present Fetus Movement A No Comments Doing well, no cramping or b leeding. No movement yet. NIPT LR female! Saw MFM, recommend 162mg ASA, does not recommend lovenox. Will do early 1h GTT next week, stop metformin today. Anatomy US at [facility]. RTC 4 weeks. Flowsheet Date 09/30/2024 Reinsoo Score Blood Edema Fundus Height Fundus Units Glucose Ketones Leukocytes Nitrite Labor Signs Protein Cervic Dilation Cervic Effacement Cervic Station neg none Type Weight in lbs Pre/Post Dialysis Refused Weight 221.361632068291 BP Diastolic BP Location Tested BP Systolic [...] Type Weight in lbs Pre/Post Dialysis Refused 222.29609370721 BP Diastolic BP Location Tested BP Systolic BP Type 70 L arm 105 sitting Fetus Heart Rate Present A 140 Fetus Movement A Yes Comments Patient c/o of [place] . Good movement. No bleeding. Placenta no longer low lying. [place] like [place] [facility] [place], will transfer orders here. [...] Weight in lbs Pre/Post Dialysis Refused Weight 227.6904083297 BP Diastolic BP Location Tested BP Systolic BP Type 74 L arm 117 sitting Fetus Heart Rate Present A Present Fetus Movement A Yes Comments Patient c/o [place]. N o bleeding. Good movement. EFW 59%, footling breech. Will start testing twice weekly at 32 weeks for APLS. GCT and labs today. RTC 2 weeks. Flowsheet Date 12/22/2024 Reinoso Score Blood Edema Fundus Height Fundus Units Glucose Ketones Leukocytes Nitrite Labor Signs Protein Cervic Dilation Cervic Effacement Cervic Station Type Weight in lbs Pre/Post Dialysis Refused Weight 232.2615208781 BP Diastolic BP Location Tested BP Systolic [...] Type Weight in lbs Pre/Post Dialysis Refused 230.365635359316 BP Diastolic BP Location Tested BP Systolic [...] Weight in lbs Pre/Post Dialysis Refused Weight 233.973313325741 BP Diastolic BP Location Tested BP Systolic [...] Weight in lbs Pre/Post Dialysis Refused Weight 234.455447954521 BP Diastolic BP Location Tested BP Systolic [...] Type Weight in lbs Pre/Post Dialysis Refused 234.253448487508 BP Diastolic BP Location Tested BP Systolic BP Type 74 L arm 110 sitting Fetus Heart Rate Present Fetus Movement Comments Flowsheet Date 01/06/2025 Reinoso Score Blood Edema Fundus Height Fundus Units Glucose Ketones Leukocytes Nitrite Labor Signs Protein Cervic Dilation Cervic Effacement Cervic Station neg none Type Weight in lbs Pre/Post Dialysis Refused Weight 234.248566914163 BP Diastolic BP Location Tested BP Systolic BP Type 74 L arm 110 sitting Fetus Heart Rate Present A 140 Fetus Movement A Yes Comments Patient c/o [place]. G ood movement. Still having palpitations while being more active. Resolves with rest. BPP 10/10. Would like induction on 02/08. Induction methods reviewed. Continue testing. Flowsheet Date 01/09/2025 Reinoso Score Blood Edema Fundus Height Fundus Units Glucose Ketones Leukocytes Nitrite Labor Signs Protein Cervic Dilation Cervic Effacement Cervic Station Type Weight in lbs Pre/Post Dialysis Refused Weight 236.638913256954 BP Diastolic BP Location Tested BP Systolic [...] Weight in lbs Pre/Post Dialysis Refused Weight 235.525097416282 BP Diastolic BP Location Tested BP Systolic [...] Weight in lbs Pre/Post Dialysis Refused Weight 237.1200552917 BP Diastolic BP Location Tested BP Systolic [...] Weight in lbs Pre/Post Dialysis Refused Weight 238.764551323008 BP Diastolic BP Location Tested BP Systolic BP Type 74 L arm 117 sitting Fetus Heart Rate Present Fetus Movement Comments Flowsheet Date 01/20/2025 Reinoso Score Blood Edema Fundus Height Fundus Units Glucose Ketones Leukocytes Nitrite Labor Signs Protein Cervic Dilation Cervic Effacement Cervic Station Type Weight in lbs Pre/Post Dialysis Refused 238.715042872368 BP Diastolic BP Location Tested BP Systolic [...] Weight in lbs Pre/Post Dialysis Refused Weight 240.909530905768 BP Diastolic BP Location Tested BP Systolic [...] Weight in lbs Pre/Post Dialysis Refused Weight 240.373328875993 BP Diastolic BP Location Tested BP Systolic [...] Weight in lbs Pre/Post Dialysis Refused Weight 244.881680689290 BP Diastolic BP Location Tested BP Systolic [...] Weight in lbs Pre/Post Dialysis Refused Weight 241.074387414755 BP Diastolic BP Location Tested BP Systolic BP Type 74 L arm 111 sitting Fetus Heart Rate Present Fetus Movement Comments Flowsheet Date 02/03/2025 Reinoso Score Blood Edema Fundus Height Fundus Units Glucose Ketones Leukocytes Nitrite Labor Signs Protein Cervic Dilation Cervic Effacement Cervic Station neg trace 2cm 80% -2 Type Weight in lbs Pre/Post Dialysis Refused 242.398670790341 BP Diastolic BP Location Tested BP Systolic BP Type 74 111 Fetus Heart Rate Present Fetus Movement A Yes Comments Patient is having contractio ns, discharge and swelling. cervix very anterior, membrane sweep done, precautions reviewed +FM, bpp 8/8 f/u one week Flowsheet Date 02/06/2025 Reinoso Score Blood Edema Fundus Height Fundus Units Glucose Ketones Leukocytes Nitrite Labor Signs Protein Cervic Dilation Cervic Effacement Cervic Station Type Weight in lbs Pre/Post Dialysis Refused Weight 243.146111134372 BP Diastolic BP Location Tested BP Systolic BP Type 80 L arm 117 sitting Fetus Heart Rate [...]
--- OUTSIDE RECORDS SUMMARY | 2025-02-08 17:04 | XMS_ITS | Data Portability ---
Author Organization [place] - [facility], DISP_HR Vascular Address [address] [place] [address] Care Team Providers Care Air And Water Filler Name Role Phone FESTUS MACKAY Primary Care [...] Lab CBC w/ auto diff [address] Outpatient Registration Lab/Ekg, [address], [place], [address], 3 09:09:17 CMP, serum or plasma [address] Outpatient Registration Lab/Ekg, [address], [place], [address], 3 09:09:17 TSH, serum or plasma [address] Outpatient Registration Lab/Ekg, [address], [place], [address], 3 09:09:17 iga, quantitativ e, serum [address] Outpatient Registration Lab/Ekg, [address], [place], [address], 3 09:09:17 tissue transglutam inase iga Ab, serum [address] Outpatient Registration Lab/Ekg, [address], [place], [address], 3 09:09:18 calprotecti n, stool [address] Outpatient Registration Lab/Ekg, [address], [place], [address], 3 09:09:18 C reactive protein, QN, serum or plasma [address] Outpatient Registration Lab/Ekg, [address], [place], [address], 3 09:09:18 fecal fat, qualitative , stool [address] Outpatient Registration Lab/Ekg, [address], [place], [address], 3 09:09:18 vitamin B12 + folate, serum or blood [address] Outpatient Registration Lab/Ekg, [address], [place], [address], 3 09:09:18 pancreatic elastase, stool [address] Outpatient Registration Lab/Ekg, [address], [place], [address], 3 09:09:18 ph, stool [address] Outpatient Registration Lab/Ekg, [address], [place], [address], 3 09:09:19 giardia lamblia Ag, EIA, stool [address] Outpatient Registration Lab/Ekg, [address] [facility] [address] [place] [address], [address], 4 15:15:23 Referral None recorded. Procedures esophagogas troduodenos copy with biopsy (PROC) 2022 023 [facility] (Admitting), [address], [place], [address], 4 11:15:28 colonoscopy procedure (PROC) [address] (Admitting), [address], [place], [address], 4 14:25:34 Surgeries None recorded. Imaging None recorded. Medication Orders Golytely 236 gram-22.74 gram-6.74 gram-5.86 gram oral solution 2022 023 [facility] [address], [address], [address], 3 12:55:17 ondansetron HCl 4 mg tablet 2022 023 [facility] [address], [address], [address], 3 12:55:16 Patient TargetsNo targets recorded. Patient Instructions Encounter Date Encounter Id Patient Instructions Last Modified By Organization Details Last Modified Time 10/05/2023 [id number] observe if diarrhea is brought on by [...] ve negati ve [facility] [address], [place] [id number] Lab Direc tor: Lebron vasquez PhD, Phone : [phone] Not Available [facility] (Lab) [address], [place], [address], 11/16/2023 16:12:33 11/14/19 24 11/19/2023 CALPR OTECT IN, FECAL calprotectin , fecal 10 ug/g 0-120 Natalie ntrat ion Inter preta tion Follo w-Up < 5 - 50 ug/g Itzel l None >50 -120 ug/g Borde rline Re-ev aluat e in 4-6 weeks >120 ug/g Abnor mal Repea t as clini steven indic ated Perfo rmed at: [facility] [place] [address] [place] [address] [place] [address] Lab Direc tor: Carly ly MD, Phone : [phone] Not Available [facility] (Lab) [address], [place], [address], 11/19/2023 23:07:23 11/14/19 24 11/20/2023 PANCR EATIC ELAST ASE, FECAL pancreatic elastase, fecal 448 ug_el ast./ g >200 Sever e Pancr eatic Insuf ficie ncy: <100 Moder ate Pancr eatic Insuf ficie ncy: 100 - 200 Itzel l: >200 Perfo rmed at: [facility] [place] [address] , [place] [address] Lab Direc tor: Carly ly MD, Phone : [phone] Not Available [facility] (Lab) [address] , [place], [address], 11/20/2023 13:10:21 11/14/19 24 11/20/2023 PH, STOOL pH, stool 6.0 7.0-7. 5 low Test( s) 72193 1-pH, Stool was devel oped and its perfo rmanc e sal cteri stics deter mined by [facility] . It has not been clear ed or appro khushbu by the Food and Drug Admin istra tion. Perfo rmed at: [facility] [address] [place] [address] Lab Direc tor: Lebron vasquez PhD, Phone : [phone] Not Available [facility] (Lab) [address] , [place], [address], 11/20/2023 20:13:30 11/14/19 24 11/20/2023 FECAL FAT, QUALI TATIV E fats, neutral Normal Itzel l (<60 Dropl ets/H PF) Not Available [facility] (Lab) [address] , [place], [address], 11/20/2023 20:13:31 11/14/19 24 11/20/2023 FECAL FAT, QUALI TATIV E fats, total Normal Itzel l (<100 Dropl ets/H PF) Perfo rmed at: [facility] [address] [place] [address] Lab Direc tor: Lebron vasquez PhD, Phone : [phone] Not Available [facility] (Lab) [address] , [place], [address], 11/20/2023 20:13:31 Result Notes None recorded. Problems Name Problem SNOMED Code Status Onset Date Resolution Date Notes Provider Name and Address Organization Details Recorded Time Polycystic ovary syndrome 541071932 [facility] 16:[facility]:45 Hyperlipidemia 89645237 Active 2022 Octavia redmond, [facility] 3 16:41:52 Chronic diarrhea of unknown origin 25001448 Active 2022 Nilsa Ly MD [address] [place], [address], [facility] 3 12:46:59 Problem Notes None recorded. Medical Equipment None Reported. Allergies Allergen ID Allergen Name Allergen Category Reaction Reaction Severity Criticality Documentation Date Start Date Code Code System Note Provider Name and Address Organization Details Recorded Time 891927 amoxicill in medicatio n Not available Not available Not available 10/05/2023 723 RxNorm Octavia redmond, [facility] 3 12:09:49 249367 cefdinir medicatio n Not available Not available Not available 10/05/2023 48814 [facility] 3 12:10:09 Medications Name Sig Start Date [...] Updated DateTime 3 165.1 cm 36.4 kg/m2 07597.7 3 g 98 % 98 % 73 /min 124 mm[Hg] 78 mm[Hg] Octavia guerrero [facility] 12:11:54 Social History Question Answer Notes LastModified by Organizat ion Details LastModified Time Tobacco Smoking Status Never Smoker Octavia redmond, [facility] 10/05/2023 12:13:34 What Is Your Level [...] SNOMED-CT Code Diagnosis ICD10 Code Diagnosis Note [id number] Nilsa Ly MD [facility] [address] [place] [address] 10/05/2023 11:47:23 10/05/2023 13:11:54 Chronic diarrhea of unknown origin 20186370 K52.9 Health Concerns Section Related Observation LastModified by Organization Detai ls LastModified Time None Recorded Concern Status LastModified by Organization Details LastModified Time None Recorded Advance Directives Directive None Recorded Payers Encounter Date Sequence Insurance Name Policy Number Policy Eubanks Covered Member ID Eubanks Member ID Guarantor Name 10/05/2023 1 [facility] ON OR AFTER 04/28/21 (MEDICAID REPLACEMENT - HMO) Nito Miller [id number] Nito Miller Notes Date Note Type Note [...] the diarrhea Nilsa Ly MD [address] [place], [address], [facility] 10/05/2023 12:56:35 OBGyn Episode No OBEpisode recorded.
--- OUTSIDE RECORDS SUMMARY | 2025-02-08 17:04 | XMS_ITS | Clinical Summary ---
Author Organization [facility] Address [address] [place] [address] Care Team Providers Care Chemical Compounder Helper Name Role Phone Ilya Vaughn MD Primary Care Provide r Source Comments [facility],non-owned Affiliates and Associated Physician Practices is amultiple site organization consisting of ambulatory clinics and hospital sitesin [place], [place], [place] and [place]. This disclosure is being madepursuant to the Care Everywhere program and may not contain all information available regarding this patient. Last updated 18.[facility] Allergies Active Allergy Reactions Criticality Noted Date Comments Amoxicillin Itching 03/01/2017 Throat itchy Cefdinir Rash Medium 03/05/2019 Medications * Be aware that medications may not be up to date on this document. Alwaysverify current medications with the patient. Vit-DSS-Fe Fum-FA ( vitamin with iron) tablet Take 1 (one) tablet by mouth once daily Activ e aspirin (Aspirin) 81 MG chew tabletIndicati ons:Antiphosph olipid syndrome Take 1 (one) tablet by mouth [...] Diarrhea 07/05/2018 08/02/2018 Constipation 07/05/2018 08/02/2018 Immunizations Immunization Administration Dates Next Due DTAP, HISTORIC VACCINE [...] at Not on file Legal Sex Female 9:49 AM CDT Gender Identity Not on file Sexual Orientation Not on file Last Filed Vital Signs Vital Sign Reading Time Taken Comments Blood Pressure 109/77 08/27/2024 9:23 AM CDT Pulse 79 08/27/2024 9:23 AM CDT Temperature 36.6 C (97.9 F) 12/30/2020 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 Respiratory Rate 18 12/30/2020 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 Oxygen Saturation 99% 12/30/2020 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
[2025-02-08 17:46] LABS: Basophils Percent Auto 0.2 % (0.2-1.2); Eosinophils Percent Auto 0.5 % (0-4.4); Hematocrit 35.3 % (37.0-47.0); Hemoglobin 11.5 g/dL (12.0-15.0); Immature Granulocyte Absolute 0.03 K/mm3 (0.00-0.031); Immature Granulocyte Percent A 0.3 % (0-0.5); Lymphocytes Absolute Auto 2.39 K/mm3 (0.9-3.2); Lymphocytes Percent Auto 27.6 % (18.3-44.2); Mean Corpuscular HGB Conc 32.6 g/dl (32-36); Mean Corpuscular Hemoglobin 29.7 pg (26-34); Mean Corpuscular Volume 91.2 fl (80-100); Mean Platelet Volume 10.1 fl (7.4-10.4); Monocytes Absolute Auto 0.3 K/mm3 (0.1-0.6); Monocytes Percent Auto 3.9 % (2.6-8.5); Neutrophils Absolute Auto 5.8 K/mm3 (1.3-6.7); Neutrophils Percent Auto 67.5 % (45.5-73.1); Platelet Count Result 294 k/mm3 (150-375); Red Blood Count 3.87 M/mm3 (4.2-5.4); White Blood Count 8.7 K/mm3 (4.5-10.0)
[2025-02-08] MEDS: miSOPROStol 25 MCG TABLET 50 MCG BUCCAL (17:54)
[2025-02-08 18:31] LABS: Syphilis IgG/IgM Antibody Negative (Negative)
[2025-02-08 18:36] LABS: HIV 1/2 Ab P24 Ag Result Negative (Negative)
[2025-02-09] VITALS (136 sets, daily range): BP systolic 85–151; BP diastolic 46–93; PULSE 66–152; RESP 16–18; TEMP 36.2–37.7; O2SAT 96–100; BMI 40.3
[2025-02-09] MEDS: miSOPROStol 25 MCG TABLET 50 MCG BUCCAL (00:54)
[2025-02-09] MEDS: LACTATED RINGERS 1,000 ML 125 ML IV CONT ×2 (05:20→08:26)
[2025-02-09] MEDS: OXYTOCIN 30 UNITS/NS 500 ML 30 UNITS/500 ML BAG IV CONT (05:20)
--- NOTE | 2025-02-09 05:57 | P.PNAN_ITS ---
Anes - Eval Pre Procedure Procedure: labor epidural Date/Time: 02/09/25 05:57 Surgeon: deon Preop Diagnosis: pain during labor Pre Op Diagnosis: IOL Patient Data Age: 24 Gender: F Height: Weight: Last Vital Signs Temp 36.6 C 02/09/25 05:10 Pulse 79 02/09/25 05:46 BP 120/79 02/09/25 05:46 O2 Del Method Room Air 02/08/25 17:39 Allergies Allergy/AdvReac Type Severity Reaction Status Date / Time amoxicillin Allergy Anaphylaxis Verified 01/15/25 12:32 cefdinir Allergy Anaphylaxis Verified 01/15/25 12:32 Home Medications ?Medication ?Instructions ?Recorded ?Confirmed ?Type aspirin 81 mg chewable tablet 81 mg PO DAILY 01/15/25 02/08/25 History ferrous sulfate 134 mg (27 mg 134 mg PO DAILY 01/15/25 02/08/25 History iron) tablet (High Potency Iron) vvnwpsxa-pcs-Qo-FA 1 mg tablet PO 01/15/25 History tablet Laboratory Tests 02/08/25 17:29 WBC 8.7 K/mm3 (4.5-10.0) RBC 3.87 L M/mm3 (4.2-5.4) Hgb 11.5 L g/dL (12.0-15.0) Hct 35.3 L % (37.0-47.0) MCV 91.2 fl (80-100) MCH 29.7 pg (26-34) MCHC 32.6 g/dl (32-36) RDW 15.0 H % (11.5-14.5) Plt Count 294 k/mm3 (150-375) MPV 10.1 fl (7.4-10.4) Immature Gran % (Auto) 0.3 % (0-0.5) Neut % (Auto) 67.5 % (45.5-73.1) Lymph % (Auto) 27.6 % (18.3-44.2) [place] % (Auto) 3.9 % (2.6-8.5) Eos % (Auto) 0.5 % (0-4.4) Baso % (Auto) 0.2 % (0.2-1.2) Lymph # (Auto) 2.39 K/mm3 (0.9-3.2) [place] # (Auto) 0.3 K/mm3 (0.1-0.6) Eos # (Auto) 0.0 K/mm3 (0-0.3) Baso # (Auto) 0.0 K/mm3 (0.0-0.1) Abs Immat Gran (auto) 0.03 K/mm3 (0.00-0.031) Absolute Neuts (auto) 5.8 K/mm3 (1.3-6.7) Absolute Nucleated RBC 0.000 K/mm3 (0.0-0.012) Nucleated RBC % 0.0 % (0.0-0.2) Syphilis IgG/IgM Ab Negative (Negative) HIV 1&2 Ab/P24 Ag 4thGn Negative (Negative) Blood Type O Positive Antibody Screen Negative Patient hx anesthesia problems: none Family hx anesthesia problems: none Results Review: All pre-operative results and documents have been reviewed as part of the pre- operative evaluation. [facility] Past Medical History Medical History (Updated 02/09/25 @ 05:58 by Fatemeh Bull CRNA) Tachycardia Migraines, neuralgic IUP (intrauterine ), incidental Antiphospholipid syndrome Family History Family History (Updated 01/15/25 @ 12:35 by Kathi Butt RN) Mother Breast cancer Grandparent Throat cancer Social History Social History Smoking status: Never smoker Substance use: never Do You Feel Safe in your Home?: Yes Lack of Transportation: No Lack of Food: Never True Current Housing: I Have Housing Concerned About Future Housing: No Difficulty Paying Gas/Electric Bills: No Difficulty Paying for Meds: No Currently Unemployed: No Education: Associate Degree Difficulty w/ Childcare or Family Care: No Spiritual care concerns: No Exam Day of Procedure 02/09/25 05:57
--- NOTE | 2025-02-09 08:39 | WPDHPUPDATE1 ---
History and Physical Update Update Date/Time: 02/09/25 08:39 24-year-old 3 para 0 at 39 weeks gestation presents in labor. Spontaneous rupture membranes. Reassuring status. Epidural being placed. Favorable exam. Expectant management. History and Physical has been reviewed, including an updated exam of the patient. There are NO changes in the patient's condition. Risks, benefits, and alternatives have been discussed and questions answered. Patient agrees to proceed with procedure.
[2025-02-09] MEDS: OXYTOCIN 30 UNITS/NS 500 ML 30 UNITS/500 ML BAG 125 UNITS IV CONT (13:52)
[2025-02-09] MEDS: IBUPROFEN 600 MG TABLET PO ×2 (15:39→21:24)
[2025-02-09] MEDS: WITCH HAZEL 40 PADS 1 PAD TOPICAL (15:40)
[2025-02-09] MEDS: BENZOCAINE 20% AER SPR (*SP) 56 GM CAN 1 SPRAY TOPICAL (15:40)
--- NOTE | 2025-02-09 16:23 | OBPPTRN ---
1605-Patient transferred to post room #282 via wheelchair. Support person present. Oriented to unit, room, information board, rooming in, admission packet and security measures. Patient verbalizes understanding.
[2025-02-10] MEDS: IBUPROFEN 600 MG TABLET PO ×2 (05:19→14:55)
[2025-02-10 05:43] LABS: Hematocrit 33.2 % (37.0-47.0); Hemoglobin 10.2 g/dL (12.0-15.0)
[2025-02-10] MEDS: MULTIVIT/MIN/PREN/FOL AC/IRON TABLET 1 TAB PO (07:26)
--- NOTE | 2025-02-10 07:29 | P.PNOB_ITS ---
OB - PN: Subj Subjective Date/time seen: 02/10/25 07:29 Patient comments: no complaints, pain well controlled, incisional pain, tolerating diet and flatus present OB - PN: Obj Data Labs 02/10/25 05:18 Labs: Laboratory Results - last 24 hr 02/10/25 05:18 Hgb 10.2 L Hct 33.2 L OB - PN A/P Plan day: 1 Plan: routine care Comments: No problems, routine care Time Spent With Patient Time: Total time spent is greater than 50% in coordination of care (as documented) at patient's floor/unit and/or counseling patient: Exam 2 Const: General: comfortable, no acute distress and alert Resp: Effort & Inspection: normal respiratory effort Auscultation: no crackles, no rales and no rhonchi Cardio: Rate: regular rate Heart sounds: no click, no murmurs and no rubs GI: Inspection: non-distended GI Palp: No Tenderness to palpation present (GI) Auscultation: normal bowel sounds Other: Incision - CDI Extrem: General: normal to inspection, no pedal edema and no calf tenderness
[2025-02-10 07:40] VITALS: BP 107/65; PULSE 74; RESP 16; TEMP 36.6; O2SAT 97
--- NOTE | 2025-02-10 08:45 | PC.NURSE ---
Met with mother to discuss needs. She states that infant latched well on the right breast for the initial few feedings, then began to struggle to latch and suckle. Baby is receiving phototherapy due to a positive amy test and there is a doctor's order to supplement with at least 15ml of pumped breast milk/formula after each . Mom is not currently pumping. We discussed the need to pump if baby is not consistently stimulating her breast. Mom states that baby spit up blood and that she believes it was from feeding on the right breast. She was pumping at home prior to delivery and did not have any nipple trauma or bleeding. Mom struggled to get baby to take 15ml of formula from the bottle and with the nurses assistance it took 1 hour. Discussed that we should be completing feedings within 30 minutes to maximize baby's time under the bili lights. Infant blood sugars have been appropriate and we are no longer checking preprandial sugars. Mom is encouraged to call out at the next feeding time for latching assistance. Primary RN updated.
--- NOTE | 2025-02-10 09:30 | PC.NURSE ---
Patient called out for assistance. We attempted to feed baby on the left breast which mom states is the more difficult side. Baby was placed in football and seemed fairly wager to feed. She will root and open her mouth but will not obtain a true latch or seal on the breast, just holds the nipple in her mouth. After a few minutes of attempting on the left side we switched to cross cradle hold on the right breast. Again, baby seemed eager and would hold the nipple in her mouth but never achieved a true latch or suckling. Because we are limiting time out of the bili lights, mom will supplement with 15ml of formula and we will initiate pumping. She did not bring her pump from home so a hospital pump will be provided. Dr. Reynoso came to room to assess baby and mom was struggling to get baby to take the bottle. She was able to get 5ml in and I was able to get an additional 5mls. Baby struggles to create a seal on the bottle nipple. Her tongue seems to have appropriate lift and extension but she lacks the organization to maintain a seal on the nipple while sucking. Maximum chin support was needed for the feeding. 's jaw quivers indicating she may have some immature musculature in her mouth and jaw. Mom was set up with the Medela pump and the 24mm flanges. She was using the 24mm flange with her home pump. She was shown how to use the initiation program on the pump and instructed on use, frequency, and cleaning. Mother aware that if infant is not efficiently stimulating the breast at every feeding she needs to pump to support her milk supply. RN updated.
--- NOTE | 2025-02-10 10:50 | WPDANLDPN2 ---
Anes-Prog Note L&D Date/Time: 02/10/25 10:50 Comfortable throughout: labor and delivery Neuraxial method: epidural Epidural/Spinal procedure site: clean & non-tender Neuro status: Neuro function grossly intact. Cardiovascular status: normal Respiratory status: normal Airway patency: baseline Mental status: baseline Post-Op hydration status: normal Vital Signs: Last Vital Signs Temp 36.6 C 02/10/25 07:40 Pulse 74 02/10/25 07:40 Resp 16 02/10/25 07:40 BP 107/65 02/10/25 07:40 Pulse Ox 97 02/10/25 07:40 O2 Del Method Room Air 02/09/25 16:30 Pain score (VAS): 11/07 Post-procedural complaints: none Patient feedback: Patient satisfied with anesthetic care.
[2025-02-10 12:32] VITALS: BP 102/51; PULSE 66; RESP 16; TEMP 36.6; O2SAT 98
[2025-02-10] MEDS: ACETAMINOPHEN 325 MG TABLET 650 MG PO (20:30)
[2025-02-11 00:45] VITALS: BP 109/74; PULSE 63; RESP 18; TEMP 36.6; O2SAT 99
[2025-02-11] MEDS: IBUPROFEN 600 MG TABLET PO ×3 (00:45→16:00)
[2025-02-11 08:02] VITALS: BP 112/67; PULSE 70; RESP 14; TEMP 36.6; O2SAT 98
[2025-02-11] MEDS: DOCUSATE SODIUM 100 MG CAPSULE PO ×2 (08:13→16:01)
[2025-02-11] MEDS: MULTIVIT/MIN/PREN/FOL AC/IRON TABLET 1 TAB PO (08:13)
--- NOTE | 2025-02-11 08:50 | P.PNOB_ITS ---
OB - PN: Subj Subjective Date/time seen: 02/11/25 08:50 Patient comments: no complaints, pain well controlled and tolerating diet OB - PN: Obj Data Labs 02/10/25 05:18 OB - PN A/P Plan day: 2 Plan: routine care and discharge home Time Spent With Patient Time: Total time spent is greater than 50% in coordination of care (as documented) at patient's floor/unit and/or counseling patient: Exam 2 Const: General: comfortable and no acute distress Resp: Effort & Inspection: normal respiratory effort Auscultation: no rales, no rhonchi and no wheezes Cardio: Rate: regular rate Heart sounds: no click, no murmurs and no rubs GI: GI Palp: Yes Soft to palpation and No Tenderness to palpation present (GI) Auscultation: normal bowel sounds Extrem: General: normal to inspection, no pedal edema and no calf tenderness
--- NOTE | 2025-02-11 08:51 | PM.OBDSVD ---
DS: Admitting Diagnosis Discharge Date 02/11/2025 Admitting Diagnosis Term DS: Discharge Diagnosis Discharge Diagnosis (1) Term delivered: Code(s): O80 - Encounter for full-term uncomplicated delivery Status: Acute OB - DS: Summary OB Procedures : None OB Procedures Intrapartum: Spontaneous Vag Delivery OB Procedures: : None Time Spent with Patient Time attestation: Total time spent providing and/or coordinating discharge services: Discharge Plan Discharge Discharging Clinician: Zbigniew Ha Patient Disposition: Home Activity: pelvic rest Diet: regular Patient Instructions: Antibiotic Form Patient Language: Citizen Of [place] Stand Alone Forms: General Discharge Information Follow-up/Referrals: Zbigniew Ha MD [Physician] - Discharge Medications: Continued aspirin 81 mg tablet,chewable 81 mg PO DAILY tihexemd-pcx-Ns-FA 1 mg tablet PO High Potency Iron 134 mg (27 mg iron) tablet 134 mg PO DAILY Date of admission: 02/08/25 16:57 Primary Care Provider: Sara,Maura Szymanski Admitting Provider: Zbigniew Ha Attending physician on admission: Zbigniew Ha Condition: Stable
[2025-02-11] MEDS: WITCH HAZEL 40 PADS 1 PAD TOPICAL (16:00)
--- NOTE | 2025-02-11 18:24 | PC.NURSE ---
4226 Introductions were made, then consulted with patient to assess needs related to . Discussed with mother her?plans to feed?her infant and the?experience so far. Per mom, baby has been latching but refusing to suck, she did not have much success through the night. Mother latched baby to her left breast in football, she was able to hand express drops of colostrum but baby would not suck and maintain a latch. Mother was going to put baby skin to skin and see if baby would show feeding cues. She is using her breast pump but wanted RN to check that she was using the right size, both nipples measured 20-21 and she was using the size 24 which was appropriate. Resources provided for inpatient and outpatient services with the feeding sheet, mom/baby guide and name written on the communication board. Mother voiced understanding of information and will call if there is a request for assistance. Reported to the Primary RN. [id number] Mother called out and she was able to independently latch baby to her left breast for 3 mins and her right breast for 5 mins, she was then going to use her breast and supplement baby as ordered. Reported to the Primary RN.
--- NOTE | 2025-02-11 18:32 | PC.NURSE ---
1600 Mother is feeding appropriately for growth of and understands stimulating to eat if needed. Infant has had appropriate feedings in the last 24 hours meets the outcomes for weight, output, blood sugar and jaundice at this time. Reinforced understanding of milk production, transition of milk, signs of adequate intake, transition of stool, prevention/relief of engorgement, plugged ducts, mastitis, responsive watching for feeding cues, the different methods of stimulating to breastfeed 1-3 hours after the start of the last feeding, community resources, and when to call a provider using the resource of the feeding sheet along with the mom and baby guide. Mother voiced understanding of the information shared, when to call for assistance, denies any additional assistance or education at this time. Reported to the Primary RN.
[2025-02-13 10:42] VITALS: BP 118/78; PULSE 64; RESP 18; TEMP 37.1; O2SAT 98
== END 2025-02-11 17:45 | disposition home or self-care (01) | DRG 806 ==
LOC: ANHLDR 17:02 → ANHOB2 02-09 16:07
PROVIDERS: Admitting Provider Obstetrics & Gynecology; PCP Family Medicine; Visit Provider Obstetrics & Gynecology
DX: O99.12 Other diseases of the blood and blood-forming organs and certain disorders involving the immune mechanism complicating childbirth (principal); D68.61 Antiphospholipid syndrome; Z37.0 Single live birth; Z3A.39 39 weeks gestation of pregnancy; O70.1 Second degree perineal laceration during delivery
CPT/HCPCS: 36415; 85014; 85018; 85025; 86593; 86703; 86850; 86900; 86901; A9270; G0432; J2590; J2795; J7120

== ENCOUNTER 2025-03-19 07:58 | Outpatient (CLI) | payer OTHER, SELFPAY ==
--- NOTE | ~2025-03-19 | CT_ITS ---
CT of the Abdomen and Pelvis: Indication: Abdominal swelling Technique: 2.5 mm axial scans were obtained through the abdomen and pelvis following intravenous adm inistration of 100 cc of Omnipaque 350. Dose reduction technique was used on this scan by utilizing a utomated exposure control and iterative reconstruction technique. The dose-length product (DLP) was 9 41.12 mGy-cm. Findings: Scans through the lung bases are unremarkable. The liver, spleen, pancreas, gallbladder, left adrenal gland, and kidneys are within normal limits. C oarse right adrenal consultation present, likely sequela of prior hemorrhage or infection. No evidenc e of aortic aneurysm. No lymphadenopathy. No bowel obstruction or bowel wall thickening. There is no evidence to suggest acute appendicitis. Images through the pelvis were performed. Urinary bladder unremarkable. No pelvic mass seen. No ascit es. Impression: No significant abnormality seen. Reviewed, dictated and finalized at [facility]. Impression: No significant abnormality seen.
--- OUTSIDE RECORDS SUMMARY | 2025-03-19 08:04 | XMS_ITS | Data Portability ---
Author Organization [place] - [facility], DISP_HR Vascular Address [address] [place] [address] Care Team Providers Care Cnc Service Technician Name Role Phone FESTUS MACKAY Primary Care [...] Lab CBC w/ auto diff [address] Outpatient Registration Lab/Ekg, [address], [place], [address], 3 09:09:17 CMP, serum or plasma [address] Outpatient Registration Lab/Ekg, [address], [place], [address], 3 09:09:17 TSH, serum or plasma [address] Outpatient Registration Lab/Ekg, [address], [place], [address], 3 09:09:17 iga, quantitativ e, serum [address] Outpatient Registration Lab/Ekg, [address], [place], [address], 3 09:09:17 tissue transglutam inase iga Ab, serum [address] Outpatient Registration Lab/Ekg, [address], [place], [address], 3 09:09:18 calprotecti n, stool [address] Outpatient Registration Lab/Ekg, [address], [place], [address], 3 09:09:18 C reactive protein, QN, serum or plasma [address] Outpatient Registration Lab/Ekg, [address], [place], [address], 3 09:09:18 fecal fat, qualitative , stool [address] Outpatient Registration Lab/Ekg, [address], [place], [address], 3 09:09:18 vitamin B12 + folate, serum or blood [address] Outpatient Registration Lab/Ekg, [address], [place], [address], 3 09:09:18 pancreatic elastase, stool [address] Outpatient Registration Lab/Ekg, [address], [place], [address], 3 09:09:18 ph, stool [address] Outpatient Registration Lab/Ekg, [address], [place], [address], 3 09:09:19 giardia lamblia Ag, EIA, stool [address] Outpatient Registration Lab/Ekg, [address] [facility] [address] [place] [address], [address], 4 15:15:23 Referral None recorded. Procedures esophagogas troduodenos copy with biopsy (PROC) 2022 023 [facility] (Admitting), [address], [place], [address], 4 11:15:28 colonoscopy procedure (PROC) [address] (Admitting), [address], [place], [address], 4 14:25:34 Surgeries None recorded. Imaging None recorded. Medication Orders Golytely 236 gram-22.74 gram-6.74 gram-5.86 gram oral solution 2022 023 [facility], [address], [address], 3 12:55:17 ondansetron HCl 4 mg tablet 2022 023 [facility], [address], [address], 3 12:55:16 Patient TargetsNo targets recorded. Patient Instructions Encounter Date Encounter Id Patient Instructions Last Modified By Organization Details Last Modified Time 10/05/2023 [id number] observe if diarrhea is brought on by [...] ve negati ve [facility] [address] [facility], [place] [address] Lab Direc tor: Lebron vasquez PhD, Phone : [phone] Not Available [facility] (Lab) [address], [place], [address], 11/16/2023 16:12:33 11/14/19 24 11/19/2023 CALPR OTECT IN, FECAL calprotectin , fecal 10 ug/g 0-120 Natalie ntrat ion Inter preta tion Follo w-Up < 5 - 50 ug/g Itzel l None >50 -120 ug/g Borde rline Re-ev aluat e in 4-6 weeks >120 ug/g Abnor mal Repea t as clini steven indic ated Perfo rmed at: [facility] [place] [address] [place] [address] [place] [address] Lab Direc tor: Carly ly MD, Phone : [phone] Not Available [facility] (Lab) [address], [place], [address], 11/19/2023 23:07:23 11/14/19 24 11/20/2023 PANCR EATIC ELAST ASE, FECAL pancreatic elastase, fecal 448 ug_el ast./ g >200 Sever e Pancr eatic Insuf ficie ncy: <100 Moder ate Pancr eatic Insuf ficie ncy: 100 - 200 Itzel l: >200 Perfo rmed at: [facility] [place] [address] [facility] , [place] [address] Lab Direc tor: Carly ly MD, Phone : [phone] Not Available [facility] (Lab) [address] , [place], [address], 11/20/2023 13:10:21 11/14/19 24 11/20/2023 PH, STOOL pH, stool 6.0 7.0-7. 5 low Test( s) 63729 1-pH, Stool was devel oped and its perfo rmanc e sal cteri stics deter mined by [facility] . It has not been clear ed or appro khushbu by the Food and Drug Admin istra tion. Perfo rmed at: [facility] [address] [place] [address] Lab Direc tor: Lebron vasquez PhD, Phone : [phone] Not Available [facility] (Lab) [address] , [place], [address], 11/20/2023 20:13:30 11/14/19 24 11/20/2023 FECAL FAT, QUALI TATIV E fats, neutral Normal Itzel l (<60 Dropl ets/H PF) Not Available [facility] (Lab) [address] , [place], [address], 11/20/2023 20:13:31 11/14/19 24 11/20/2023 FECAL FAT, QUALI TATIV E fats, total Normal Itzel l (<100 Dropl ets/H PF) Perfo rmed at: [facility] [address] [place] [address] Lab Direc tor: Lebron vasquez PhD, Phone : [phone] Not Available [facility] (Lab) [address] , [place], [address], 11/20/2023 20:13:31 Result Notes None recorded. Problems Name Problem SNOMED Code Status Onset Date Resolution Date Notes Provider Name and Address Organization Details Recorded Time Polycystic ovary syndrome 579395871 [facility] 16:41:45 Hyperlipidemia 12401981 Active 2022 Octavia redmond, [facility] 3 16:41:52 Chronic diarrhea of unknown origin 21465127 Active 2022 Nilsa Ly MD [address] [place], [address], [facility] 3 12:46:59 Problem Notes None recorded. Medical Equipment None Reported. Allergies Allergen ID Allergen Name Allergen Category Reaction Reaction Severity Criticality Documentation Date Start Date Code Code System Note Provider Name and Address Organization Details Recorded Time 929059 amoxicill in medicatio n Not available Not available Not available 10/05/2023 723 RxNorm Octavia redmond, [facility] 3 12:09:49 869746 cefdinir medicatio n Not available Not available Not available 10/05/2023 29205 Rx[facility] 3 12:10:09 Medications Name Sig Start [...] Updated DateTime 3 165.1 cm 36.4 kg/m2 28279.7 3 g 98 % 98 % 73 /min 124 mm[Hg] 78 mm[Hg] Octavia guerrero [place] [facility] 12:11:54 Social History Question Answer Notes LastModified by Organizat [employer] Details LastModified Time Tobacco Smoking Status Never Smoker Octavia Carroll null, [facility] 10/05/2023 12:13:34 What Is Your Level Of Caffeine Consumption? Moderate Information not available 10/05/2023 Sex: Unknown Functional Status Question Answer Note LastModified by Organizat ion Details LastModified Time What is your level of alcohol consumption? Occasional Information not available 10/05/2023 Mental Status None recorded. Family History Relationship [...] SNOMED-CT Code Diagnosis ICD10 Code Diagnosis Note [id number] Nilsa Ly MD DISP[facility]CR [employer] [address] [place] [address] 10/05/2023 11:47:23 10/05/2023 13:11:54 Chronic diarrhea of unknown origin 08647777 K52.9 Health Concerns Section Related Observation LastModified by Organization Detai ls LastModified Time None Recorded Concern Status LastModified by Organization Details LastModified Time None Recorded Advance Directives Directive None Recorded Payers Insurance Date Sequence Insurance Name Policy Number Policy E[employer]anks Covered Member ID Eubanks Member ID Guarantor Name 12/21/2023 1 [facility] - DOS ON OR AFTER 21 (MEDICAID REPLACEMENT - HMO) Nito Miller [id number] Nito Miller Notes Date Note Type Note [...] awakenings by the diarrhea Nilsa Ly MD [address] [place], [address], [facility] 10/05/2023 12:56:35 OBGyn Episode No OBEpisode recorded.
--- OUTSIDE RECORDS SUMMARY | 2025-03-19 08:04 | XMS_ITS | Referral Summary ---
Author Organization [facility] Address [address] [place] [id number] Care Team Providers Care Office Assistance Name Role Phone Carlos Manuel RADFORD, ELIANA, Major Aquino Primary Care Provider Allergies Active [...] on file Legal Sex Female 8:44 PM DIRECTOR OF SCIENTIFIC RESEARCH Gender Identity Not on file Sexual Orientation Not on file Last Filed Vital Signs Vital Sign Reading Time Taken Comments Blood Pressure 116/77 10/27/2015 2:49 PM DIRECTOR OF SCIENTIFIC RESEARCH Pulse 102 10/27/2015 2:49 PM DIRECTOR OF SCIENTIFIC RESEARCH Temperature 36.6 C (97.9 F) 10/27/2015 2:49 PM DIRECTOR OF SCIENTIFIC RESEARCH Respiratory Rate - - Oxygen Saturation 100% 10/27/2015 2:49 PM DIRECTOR OF SCIENTIFIC RESEARCH Inhaled Oxygen Concentration - - Weight 63.5 kg (140 lb) 10/27/2015 2:49 PM DIRECTOR OF SCIENTIFIC RESEARCH Height 165.1 cm (5' 5 ) 10/27/2015 2:49 PM DIRECTOR OF SCIENTIFIC RESEARCH Body Mass Index 23.3 10/27/2015 2:49 PM DIRECTOR OF SCIENTIFIC RESEARCH Plan of Treatment Not on file Insurance Care Teams Office Assistance Relationship Specialty Start Date End Date Major Horowitz III, NP PCP - General Family Practice 04/28/21
--- OUTSIDE RECORDS SUMMARY | 2025-03-19 08:04 | XMS_ITS | Clinical Summary ---
Author Organization [facility] Address [address] [facility] [place] [address] Care Team Providers Care Product Development Specialist Name Role Phone Ilya Vaughn MD Primary Care Provide r Source Comments [facility],non-owned Affiliates and Associated Physician Practices is amultiple site organization consisting of ambulatory clinics and hospital sitesin [place], [place], [place] and [place]. This disclosure is being madepursuant to the Care Everywhere program and may not contain all information available regarding this patient. Last updated 18.[facility] Allergies Active Allergy Reactions Criticality Noted Date [...] 36.6 C (97.9 F) 12/30/2020 10:37 AM SERVER DEVELOPER Respiratory Rate 18 12/30/2020 10:37 AM SERVER DEVELOPER Oxygen Saturation 99% 12/30/2020 10:37 AM SERVER DEVELOPER Inhaled Oxygen Concentration - - Weight 96.6 [...] 62 yrs (No Doses Required) Completed Insurance [facility] Member Subscriber Plan / Payer (Ef fective for All Dates) Name:Nito Miller Relation to Subscriber:Self Name:Nito Miller Payer ID:[id number] (NAIC) Group ID:Not on file Type:Medicaid Managed Care Address: [address] [phone] Care Teams Product Development Specialist Relationship Specialty Start Date End Date Ilya Vaughn MD [address] [place] [id number] PCP - General Pediatrics 03/05/19
--- OUTSIDE RECORDS SUMMARY | 2025-03-19 08:04 | XMS_ITS | Clinical Summary ---
Author Organization [facility] Address [address] [place] [address] Care Team Providers Care Management Coordinator Name Role Phone Carlos Manuel RADFORD NP, [...] on file Legal Sex Female 8:44 PM CARGO BROKER Gender Identity Not on file Sexual Orientation Not on file Obstetrics History Last Filed Vital Signs Vital Sign Reading Time Taken Comments Blood Pressure 116/77 10/27/2015 2:49 PM CARGO BROKER Pulse 102 10/27/2015 2:49 PM CARGO BROKER Temperature 36.6 C (97.9 F) 10/27/2015 2:49 PM CARGO BROKER Respiratory Rate - - Oxygen Saturation 100% 10/27/2015 2:49 PM CARGO BROKER Inhaled Oxygen Concentration - - Weight 63.5 kg (140 lb) 10/27/2015 2:49 PM CARGO BROKER Height 165.1 cm (5' 5 ) 10/27/2015 2:49 PM CARGO BROKER Body Mass Index 23.3 10/27/2015 2:49 PM CARGO BROKER Plan of Treatment Not on [place] [place] [address] Care Teams Management Coordinator Relationship Specialty Start Date End Date Major Horowitz III, NP PCP - General Family Practice 04/28/21
--- OUTSIDE RECORDS SUMMARY | 2025-03-19 08:05 | XMS_ITS | Data Portability ---
Author Organization [facility] [place] Address [address] [place] [address] [place] [address] Care Team Providers Care Centerpuncher Name Role Phone OSWALDO DANG Primary Care Provider [phone] FESTUS MACKAY Primary Care Provider SILVIO BRIZUELA Primary Care Provider [phone] Assessment No assessment recorded. Plan of Treatment Reminders Order Date Submit Date Provider Last Modified By Organization Details Last Modified Time Details Appointments None recorded. Lab None recorded. Referral None recorded. Procedures None recorded. Surgeries None recorded. Imaging non-stress test 2024 025 [email or web address] [place], [address], [address], [place], [address], 11:35:12 non-stress test 2024 025 [email or web address] [place], [address], [address], [place], [address], 23:34:56 US, obstetric, biophysical profile + non-stress test 2024 025 BROWN [place], [address], [address], [place], [address], 14:11:25 Medication Orders None recorded. Patient TargetsNo targets recorded. Patient InstructionsNo instructions recorded. Reason for Referral None Reported. Results Created Date Observation Date Name Description Value Unit Range Abnormal Flag Note LastModifiedBy Organization Detail LastModifiedTime 01/21/2020 0101/20/2025 CULTU RE: GROUP B STREP SCREE N, [...] Resul ting Lab: [facility] [address] [facility] [address] Tel: CULTU RE ----- ----- ----- --- No Group B strep isola mamadou at 2 days (corrie ctive broth enhan cemen t) Not Available [facility] (Lab) [address] [facility] [address], [place], [address], 01/23/2025 15:14:26 01/07/20 25 01/06/2025 US, obste tric, bioph ysica l profi le + non-s tress test No observ ation record ed. [email or web address] [place] [address], [place], [address], 01/06/2025 12:39:40 01/07/20 25 01/06/2025 US, obste tric, bioph ysica l profi le + non-s tress test No observ ation record ed. [email or web address] [address], [place], [address], 01/06/2025 11:45:38 01/07/20 25 01/06/2025 non-s tress test No observ ation record ed. [email or web address] [place] [address], [place], [address], 01/06/2025 11:11:56 01/07/20 non-s tress test No observ ation record ed. [email or web address] [place] [address], [place], [address], 01/06/2025 11:14:50 01/10/20 25 01/09/2025 non-s tress test No observ ation record ed. [email or web address] [place] [address], [place], [address], 01/09/2025 11:50:28 01/14/20 25 01/13/2025 US, obste tric, follo w-up No observ ation record ed. [email or web address] [place] [address], [place], [address], 01/13/2025 13:08:44 01/14/20 25 01/13/2025 US, obste tric, bioph ysica l profi le + non-s tress test No observ ation record ed. [email or web address] [facility] [place] [address], [place], [address], 01/13/2025 13:08:55 01/14/20 25 01/13/2025 US, obste tric, follo w-up No observ ation record ed. [email or web address] [address], [place], [address], 01/13/2025 22:27:05 01/14/20 25 01/13/2025 non-s tress test No observ ation record ed. [email or web address] [facility] [place] [address], [place], [address], 01/13/2025 10:46:06 01/14/20 non-s tress test No observ ation record ed. [email or web address] [place] [address], [place], [address], 01/13/2025 10:47:59 01/17/20 25 01/16/2025 non-s tress test No observ ation record ed. [email or web address] [place] [address], [place], [address], 01/16/2025 14:41:50 01/21/20 25 01/20/2025 US, obste tric, follo w-up No observ ation record ed. [email or web address] [place] [address], [place], [address], 01/21/2025 22:32:18 01/21/20 25 01/20/2025 US, obste tric, bioph ysica l profi le + non-s tress test No observ ation record ed. [email or web address] [address], [place], [address], 01/20/2025 12:00:13 01/21/2001/20/2025 non-s tress test No observ ation record ed. [email or web address] [place] [address], [place], [address], 01/20/2025 11:52:14 01/24/2001/23/2025 non-s tress test No observ ation record ed. [email or web address] [facility] [place] [address], [place], [address], 01/23/2025 17:09:36 01/28/2001/27/2025 US, obste tric, bioph ysica l profi le + non-s tress test No observ ation record ed. [email or web address] [facility] [place] [address], [place], [address], 01/27/2025 14:13:45 01/28/20 25 01/27/2025 US, obste tric, follo w-up No observ ation record ed. [address], [place], [address], 01/29/2025 19:50:40 01/28/20 25 01/27/2025 non-s tress test No observ ation record ed. [email or web address] [place] [address], [place], [address], 01/27/2025 11:31:22 01/30/20 25 01/23/2025 non-s tress test No observ ation record ed. [email or web address] [facility] [place] [address], [place], [address], 01/29/2025 10:20:11 01/31/2001/30/2025 non-s tress test No observ ation record ed. [email or web address] [place] [address], [place], [address], 01/30/2025 11:28:02 01/31/20 25 01/30/2025 US, obste tric, follo w-up No observ ation record ed. [email or web address] [facility] [address], [place], [address], 02/06/2025 09:09:27 02/04/20 25 02/03/2025 US, obste tric, follo w-up No observ ation record ed. [address], [place], [address], 02/05/2025 12:44:28 02/04/2002/03/2025 US, obstshayne tric, bioph ysica l profi le + non-s tress test No observ ation record ed. [email or web address] [place] [address], [place], [address], 02/03/2025 14:11:25 02/04/20 25 02/03/2025 non-s tress test No observ ation record ed. [email or web address] [place] [address], [place], [address], 02/03/2025 10:46:36 02/07/20 25 02/06/2025 non-s tress test No observ ation record ed. [email or web address] [place] [address], [place], [address], 02/06/2025 11:04:53 Result Notes None recorded. Problems Name Problem SNOMED Code Status Onset Date Resolution Date Notes Provider Name and Address Organization Details Recorded Time Family history of malignan t neoplasm of breast in first degree relative 732462370 Active 2021 mom age 32. MAMMOS TO START AT 22yo. Kym López MD [address], [place], [address], [facility] 3 19:05:45 Body mass index 30+ - obesity 521938139 Active 2021 Kym López MD [address], [place], [address], [facility] 2 10:30:27 Prediabe ilana 569260446 Active Zbigniew Ha MD [address], [place], [address], [facility] 4 11:13:08 Polycyst ic ovary syndrome 954847608 Active 2021 Kym López MD [address], [place], [address], [facility] 2 10:30:33 Pregnanc y 91110933 Completed 202302/23/2025 Mayra Douglas [facility], [facility] 5 21:42:09 COVID-19 037230757 Completed Zbigniew Ha MD [address], [place], [address], [facility] 4 11:11:29 Antiphos pholipid syndrome 28119404 Completed Baby asa, 32wk antenata l testing twice weekly; MFM referral sent 08/05/24 [facility] Schedule d 08/27 9AM U/S & Consult. Next u/s only 09/22/24 Ida redmond [facility] 4 15:25:15 Prediabe ilana 039289164 Completed Zbigniew Ha MD [address], [place], [address], [facility] 4 11:13:08 Obesity 249419880 Completed Zbigniew Ha MD [address], [place], [address], [facility] 4 11:13:33 Tachycar sade 6330438 Completed 72 hr Holter monitor order faxed 12/22 Zelda Henry [facility] 5 13:35:44 Tachycar sade 0271467 Active 72 hr Holter monitor order faxed 12/22 Zelda Henry [facility] 5 13:35:44 Problem Notes None recorded. Procedures Surgical History Date Name Laterality Status Provider Name and Address Organization Details Recorded Time 02/06/20 24 SIS completed AZEEM GROSS MD [address], [place], [address], [facility] 02/08/2024 13:14:27 10/29/19 24 Date of Last Colonoscopy completed Mayra Douglas [facility] 08/05/2024 10:47:00 10/29/19 24 Colonoscopy completed Mayra Douglas [facility] 08/05/2024 10:51:33 10/29/19 20 extraction of wisdom tooth completed Mayra Douglas [facility] 08/05/2024 10:52:02 03/31/20 19 Date of Last Mammogram completed Mayra Douglas [facility] 08/05/2024 16:54:43 10/29/19 19 repair of labial tear completed Mayra Douglas [facility] 08/05/2024 16:56:32 Imaging Results Imaging Date Name Status LastModified by Organiz ation Details LastModified Time 01/06/2025 US, obstetric, biophysical profile + non-stress test completed [email or web address] [facility] [address], [place], [address], 01/06/2025 12:39:40 01/06/2025 US, obstetric, biophysical profile + non-stress test completed [email or web address] [address], [place], [address], 01/06/2025 11:45:38 01/06/2025 [email or web address] [place] [address] [address], [place], [address], 01/06/2025 11:11:56 01/06/2025 [facility]-stress test [facility] [address], [place], [address], 01/06/2025 11:14:50 01/09/2025 non-stress test completed [email or web address] [place] [address], [place], [address], 01/09/2025 11:50:28 01/13/2025 US, obstetric, follow-up completed [email or web address] [address] [place], [address], 01/13/2025 13:08:44 01/13/2025 US, obstetric, biophysical profile + non-stress test completed [email or web address] [place] [address] [address], [place], [address], 01/13/2025 13:08:55 01/13/2025 US, obstetric, follow-up completed [email or web address] [address], [place], [address], 01/13/2025 22:27:05 01/13/2025 non-stress test active tab[address], [place], [address], 01/13/2025 10:46:06 01/13/2025 non-stress test completed [email or web address], [place], [address], 01/13/2025 10:47:59 01/16/2025 non-stress test completed [email or web address] [place] [address] [address], [place], [address], 01/16/2025 14:41:50 01/20/2025 US, obstetric, follow-up completed [email or web address] [place] [address] [address], [place], [address], 01/21/2025 22:32:18 01/20/2025 US, obstetric, biophysical profile + non-stress test completed [email or web address] [address], [place], [address], 01/20/2025 12:00:13 01/20/2025 non-stress test completed [email or web address] [facility] [place] [address], [place], [address], 01/20/2025 11:52:14 01/23/2025 non-stress test completed [email or web address] [place] [address], [place], [address], 01/23/2025 17:09:36 01/27/2025 US, obstetric, biophysical profile + non-stress test [facility] [address], [place], [address], 01/27/2025 14:13:45 01/27/2025 US, obstetric, follow-up completed [email or web address] [address], [place], [address], 01/29/2025 19:50:40 01/27/2025 non-stress test completed [email or web address] [place] [address] [address], [place], [address], 01/27/2025 11:31:22 01/23/2025 non-stress test completed [email or web address] [place] [address], [place], [address], 01/29/2025 10:20:11 01/30/2025 non-stress test completed [email or web address] [place] [address], [place], [address], 01/30/2025 11:28:02 01/30/2025 US, obstetric, follow-up completed [email or web address], [place], [address], 02/06/2025 09:09:27 02/03/2025 US, obstetric, follow-up completed [email or web address] [address], [place], [address], 02/05/2025 12:44:28 02/03/2025 US, obstetric, biophysical profile + non-stress test completed [email or web address] [facility] [place] [address], [place], [address], 02/03/2025 14:11:25 02/03/2025 non-stress test completed [email or web address] [place] [address], [place], [address], 02/03/2025 10:46:36 02/06/2025 non-stress test completed [email or web address] [place] [address], [place], [address], 02/06/2025 11:04:53 Procedure Notes None recorded. Medical Equipment None Reported. Allergies Allergen ID Allergen Name Allergen Category Reaction Reaction Severity Criticality Documentation Date Start Date Code Code System Note Provider Name and Address Organization Details Recorded Time 97140 amoxicill in medicatio n Not available Not available Not available 03/24/2022 723 RxNorm Kellyshayne Thompson ruy, [facility] 4 15:12:26 12199 cefdinir medicatio n Not available Not available Not available 03/24/2022 22856 RxNorm Other react ions and sever ities : 'Anap hylax is - Moder ate'. Lara redmond, [facility] 4 15:34:29 88962 amoxicill in trihydrat e medicatio n rash moderate Not available 01/02/2024 49660 8 RxNorm Lara redmond, [facility] 4 15:34:29 59676 ethinyl estradiol / levonorge strel medicatio n Not available Not available Not available 01/02/2024 93067 8 RxNorm AZEEM GROSS MD [address], [place], [address], [facility] 4 11:01:47 Medications Name Sig Start [...] 6 HOURS NEEDED FOR NAUSEA AND VOMITING 03/12 completed Not Available Not Available Not Available bromocripti ne 02/03 completed Not Available [...] Address Organization Details Last Updated DateTime 02/03/2025 136710.3 5354 g 40.3 kg/m2 165.1 cm 111 mm[Hg] 74 mm[Hg] Mayra Douglas [facility] 5 10:36:14 Date Recorded Body height Body mass index (BMI) Body weight Systolic blood pressure Diastolic blood pressure Provider Name and Address Organization Details Last Updated DateTime 02/03/2025 165.1 cm 40.1 kg/m2 601791.7 6 g 111 mm[Hg] 74 mm[Hg] IVETH Dacosta [facility] 5 10:45:52 Date Recorded Body height Body mass index (BMI) Body weight Systolic blood pressure Diastolic blood pressure Provider Name and Address Organization Details Last Updated DateTime 02/06/2025 165.1 cm 40.4 kg/m2 597610.9 5 g 117 mm[Hg] 80 mm[Hg] IVETH [facility] 5 11:04:14 Date Recorded Body height Body mass index (BMI) Body weight Systolic blood pressure Diastolic blood pressure Provider Name and Address Organization Details Last Updated DateTime 03/12/2025 165.1 cm 35.8 kg/m2 02062.36 g 122 mm[Hg] 83 mm[Hg] Kathi Helio [facility] 5 12:49:17 Social History Question Answer Notes LastModified by Organizat ion Details LastModified Time Tobacco Smoking Status Never Smoker [facility] 12/22/2022 11:27:20 Do You Have An Advance Directive? No Information n ot available 01/02/2024 If You Are , What Was Your Level Of Alcohol Consumption Prior To ? Occasional [email or web address] Information not available 08/05/2024 How Many Years Have You Consumed Alcohol? 5 Information not available 01/02/2024 Are You Blind Or Do You Have Difficulty Seeing? No Information n ot available 01/02/2024 What Is Your Level Of Caffeine Consumption? Heavy [email or web address] Information not available 07/11/2024 In The 14 [...] Known To Be High Risk For COVID-19? No [email or web address] Information not available 03/12/2025 Are You Deaf Or Do You Have Serious Difficulty Hearing? No Information not available 01/02/2024 What Type Of Diet Are You Following? REGULAR Information n ot available 01/02/2024 What Is The Highest Grade Or Level Of School You Have Completed Or The Highest Degree You Have Received? [id number] [email or web address] Information not available 07/11/2024 Are There Any Guns Present In Your Home? No [email or web address] Information not available 07/11/2024 Have You Ever Been Counseled For Unhealthy Alcohol Use? No [email or web address] Information not available 12/22/2022 Do You Use Protection During Sex? No Information not available 01/02/2024 Do You Use Your Seat Belt Or Car Seat Routinely? Yes Information not available 01/02/2024 Are You Sexually Active? Yes [email or web address] Information not available 12/25/2024 Do You Have Smoke And Carbon Monoxide Detectors In Your Home? Yes Information not available 01/02/2024 How Much Tobacco Do You Smoke? No [email or web address] Information not available 07/11/2024 Do You Use Sunscreen Routinely? Yes [email or web address] Information not available 07/11/2024 Has Tobacco Cessation Counseling Been Provided? No [email or web address] Information not available 12/22/2022 Have You Used IV Drugs? No Information not available 01/02/2024 Do You Have Difficulty Walking Or Climbing Stairs? No [email or web address] Information not available 08/05/2024 Sex: Unknown Functional Status Question Answer Note LastModified by Organizat ion Details LastModified Time Do you use any illicit or recreational drugs? No [email or web address] Information not available 03/24/2022 Do you or have you ever used any other forms of tobacco or nicotine? No Information not available 12/22/2022 What is your level of alcohol consumption? None [email or web address] Information not available 08/05/2024 Are you currently employed? Yes [email or web address] Information not available 01/13/2025 Are you able to walk? YESWOREST Information not available 01/02/2024 Are you able to care for yourself? Yes [email or web address] Information n ot available 08/05/2024 What is your occupation? [employer] [email or web address] Information not available 07/11/2024 Do you have difficulty dressing or bathing? No [email or web address] Information not available 08/05/2024 What is your exercise level? Occasional [email or web address] Information not available 07/11/2024 Mental Status Question Answer Note LastModified by Organization D etails LastModified Time Do you feel stressed (tense, restless, nervous, or anxious, or unable to sleep at night)? [id number] Information not available 01/02/2024 Family History Relationship Description Onset Age of this Age Resolved Age Notes LastModified by Organization Details LastModified Time Mother Anemia [email or web address] Not available 07/11/2024 14:23:29 Mother Carcinoma in situ of breast Not available 2024 09:19:38 Mother Substance abuse meth,a lcohol [email or web address] Not available 07/11/2024 14:23:29 Mother Mental disorder [email or web address] Not available 2023 14:23:29 Mother Hypertensive disorder [email or web address] Not available 2023 14:23:29 Mother Depressive disorder [email or web address] Not available 2023 14:23:29 Mother Anxiety disorder [email or web address] Not available 2023 14:23:29 Mother Malignant tumor of cervix [email or web address] Not available 08/05 16:55:25 Mother Bipolar disorder [email or web address] Not available 2024 09:19:38 Mother Seizure disorder [email or web address] Not available 2024 09:19:38 Father Mental disorder Not available 2023 14:23:29 Father Hypertensive disorder [email or web address] Not available 2023 14:23:29 Father Anxiety disorder [...] of Flow (days) 5 Current Control Method Breastfeedi ng/DOS SANTOS Are cycles usually normal N Sexually Active? Y Menses Monthly N Date of DEXA bone scan Age of first menstrual cycle 14 Date of Last Pap Smear Sexual Problems? N LMP Definite N Obstetrics History GPAL:G 3 P 1 0 2 1 Type Value Full Term 1 Spontaneous 2 Living 1 Total 3 Past Encounters Encounter ID Performer Location Encounter Start Date Encounter Closed Date Diagnosis/Indication Diagnosis SNOMED-CT Code Diagnosis ICD10 Code Diagnosis Note [id number] Kym López MD [facility] [address] [address] 03/24/2022 09:46:53 03/24/2022 11:19:51 Polycystic ovary syndrome 777912921 E28.2 Irregular periods 304271 07 N92.6 Trying to conceive 33372 9001 Z31.9 Prediabetes 438655060 R7 3.03 Body mass index 30+ - obesity 193598640 Z68.36 Family his tory of malignant neoplasm of breast in first degree relative 131771221 Z80.3 mom in early 30s [id number] Kym óLpez MD [facility] [address],[place] [address] 05/09/2022 16:41:02 05/10/2022 14:59:10 Complete miscarriage 465081467 O03.9 Polycystic ovary syndrome 090356418 E28.2 Prediabetes 613721397 R7 3.03 [id number] Kym López MD [facility] [address],[place] [address] 12/22/2022 11:27:13 12/25/2022 16:22:36 Polycystic ovary syndrome 056298227 E28.2 Family his tory of malignant neoplasm of breast in first degree relative 413476120 Z80.3 mom in early 30s Body mass index 30+ - obesity 807347838 Z68.36 Trying to conceive 69120 9001 Z31.9 [id number] MURPHY Ortega [facility] [address],[place] [address] 01/02/2024 15:27:31 01/02/2024 16:16:49 Reproductive care management 492066625 Z31.9 Discussed TTC/timed IC, OPKs, etcencoura ged daily PNVrecomme nded updated labs and pelvic u/sdiscuss ed semen anaylsis for partnerRTC for pelvic u/s and fertility consult with Dr. Villela uraged to schedule WWE/due for primary pap Time spent in visit is a total of 25 mins with at least 50% of visit consisting of counseling and review of plan of care. [id number] Zbigniew Ha MD [facility] [address],[place] [address] 01/07/2024 12:17:44 01/07/2024 13:06:12 Abnormal uterine bleeding 6917208434 9100 N93.9 N97.9 [id number] AZEEM GROSS MD [facility] [address],[place] [address] 01/23/2024 16:05:33 01/23/2024 17:21:25 Recurrent miscarriage 799700686 N96 - Differenti al diagnosis of cause of infertilit y includes: PCOS, poke in y disorder, male factor, structural - We [...] planning and treatment options Polycystic ovary syndrome 278690540 E28.2 [id number] AZEEM GROSS MD [facility] [address],[facility] [place] [address] 02/06/2024 16:19:33 02/07/2024 11:09:35 Female infertility 8259750 N97.9 [id number] AZEEM GROSS MD [facility] [address],[facility] [place] [address] 02/06/2024 16:19:54 02/08/2024 09:11:01 Recurrent miscarriage 255241124 N96 - Differenti al diagnosis of cause of infertilit y includes: PCOS, poke in y disorder, male factor, structural - We [...] of intrauteri ne pathology- Semen analysis wnl [id number] Zbigniew Ha MD [facility] [address],[place] [address] 07/11/2024 14:08:47 07/11/2024 14:45:03 [id number] AZEEM GROSS MD [facility] [address],[place] [address] 07/11/2024 14:55:15 07/11/2024 15:44:22 screening 614961986 Z36.89 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 Exam today within normal limits.2. 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 - continue bromocrypt ine [id number] Zbigniew Ha MD [facility] [address],[place] [address] 08/05/2024 09:44:03 08/05/2024 10:49:10 screening 217368688 Z36.82 Z3A.12 [id number] Zbigniew Ha MD [facility] [address],[place] [address] 08/05/2024 09:44:29 08/05/2024 11:51:12 Gestation period, 11 weeks 96246934 Z3A.11 Routine an tenatal care 169594517 Z34.90 [id number] AZEEM GROSS MD [facility] [address],[place] [address] 09/02/2024 10:34:54 09/05/2024 12:13:07 Prediabetes 035929794 R73.03 - early GTT per [facility] Maternal o besity complicating , childbirth and the puerperium, antepartum 1736989572 07 O99.210 Antiphosph olipid syndrome 43402840 D68.61 - 162mg ASA daily- per MFM, no lovenox needed Gestation period, 16 weeks 48068616 Z3A.16 - continue PNV [id number] AZEEM GROSS MD [facility] [address],[place] [address] 09/30/2024 09:43:12 09/30/2024 10:43:21 Body mass index 30+ - obesity 697035333 Z68.36 - testing at 37 weeks Antiphosph olipid syndrome 76113203 D68.61 - 162mg ASA daily- per MFM, no lovenox needed Prediabetes 209790553 R7 3.03 - passed early GTT at 16 weeks- repeat at 28 weeks Gestation period, 19 weeks 12300646 Z3A.19 - continue PNV [id number] AZEEM GROSS MD [facility] [address],[place] [address] 10/30/2024 09:15:17 10/30/2024 16:23:42 Prediabetes 018905525 R73.03 - passed early GTT at 16 weeks- repeat at 28 weeks Maternal o besity complicating , childbirth and the puerperium, antepartum 9058243184 07 O99.210 Antiphosph olipid syndrome 93282551 D68.61 - 162mg ASA daily- per MFM, no lovenox needed Gestation period, 24 weeks 452707431 Z3A.24 [id number] Zbigniew Ha MD [facility] [address],[place] [address] 11/25/2024 09:48:28 11/25/2024 10:41:01 condition affecting obstetrical care of mother [id number] O35.3XX0 O99.212 Z3A.27 [id number] AZEEM GROSS MD [facility] [address] [place] [address] 11/25/2024 09:48:40 11/25/2024 11:26:25 Antiphospholipid syndrome in 8422394468 9100 O99.119 - ASA 162mg- plan for twice weekly testing starting at 32 weeks- continue serial growth US Gestation period, 27 weeks 84266209 Z3A.27 - continue PNV- GCT and labs today Breech presentation 6096 002 O32.1XX9 [id number] AZEEM GROSS MD [facility] [address],[place] [address] 12/22/2024 09:24:48 12/22/2024 10:19:21 Antiphospholipid syndrome in 2756268203 9100 O99.119 - ASA 162mg- plan for twice weekly testing starting at 32 weeks- continue serial growth US [id number] Zbigniew Ha MD [facility] [address],[place] [address] 12/25/2024 09:19:34 12/25/2024 10:02:33 Pre-existing maternal disease complicating 4283054416 6106 O99.891 Z86.16 O99.210 Z3A.32 [id number] AZEEM GROSS MD [facility] [address],[place] [address] 12/25/2024 09:21:40 12/25/2024 10:56:47 Antiphospholipid syndrome in 5596814407 9100 O99.119 - ASA 162mg- plan for twice weekly testing starting at 32 weeks- continue [place] [id number] AZEEM GROSS MD [facility] [address],[place] [address] 12/25/2024 09:22:24 12/25/2024 11:14:34 Tachycardia 2935022 R00.0 - HR up to 150s while standing at work- reviewed CBC, TSH, T4 from PCP, all overall normal for - Holter monitor in progress- may d/c work if Holter abnormalit y found or if patient continues to be symptomati c Antiphosph olipid syndrome 19010999 D68.61 - 162mg ASA daily- per MFM, no lovenox needed- twice weekly testing Body mass index 30+ - obesity 928596297 Z68.36 - testing at 37 weeks Gestation period, 32 weeks 0464224 Z3A.32 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 - mesenteric mass partially imaged on CT PE- recommend PP imaging for full evaluation with CT AP with contrast [id number] AZEEM GROSS MD [facility] [address],[place] [address] 12/29/2024 09:20:12 12/29/2024 10:04:25 Antiphospholipid syndrome in 6075707361 9100 O99.119 - ASA 162mg- plan for twice weekly testing starting at 32 weeks- continue serial growth US [id number] Zbigniew Ha MD [facility] [address],[place] [address] 12/29/2024 09:26:47 12/29/2024 10:22:57 Pre-existing maternal disease complicating 6809713290 6106 O99.891 Z86.16 O99.210 Z3A.32 [id number] AZEEM GROSS MD [facility] [address],[place] [address] 12/29/2024 09:31:48 12/29/2024 11:07:48 Tachycardia 7749239 R00.0 - HR up to 150s while standing at work- reviewed CBC, TSH, T4 from PCP, all overall normal for - Holter monitor results pending- will d/c working due to symptoms Antiphosph olipid syndrome 50955203 D68.61 - 162mg ASA daily- per MFM, no lovenox needed- twice weekly testing Gestation period, 33 weeks 29839820 Z3A.33 - continue PNV [id number] AZEEM GROSS MD [facility] [address],[place] [address] 01/01/2025 11:25:45 01/01/2025 12:26:46 Antiphospholipid syndrome in 9094588984 9100 O99.119 - ASA 162mg- plan for twice weekly testing starting at 32 weeks- continue serial growth [place] [id number] Zbigniew Ha MD [facility] [address],[place] [address] 01/06/2025 09:55:01 01/06/2025 10:39:39 Maternal obesity complicating , childbirth and the puerperium, antepartum 1458141200 07 O99.213 O99.891 Z3A.34 [id number] AZEEM GROSS MD [facility] [address],[place] [address] 01/06/2025 09:55:10 01/06/2025 11:19:26 Antiphospholipid syndrome in 0946357184 9100 O99.119 [id number] AZEEM GROSS MD [facility] [address],[place] [address] 01/06/2025 09:55:26 01/06/2025 11:39:12 Antiphospholipid syndrome 36169887 D68.61 - 162mg ASA daily- per MFM, no lovenox needed- twice weekly testing Tachycardia 1800335 R00. 0 - HR up to 150s while standing at work- reviewed CBC, TSH, T4 from PCP, all overall normal for - Holter monitor results overall normal- will d/c working due to symptoms Gestation period, 34 weeks 51344526 Z3A.34 - continue PNV [id number] AZEEM GROSS MD [facility] [address],[place] [address] 01/09/2025 10:52:18 01/09/2025 12:00:03 Antiphospholipid syndrome in 1054159201 9100 O99.119 [id number] Zbigniew Ha MD [facility] [address],[place] [address] 01/13/2025 09:18:58 01/13/2025 10:06:16 Maternal obesity complicating , childbirth and the puerperium, antepartum 7859653466 07 O99.213 O99.891 Z86.16 Z3A.35 [id number] AZEEM GROSS MD [facility] [address],[place] [address] 01/13/2025 09:19:28 01/13/2025 10:57:36 Antiphospholipid syndrome in 7318108021 9100 O99.119 [id number] AZEEM GROSS MD [facility] [address],[place] [address] 01/13/2025 09:19:42 01/13/2025 11:10:04 Antiphospholipid syndrome 93584754 D68.61 - 162mg ASA daily- per MFM, no lovenox needed- twice weekly testing Tachycardia 0595658 R00. 0 - HR up to 150s while standing at work- reviewed CBC, TSH, T4 from PCP, all overall normal for - Holter monitor results overall normal- d/c working due to symptoms- tachycardi a stable Gestation period, 35 weeks 51950991 Z3A.35 [id number] AZEEM GROSS MD [facility] [address],[place] [address] 01/16/2025 10:20:53 01/16/2025 14:44:10 Antiphospholipid syndrome in 5218848657 9100 O99.119 [id number] Zbigniew Ha MD [facility] [address],[place] [address] 01/20/2025 10:17:37 01/20/2025 10:49:49 Pre-existing maternal disease complicating 0601345107 6106 O99.891 O99.210 Z3A.36 [id number] Zbigniew Ha MD [facility] [address],[place] [address] 01/20/2025 10:18:02 01/20/2025 11:43:03 Antiphospholipid syndrome in 8508673019 9100 O99.119 [id number] Soumya Soriano [facility] [address],[place] [address] 01/20/2025 10:18:15 01/20/2025 11:44:02 Gestation period, 36 weeks 33713871 Z3A.36 [id number] AZEEM GROSS MD [facility] [address],[place] [address] 01/23/2025 10:15:38 01/26/2025 06:51:20 Antiphospholipid syndrome in 5678609398 9100 O99.119 [id number] AZEEM GROSS MD [facility] [address] [place] [address] 01/27/2025 09:50:12 01/27/2025 11:58:53 Tachycardia 4295150 R00.0 - HR up to 150s while standing at work- reviewed CBC, TSH, T4 from PCP, all overall normal for - Holter monitor results overall normal- d/c working due to symptoms- tachycardi a stable Body mass index 30+ - obesity 945482395 Z68.36 - testing at 37 weeks Antiphosph olipid syndrome 32434402 D68.61 - 162mg ASA daily- per MFM, no lovenox needed- twice weekly testing Gestation period, 37 weeks 31310811 Z3A.37 [id number] Zbigniew Ha MD [facility] [address],[place] [address] 01/27/2025 09:51:29 01/27/2025 10:26:43 Maternal obesity complicating , childbirth and the puerperium, antepartum 0501381618 07 O99.213 O99.891 Z86.16 Z3A.37 [id number] AZEEM GROSS MD [facility] [address] [place] [address] 01/27/2025 09:52:02 01/27/2025 11:35:13 Antiphospholipid syndrome in 4752608475 9100 O99.119 [id number] [facility] [address] [place] [address] 01/30/2025 10:19:40 01/30/2025 11:58:44 Antiphospholipid syndrome 45144107 D68.61 [id number] Zbigniew Ha MD [facility] [address] [place] [address] 02/03/2025 09:19:18 02/03/2025 10:18:23 Pre-existing maternal disease complicating 5117477527 6106 O99.891 O99.210 Z3A.38 [id number] Soumya Soriano CNM [facility] [address] [place] [address] 02/03/2025 09:37:00 02/03/2025 10:47:50 Antiphospholipid syndrome in 0062045600 9100 O99.119 [id number] Soumya Soriano CNM [facility] [address] [place] [address] 02/03/2025 09:37:23 02/03/2025 10:49:53 Gestation period, 38 weeks 57060292 Z3A.38 [id number] [facility] [address],[place] [address] 02/06/2025 10:20:57 02/06/2025 11:35:11 Antiphospholipid syndrome in 8628701870 9100 O99.119 [id number] Zbigniew Ha MD [facility] [address],[place] [address] 02/09/2025 09:40:40 02/25/2025 11:48:29 [id number] Zbigniew Ha MD [facility] [address],[place] [address] 03/12/2025 12:15:46 03/12/2025 13:13:44 care status 001708516 Z39.2 this patient is a 24-year-ol d female who presents for visit. She is breastfeed ing. The baby is doing well. She is doing well. Her mood is good. Her bleeding has resolved. She has not had intercours e. She is undecided about contracept ion. She will follow up in 3 months for well-woman exam. Health Concerns Section Related Observation LastModified by Organization Detai ls LastModified Time None Recorded Concern Status LastModified by Organization Details LastModified Time None Recorded Advance Directives Directive N: Payers Encounter Date Sequence Insurance Name Policy Number Policy [employer] Covered Member ID Eubanks Member ID Guarantor Name 02/03/2025 1 [employer] [id number] [facility] [place] [id number] [facility] 02/03/2025 2 [place] [facility] [place] [id number] [facility] [place] 02/03/2025 1 [employer] [id number] [facility] [place] [id number] [facility] [place] 02/03/2025 2 [place] [facility] [employer] Paul [id number] [facility] [place] 02/06/2025 1 [employer] [id number] [facility] [place] [id number] [facility] [place] 02/06/2025 2 [place] [facility] PUBLIC [facility] Paul [id number] Nito Miller 02/08/2025 1 [id number] Nito Miller [id number] Nito Miller 02/08/2025 2 [place] [facility] Nito Miller [id number] Nito Miller 03/12/2025 1 [id number] Nito Miller [id number] Nito Miller 03/12/2025 2 [place] [facility] Nito Miller [id number] Nito Miller Notes Date Note Type Note Provider Name and Address Organization Details Recorded Time 03/12/2025 text/html this patient is a 24-year-old female who presents for visit. She is . The baby is doing well. She is doing well. Her mood is good. Her bleeding has resolved. She has not had intercourse. She is undecided about contraception. She will follow up in 3 months for well-woman exam. Zbigniew Ha MD [address], [place], [address], [facility] 03/12/2025 13:10:32 OBGyn Episode Ob Episode Information Episode Created Date Number of Fetuses Patient Bloodtype Patient rh Status Prepregnancy Weight lbs Domestic Partner Domestic Partner Phone Father Name Balling Head Tender Status 02/14/20 23 1 CLOSED Fetus Data First Name Last Name Admitted to NICU Weight (g) Sex Living Outcome Pediatric Complications Fetus ID Race Codes Race Delivery Type , Spontane ous [id number] Chad Calculation Initial Chad Date Initial Exam [...] Domestic Partner Domestic Partner Phone Father Name Balling Head Tender Status 01/02/20 24 1 CLOSED Fetus Data First Name Last Name Admitted to NICU Weight (g) Sex Living Outcome Pediatric Complications Fetus ID Race Codes Race Delivery Type [id number] Chad Calculation Initial Chad Date Initial Exam [...] Domestic Partner Domestic Partner Phone Father Name Balling Head Tender Status 08/05/20 24 1 O Positive 224 CLOSED Fetus Data First Name Last Name Admitted to NICU Weight (g) Sex Living Outcome Pediatric Complications Fetus ID Race Codes Race Delivery Type 4139.02 7 F true Full Term [id number] Vaginal Delivery Problems Problem Notes 10/20/24 7:30am u/s onlyLD [...] Resolution Snomed Code Not e Antiphospholipid syndrome 88653022 Baby asa, 32wk testing twice weekly; MFM referral sent 08/05/24 SSMScheduled 08/27 9AM U/S & Consult. Next u/s only 09/22/24 Prediabetes 514538707 COVID-19 550354087 Obesity 669464813 Tachycardia 5770867 72 hr Ho lter monitor order faxed [...] Date Ultra Sound Latest Days Gestation 0 [email or web address] 12/29/2024 02/16/20 25 0 Pre-eyal Flowsheet Flowsheet [...] Type Weight in lbs Pre/Post Dialysis Refused 218.036561830067 BP Diastolic BP Location Tested BP Systolic [...] Weight in lbs Pre/Post Dialysis Refused Weight 213.404517622013 BP Diastolic BP Location Tested BP Systolic BP Type 69 L arm 110 sitting Fetus Heart Rate Present Fetus Movement A No Comments Doing well, no cramping or b leeding. No movement yet. NIPT LR female! Saw [facility], recommend 162mg ASA, does not recommend lovenox. Will do early 1h GTT next week, stop metformin today. Anatomy US at [facility]. RTC 4 weeks. Flowsheet Date 09/30/2024 Reinoso Score Blood Edema Fundus Height Fundus Units Glucose Ketones Leukocytes Nitrite Labor Signs Protein Cervic Dilation Cervic Effacement Cervic Station neg none Type Weight in lbs Pre/Post Dialysis Refused Weight 221.367218542553 BP Diastolic BP Location Tested BP Systolic [...] Type Weight in lbs Pre/Post Dialysis Refused 222.01783905770 BP Diastolic BP Location Tested BP Systolic BP Type 70 L arm 105 sitting Fetus Heart Rate Present A 140 Fetus Movement A Yes Comments Patient c/o of Jackson Gill . Good movement. No bleeding. Placenta no longer low lying. Patient would like to restart US/monitoring at [facility] due to distance, will transfer orders here. [...] Weight in lbs Pre/Post Dialysis Refused Weight 227.6695814461 BP Diastolic BP Location Tested BP Systolic BP Type 74 L arm 117 sitting Fetus Heart Rate Present A Present Fetus Movement A Yes Comments Patient c/o Jackson Gill. N o bleeding. Good movement. EFW 59%, footling breech. Will start testing twice weekly at 32 weeks for APLS. GCT and labs today. RTC 2 weeks. Flowsheet Date 12/22/2024 Reinoso Score Blood Edema Fundus Height Fundus Units Glucose Ketones Leukocytes Nitrite Labor Signs Protein Cervic Dilation Cervic Effacement Cervic Station Type Weight in lbs Pre/Post Dialysis Refused Weight 232.5598990587 BP Diastolic BP Location Tested BP Systolic [...] Type Weight in lbs Pre/Post Dialysis Refused 230.418679389404 BP Diastolic BP Location Tested BP Systolic [...] Weight in lbs Pre/Post Dialysis Refused Weight 233.361566981321 BP Diastolic BP Location Tested BP Systolic [...] Weight in lbs Pre/Post Dialysis Refused Weight 234.017887120926 BP Diastolic BP Location Tested BP Systolic [...] Type Weight in lbs Pre/Post Dialysis Refused 234.195069745411 BP Diastolic BP Location Tested BP Systolic BP Type 74 L arm 110 sitting Fetus Heart Rate Present Fetus Movement Comments Flowsheet Date 01/06/2025 Reinoso Score Blood Edema Fundus Height Fundus Units Glucose Ketones Leukocytes Nitrite Labor Signs Protein Cervic Dilation Cervic Effacement Cervic Station neg none Type Weight in lbs Pre/Post Dialysis Refused Weight 234.445708173185 BP Diastolic BP Location Tested BP Systolic BP Type 74 L arm 110 sitting Fetus Heart Rate Present A 140 Fetus Movement A Yes Comments Patient c/o Jackson Gill. G ood movement. Still having palpitations while being more active. Resolves with rest. BPP 08/07. Would like induction on 02/08. Induction methods reviewed. Continue testing. Flowsheet Date 01/09/2025 Reinoso Score Blood Edema Fundus Height Fundus Units Glucose Ketones Leukocytes Nitrite Labor Signs Protein Cervic Dilation Cervic Effacement Cervic Station Type Weight in lbs Pre/Post Dialysis Refused Weight 236.756222751075 BP Diastolic BP Location Tested BP Systolic [...] Weight in lbs Pre/Post Dialysis Refused Weight 235.906142900236 BP Diastolic BP Location Tested BP Systolic [...] Weight in lbs Pre/Post Dialysis Refused Weight 237.1707112286 BP Diastolic BP Location Tested BP Systolic [...] Weight in lbs Pre/Post Dialysis Refused Weight 238.778238525055 BP Diastolic BP Location Tested BP Systolic BP Type 74 L arm 117 sitting Fetus Heart Rate Present Fetus Movement Comments Flowsheet Date 01/20/2025 Reinoso Score Blood Edema Fundus Height Fundus Units Glucose Ketones Leukocytes Nitrite Labor Signs Protein Cervic Dilation Cervic Effacement Cervic Station Type Weight in lbs Pre/Post Dialysis Refused 238.428253267077 BP Diastolic BP Location Tested BP Systolic [...] Weight in lbs Pre/Post Dialysis Refused Weight 240.345939820940 BP Diastolic BP Location Tested BP Systolic [...] Weight in lbs Pre/Post Dialysis Refused Weight 240.234550143196 BP Diastolic BP Location Tested BP Systolic [...] Weight in lbs Pre/Post Dialysis Refused Weight 244.617314629229 BP Diastolic BP Location Tested BP Systolic [...] Weight in lbs Pre/Post Dialysis Refused Weight 241.341924649570 BP Diastolic BP Location Tested BP Systolic BP Type 74 L arm 111 sitting Fetus Heart Rate Present Fetus Movement Comments Flowsheet Date 02/03/2025 Reinoso Score Blood Edema Fundus Height Fundus Units Glucose Ketones Leukocytes Nitrite Labor Signs Protein Cervic Dilation Cervic Effacement Cervic Station neg trace 2cm 80% -2 Type Weight in lbs Pre/Post Dialysis Refused 242.717307567045 BP Diastolic BP Location Tested BP Systolic [...] Weight in lbs Pre/Post Dialysis Refused Weight 243.621753794535 BP Diastolic BP Location Tested BP Systolic BP Type 80 L arm 117 sitting Fetus Heart Rate Present Fetus Movement Comments Flowsheet Date 02/08/2025 Reinoso Score Blood Edema Fundus Height Fundus [...] Post Complications Tubal Sterilization Discharge Date Comments 5 Induce d 39.1 5.43 Zbigniew Ha MD antiphosp holipid syndromeC OVID-19ob esitypred iabetesta chycardia Discharge Information Feeding Method Contraceptive Method Maternal HG B and HCT Levels
--- OUTSIDE RECORDS SUMMARY | 2025-03-19 08:05 | XMS_ITS | Clinical Summary ---
Author Organization [facility] Address [address] [place] [address] Phone Care Team Providers Care Babbitt Spinner Name Role Phone Provider, Unknown Primary Care [...] on file Legal Sex Female 2:45 AM [employer] Gender Identity Not on file Sexual Orientation [...] age to complete this topic Care Teams Babbitt Spinner Relationship Specialty Start Date End Date Provider, Unknown UNKNOWN PCP - General 12/12/12
== END 2025-03-19 07:59 | disposition home or self-care (01) ==
PROVIDERS: PCP Family Medicine; Visit Provider Family Medicine
DX: R19.00 Intra-abdominal and pelvic swelling, mass and lump, unspecified site (principal)
CPT/HCPCS: 74177; Q9967